=== PATIENT | male | born 1945 | race Caucasian/White ===

== ENCOUNTER → 2017-04-06 | Outpatient (CLI) | payer MEDICARE ==
--- NOTE | 2017-04-06 08:47 | CT ---
EXAMINATION TYPE: CT lumbar spine wo con DATE OF EXAM: 04/06/2017 COMPARISON: NONE HISTORY: Low back pain, Radiculopathy CT DLP: 1615.[address] of the lumbar spine was performed. Bone and soft tissue window settings are submitted as well as coronal and sagittal reconstructions. L1-L2: Vacuum disc changes. Mild circumferential disc bulge. No disc herniation protrusion or central stenosis. Mild facet joint arthropathy without foraminal encroachment. L2-L3: Vacuum disc changes. Mild circumferential disc bulge. No disc herniation protrusion or central stenosis. Mild facet joint arthropathy without foraminal encroachment. L3-L4: Vacuum disc changes. Moderate circumferential disc bulge. Effacement of the ventral thecal sac . Hypertrophy of the ligamentum flavum and facet joint arthropathy contribute to rsom-[id number]-[id number] jose cruz tral stenosis. Grade 1 retrolisthesis L3 on L4 of 3 mm. L4-L5: Vacuum disc changes. 9 mm anterolisthesis of L4 and L5. Severe facet joint arthropathy. Modera te circumferential disc bulge greatest posteriorly. Severe central stenosis identified. Bilateral for aminal encroachment seen. L5-S1: Vacuum disc changes. Broad-based right paracentral disc herniation effaces the ventral thecal sac. Right lateral recess stenosis. No evidence for central stenosis. Bilateral foraminal encroachmen t. No paraspinal masses are identified. No compression fractures identified. IMPRESSION: 1. Multilevel degenerative disc disease. 2. Multilevel central stenosis as discussed above.
== END | disposition home or self-care (01) ==
LOC: RADCTMAIN 07:11
PROVIDERS: ATTEND Orthopaedic Surgery Orthopaedic Surgery of the Spine
DX: M48.061 Spinal stenosis, lumbar region without neurogenic claudication (principal); M51.36 Other intervertebral disc degeneration, lumbar region
CPT/HCPCS: 72131

== ENCOUNTER 2017-06-15 22:18 | Emergency (ER) | payer MEDICARE ==
[2017-06-15 22:24] VITALS: TEMP 98.7
--- NOTE | 2017-06-15 22:28 | ED ---
Chest Pain HPI - General Chief Complaint: Chest Pain Stated Complaint: Chest Pain Time Seen by Provider: 06/15/17 22:27 Source: patient Mode of arrival: wheelchair Limitations: no limitations - Related Data Home Medications Medication Instructions Recorded Confirmed Aspirin 81 mg PO DAILY 07/05/14 10/23/14 Atorvastatin [Lipitor] 80 mg PO HS 07/05/14 10/23/14 Doxazosin [Cardura] 2 mg PO HS 07/05/14 10/23/14 Furosemide [Lasix] 40 mg PO DAILY 07/05/14 10/23/14 Isosorbide Mononitrate ER [Imdur] 60 mg PO DAILY 07/05/14 10/23/14 Levothyroxine Sodium [Synthroid] 175 mcg PO DAILY 07/05/14 10/23/14 Metoprolol Tartrate [Lopressor] 50 mg PO HS 07/05/14 10/23/14 Metoprolol Tartrate [Lopressor] 100 mg PO QAM 07/05/14 10/23/14 Niacin [Niacin ER] 2,000 mg PO HS 07/05/14 10/23/14 buPROPion SR [Wellbutrin SR] 150 mg PO BID 07/05/14 10/23/14 Cholecalciferol [Vitamin D3] 2,000 unit PO DAILY@1200 10/23/14 10/23/14 Hydrocodone/Acetaminophen [[place] 1 tab PO Q6HR PRN 10/23/14 10/23/14 5-325] Lecathin 1,200 mg PO DAILY 10/23/14 10/23/14 Multivitamin [Men's Multi-Vitamin] 1 tab PO DAILY 10/23/14 10/23/14 Phenylephrine 0.5% Nasal Gary 1 ml NASAL Q4H PRN 10/23/14 10/23/14 [Sahil-Synephrine 0.5% Gary] Vitamin B Complex 1 tab PO DAILY 10/23/14 10/23/14 Allergies Allergy/AdvReac Type Severity Reaction Status Date / Time cromolyn sodium AdvReac fungal Verified 10/23/14 14:58 [From Nasalcrom] infection on tongue Review of Systems ROS Statement: Those systems with pertinent positive or pertinent negative responses have been documented in the HPI. ROS Other: All systems not noted in ROS Statement are negative. Past Medical History Past Medical History: Eye Disorder, Hyperlipidemia, Hypertension, Myocardial Infarction (non Q-wave), Prostate Disorder, Thyroid Disorder Additional Past Medical History / Comment(s): Beginnings of cataracts bilat eyes Last Myocardial Infarction Date:: 05/01/2000 History of Any Multi-Drug Resistant Organisms: None Reported Past Surgical History: Cardiac Valve Replacement, Coronary Bypass/CABG, Heart Catheterization With Stent, Orthopedic Surgery Additional Past Surgical History / Comment(s): CABG-1999. LT EAR AVULSION REPAIR. FATTY TUMOR REMOVED FROM JAW. GANGLION CYSTECTOMY RT RING FINGER. RT FEMORAL ARTERY REPAIR 01/27/13. BILAT ROTATOR CUFF REPAIR. COLONOSCOPY Past Anesthesia/Blood Transfusion Reactions: No Reported Reaction Date of Last Stent Placement:: 1996 AND 01/14/13 Past Psychological History: Depression Smoking Status: Never smoker Past Alcohol Use History: None Reported Past Drug Use History: None Reported - Past Family History Father Family Medical History: Cancer General Exam Limitations: no limitations Course Vital Signs 06/15/17 22:21 Temperature 98.7 F Pulse Rate 61 Respiratory 18 Rate Blood Pressure 170/79 O2 Sat by Pulse 98 Oximetry Chest Pain MDM - MDM I did review the imaging and reports no acute findings. I did discuss case with Dr. Graf, patient will be admitted and evaluated for angina. Critical Care Time Critical Care Time: Yes Critical Care Time: 31 minutes of critical care time which includes initial presentation with history physical labs x-rays reevaluation patient responsive therapy discuss with the patient regarding findings discussed with the admitting physician admission orders and documentation of the above Disposition Clinical Impression: Unstable angina pectoris Disposition: ADMITTED IP TO THIS HOSP Condition: Stable Referrals: Jacob Savage DO [Primary Care Provider] - 1-2 days
--- NOTE | 2017-06-15 22:46 | ED ---
Chest Pain HPI - General Chief Complaint: Chest Pain Stated Complaint: Chest Pain Time Seen by Provider: 06/15/17 22:27 Source: patient, RN notes reviewed Mode of arrival: wheelchair Limitations: no limitations - History of Present Illness Initial Comments: This is a 71-year-old male with a history of heart disease with artificial valve who currently is in physical therapy who states he was in therapy this morning after he came out he felt chest tightness and some shortness of breath. This resolved after a short period of time. About an hour prior to arrival here this afternoon patient complained of midsternal chest pain it radiates to his jaw 6/10 severity. It lasted for a period time he did take a nitroglycerin at home he then came to the hospital he did take another nitro prior to arrival here he states the pain is now 0 he has any fevers chills nausea vomiting sweats or other symptoms with it. MD Complaint: chest pain - Related Data Home Medications Medication Instructions Recorded Confirmed Aspirin 81 mg PO DAILY 07/05/14 06/15/17 Atorvastatin [Lipitor] 80 mg PO HS 07/05/14 06/15/17 Doxazosin [Cardura] 2 mg PO HS 07/05/14 06/15/17 Furosemide [Lasix] 40 mg PO DAILY 07/05/14 06/15/17 Isosorbide Mononitrate ER [Imdur] 60 mg PO DAILY 07/05/14 06/15/17 Levothyroxine Sodium [Synthroid] 175 mcg PO DAILY 07/05/14 06/15/17 Metoprolol Tartrate [Lopressor] 50 mg PO HS 07/05/14 06/15/17 Metoprolol Tartrate [Lopressor] 100 mg PO QAM 07/05/14 06/15/17 buPROPion SR [Wellbutrin SR] 150 mg PO BID 07/05/14 06/15/17 Cholecalciferol [Vitamin D3] 2,000 unit PO DAILY 10/23/14 06/15/17 Multivitamin [Men's Multi-Vitamin] 1 tab PO DAILY 10/23/14 06/15/17 Escitalopram [Lexapro] 5 mg PO DAILY 06/15/17 06/15/17 Gabapentin [Neurontin] 300 mg PO TID 06/15/17 06/15/17 Glucosam/Ochoa-Msm1/C/Jona/Bosw 3 tab PO DAILY 06/15/17 06/15/17 [Glucosamine-Chondroitin Tablet] Lecithin, Soy [Lecithin] 1,200 mg PO DAILY 06/15/17 06/15/17 Meloxicam 15 mg PO DAILY 06/15/17 06/15/17 Niacin 2,000 mg PO HS 06/15/17 06/15/17 Preferred Prostate 3 tab PO DAILY 06/15/17 06/15/17 Vits A,C,E/Lutein/Minerals 1 tab PO DAILY 06/15/17 06/15/17 [Ocuvite with Lutein Tablet] Allergies Allergy/AdvReac Type Severity Reaction Status Date / Time black walnut Allergy Unknown Verified 06/15/17 23:09 cromolyn sodium AdvReac fungal Verified 06/15/17 23:09 [From Nasalcrom] infection on tongue Review of Systems ROS Statement: Those systems with pertinent positive or pertinent negative responses have been documented in the HPI. ROS Other: All systems not noted in ROS Statement are negative. EKG Findings - EKG Results: EKG: interpreted by MALDONADO, sinus rhythm (Sinus rhythm rate is 60 SD interval 218 QRS duration 112 QT since QTC of 452/452 incomplete left bundle-branch block no acute ST-T wave changes seen at this time.) Past Medical History Past Medical History: Eye Disorder, Hyperlipidemia, Hypertension, Myocardial Infarction (non Q-wave), Prostate Disorder, Thyroid Disorder Additional Past Medical History / Comment(s): Beginnings of cataracts bilat eyes Last Myocardial Infarction Date:: 05/01/2000 History of Any Multi-Drug Resistant Organisms: None Reported Past Surgical History: Cardiac Valve Replacement, Coronary Bypass/CABG, Heart Catheterization With Stent, Orthopedic Surgery Additional Past Surgical History / Comment(s): CABG-1999. LT EAR AVULSION REPAIR. FATTY TUMOR REMOVED FROM JAW. GANGLION CYSTECTOMY RT RING FINGER. RT FEMORAL ARTERY REPAIR 01/27/13. BILAT ROTATOR CUFF REPAIR. COLONOSCOPY Past Anesthesia/Blood Transfusion Reactions: No Reported Reaction Date of Last Stent Placement:: 1996 AND 01/14/13 Past Psychological History: Depression Smoking Status: Never smoker Past Alcohol Use History: None Reported Past Drug Use History: None Reported - Past Family History Father Family Medical History: Cancer General Exam - General Exam Comments Initial Comments: This is a well-developed well-nourished awake alert oriented 3 male Limitations: no limitations General appearance: alert, in no apparent distress Head exam: Present: atraumatic, normocephalic, normal inspection Eye exam: Present: normal appearance, PERRL, EOMI. Absent: scleral icterus, conjunctival injection, periorbital swelling ENT exam: Present: normal exam, mucous membranes moist, other (Patient does have hearing aids in place) Neck exam: Present: normal inspection. Absent: tenderness, meningismus, lymphadenopathy Respiratory exam: Present: normal lung sounds bilaterally. Absent: respiratory distress, wheezes, rales, rhonchi, stridor Cardiovascular Exam: Present: regular rate, normal rhythm, normal heart sounds. Absent: systolic murmur, diastolic murmur, rubs, gallop, clicks GI/Abdominal exam: Present: soft, normal bowel sounds. Absent: distended, tenderness, guarding, rebound, rigid Extremities exam: Present: normal inspection, full ROM, normal capillary refill. Absent: tenderness, pedal edema, joint swelling, calf tenderness Back exam: Present: normal inspection Neurological exam: Present: alert, oriented X3, CN II-XII intact Psychiatric exam: Present: normal affect, normal mood Skin exam: Present: warm, dry, intact, normal color. Absent: rash Course Vital Signs 06/15/17 22:21 Temperature 98.7 F Pulse Rate 61 Respiratory 18 Rate Blood Pressure 170/79 O2 Sat by Pulse 98 Oximetry Chest Pain MDM - MDM I did discuss the findings with patient family the initial workup was negative CAT scan is negative for acute findings. After long discussions the patient said he would like to go home he is invited back at any time. Disposition Clinical Impression: Unstable angina pectoris, Chest pain, Stable angina, Dehydration, Elevated d- dimer Disposition: HOME SELF-CARE Condition: Good Instructions: Chest Pain (ED), Dehydration (ED) Additional Instructions: Increase oral fluids Referrals: Jacob Savage DO [Primary Care Provider] - 1-2 days
[2017-06-15 22:58] LABS: Basophils % (A) 1 %; CH 34.6; CHCM 34.1; Eosinophils # (A) 0.5 k/uL (0-0.7); Eosinophils % (A) 8 %; HCT 41.2 % (39.0-53.0); Luc # (Auto) 0.16; Luc % (Auto) 3; Lymphocytes % (A) 16 %; MCH 34.7 pg (25.0-35.0); MCV 101.9 fL (80.0-100.0); Macrocytosis Slight; Mean Platelet Volume 7.4; Monocytes # (A) 0.6 k/uL (0-1.0); Monocytes % (A) 10 %; Neutrophils % (A) 63 %; RBC 4.04 m/uL (4.30-5.90); RDW 13.5 % (11.5-15.5); WBC 6.4 k/uL (3.8-10.6); WBC (Perox) 6.82
[2017-06-15 23:09] LABS: ALT 45 U/L (21-72); AST 32 U/L (17-59); Alkaline Phosphatase 150 U/L (38-126); Amylase 31 U/L (30-110); Anion Gap 6 mmol/L; Blood Urea Nitrogen 23 mg/dL (9-20); Carbon Dioxide 33 mmol/L (22-30); Chloride 102 mmol/L (98-107); Glucose 135 mg/dL (74-99); Magnesium 1.8 mg/dL (1.6-2.3); Non-African American GFR(MDRD) >60 (>60 ml/min/1.73 sqM); Sodium 141 mmol/L (137-145); Total Bilirubin 0.2 mg/dL (0.2-1.3); Total Protein 6.2 g/dL (6.3-8.2)
[2017-06-15 23:35] LABS: Partial Thromboplastin Time 22.3 sec (22.0-30.0); Prothrombin Time 9.8 sec (9.0-12.0)
[2017-06-15 23:36] LABS: Creatine Kinase MB 1.1 ng/mL (0.0-2.4); Troponin I 0.013 ng/mL (0.000-0.034)
--- NOTE | 2017-06-15 23:40 | XR ---
EXAM: XR Chest, 2 Views CLINICAL HISTORY: Reason: Chest Pain TECHNIQUE: Frontal and lateral views of the chest. COMPARISON: No relevant prior studies available. FINDINGS: Lungs: Unremarkable. No consolidation. Pleural space: Unremarkable. No pneumothorax. Heart: Cardiac size upper limits normal. Rounded retrocardiac opacity, nonspecific. Mediastinum: Unremarkable. Bones/joints: Sternotomy wires. The uppermost wire is discontinuous though not significantly, likely chronic. Vasculature: Uncoiled configuration of the aorta. Other findings: Blunting of the left cost phrenic sulcus. IMPRESSION: 1. Rounded retrocardiac opacity, nonspecific. Hiatal hernia may be present though this is difficult to confirm radiographically. CT scan of the chest is recommended for better characterization to exclude mass. 2. Small left pleural effusion.
[2017-06-16] MEDS ORDERED: RX INFO: IV CONTRAST WAS GIVEN 1 EACH MISC MISCELLANE PRN (00:12)
--- NOTE | 2017-06-16 01:23 | CT ---
EXAM: CT Angiography Chest With Intravenous Contrast CLINICAL HISTORY: Reason: Pain TECHNIQUE: Axial computed tomographic angiography images of the chest with intravenous contrast using pulmonary embolism protocol. CTDI is 252.6 mGy and DLP is 1152.5 mGy-cm. This CT exam was performed using one or more of the following dose reduction techniques: automated exposure control, adjustment of the mA and/or kV according to patient size, and/or use of iterative reconstruction technique. MIP reconstructed images were created and reviewed. Coronal and sagittal reformatted images were created and reviewed. COMPARISON: No relevant prior studies available. FINDINGS: Pulmonary arteries: Multiple foci of slight hypoattenuation in the mid to distal pulmonary arterial branches, likely related to mixing artifact and mild motion. No definitive pulmonary emboli identified on this examination. Aorta: There is a very tortuous course of the aorta. No evidence for aneurysm. Lungs: Bilateral mild atelectasis and scarring regarding the lung parenchyma. No mass. Pleural space: Unremarkable. No significant effusion. No pneumothorax. Heart: Atherosclerosis and multivessel coronary artery calcifications. Post-CABG changes. No significant pericardial effusion. No evidence of RV dysfunction. Bones/joints: Multilevel disc space height loss and osteophytosis. Degenerative changes to the glenohumeral joints. Questionable glenohumeral joint effusions bilaterally, larger on the left. No acute fracture. No dislocation. Soft tissues: Unremarkable. Lymph nodes: Unremarkable. No enlarged lymph nodes. Gallbladder and bile ducts: Cholelithiasis. Gallbladder is partially contracted. Kidneys and ureters: Small left renal cyst with simple density. IMPRESSION: 1. No definitive pulmonary emboli identified. Slight mixing artifact in the mid to distal pulmonary arterial branches. 2. No acute aortic findings. There is a prominent tortuous curve of the lower thoracic aorta, which causes for the rounded configuration structure seen overlying the left lower lung on recent radiograph. 3. Nonacute findings as above.
[2017-06-16 02:15] VITALS: BP 123/74; PULSE 51; RESP 16
--- NOTE | 2017-06-17 01:40 | CDI ---
Documentation Clarification OP Dear James BUENO MD Please do addendum to ED report for HPI , Physical exam and MDM. Thank you, Carla Soliz Patent Legal Assistant If you have any question, Please contact certified coding specialist at [phone] [id number]
== END 2017-06-16 02:05 | disposition home or self-care (01) ==
LOC: EC 22:18
DX: I20.0 Unstable angina (principal); E86.0 Dehydration; R79.1 Abnormal coagulation profile; R79.89 Other specified abnormal findings of blood chemistry; E78.5 Hyperlipidemia, unspecified; I10 Essential (primary) hypertension; I25.2 Old myocardial infarction; E07.9 Disorder of thyroid, unspecified; N42.9 Disorder of prostate, unspecified; F32.9 Major depressive disorder, single episode, unspecified; Z79.82 Long term (current) use of aspirin; Z79.1 Long term (current) use of non-steroidal anti-inflammatories (NSAID); Z79.899 Other long term (current) drug therapy; Z91.018 Allergy to other foods; Z88.8 Allergy status to other drugs, medicaments and biological substances
CPT/HCPCS: 36415; 93005; 85379; 83880; 80053; 82150; 82550; 82553; 83690; 83735; 84484; 85025; 85610; 85730; 71020; 71275; 99285; Q9967

== ENCOUNTER → 2017-08-27 | Outpatient (CLI) | payer MEDICARE ==
[2017-08-27 17:04] LABS: Blood Urea Nitrogen 24 mg/dL (9-20)
--- NOTE | 2017-08-28 08:10 | CT ---
EXAMINATION TYPE: CT lumbar spine wo con DATE OF EXAM: 08/27/2017 COMPARISON: Prior CT lumbar spine 04/06/2017 HISTORY: Low back pain. CT DLP: 1661.7 mGycm Automated exposure control for dose reduction was used. An unenhanced CT of the lumbar spine was performed. Bone and soft tissue window settings are submitt ed as well as coronal and sagittal reconstructions. FINDINGS: There is a spinal curvature as on prior exam, multilevel spondylosis is present, alignment is stable, anterolisthesis grade 1 L4-5, retrolisthesis grade 1 L3-4, L2-3, L1-2. Vacuum phenomenon present at multiple intervertebral disc levels with associated loss of disc height. Low dense focus within the l eft kidney may represent a cortical cyst. L1-L2: Posterior broad-based disc bulge causes anterior mass effect on the thecal sac, only mild cent ral stenosis. No significant foraminal encroachment. L2-L3: Posterior broad-based disc bulge causes anterior mass effect on the thecal sac. There is facet arthropathy change present. Lateral extension of endplate disc complex encroaches on the foramina le ft greater than right which may be contributed by the scoliosis. No significant central stenosis. L3-L4: Moderate central canal stenosis present due to listhesis as well as broad-based posterior disc bulge, lateral extension of endplate disc complex encroaches on the lateral recesses. L4-L5: There is severe spinal stenosis contributed by the listhesis as well as facet arthropathy with hypertrophy of ligamentum flavum, circumferential extension of endplate disc complex with associated listhesis contributes to cause bilateral foraminal encroachment. L5-S1: Broad-based posterior disc bulge contacts the anterior thecal sac and possibly the proximal S1 nerve roots. Circumferential extension of endplate disc complex encroaches on the foramina right gre ater than left. Gas density present at the neuroforamen on the right compatible with lateral extensio n of disc herniation. No significant central stenosis. IMPRESSION: There is no significant interval change. Scoliosis, degenerative disc disease, spinal kymberly nosis, multilevel foraminal encroachment. No paraspinal masses are identified. Lumbar segments are intact.
--- NOTE | 2017-08-28 08:14 | CT ---
CT angiogram of the head HISTORY: R 26.9, M 54.5 Helical acquisition through the brain following dynamic administration of 100 cc Omni 350. 3-dimensio nal reconstructions performed on an alternate workstation. Internal carotid arteries, vertebral arteries are patent, right vertebral artery dominant. There is n o evident aneurysm or vascular malformation. No filling defect to suggest dissection or embolism. Cor tical atrophy incidentally noted within the brain. There are some atherosclerotic vascular calcificat ions within the internal carotid arteries, within the siphon are some stenotic portions of the partner marketing intern al carotid arteries due to atherosclerotic change. IMPRESSION: [employer] [place]. No evident aneurysm. Cerebral vascular disease is noted.
== END | disposition home or self-care (01) ==
LOC: RADCTMAIN 16:22
PROVIDERS: ATTEND Psychiatry & Neurology Neurology
DX: M48.061 Spinal stenosis, lumbar region without neurogenic claudication (principal); M51.36 Other intervertebral disc degeneration, lumbar region; M41.86 Other forms of scoliosis, lumbar region; I67.9 Cerebrovascular disease, unspecified; R26.9 Unspecified abnormalities of gait and mobility
CPT/HCPCS: 82565; 84520; 72131; 70496; 36415; Q9967

== ENCOUNTER → 2018-01-23 | Outpatient (CLI) | payer MEDICARE | END | disposition home or self-care (01) | LOC: LABPAT 10:11 | PROVIDERS: ATTEND Orthopaedic Surgery | DX: Z01.812 Encounter for preprocedural laboratory examination (principal) | CPT/HCPCS: 87070 ==

== ENCOUNTER 2018-03-07 19:02 | Emergency (ER) | payer MEDICARE ==
[2018-03-07 19:14] VITALS: BP 116/71; PULSE 60; RESP 16; TEMP 98.4
--- NOTE | 2018-03-07 19:37 | ED ---
General Adult HPI - General Chief complaint: ENT Stated complaint: Post eye surgery pain Time Seen by Provider: 03/07/18 19:14 Source: patient, RN notes reviewed Mode of arrival: ambulatory Limitations: no limitations - History of Present Illness Initial comments: 72-year-old male presents emergency Department chief complaint of right eye irritation. Patient states that he had cataract surgery 3-[address] Grimes and then he followed up with Dr. Rodriguez rn immunology in which she had a retinal membranes surgery on March 04't . He did have a follow-up appointment with Dr. Baez on Thursday the following day. He is on multiple eyedrops, eye ointment. He states that he feels that there is something in his eye states it moves around. Patient states she's had no other changes. Patient states that he did use ointment and alleviated symptoms. Patient denies any ocular pain with movement. - Related Data Home Medications Medication Instructions Recorded Confirmed Aspirin 81 mg PO DAILY 07/05/14 12/18/17 Atorvastatin [Lipitor] 80 mg PO HS 07/05/14 12/18/17 Doxazosin [Cardura] 2 mg PO HS 07/05/14 12/18/17 Furosemide [Lasix] 40 mg PO DAILY 07/05/14 12/18/17 Isosorbide Mononitrate ER [Imdur] 60 mg PO DAILY 07/05/14 12/18/17 Levothyroxine Sodium [Synthroid] 175 mcg PO DAILY 07/05/14 12/18/17 Metoprolol Tartrate [Lopressor] 50 mg PO HS 07/05/14 12/18/17 Metoprolol Tartrate [Lopressor] 100 mg PO QAM 07/05/14 12/18/17 buPROPion SR [Wellbutrin SR] 150 mg PO BID 07/05/14 12/18/17 Cholecalciferol [Vitamin D3] 2,000 unit PO DAILY 10/23/14 12/18/17 Multivitamin [Men's Multi-Vitamin] 1 tab PO DAILY 10/23/14 12/18/17 Escitalopram [Lexapro] 5 mg PO DAILY 06/15/17 12/18/17 Gabapentin [Neurontin] 300 mg PO DAILY 06/15/17 12/18/17 Niacin 2,000 mg PO HS 06/15/17 12/18/17 Preferred Prostate 3 tab PO DAILY 06/15/17 12/18/17 Vits A,C,E/Lutein/Minerals 1 tab PO DAILY 06/15/17 12/18/17 [Ocuvite with Lutein Tablet] Hydroxychloroquine Sulfate 200 mg PO BID 12/18/17 [Plaquenil] Allergies Allergy/AdvReac Type Severity Reaction Status Date / Time black walnut Allergy Unknown Verified 03/07/18 19:13 cromolyn sodium AdvReac fungal Verified 03/07/18 19:13 [From Nasalcrom] infection on tongue Review of Systems ROS Statement: Those systems with pertinent positive or pertinent negative responses have been documented in the HPI. ROS Other: All systems not noted in ROS Statement are negative. Past Medical History Past Medical History: Eye Disorder, Hyperlipidemia, Hypertension, Myocardial Infarction (non Q-wave), Osteoarthritis (OA), Prostate Disorder, Thyroid Disorder Additional Past Medical History / Comment(s): hx migrianes, hx hiatal hernia, constipation, Last Myocardial Infarction Date:: 05/01/2000 History of Any Multi-Drug Resistant Organisms: None Reported Past Surgical History: Cardiac Valve Replacement, Coronary Bypass/CABG, Heart Catheterization With Stent, Orthopedic Surgery Additional Past Surgical History / Comment(s): CABG-1999-"has chest wire and 5 loose dedra" :double bypass, aortic valve reolacement and aneurysm repair , FATTY TUMOR REMOVED FROM JAW, GANGLION CYST RT RING FINGER, BILAT ROTATOR CUFF REPAIR (rt x3, lt x 1) titanium anchor, rt cataract, rt foot hammertoe Past Anesthesia/Blood Transfusion Reactions: No Reported Reaction Date of Last Stent Placement:: 1996 AND 01/14/13 Past Psychological History: Depression Smoking Status: Never smoker Past Alcohol Use History: None Reported Past Drug Use History: None Reported - Past Family History Father Family Medical History: Cancer General Exam Limitations: no limitations General appearance: alert, in no apparent distress Head exam: Present: atraumatic, normocephalic, normal inspection Eye exam: Present: PERRL, EOMI, other (No foreign body noted). Absent: normal appearance (Subconjunctival hemorrhage, defect noted, cataract noted.), scleral icterus, conjunctival injection, periorbital swelling ENT exam: Present: normal exam, mucous membranes moist Neck exam: Present: normal inspection, full ROM. Absent: tenderness, meningismus, lymphadenopathy Respiratory exam: Present: normal lung sounds bilaterally. Absent: respiratory distress, wheezes, rales, rhonchi, stridor Cardiovascular Exam: Present: regular rate, normal rhythm, normal heart sounds. Absent: systolic murmur, diastolic murmur, rubs, gallop, clicks Course Vital Signs 03/07/18 19:10 Temperature 98.4 F Pulse Rate 60 Respiratory 16 Rate Blood Pressure 116/71 O2 Sat by Pulse 94 L Oximetry Medical Decision Making - Medical Decision Making 72-year-old male presented for right eye irritation. Patient is status post retinal surgery. I did have a discussion with Dr. Grimes ophthalmologists he states that foreign-body sensation is, and after this type of surgery that they' re corneal defects that he can increase eye ointment to 3 times a day and that he can follow-up with [facility] tomorrow morning between 8 and 9 AM. We discussed return parameters Disposition Clinical Impression: Eye irritation, Status post eye surgery Disposition: HOME SELF-CARE Condition: Stable Instructions: Eye Pain (ED) Additional Instructions: Continue all eyedrops as directed, you may increase the use of eye ointment as discussed.Please return to the Emergency Department if symptoms worsen or any other concerns. Is patient prescribed a controlled substance at d/c from ED?: No Referrals: Jacob Savage DO [Primary Care Provider] - 1-2 days Time of Disposition: 19:36
== END 2018-03-07 19:46 | disposition home or self-care (01) ==
LOC: EC 19:02
DX: H11.31 Conjunctival hemorrhage, right eye (principal); H26.9 Unspecified cataract; E78.5 Hyperlipidemia, unspecified; I10 Essential (primary) hypertension; E07.9 Disorder of thyroid, unspecified; M19.90 Unspecified osteoarthritis, unspecified site; N42.9 Disorder of prostate, unspecified; F32.9 Major depressive disorder, single episode, unspecified; I25.2 Old myocardial infarction; Z88.8 Allergy status to other drugs, medicaments and biological substances; Z91.018 Allergy to other foods; Z79.82 Long term (current) use of aspirin; Z79.899 Other long term (current) drug therapy; Z98.890 Other specified postprocedural states
CPT/HCPCS: 99283

== ENCOUNTER 2019-05-16 00:29 | Inpatient (IN) | payer MEDICARE ==
--- NOTE | 2019-05-16 00:56 | ED ---
Chest Pain HPI - General Chief Complaint: Chest Pain Stated Complaint: Rt shoulder pain Time Seen by Provider: 05/16/19 00:42 Source: patient, EMS Mode of arrival: EMS Limitations: no limitations - History of Present Illness Initial Comments: Patient is 73-year-old male with history of an MN is presenting to emergency Department with chief complaint of chest pain. Patient reports the pain initially started around the right scapula and radiating along the right shoulder and distally to the elbow. He states he had upper, right-sided chest pressure. Patient reports he took 4 nitro tablets and states the pressure since resolved. Although, he was not aware whether the medication was . Patient denies shortness of breath, nausea, vomiting or episodes of diaphoresis. Patient denies any lightheadedness, dizziness, blurry vision or headache at this time. Patient is a history of hypertension, hypercholesterolemia and family history of cardiac disease. Patient has rotator cuff multiple surgeries in the right shoulder with limited range of motion. - Related Data Home Medications Medication Instructions Recorded Confirmed Aspirin 81 mg PO DAILY 07/05/14 05/16/19 Atorvastatin [Lipitor] 80 mg PO HS 07/05/14 05/16/19 Doxazosin [Cardura] 2 mg PO HS 07/05/14 05/16/19 Furosemide [Lasix] 40 mg PO DAILY 07/05/14 05/16/19 Isosorbide Mononitrate ER [Imdur] 60 mg PO DAILY 07/05/14 05/16/19 Levothyroxine Sodium [Synthroid] 200 mcg PO DAILY 07/05/14 05/16/19 Metoprolol Tartrate [Lopressor] 100 mg PO QAM 07/05/14 05/16/19 buPROPion SR [Wellbutrin SR] 150 mg PO BID 07/05/14 05/16/19 Cholecalciferol [Vitamin D3 (25 2,000 unit PO DAILY 10/23/14 05/16/19 Mcg = 1000 Iu)] Multivitamin [Men's Multi-Vitamin] 1 tab PO DAILY 10/23/14 05/16/19 Escitalopram [Lexapro] 5 mg PO DAILY 06/15/17 05/16/19 Gabapentin [Neurontin] 300 mg PO DAILY 06/15/17 05/16/19 Niacin 2,000 mg PO HS 12/11/17 11/11/19 Preferred Prostate 3 tab PO DAILY 06/15/17 05/16/19 Allergies Allergy/AdvReac Type Severity Reaction Status Date / Time black walnut Allergy Unknown Verified 05/16/19 00:43 cromolyn sodium AdvReac fungal Verified 05/16/19 00:43 [From Nasalcrom] infection on tongue Review of Systems ROS Statement: Those systems with pertinent positive or pertinent negative responses have been documented in the HPI. ROS Other: All systems not noted in ROS Statement are negative. EKG Findings - EKG Comments: EKG Findings:: First-degree AV block. Ventricular rate 52, NH interval 238, QRS duration 180, QT/QTc 456/424 Past Medical History Past Medical History: Eye Disorder, Hyperlipidemia, Hypertension, Myocardial Infarction (non Q-wave), Osteoarthritis (OA), Prostate Disorder, Thyroid Disorder Additional Past Medical History / Comment(s): hx migrianes, hx hiatal hernia, constipation, Last Myocardial Infarction Date:: 05/01/2000 History of Any Multi-Drug Resistant Organisms: None Reported Past Surgical History: Cardiac Valve Replacement, Coronary Bypass/CABG, Heart C atheterization With Stent, Orthopedic Surgery Additional Past Surgical History / Comment(s): CABG-1999-"has chest wire and 5 loose dedra" :double bypass, aortic valve reolacement and aneurysm repair , FATTY TUMOR REMOVED FROM JAW, GANGLION CYST RT RING FINGER, BILAT ROTATOR CUFF REPAIR (rt x3, lt x 1) titanium anchor, rt cataract, rt foot hammertoe Past Anesthesia/Blood Transfusion Reactions: No Reported Reaction Date of Last Stent Placement:: 1996 AND 01/14/13 Past Psychological History: Depression Smoking Status: Never smoker Past Alcohol Use History: None Reported Past Drug Use History: None Reported - Past Family History Father Family Medical History: Cancer General Exam Limitations: no limitations General appearance: alert, in no apparent distress, obese Head exam: Present: atraumatic (Healing contusion on the right supraorbital region.), normocephalic, normal inspection Eye exam: Present: normal appearance, PERRL, EOMI Pupils: Present: normal accommodation ENT exam: Present: normal exam Neck exam: Present: normal inspection, full ROM Respiratory exam: Present: normal lung sounds bilaterally Cardiovascular Exam: Present: regular rate, normal rhythm, normal heart sounds Extremities exam: Present: normal inspection, full ROM Back exam: Present: normal inspection, full ROM Neurological exam: Present: alert, oriented X3 Psychiatric exam: Present: normal affect, normal mood Skin exam: Present: warm, intact, normal color Course Vital Signs 05/16/19 05/16/19 05/16/19 00:34 01:40 03:00 Temperature 97.4 F L Pulse Rate 51 L 65 48 L Respiratory 18 19 18 Rate Blood Pressure 99/63 94/61 101/58 O2 Sat by Pulse 96 95 98 Oximetry Chest Pain MDM - Differential Diagnosis ACS, Pleurisy-Other - MDM Patient is 73-year-old male presenting to emergency Department with a chief complaint of chest pain. Patient was brought to the ED via EMS. Physical examination is remarkable for tenderness with palpation in the right scapular region along the posterior deltoid. No reproducible chest pain with palpation. Rest physical examination is remarkable. EKG shows first-degree AV block and remains unchanged from his most recent EKG from 2 years ago. Labs are unremarkable. Initial troponins are negative. Chest x-ray is negative. Cheyanne ent had a heart score of 5. Patient is ready seeing Dr. Babin. Patient will be admitted for observation. Admitting physician is Dr. Hussein. Cardiology consulted. Case discussed with physician. Disposition Clinical Impression: Chest pain Disposition: ADMITTED IP TO THIS [facility] Condition: Stable Is patient prescribed a controlled substance at d/c from ED?: No Time of Disposition: 03:33
[2019-05-16 01:17] LABS: Basophils % (A) 0 %; Eosinophils # (A) 0.1 k/uL (0-0.7); Eosinophils % (A) 2 %; HCT 40.1 % (39.0-53.0); Lymphocytes # (A) 1.2 k/uL (1.0-4.8); Lymphocytes % (A) 24 %; MCH 35.9 pg (25.0-35.0); MCHC 34.8 g/dL (31.0-37.0); MCV 103.3 fL (80.0-100.0); Macrocytosis Slight; Mean Platelet Volume 6.3; Monocytes # (A) 0.3 k/uL (0-1.0); Monocytes % (A) 6 %; Neutrophils # (A) 3.2 k/uL (1.3-7.7); Neutrophils % (A) 63 %; Platelet Count 112 k/uL (150-450); RBC 3.88 m/uL (4.30-5.90); RDW 12.4 % (11.5-15.5)
--- NOTE | 2019-05-16 01:20 | XR ---
EXAMINATION TYPE: XR chest 2V DATE OF EXAM: 05/16/2019 COMPARISON: 06/15/2017 HISTORY: Chest pain TECHNIQUE: Frontal and lateral views of the chest are obtained. FINDINGS: There is no heart failure nor confluent pneumonic infiltrate. There are chest leads. Costo phrenic angles are clear. There is some spurring in the lower thoracic spine. There is mild anterior wedging of lower thoracic vertebra. There is some linear density in the left lower lobe in the superi or segment. IMPRESSION: No active cardiopulmonary disease. No significant change. Minimal scarring in the left l ower lobe. Unchanged.
[2019-05-16 01:27] LABS: Albumin 3.8 g/dL (3.5-5.0); Total Bilirubin 0.4 mg/dL (0.2-1.3); Total Protein 6.6 g/dL (6.3-8.2)
[2019-05-16 01:37] LABS: Partial Thromboplastin Time 24.8 sec (22.0-30.0); Prothrombin Time 10.9 sec (9.0-12.0)
[2019-05-16] MEDS ORDERED: SODIUM CHLORIDE 0.9% 1,000 ML IV STA (01:55)
--- NOTE | 2019-05-16 02:22 | XR ---
EXAMINATION TYPE: XR shoulder complete RT DATE OF EXAM: 05/16/2019 COMPARISON: NONE HISTORY: Shoulder pain TECHNIQUE: 3 views FINDINGS: There are pins in the humeral head. There is subacromial joint space narrowing and impingem ent. I see no fracture nor dislocation. IMPRESSION: No fracture seen. Severe subacromial joint space narrowing.
[2019-05-16] MEDS ORDERED: SODIUM CHLORIDE 0.9% 1,000 ML IV ONE ×2 (03:12→12:31)
[2019-05-16] MEDS: NITROGLYCERIN SL TABS 0.4 MG TAB SUBLINGUAL PRN ×2 (03:54→04:17)
[2019-05-16] MEDS ORDERED: NITROGLYCERIN OINT 1 INCH/GM PACKET TOPICAL STA (05:01)
[2019-05-16] MEDS ORDERED: HEPARIN SODIUM,PORCINE 5,000 UNIT/ML 1 ML VIAL IV ONE (05:04)
[2019-05-16] MEDS ORDERED: HEPARIN SODIUM,PORCINE 5,000 UNIT/ML 1 ML VIAL IV PRN ×2 (05:04→14:29)
[2019-05-16] MEDS ORDERED: HEPARIN SOD,PORK IN 0.45% NACL 25,000 UNIT in 0.45% NACL 1 250ML.BAG IV SCH ×2 (05:15→17:00)
[2019-05-16] MEDS ORDERED: MORPHINE SULFATE 2 MG/ML SYRINGE IVP STA (07:09)
[2019-05-16 07:23] LABS: Basophils % (A) 0 %; Eosinophils # (A) 0.1 k/uL (0-0.7); Eosinophils % (A) 2 %; HGB 13.9 gm/dL (13.0-17.5); Lymphocytes # (A) 0.9 k/uL (1.0-4.8); Lymphocytes % (A) 16 %; MCH 35.9 pg (25.0-35.0); MCHC 34.8 g/dL (31.0-37.0); MCV 103.2 fL (80.0-100.0); Macrocytosis Slight; Mean Platelet Volume 6.1; Monocytes # (A) 0.2 k/uL (0-1.0); Monocytes % (A) 4 %; Neutrophils # (A) 4.3 k/uL (1.3-7.7); Neutrophils % (A) 76 %; Platelet Count 107 k/uL (150-450); RBC 3.87 m/uL (4.30-5.90); RDW 12.3 % (11.5-15.5); WBC 5.6 k/uL (3.8-10.6)
[2019-05-16 07:37] LABS: INR 1.1 (<1.2); Partial Thromboplastin Time 73.7 sec (22.0-30.0); Prothrombin Time 11.3 sec (9.0-12.0)
[2019-05-16] MEDS: METOPROLOL TARTRATE 50 MG TAB PO SCH (08:46)
[2019-05-16] MEDS ORDERED: FUROSEMIDE 40 MG TAB PO SCH (09:00)
[2019-05-16] MEDS ORDERED: SODIUM CHLORIDE 0.9% 1,000 ML in EMPTY BAG 1 BAG IV ONE (09:27)
[2019-05-16] MEDS ORDERED: ALPRAZolam 0.25 MG TAB PO PRN ×2 (09:27→14:30)
[2019-05-16] MEDS ORDERED: ALPRAZolam 0.5 MG TAB PO PRN ×2 (09:27→14:30)
[2019-05-16] MEDS: ISOSORBIDE MONONITRATE ER 60 MG TAB.ER.24H PO SCH (10:22)
--- NOTE | 2019-05-16 10:50 | P.CRDCN ---
History of Present Illness History of present illness: HISTORY OF PRESENTING ILLNESS This is a pleasant 73-year-old male past medical history significant for coronary artery disease status post bypass grafting with PCI to the mid-RCA in 1996, 2V bypass 1999 with SVG-D1 and LIZ-LAD, aortic valve replacement 2009, PCI SVG-D1 2012. He also has hypertension and dyslipidemia. He presented with right shoulder and right anterior chest wall pain. He follows in the office with Dr. Babin. We have been asked to see him in consultation for chest pain. He states for the previous 3 days he has been experiencing intermittent pain in the right shoulder. At times there is radiation down the right arm and into the right anterior chest. The discomfort is at rest and not exacerbated by activity. There is no associated shortness of breath, dizziness, nausea, vomiting or palpitations. The first 2 times it happened it was quite brief and subsided on its own. Yesterday it happened and it persisted for most of the day. He took 3 SL nitro and after the third one it did improve. However after about an hour or so the pain came back again prompting him to come in for evaluation. He had another episode last evening around 0300. Currently he is chest pain free. No active pain in the right shoulder or chest. DIAGNOSTICS EKG reveals on admission reveals incomplete left bundle with sinus bradycardia heart rate 52 with flattened T-waves inferiorly. Repeat EKG at the time of chest pain shows ongoing incomplete left bundle with inferior T-wave changes. Chest xray negative for an acute cardiopulmonary process . Laboratory reviewed, WBC 5.6, hemoglobin 13.9, platelets 107, sodium 140, potassium 4.0, creatinine 1.06, magnesium 2.0 initial troponin less than 0.012 second troponin 0.115,. Current cardiac medications include aspirin 81 mg daily, Lasix 40 mg daily, Imdur 60 mg daily, Toprol 100 mg daily in the morning and 50 at bedtime and atorvastatin 80 mg at bedtime. Most recent echocardiogram obtained in the office November 2018 revealed preserved LV systolic function with normal ejection fraction, normal functioning prosthetic aortic valve with a mean gradient of 11 mmHg, mild TR and mild MR. Most recent stress test performed in the office was February 2017 with a Lexiscan stress test revealed preserved LV systolic function with ejection fraction 50% with a fixed inferior apical defect REVIEW OF SYSTEMS At the time of my exam: CONSTITUTIONAL: Denies fever or chills. CARDIOVASCULAR: Denies chest pain, shortness of breath, orthopnea, PND or palpitations. RESPIRATORY: Denies cough. GASTROINTESTINAL: Denies abdominal pain, diarrhea, constipation, nausea or vomiting. MUSCULOSKELETAL: Denies myalgias. NEUROLOGIC: Denies numbness, tingling or weakness. ENDOCRINE: Denies fatigue, weight change, polydipsia or polyurina. GENITOURINARY: Denies burning, hematuria or urgency with micturation. HEMATOLOGIC: Denies history of anemia or bleeding. PHYSICAL EXAMINATION Blood pressure 126/77 heart rate 64 afebrile and maintaining oxygen saturaiton on nasal cannula. CONSTITUTIONAL: No apparent distress. HEENT: Head is normocephalic. Pupils are equal, round. Sclerae anicteric. Mucous membranes of the mouth are moist. No JVD. No carotid bruit. CHEST EXAMINATION: Lungs are clear to auscultation. No chest wall tenderness is noted on palpation or with deep breathing. HEART EXAMINATION: Regular rate and rhythm. S1, S2 heard. Systolic ejection murmur at the base, no gallops or rub. ABDOMEN: Soft, nontender. Positive bowel sounds. EXTREMITIES: 2+ peripheral pulses, no lower extremity edema and no calf tenderness. NEUROLOGIC EXAMINATION: Patient is awake, alert and oriented x3. ASSESSMENT [id number] myocardial infarction Thrombocytopenia Hypertension Dyslipidemia Coronary artery disease s/p bypass grafting with subsequent PCI to SVG-D1 Aortic stenosis s/p tissue aortic valve replacement Obesity, BMI 31 PLAN Obtain 2-D echocardiogram and Doppler study to assess cardiac structure and function. Recommend proceeding with cardiac catheterization to assess for progression of underlying CAD. I have discussed the risks, benefits and alternative therapies for the above-mentioned procedure and for both sedation/analgesia as well as necessary blood product administration, if indicated, as they pertain to this patient. The patient has indicated understanding and acceptance of the risks and procedures discussed. Questions have been answered appropriately and he is agreeable to move forward with above stated procedure. Further recommendations to follow based on clinical course. Thank you kindly for this consultation. Nurse Practitioner note has been reviewed, I agree with a documented findings and plan of care. Patient was seen and examined. Past Medical History Past Medical History: Eye Disorder, Hyperlipidemia, Hypertension, Myocardial Infarction (non Q-wave), Osteoarthritis (OA), Prostate Disorder, Thyroid Disorde r Additional Past Medical History / Comment(s): hx migrianes, hx hiatal hernia, constipation, Last Myocardial Infarction Date:: 05/01/2000 History of Any Multi-Drug Resistant Organisms: None Reported Past Surgical History: Cardiac Valve Replacement, Coronary Bypass/CABG, Heart Catheterization With Stent, Orthopedic Surgery Additional Past Surgical History / Comment(s): CABG-1999-"has chest wire and 5 loose dedra" :double bypass, aortic valve reolacement and aneurysm repair , FATTY TUMOR REMOVED FROM JAW, GANGLION CYST RT RING FINGER, BILAT ROTATOR CUFF REPAIR (rt x3, lt x 1) titanium anchor, rt cataract, rt foot hammertoe Past Anesthesia/Blood Transfusion Reactions: No Reported Reaction Date of Last Stent Placement:: 1996 AND 01/14/13 Past Psychological History: Depression Smoking Status: Never smoker Past Alcohol Use History: None Reported Past Drug Use History: None Reported - Past Family History Father Family Medical History: Cancer Medications and Allergies Home Medications Medication Instructions Recorded Confirmed Type Aspirin 81 mg PO DAILY 07/05/14 05/16/19 History Atorvastatin [Lipitor] 80 mg PO HS 07/05/14 05/16/19 History Doxazosin [Cardura] 2 mg PO HS 07/05/14 05/16/19 History Furosemide [Lasix] 40 mg PO DAILY 07/05/14 05/16/19 History Isosorbide Mononitrate ER [Imdur] 60 mg PO DAILY 07/05/14 05/16/19 History Levothyroxine Sodium [Synthroid] 200 mcg PO MOTU 07/05/14 05/16/19 History buPROPion SR [Wellbutrin SR] 150 mg PO BID 07/05/14 05/16/19 History Cholecalciferol [Vitamin D3 (25 2,000 unit PO DAILY 10/23/14 05/16/19 History Mcg = 1000 Iu)] Gabapentin [Neurontin] 300 mg PO DAILY 06/15/17 05/16/19 History Niacin 2,000 mg PO HS 06/15/17 05/16/19 History Preferred Prostate 2 tab PO DAILY 06/15/17 05/16/19 History C,E,Zinc,Copper 11/Mbwfe4x/Lut 1 cap PO DAILY 05/16/19 05/16/19 History [Ocuvite Adult 50 Plus Softgel] Cyanocobalamin (Vitamin B-12) 1,000 mcg PO DAILY 05/16/19 05/16/19 History [Vitamin B-12] Escitalopram Oxalate [Lexapro] 10 mg PO DAILY 05/16/19 05/16/19 History Hydroxychloroquine Sulfate 200 mg PO BID 05/16/19 05/16/19 History [Plaquenil] Levothyroxine Sodium [Synthroid] 175 mcg PO SUWETHFRSA 05/16/19 05/16/19 History Metoprolol Succinate (ER) [Toprol 100 mg PO DAILY 05/16/19 05/16/19 History Xl] Metoprolol Succinate [Toprol XL] 50 mg PO HS 05/16/19 05/16/19 History Allergies Allergy/AdvReac Type Severity Reaction Status Date / Time black walnut Allergy Unknown Verified 05/16/19 00:43 cromolyn sodium AdvReac fungal Verified 05/16/19 00:43 [From Nasalcrom] infection on tongue Physical Exam Vitals: Vital Signs Temp Pulse Pulse Resp BP BP Pulse Ox 05/16/19 08:00 98.1 F 64 18 126/77 98 05/16/19 06:01 18 96 05/16/19 04:27 58 L 17 118/71 98 05/16/19 04:15 60 16 148/85 99 05/16/19 03:30 97.5 F L 58 L 17 158/96 100 05/16/19 03:00 48 L 18 101/58 98 05/16/19 01:40 65 19 94/61 95 05/16/19 00:34 97.4 F L 51 L 18 99/63 96 Intake and Output 05/15/19 05/16/19 05/16/19 22:59 06:59 14:59 Other: # Voids 2 Weight 92.079 kg Results 05/16/19 07:05 05/16/19 00:55 Cardiac Enzymes 05/16/19 05/16/19 05/16/19 Range/Units 00:55 00:55 07:09 AST 37 (17-59) U/L Troponin I <0.012 0.115 H* (0.000-0.034) ng/mL Coagulation 05/16/19 05/16/19 Range/Units 00:55 07:09 PT 10.9 11.3 (9.0-12.0) sec APTT 24.8 73.7 H (22.0-30.0) sec CBC 05/16/19 05/16/19 Range/Units 00:55 07:05 WBC 5.0 5.6 (3.8-10.6) k/uL RBC 3.88 L 3.87 L (4.30-5.90) m/uL Hgb 14.0 13.9 (13.0-17.5) gm/dL Hct 40.1 40.0 (39.0-53.0) % Plt Count 112 L 107 L (150-450) k/uL Comprehensive Metabolic Panel 05/16/19 Range/Units 00:55 Sodium 140 (137-145) mmol/L Potassium 4.0 (3.5-5.1) mmol/L Chloride 103 (98-107) mmol/L Carbon Dioxide 32 H (22-30) mmol/L BUN 24 H (9-20) mg/dL Creatinine 1.06 (0.66-1.25) mg/dL Glucose 95 (74-99) mg/dL Calcium 9.0 (8.4-10.2) mg/dL AST 37 (17-59) U/L ALT 21 (21-72) U/L Alkaline Phosphatase 135 H (38-126) U/L Total Protein 6.6 (6.3-8.2) g/dL Albumin 3.8 (3.5-5.0) g/dL Current Medications Generic Name Dose Route Start Last Admin Trade Name Freq PRN Reason Stop Dose Admin Alprazolam 0.25 mg 05/16/19 09:27 Xanax PO Q6HR PRN Mild Anxiety Alprazolam 0.5 mg 05/16/19 09:27 Xanax PO Q6HR PRN Moderate Anxiety Aspirin 325 mg 05/17/19 09:00 Aspirin PO DAILY [facility] Atorvastatin Calcium 80 mg 05/16/19 21:00 Lipitor PO HS TRACY Furosemide 40 mg 05/16/19 09:00 05/16/19 08:46 Lasix PO 40 mg DAILY [facility] Administration Heparin Sodium (Porcine) 0 unit 05/16/19 05:04 Heparin IV PER PROTOCOL PRN Low PTT Protocol Heparin Sodium/Sodium Chloride 250 mls @ 9.208 mls/hr 05/16/19 05:15 05/16/19 05:23 25,000 unit/ Sodium Chloride IV 10 units/kg/hr .Q24H TRACY 9.208 mls/hr Administration Protocol 10 UNITS/KG/HR Sodium Chloride 1,000 ml/ IV 1,000 mls @ 92.079 mls/hr 05/16/19 09:27 Solution IV 05/16/19 20:18 .[id number] ONE 1 ML/KG/HR Isosorbide Mononitrate 60 mg 05/16/19 09:00 Imdur PO DAILY TRACY Metoprolol Tartrate 100 mg 05/16/19 09:00 05/16/19 08:46 Lopressor PO 100 mg QAM TRACY Administration Nitroglycerin 0.4 mg 05/16/19 02:52 05/16/19 04:17 Nitrostat SUBLINGUAL 0.4 mg Q5M PRN Administration Chest Pain Intake and Output 05/15/19 05/16/19 05/16/19 22:59 06:59 14:59 Other: # Voids 2 Weight 92.079 kg 05/16/19 07:05 05/16/19 00:55
--- NOTE | 2019-05-16 12:01 | ECHOF ---
Referral Reason:cp, nstemi MEASUREMENTS -------- HEIGHT: 170.2 cm WEIGHT: 92.1 kg BP: 116/77 IVSd: 1.7 cm (0.6 - 1.1) LVIDd: 4.2 cm (3.9 - 5.3) LVPWd: 1.5 cm (0.6 - 1.1) IVSs: 1.9 cm LVIDs: 2.7 cm LVPWs: 1.8 cm RVIDd: 4.4 cm (< 3.3) LAESV Index (A-L): 43.38 ml/m Ao Diam: 3.3 cm (2.0 - 3.7) LA Diam: 5.7 cm (2.7 - 3.8) AV Cusp: 1.7 cm (1.5 - 2.6) EPSS: 1.1 cm MV E Tyrell: 0.57 m/s MV DecT: 264 ms MV A Tyrell: 0.86 m/s MV E/A Ratio: 0.65 AV maxP.14 mmHg AV meanP.81 mmHg RAP: 5.00 mmHg RVSP: 41.20 mmHg MV EF SLOPE: 46.13 mm/s (70 - 150) MV EXCURSION: 13.69 mm (> 18.000) FINDINGS -------- Resting bradycardia (HR<60bpm). This was a technically difficult study with suboptimal apical views. The left ventricular size is normal. There is moderate concentric left ventricular hypertrophy. O verall left ventricular systolic function is low-normal with, an EF between 50 - 55 %. Increased La p Grade II Diastolic Dysfunction. DISTAL SEPTAL AND APICAL AKINESIS The right ventricle is moderate to severely enlarged. LA is severely dilated >40 ml/m2 The right atrium was not well visualized. Interatrial and interventricular septum intact. Peak/mean gradient across the Aortic Valve is 23.14mmHg / 13.81mmHg. Normally functioning bioprosth etic valve. Mild mitral annular calcification present. Ygae-jf-jauwbnpq mitral regurgitation is present. Ctoz-ks-nxogfvnk tricuspid regurgitation present. There is mild to moderate pulmonary hypertension. The right ventricular systolic pressure, as measured by Doppler, is 41.20mmHg. There is no pulmonic regurgitation present. The aortic root size is normal. IVC Not well visulized. There is no pericardial effusion. 5.0mg of Lumason was utilized for enhancement of images CONCLUSIONS -------- 1. Resting bradycardia (HR<60bpm). 2. This was a technically difficult study with suboptimal apical views. 3. The left ventricular size is normal. 4. There is moderate concentric left ventricular hypertrophy. 5. Overall left ventricular systolic function is low-normal with, an EF between 50 - 55 %. 6. Increased Lap Grade II Diastolic Dysfunction. 7. The right ventricle is moderate to severely enlarged. 8. LA is severely dilated >40 ml/m2 9. The right atrium was not well visualized. 10. Normally functioning bioprosthetic valve. 11. 5.0mg of Lumason was utilized for enhancement of images 12. Interatrial and interventricular septum intact. 13. Peak/mean gradient across the Aortic Valve is 23.14mmHg / 13.81mmHg. 14. Mild mitral annular calcification present. 15. Vash-og-fyjzkibv mitral regurgitation is present. 16. Zrel-na-gdterfww tricuspid regurgitation present. 17. There is mild to moderate pulmonary hypertension. 18. The right ventricular systolic pressure, as measured by Doppler, is 41.20mmHg. 19. There is no pulmonic regurgitation present. 20. The aortic root size is normal. 21. IVC Not well visulized. 22. There is no pericardial effusion. PUBLIC EMPLOYMENT MEDIATOR: Oralia Mosley RDCS
[2019-05-16] MEDS: LEVOTHYROXINE 100 MCG TAB PO SCH (12:14)
[2019-05-16] MEDS ORDERED: SODIUM CHLORIDE 0.9% 500 ML 500 ML IV ONE (12:31)
[2019-05-16] MEDS ORDERED: fentaNYL (PF) 50 MCG/ML 2 ML AMP IV ONE (12:48)
[2019-05-16] MEDS ORDERED: LIDOCAINE 1% INJ 10MG/ML (20 ML MDV) SQ ONE ×2 (12:50→12:51)
--- NOTE | 2019-05-16 12:54 | P.HPIM ---
History of Present Illness Patient is a pleasant 73-year-old gentleman with known history of coronary artery disease with stents in the past and CABG in the past along with rotator cuff surgery in the past came in with complaint of pain in the right arm sharp in nature lasted few a few hours no associated shortness of breath no nausea nonpruritic pain nonexertional mild to moderate pain. Patient the pain radiates to the right side of the chest. Patient denied any palpitations patient any cough chest x-ray did not show any pneumonic process. Patient's second set of troponin is minimally elevated, first set of of troponin is negative, sublingual nitroglycerin didn't help his pain. Patient's pain started last evening around 3 PM. Patient EKG is significant for the incomplete left bundle branch block along with sinus bradycardia and some ST-T wave changes in the inferior leads that is V2 and lead 3 Review of Systems REVIEW OF SYSTEMS: CONSTITUTIONAL: No fever, no malaise, no fatigue. HEENT: No recent visual problems or hearing problems. Denied any sore throat. CARDIOVASCULAR: No orthopnea, PND, no palpitations, no syncope. PULMONARY: No shortness of breath, no cough, no hemoptysis. GASTROINTESTINAL: No diarrhea, no nausea, no vomiting, no abdominal pain. NEUROLOGICAL: No headaches, no weakness, no numbness. HEMATOLOGICAL: Denies any bleeding or petechiae. GENITOURINARY: Denies any burning micturition, frequency, or urgency. MUSCULOSKELETAL/RHEUMATOLOGICAL: Denies any joint pain, swelling, or any muscle pain. ENDOCRINE: Denies any polyuria or polydipsia. The rest of the 14-point review of systems is negative. Past Medical History Past Medical History: Eye Disorder, Hyperlipidemia, Hypertension, Myocardial Infarction (non Q-wave), Osteoarthritis (OA), Prostate Disorder, Thyroid Disorder Additional Past Medical History / Comment(s): hx migrianes, hx hiatal hernia, constipation, Last Myocardial Infarction Date:: 05/01/2000 History of Any Multi-Drug Resistant Organisms: None Reported Past Surgical History: Cardiac Valve Replacement, Coronary Bypass/CABG, Heart Catheterization With Stent, Orthopedic Surgery Additional Past Surgical History / Comment(s): CABG-1999-"has chest wire and 5 loose dedra" :double bypass, aortic valve reolacement and aneurysm repair , FATTY TUMOR REMOVED FROM JAW, GANGLION CYST RT RING FINGER, BILAT ROTATOR CUFF REPAIR (rt x3, lt x 1) titanium anchor, rt cataract, rt foot hammertoe Past Anesthesia/Blood Transfusion Reactions: No Reported Reaction Date of Last Stent Placement:: 1996 AND 01/14/13 Past Psychological History: Depression Smoking Status: Never smoker Past Alcohol Use History: None Reported Past Drug Use History: None Reported - Past Family History Father Family Medical History: Cancer Medications and Allergies Home Medications Medication Instructions Recorded Confirmed Type Aspirin 81 mg PO DAILY 07/05/14 05/16/19 History Atorvastatin [Lipitor] 80 mg PO HS 07/05/14 05/16/19 History Doxazosin [Cardura] 2 mg PO HS 07/05/14 05/16/19 History Furosemide [Lasix] 40 mg PO DAILY 07/05/14 05/16/19 History Isosorbide Mononitrate ER [Imdur] 60 mg PO DAILY 07/05/14 05/16/19 History Levothyroxine Sodium [Synthroid] 200 mcg PO MOTU 07/05/14 05/16/19 History buPROPion SR [Wellbutrin SR] 150 mg PO BID 07/05/14 05/16/19 History Cholecalciferol [Vitamin D3 (25 2,000 unit PO DAILY 10/23/14 05/16/19 History Mcg = 1000 Iu)] Gabapentin [Neurontin] 300 mg PO DAILY 06/15/17 05/16/19 History Niacin 2,000 mg PO HS 06/15/17 05/16/19 History Preferred Prostate 2 tab PO DAILY 06/15/17 05/16/19 History C,E,Zinc,Copper 11/Cmops8s/Lut 1 cap PO DAILY 05/16/19 05/16/19 History [Ocuvite Adult 50 Plus Softgel] Cyanocobalamin (Vitamin B-12) 1,000 mcg PO DAILY 05/16/19 05/16/19 History [Vitamin B-12] Escitalopram Oxalate [Lexapro] 10 mg PO DAILY 05/16/19 05/16/19 History Hydroxychloroquine Sulfate 200 mg PO BID 05/16/19 05/16/19 History [Plaquenil] Levothyroxine Sodium [Synthroid] 175 mcg PO SUWETHFRSA 05/16/19 05/16/19 History Metoprolol Succinate (ER) [Toprol 100 mg PO DAILY 05/16/19 05/16/19 History Xl] Metoprolol Succinate [Toprol XL] 50 mg PO HS 05/16/19 05/16/19 History Allergies Allergy/AdvReac Type Severity Reaction Status Date / Time black walnut Allergy Unknown Verified 05/16/19 00:43 cromolyn sodium AdvReac fungal Verified 05/16/19 00:43 [From Nasalcrom] infection on tongue Physical Exam Vitals: Vital Signs Temp Pulse Pulse Resp BP BP Pulse Ox 05/16/19 11:36 97.6 F 51 L 18 107/65 97 05/16/19 08:00 98.1 F 64 18 126/77 98 05/16/19 06:01 18 96 05/16/19 04:27 58 L 17 118/71 98 05/16/19 04:15 60 16 148/85 99 05/16/19 03:30 97.5 F L 58 L 17 158/96 100 05/16/19 03:00 48 L 18 101/58 98 05/16/19 01:40 65 19 94/61 95 05/16/19 00:34 97.4 F L 51 L 18 99/63 96 Intake and Output 05/15/19 05/16/19 05/16/19 22:59 06:59 14:59 Other: # Voids 2 Weight 92.079 kg PHYSICAL EXAMINATION: GENERAL: The patient is alert and oriented x3, not in any acute distress. Well developed, well nourished. HEENT: Pupils are round and equally reacting to light. EOMI. No scleral icterus. No conjunctival pallor. Normocephalic, atraumatic. No pharyngeal erythema. No thyromegaly. CARDIOVASCULAR: S1 and S2 present. No murmurs, rubs, or gallops. PULMONARY: Chest is clear to auscultation, no wheezing or crackles. ABDOMEN: Soft, nontender, nondistended, normoactive bowel sounds. No palpable organomegaly. MUSCULOSKELETAL: No joint swelling or deformity. EXTREMITIES: No cyanosis, clubbing, or pedal edema. NEUROLOGICAL: Gross neurological examination did not reveal any focal deficits. SKIN: No rashes. Results CBC & Chem 7: 05/16/19 07:05 05/16/19 00:55 Labs: Abnormal Lab Results - Last 24 Hours (Table) 05/16/19 05/16/19 05/16/19 Range/Units 00:55 00:55 07:05 RBC 3.88 L 3.87 L (4.30-5.90) m/uL MCV 103.3 H 103.2 H (80.0-100.0) fL MCH 35.9 H 35.9 H (25.0-35.0) pg Plt Count 112 L 107 L (150-450) k/uL Lymphocytes # 0.9 L (1.0-4.8) k/uL APTT (22.0-30.0) sec Carbon Dioxide 32 H (22-30) mmol/L BUN 24 H (9-20) mg/dL Alkaline Phosphatase 135 H (38-126) U/L Troponin I (0.000-0.034) ng/mL 05/16/19 05/16/19 Range/Units 07:09 07:09 RBC (4.30-5.90) m/uL MCV (80.0-100.0) fL MCH (25.0-35.0) pg Plt Count (150-450) k/uL Lymphocytes # (1.0-4.8) k/uL APTT 73.7 H (22.0-30.0) sec Carbon Dioxide (22-30) mmol/L BUN (9-20) mg/dL Alkaline Phosphatase (38-126) U/L Troponin I 0.115 H* (0.000-0.034) ng/mL Thrombosis Risk Factor Assmnt - Choose All That Apply Any of the Below Risk Factors Present?: Yes Each Factor Represents 1 point: Obesity (BMI >25), Varicose veins Other Risk Factors: Yes Each Risk Factor Represents 2 Points: Age 61-74 years Thrombosis Risk Factor Assessment Total Risk Factor Score: 4 Thrombosis Risk Factor Assessment Level: Moderate Risk Assessment and Plan Plan: -Possible non-ST elevation myocardial patient was continued on antiplatelet therapy, IV heparin patient will go for cardiac catheterization will continue with statin. -Right arm pain can be musculoskeletal patient's active motion of the right arm is restricted from his previous surgery. No pain with passive or active movement of the right arm. -Hyperlipidemia -Hypertension next and have an coronary artery disease Hypothyroidism benign prostatic hypertrophy For above-mentioned chronic medical problems patient will be resumed on appropriate home medications.
[2019-05-16] MEDS ORDERED: IOPAMIDOL-370 125ML BTL INJ ONE (13:23)
[2019-05-16] MEDS ORDERED: IOPAMIDOL-370 50ML BTL INJ ONE (13:37)
[2019-05-16] MEDS ORDERED: CLOPIDOGREL 75 MG TAB PO ONE (13:52)
[2019-05-16] MEDS ORDERED: BIVALIRUDIN BOLUS 250 MG/50 ML IV ONE (13:52)
[2019-05-16] MEDS ORDERED: BIVALIRUDIN 250 MG in SODIUM CHLORIDE 0.9% 50 ML IV ONE (13:54)
[2019-05-16] MEDS ORDERED: IOPAMIDOL-370 100ML BTL INJ ONE (13:55)
[2019-05-16] MEDS ORDERED: RX INFO: IV CONTRAST WAS GIVEN 1 EACH MISC MISCELLANE PRN (14:27)
[2019-05-16] MEDS ORDERED: SODIUM CHLORIDE 0.9% 1,000 ML IV SCH (14:30)
[2019-05-16] MEDS ORDERED: NITROGLYCERIN SL TABS 0.4 MG TAB SUBLINGUAL PRN (14:30)
--- NOTE | 2019-05-16 16:11 | CC ---
CARDIAC CATHETERIZATION REPORT Mr. Lee is a 73-year-old male with a known history of coronary artery disease, status post coronary artery bypass grafting, percutaneous revascularization, history of aortic valve replacement, who presented with symptoms of chest discomfort and evidence of minimal troponin elevation. In view of that, recommendation was made regarding cardiac catheterization. The procedure, its risks and complications were discussed with the patient, who was in full understanding and agreement. PROCEDURE: Patient was brought to the manager cath lab in a fasting, semi-sedated state after receiving fentanyl and Benadryl. Using Xylocaine anesthesia and Seldinger technique, a 6- Jamaican sheath was introduced in the right femoral artery. The patient had a severely tortuous aorta. In view of that, the sheath was exchanged for a 70 cm sheath. Subsequently a 6- Jamaican FL4.5 Meri catheter was used to cannulate the left main. The right coronary artery was cannulated using 6-Jamaican 4 bend right Meri catheter. Multiple attempts to cannulate the saphenous vein graft were unsuccessful. Subsequently a 6- Jamaican tight pigtail catheter was used in the ascending aorta and aortogram was performed in the MACANESE view. Subsequently, attempts to cannulate the saphenous vein graft using a 6- Jamaican FR4 guiding catheter, a 6-Jamaican FR5 guiding catheter, a 6-Jamaican LCB guiding catheter as well as a hockey-stick 6-Jamaican were unsuccessful. At that time, because of the amount of dye he received, the decision was made to stop the procedure at that time. The catheters were removed. The sheath was removed. Hemostasis was obtained with deployment of an Angio-Seal. There was no immediate complication. Patient was returned to his room in stable condition. Of note, the patient received Angiomax as well as oral loading dose of clopidogrel for preparation for angioplasty. His Angiomax was stopped. FINDINGS: FLUOROSCOPY: There was severe calcification involving the right coronary artery. LEFT MAIN: This is a short-sized vessel bifurcating into left circumflex and left anterior descending artery. Left main coronary artery has a 10% plaque without any evidence of high-grade stenosis. LEFT ANTERIOR DESCENDING ARTERY: This vessel is totally occluded proximally with no significant antegrade flow. LEFT CIRCUMFLEX: This is a large nondominant vessel giving rise to a large obtuse marginal branch. The left circumflex has a 20% plaque proximally. The rest of the vessel has no high-grade stenosis. RIGHT CORONARY ARTERY: This vessel is totally occluded proximally with no significant antegrade flow. There are ipsilateral as well as contralateral collaterals. The vessel is heavily calcified. SAPHENOUS VEIN GRAFT TO THE LAD: The graft has a stented segment in the proximal segment of the body of the graft. At the distal area of the stent there is a 95% stenosis. The rest of the vessel does not appear to have high-grade stenosis. LEFT VENTRICULOGRAM: Left ventriculogram was not performed. AORTOGRAM: Aortogram was performed in the MACANESE view and revealed one graft visualized. There was a bioprosthetic aortic valve apparatus with no significant aortic regurgitation. CONCLUSION: 1. Calcified coronary arteries. 2. Chronically occluded left anterior descending coronary artery and right coronary artery. 3. Patent saphenous vein graft to the diagonal artery with significant obstructive disease in the distal segment of the graft. 4. Extremely tortuous aorta. RECOMMENDATIONS: In view of the findings and the anatomy, the patient will be brought back to undergo elective angioplasty and stenting of the saphenous vein graft to the LAD, probably attempting radial approach. Those findings and recommendations were discussed with the patient and his family, who are in full understanding and agreement. Duration of procedure was 85 minutes. MMODL / IJN: [id number] / [place]
[2019-05-16] MEDS: DOXAZOSIN 2 MG TAB PO SCH (20:14)
[2019-05-16] MEDS: ATORVASTATIN 80 MG TAB PO SCH (20:14)
[2019-05-16] MEDS: NIACIN TR 500 MG CAPLET PO SCH (20:14)
[2019-05-16] MEDS: buPROPion SR 150 MG TABLET.ER PO SCH (20:14)
[2019-05-16] MEDS: HYDROXYCHLOROQUINE SULFATE 200 MG TAB PO SCH (20:14)
[2019-05-17] MEDS ORDERED: SODIUM CHLORIDE 0.9% 1,000 ML in EMPTY BAG 1 BAG IV ONE (06:00)
[2019-05-17] MEDS ORDERED: ASPIRIN 325 MG TAB PO ONE (06:00)
[2019-05-17] MEDS ORDERED: ATORVASTATIN 80 MG TAB PO ONE (06:00)
[2019-05-17 06:18] LABS: Basophils % (A) 0 %; Eosinophils # (A) 0.1 k/uL (0-0.7); Eosinophils % (A) 1 %; HCT 42.9 % (39.0-53.0); HGB 14.6 gm/dL (13.0-17.5); Lymphocytes # (A) 1.2 k/uL (1.0-4.8); Lymphocytes % (A) 13 %; MCH 35.3 pg (25.0-35.0); MCV 103.8 fL (80.0-100.0); Macrocytosis Slight; Mean Platelet Volume 6.2; Monocytes # (A) 0.5 k/uL (0-1.0); Monocytes % (A) 6 %; Neutrophils # (A) 6.9 k/uL (1.3-7.7); Neutrophils % (A) 78 %; Platelet Count 105 k/uL (150-450); RBC 4.13 m/uL (4.30-5.90); RDW 12.5 % (11.5-15.5); WBC 8.9 k/uL (3.8-10.6)
[2019-05-17] MEDS: HYDROXYCHLOROQUINE SULFATE 200 MG TAB PO SCH (06:18)
[2019-05-17] MEDS: buPROPion SR 150 MG TABLET.ER PO SCH ×2 (06:18→20:50)
[2019-05-17] MEDS: GABAPENTIN 300 MG CAP PO SCH (06:18)
[2019-05-17] MEDS: METOPROLOL TARTRATE 50 MG TAB PO SCH (06:18)
[2019-05-17] MEDS: ISOSORBIDE MONONITRATE ER 60 MG TAB.ER.24H PO SCH (06:18)
[2019-05-17] MEDS: LEVOTHYROXINE 100 MCG TAB PO SCH ×2 (06:19→06:20)
[2019-05-17] MEDS: ESCITALOPRAM 10 MG TAB PO SCH (06:20)
[2019-05-17 07:49] LABS: Calcium 8.9 mg/dL (8.4-10.2); Potassium 3.5 mmol/L (3.5-5.1)
--- NOTE | 2019-05-17 08:41 | P.PN ---
Subjective Progress Note Date: 05/17/19 Principal diagnosis: Acute non-ST deviation myocardial infarction This is a pleasant 73-year-old gentleman with a past medical history significant for coronary artery disease as well as aortic valve replacement who presented to the hospital with chest discomfort and ruled in for acute non-ST patient myocardial infarction. He underwent a heart catheterization by Dr. Babin and that revealed occluded left and right coronary system with severe disease involving the graft to the diagonal/LAD. The patient does have tortuous aorta and there was some difficulties engaging the graft to the diagonal/LAD from right groin approach. Because of that he schedule today to undergo an angioplasty of that graft from right radial approach. He is asymptomatic from a cardiovascular standpoint of view and denies any chest pain or chest discomfort, shortness of breath, dizziness. He is on antiplatelet medication with aspirin as well as he is on high-dose metoprolol as well as high dose oral nitrates. Objective - Vital Signs Vital signs: Vital Signs Temp 98.6 F 05/17/19 04:00 Pulse 64 05/17/19 04:00 Resp 17 05/17/19 04:00 BP 104/65 05/17/19 04:00 Pulse Ox 92 L 05/17/19 04:00 Intake & Output 05/16/19 05/17/19 05/17/19 18:59 06:59 18:59 Intake Total 456 105.317 77.711 Output Total 400 Balance 56 105.317 77.711 Weight 92.6 kg Intake: IV 220 Intake, IV Titration 75.317 77.711 Amount Heparin Sod,Pork in 0.45% 75.317 77.711 NaCl 25,000 unit In 0.45 % NaCl 1 250ml.bag @ 12 UNITS/KG/HR 11.049 mls/hr IV .[id number] [facility] Rx#: [id number] Oral 236 30 Output: Urine 400 Other: Voiding Method Toilet # Voids 1 - Constitutional General appearance: Present: no acute distress - Respiratory Respiratory: bilateral: CTA - Cardiovascular Rhythm: regular Heart sounds: normal: S1, S2 - Labs CBC & Chem 7: 05/17/19 05:40 05/17/19 05:40 Labs: Abnormal Lab Results - Last 24 Hours (Table) 05/16/19 05/17/19 05/17/19 Range/Units 23:15 05:40 05:40 RBC 4.13 L (4.30-5.90) m/uL MCV 103.8 H (80.0-100.0) fL MCH 35.3 H (25.0-35.0) pg Plt Count 105 L (150-450) k/uL APTT 61.5 H (22.0-30.0) sec Glucose 107 H (74-99) mg/dL 05/17/19 Range/Units 05:40 RBC (4.30-5.90) m/uL MCV (80.0-100.0) fL MCH (25.0-35.0) pg Plt Count (150-450) k/uL APTT 70.7 H (22.0-30.0) sec Glucose (74-99) mg/dL Assessment and Plan Assessment: Assessment #1 acute non-ST elevation myocardial infarction #2 coronary artery disease as described above #3 status post aortic valve replacement Plan #1 the patient is going to undergo a PCI of the graft to the diagonal from right radial approach #2 continue the current medical regimen #3 follow-up with the patient
[2019-05-17] MEDS ORDERED: ASPIRIN 325 MG TAB PO SCH (09:00)
[2019-05-17] MEDS ORDERED: CLOPIDOGREL 75 MG TAB PO SCH (09:00)
[2019-05-17] MEDS ORDERED: LIDOCAINE 1% INJ 10MG/ML (20 ML MDV) ONE (13:26)
[2019-05-17] MEDS ORDERED: VERAPAMIL 2.5 MG/ML 2 ML AMP ONE (13:26)
[2019-05-17] MEDS ORDERED: IV FLUID CONTINUATION 1,000 ML IV ONE (13:30)
[2019-05-17] MEDS ORDERED: fentaNYL (PF) 50 MCG/ML 2 ML AMP ONE (13:34)
[2019-05-17] MEDS ORDERED: fentaNYL (PF) 50 MCG/ML 2 ML AMP IV ONE (13:36)
[2019-05-17] MEDS ORDERED: LIDOCAINE 1%-EPI 1:100,000 20 ML VIAL SQ ONE (13:37)
[2019-05-17] MEDS ORDERED: VERAPAMIL SYRINGE (5 MG/10 ML) INTRAARTER ONE (13:39)
[2019-05-17] MEDS ORDERED: BIVALIRUDIN BOLUS 250 MG/50 ML IV ONE (13:46)
[2019-05-17] MEDS ORDERED: BIVALIRUDIN 250 MG in SODIUM CHLORIDE 0.9% 50 ML IV ONE ×2 (13:48→14:46)
[2019-05-17] MEDS ORDERED: IOPAMIDOL-370 125ML BTL INJ ONE (14:02)
[2019-05-17] MEDS ORDERED: IOPAMIDOL-370 100ML BTL INJ ONE ×3 (14:38→15:25)
[2019-05-17] MEDS ORDERED: CLOPIDOGREL 75 MG TAB ONE (15:23)
[2019-05-17] MEDS ORDERED: CLOPIDOGREL 75 MG TAB PO ONE (15:25)
[2019-05-17] MEDS ORDERED: ATROPINE SULFATE 0.1 MG/ML 10ML SYRINGE IV PRN (15:29)
[2019-05-17] MEDS ORDERED: NITROGLYCERIN SL TABS 0.4 MG TAB SUBLINGUAL PRN (15:29)
[2019-05-17] MEDS ORDERED: ZOLPIDEM 5 MG TAB PO PRN (15:29)
[2019-05-17] MEDS ORDERED: MAG HYDROX/AL HYDROX/SIMETH 30 ML CUP PO PRN (15:29)
[2019-05-17] MEDS ORDERED: RX INFO: IV CONTRAST WAS GIVEN 1 EACH MISC MISCELLANE PRN (15:29)
[2019-05-17] MEDS ORDERED: SODIUM CHLORIDE 0.9% 1,000 ML IV SCH (15:30)
--- NOTE | 2019-05-17 15:51 | P.PN ---
Subjective Progress Note Date: 05/17/19 Principal diagnosis: Patient is a pleasant 73-year-old gentleman with known history of coronary artery disease with stents in the past and CABG in the past along with rotator cuff surgery in the past came in with complaint of pain in the right arm sharp in nature lasted few a few hours no associated shortness of breath no nausea nonpruritic pain nonexertional mild to moderate pain. Patient the pain radiates to the right side of the chest. Patient denied any palpitations patient any cough chest x-ray did not show any pneumonic process. Patient's second set of troponin is minimally elevated, first set of of troponin is negative, sublingual nitroglycerin didn't help his pain. Patient's pain started last evening around 3 PM. Patient EKG is significant for the incomplete left bundle branch block along with sinus bradycardia and some ST-T wave changes in the inferior leads that is V2 and lead 3. 05/17/2019 Patient is sitting up in bed in no acute distress and underwent cardiac catheterization yesterday which was unsuccessful and due to the amount of dye that was received during the procedure patient will repeat a cardiac catheterization today with cardiology. During the first cardiac catheterization patient was found to have calcified coronary arteries, chronically occluded left anterior descending coronary artery and right coronary artery, patent saphenous vein graft to the diagonal artery with significant obstructive disease in the distal segment of the graft, and an extremely tortuous aorta. Currently patient denies any chest pain, shortness of breath, or palpitations. Patient has been afebrile. Patient denies any nausea or vomiting and has been nothing by mouth for the procedure this morning. No acute overnight issues. Will continue to monitor closely. Will await report from cardiac catheterization. Objective - Vital Signs Vital signs: Vital Signs Temp 97.1 F L 05/17/19 11:51 Pulse 63 05/17/19 11:51 Resp 16 05/17/19 11:51 BP 89/55 05/17/19 11:51 Pulse Ox 95 05/17/19 11:51 Intake & Output 05/16/19 05/17/19 05/17/19 18:59 06:59 18:59 Intake Total 456 105.317 982.261 Output Total 400 Balance 56 105.317 982.261 Weight 92.6 kg Intake: IV 220 168.55 Intake, IV Titration 75.317 813.711 Amount Heparin Sod,Pork in 0.45% 75.317 77.711 NaCl 25,000 unit In 0.45 % NaCl 1 250ml.bag @ 12 UNITS/KG/HR 11.049 mls/hr IV .[id number] [facility] Rx#: [id number] Sodium Chloride 0.9% 1, 736 000 ml In Empty Bag 1 bag @ 1 ML/KG/HR 92.079 mls/ hr IV .[id number] [facility] Rx#: [id number] Oral 236 30 Output: Urine 400 Other: Voiding Method Toilet # Voids 1 - Exam GENERAL: The patient is alert and oriented x3, not in any acute distress. Well developed, well nourished. HEENT: Pupils are round and equally reacting to light. EOMI. No scleral icterus. No conjunctival pallor. Normocephalic, atraumatic. No pharyngeal erythema. No thyromegaly. CARDIOVASCULAR: S1 and S2 present. No murmurs, rubs, or gallops. PULMONARY: Chest is clear to auscultation, no wheezing or crackles. ABDOMEN: Soft, nontender, nondistended, normoactive bowel sounds. No palpable organomegaly. MUSCULOSKELETAL: No joint swelling or deformity. EXTREMITIES: No cyanosis, clubbing, or pedal edema. NEUROLOGICAL: Gross neurological examination did not reveal any focal deficits. SKIN: No rashes. - Labs CBC & Chem 7: 05/17/19 05:40 05/17/19 05:40 Labs: Abnormal Lab Results - Last 24 Hours (Table) 05/16/19 05/17/19 05/17/19 Range/Units 23:15 05:40 05:40 RBC 4.13 L (4.30-5.90) m/uL MCV 103.8 H (80.0-100.0) fL MCH 35.3 H (25.0-35.0) pg Plt Count 105 L (150-450) k/uL APTT 61.5 H (22.0-30.0) sec Glucose 107 H (74-99) mg/dL 05/17/19 Range/Units 05:40 RBC (4.30-5.90) m/uL MCV (80.0-100.0) fL MCH (25.0-35.0) pg Plt Count (150-450) k/uL APTT 70.7 H (22.0-30.0) sec Glucose (74-99) mg/dL Assessment and Plan Assessment: -Possible non-ST elevation myocardial patient was continued on antiplatelet therapy, IV heparin patient will go for cardiac catheterization will continue with statin. -Right arm pain can be musculoskeletal patient's active motion of the right arm is restricted from his previous surgery. No pain with passive or active movement of the right arm. -Hyperlipidemia -Hypertension -coronary artery disease -Hypothyroidism -benign prostatic hypertrophy For above-mentioned chronic medical problems patient will be resumed on appropriate home medications.
[2019-05-17 17:36] VITALS: RESP 16
--- NOTE | 2019-05-17 18:29 | PTCA ---
PERCUTANEOUSTRANS CORORONARY ANGIOGRAPHY Mr. Lee is a 73-year-old male with a known history of coronary artery disease who presented with symptoms of chest discomfort and nrh-QS-bbdmqvl-elevation myocardial infarction. He underwent cardiac catheterization on May 16 and was found to have significant obstructive disease involving the saphenous vein graft to the LAD. Because of the severe tortuosity in the aorta, and he was brought in to undergo the procedure from the radial approach. The procedure, its risks and complications were discussed with the patient, who was in full understanding and agreement. PROCEDURE: Patient was brought to the seed analysis laboratory assistant in a fasting, semi-sedated state after receiving fentanyl and Benadryl and achieving a moderate conscious sedated state. Using Xylocaine anesthesia and Seldinger technique, a 6-Stateless sheath was introduced in the right radial artery. Multiple attempts to cannulate the ostium of the saphenous vein graft were unsuccessful. Subsequently an Ultima 6-Stateless 1 was used to cannulate the ostium, and attempts to advance a 0.014 balanced medium-weight J-wire were unsuccessful. That wire was removed and a Whisper 0.014 J-wire was advanced and positioned distally. Then a 2.5 x 12 mm Trek balloon was advanced and 2 inflations at 8 atmospheres were done. Following that, the balloon was removed and a 3.25 x 15 mm Xience Tara stent was advanced, deployed and post dilated at 16 atmospheres. After the last inflation, after appropriate wait, the balloon and the guidewire were withdrawn back into the guiding catheter. Images were obtained and repeated. Those images revealed stable successful stenting. At that point, the guiding catheter, the balloon and the guidewire were removed. The sheath was removed. Hemostasis was obtained with deployment of a TR band. There was no immediate complication. The patient was returned to his room in stable condition. Of note, the patient had no chest discomfort or EKG changes with the inflation. He received Angiomax per protocol and was continued on clopidogrel. RESULT: Successful stenting of the body of the saphenous vein graft to the LAD with reduction of stenosis from 95% to 0%. RECOMMENDATIONS: Patient will be continued on aspirin, Plavix and statin. The importance of dual antiplatelet treatment was discussed with the patient, who is in full understanding and agreement. Duration of procedure was 106 minutes. MMODL / IJN: [id number] /
[2019-05-17] MEDS: ATORVASTATIN 80 MG TAB PO SCH (20:49)
[2019-05-17] MEDS: NIACIN TR 500 MG CAPLET PO SCH (20:49)
[2019-05-17] MEDS: DOXAZOSIN 2 MG TAB PO SCH (20:50)
[2019-05-18] MEDS: LEVOTHYROXINE 100 MCG TAB PO SCH (05:07)
[2019-05-18 06:23] LABS: Basophils % (A) 0 %; Eosinophils # (A) 0.1 k/uL (0-0.7); Eosinophils % (A) 1 %; HGB 12.1 gm/dL (13.0-17.5); Lymphocytes # (A) 0.8 k/uL (1.0-4.8); Lymphocytes % (A) 14 %; MCH 34.5 pg (25.0-35.0); MCHC 33.5 g/dL (31.0-37.0); Macrocytosis Slight; Mean Platelet Volume 7.1; Monocytes # (A) 0.4 k/uL (0-1.0); Monocytes % (A) 7 %; Neutrophils # (A) 4.2 k/uL (1.3-7.7); Neutrophils % (A) 75 %; RDW 12.3 % (11.5-15.5); WBC 5.6 k/uL (3.8-10.6)
[2019-05-18] MEDS ORDERED: LEVOTHYROXINE 75 MCG TAB PO SCH (06:30)
[2019-05-18 06:34] LABS: African American GFR (CKD) >90 (>60 ml/min/1.73 sqM); Anion Gap 5 mmol/L; Blood Urea Nitrogen 15 mg/dL (9-20); Calcium 8.6 mg/dL (8.4-10.2); Carbon Dioxide 27 mmol/L (22-30); Chloride 107 mmol/L (98-107); Glucose 103 mg/dL (74-99); Potassium 4.3 mmol/L (3.5-5.1); Sodium 139 mmol/L (137-145)
[2019-05-18 07:00] LABS: Platelet Count 94 k/uL (150-450)
[2019-05-18] MEDS: GABAPENTIN 300 MG CAP PO SCH ×2 (08:51→08:55)
[2019-05-18] MEDS: ESCITALOPRAM 10 MG TAB PO SCH (08:52)
[2019-05-18] MEDS: ISOSORBIDE MONONITRATE ER 60 MG TAB.ER.24H PO SCH (08:52)
[2019-05-18] MEDS: HYDROXYCHLOROQUINE SULFATE 200 MG TAB PO SCH (08:52)
[2019-05-18] MEDS: METOPROLOL TARTRATE 50 MG TAB PO SCH (08:52)
[2019-05-18] MEDS: buPROPion SR 150 MG TABLET.ER PO SCH (08:52)
[2019-05-18] MEDS ORDERED: ASPIRIN 81 MG PO SCH (09:00)
--- NOTE | 2019-05-18 09:17 | P.PN ---
Subjective Progress Note Date: 05/18/19 Principal diagnosis: Acute non-ST deviation myocardial infarction This is a pleasant 73-year-old gentleman with a past medical history significant for coronary artery disease as well as aortic valve replacement who presented to the hospital with chest discomfort and ruled in for acute non-ST patient myocardial infarction. Yesterday he underwent successful stenting of the SVG to diagonal. On follow-up with him today, 05/18/2019, he is asymptomatic from the cardiac standpoint. The procedure was performed from the right radial approach. He does have good right radial pulse. No hematoma seen. He is hemodynamically stable disease on dual antiplatelet therapy along with a statin. Objective - Vital Signs Vital signs: Vital Signs Temp 97.1 F L 05/18/19 07:59 Pulse 78 05/18/19 08:00 Resp 16 05/18/19 08:00 BP 111/66 05/18/19 07:59 Pulse Ox 97 05/18/19 07:59 Intake & Output 05/17/19 05/18/19 05/18/19 18:59 06:59 18:59 Intake Total 1204.261 Balance 1204.261 Weight 93.9 kg Intake: IV 168.55 Intake, IV Titration 813.711 Amount Heparin Sod,Pork in 0.45% 77.711 NaCl 25,000 unit In 0.45 % NaCl 1 250ml.bag @ 12 UNITS/KG/HR 11.049 mls/hr IV .[id number] [facility] Rx#: [id number] Sodium Chloride 0.9% 1, 736 000 ml In Empty Bag 1 bag @ 1 ML/KG/HR 92.079 mls/ hr IV .[id number] [facility] Rx#: [id number] Oral 222 Other: Voiding Method Toilet # Voids 1 - Constitutional General appearance: Present: no acute distress - Respiratory Respiratory: bilateral: CTA - Cardiovascular Rhythm: regular Heart sounds: normal: S1, S2 - Labs CBC & Chem 7: 05/18/19 05:20 05/18/19 05:20 Labs: Abnormal Lab Results - Last 24 Hours (Table) 05/18/19 05/18/19 Range/Units 05:20 05:20 RBC 3.50 L (4.30-5.90) m/uL Hgb 12.1 L (13.0-17.5) gm/dL Hct 36.0 L (39.0-53.0) % MCV 103.0 H (80.0-100.0) fL Plt Count 94 L (150-450) k/uL Lymphocytes # 0.8 L (1.0-4.8) k/uL Glucose 103 H (74-99) mg/dL Assessment and Plan Assessment: Assessment #1 acute non-ST elevation myocardial infarction. Status post PCI of the SVG to diagonal #2 coronary artery disease as described above #3 status post aortic valve replacement Plan #1 continue the current medical regimen including dual antiplatelet therapy #2 follow-up with the patient
[2019-05-18 10:11] VITALS: BMI 32.4
[2019-05-18 13:00] VITALS: BP 108/71; PULSE 64; TEMP 98.1
[2019-05-18] MEDS ORDERED: CLOPIDOGREL 75 MG TAB PO SCH (15:30)
--- NOTE | 2019-05-19 07:11 | DS ---
DISCHARGE SUMMARY DATE OF ADMISSION: 05/16/2019 DATE OF DISCHARGE: 05/18/2019 FINAL DIAGNOSES: 1. Acute non-ST elevation myocardial infarction. 2. Obesity; body mass index 32.4. 3. Hyperlipidemia. 4. Essential hypertension. 5. Primary osteoarthritis. 6. Coronary artery disease with prior stents. 7. Hypothyroid. 8. Benign prostatic hypertrophy. 9. Depression, not otherwise specified. 10.Hypertensive heart disease. HOSPITAL COURSE: This patient with known coronary artery disease presented with chest pain, ruled in for acute non-Q-wave myocardial infarction. Patient underwent cardiac catheterization and intervention by Dr. Babin and a stent was placed to the saphenous vein graft to the LAD with reduction of stenosis from 95% to 0%. Today, patient is up and about; no further chest pain. PHYSICAL EXAMINATION: On examination, temperature 98.1, pulse 64, respirations 16, blood pressure 108/71, pulse ox 98% on room air. LUNGS: Fair entry. CARDIOVASCULAR: First and second sounds normal. INVESTIGATIONS: White count 5.6, hemoglobin 12.1, platelets 94. Potassium 4.3. Creatinine 0.89. LDL 58. CONSULTATION: Dr. Desai/Dr. Babin from Cardiology. ADDITIONAL TESTING: Two-D echocardiogram shows EF of 50% to 55% with moderate concentric left ventricular hypertrophy. DISCHARGE MEDICATIONS: 1. Aspirin 81 mg a day. 2. Lipitor 80 mg at bedtime. 3. Cardura 2 mg at bedtime. 4. Imdur ER 60 mg a day. 5. Synthroid 200 mcg on Thursday and Thursday. 6. Wellbutrin SR 150 mg b.i.d. 7. Vitamin D3, 2000 units p.o. daily. 8. Neurontin 300 mg p.o. daily. 9. Niacin 2000 mg p.o. at bedtime. 10.Preferred Prostate 2 tablets p.o. daily. 11.Vitamin B12, 1000 mcg p.o. daily. 12.Lexapro 10 mg p.o. daily. 13.Plaquenil 200 mg b.i.d. 14.Synthroid 175 mcg Thursday, Thursday, , Thursday, Thursday. 15.Toprol XL 100 mg p.o. daily. 16.Plavix 75 mg p.o. daily. 17.Nitrostat 0.4 sublingual q.5 p.r.n. Follow up with Dr. Babin on 05/24/2019. Follow up with Dr. Savage on 05/27/19. Discussion and discharge planning more than 35 minutes. MMODL / IJN: [id number] /
== END 2019-05-18 16:00 | disposition home or self-care (01) | DRG 247 ==
LOC: EC 00:29 → 1SOBS 02:52 → OBSVTOIN 08:40 → 3SCARD 14:44
PROVIDERS: ADMIT Hospitalist; ATTEND Hospitalist
PROC: 4A023N7 Measurement of Cardiac Sampling and Pressure, Left Heart, Percutaneous Approach (ICD-10-PCS; 2019-05-16)
PROC: B2121ZZ Fluoroscopy of Single Coronary Artery Bypass Graft using Low Osmolar Contrast (ICD-10-PCS; 2019-05-16)
PROC: B2111ZZ Fluoroscopy of Multiple Coronary Arteries using Low Osmolar Contrast (ICD-10-PCS; 2019-05-16)
PROC: 027034Z Dilation of Coronary Artery, One Artery with Drug-eluting Intraluminal Device, Percutaneous Approach (ICD-10-PCS; principal; 2019-05-17 07:30)
DX: I21.4 Non-ST elevation (NSTEMI) myocardial infarction (principal); I25.810 Atherosclerosis of coronary artery bypass graft(s) without angina pectoris; D69.6 Thrombocytopenia, unspecified; E03.9 Hypothyroidism, unspecified; E66.9 Obesity, unspecified; E78.00 Pure hypercholesterolemia, unspecified; E78.5 Hyperlipidemia, unspecified; F32.9 Major depressive disorder, single episode, unspecified; I11.9 Hypertensive heart disease without heart failure; I25.10 Atherosclerotic heart disease of native coronary artery without angina pectoris; I25.2 Old myocardial infarction; I44.7 Left bundle-branch block, unspecified; M19.91 Primary osteoarthritis, unspecified site; N40.0 Benign prostatic hyperplasia without lower urinary tract symptoms; I25.84 Coronary atherosclerosis due to calcified coronary lesion; Z68.32 Body mass index [BMI] 32.0-32.9, adult; Z79.02 Long term (current) use of antithrombotics/antiplatelets; Z79.82 Long term (current) use of aspirin; Z79.890 Hormone replacement therapy; Z79.899 Other long term (current) drug therapy; Z82.49 Family history of ischemic heart disease and other diseases of the circulatory system; Z95.1 Presence of aortocoronary bypass graft; Z95.2 Presence of prosthetic heart valve; Z95.5 Presence of coronary angioplasty implant and graft; Z98.41 Cataract extraction status, right eye; Z88.8 Allergy status to other drugs, medicaments and biological substances; Z91.018 Allergy to other foods
CPT/HCPCS: 36415; 71046; 80048; 80053; 80061; 83735; 84484; 85025; 85347; 85610; 85730; 93005; 93306; 93455; 96360; 99285; C1874

== ENCOUNTER 2019-08-16 10:59 | Emergency (ER) | payer MEDICARE ==
--- NOTE | 2019-08-16 11:43 | ED ---
General Adult HPI - General Chief complaint: Fall Stated complaint: Fell Time Seen by Provider: 08/16/19 11:17 Source: patient Mode of arrival: ambulatory Limitations: no limitations - History of Present Illness Initial comments: Dictation was produced using [employer] dictation software. please excuse any grammatical, word or spelling errors. Chief Complaint: 73-year-old male with past medical history of dyslipidemia hypertension and thyroid disease, status post aortic valve replacement and aortic stenting presents after fall. History of Present Illness: Reports that yesterday he was in his house when he tripped over the Mat near his fireplace. Patient states he fell obliquely. He states he struck his head and chest. Patient states he decided come today because of the chest pain. Patient reports he is on Plavix. He has extensive medical history. Patient doesn't complain of any extremity pain. States that his pain on his chest as sharp located to the right lateral chest. States it is worse with deep inspiration and palpation to the area. His compliant of some mild head pain however denies any headache. Patient course that is extensive history of right shoulder surgery and at baseline has diminished abduction to the right upper extremity at the shoulder. The ROS documented in this emergency department record has been reviewed and confirmed by me. Those systems with pertinent positive or negative responses have been documented in the HPI. All other systems are other negative and/or noncontributory. PHYSICAL EXAM: General Impression: Alert and oriented x3, not in acute distress HEENT: Mild erythema to the right temporal head, extra-ocular movements intact, pupils equal and reactive to light bilaterally, mucous membranes moist. Cardiovascular: Heart regular rate and rhythm, S1&S2 audible, no murmurs, rubs or gallops Chest: Lungs clear to auscultation bilaterally, no rhonchi, no wheeze, no rales Abdomen: Bowel sounds present, abdomen soft, non-tender, non-distended, no organomegaly Musculoskeletal: Pulses present and equal in all extremities, no peripheral edema, limited abduction to the right upper extremity, no pain elicited with movement of extremities Motor: no focal deficits noted Neurological: CN II-XII grossly intact, no focal motor or sensory deficits noted Skin: Intact with no visualized rashes, mostly is over the right lateral shoulder and right forearm Psych: Normal affect and mood ED course: 73-year-old male presents after fall. Patient complains of right- sided chest pain and head pain. Upon arrival are within acceptable limits. Patient's well-appearing at bedside. Return evaluation obtained. CBC, coag panel, metabolic panel is unremarkable. Her dictation is reviewed. Patient is not on any anticoagulation medications. He is however on Plavix. Chest CT and head and C-spine CT shows no acute processes. There was however mention by radiology of a small aortic aneurysm measuring 3.6 cm in the thoracic aorta. Patient was notified of these results. He is told to follow-up with his primary care physician for outpatient monitoring of this. She reevaluated at bedside he is watching TV comfortably smiling and does not appear to be in any significant distress. She given Lidoderm patch. Patient symptoms likely secondary to chest contusion.X-ray of the humerus and forearm are unremarkable. Patient be discharged. Return parameters discussed. Patient told to follow-up with primary care physician upon discharge. EKG interpretation: Ventricular rate 61, normal sinus rhythm, VT interval 206, QS 112, QTc 467. No VT prolongation, no QTC prolongation, no ST or T-wave changes noted. Overall, this EKG is unremarkable - Related Data Home Medications Medication Instructions Recorded Confirmed Aspirin 81 mg PO DAILY 07/05/14 08/16/19 Atorvastatin [Lipitor] 80 mg PO HS 07/05/14 08/16/19 Doxazosin [Cardura] 2 mg PO HS 07/05/14 08/16/19 Isosorbide Mononitrate ER [Imdur] 60 mg PO DAILY 07/05/14 08/16/19 Levothyroxine Sodium [Synthroid] 200 mcg PO MOTU 07/05/14 08/16/19 buPROPion SR [Wellbutrin SR] 150 mg PO BID 07/05/14 08/16/19 C,E,Zinc,Copper 11/Weidh4g/Lut 1 cap PO DAILY 05/16/19 08/16/19 [Ocuvite Adult 50 Plus Softgel] Cyanocobalamin (Vitamin B-12) 1,000 mcg PO DAILY 05/16/19 08/16/19 [Vitamin B-12] Escitalopram Oxalate [Lexapro] 10 mg PO DAILY 05/16/19 08/16/19 Hydroxychloroquine Sulfate 200 mg PO BID 05/16/19 08/16/19 [Plaquenil] Levothyroxine Sodium [Synthroid] 175 mcg PO SUTHFRSA 05/16/19 08/16/19 Metoprolol Succinate (ER) [Toprol 100 mg PO QAM 05/16/19 08/16/19 XL] Furosemide [Lasix] 40 mg PO DAILY 08/16/19 08/16/19 Metoprolol Succinate (ER) [Toprol 50 mg PO HS 08/16/19 08/16/19 Xl] Previous Rx's Medication Instructions Recorded Clopidogrel [Plavix] 75 mg PO DAILY #30 tab 05/18/19 Nitroglycerin Sl Tabs [Nitrostat] 0.4 mg SUBLINGUAL Q5M PRN #25 tab 05/18/19 Allergies Allergy/AdvReac Type Severity Reaction Status Date / Time black walnut Allergy Unknown Verified 08/16/19 11:52 cromolyn sodium AdvReac fungal Verified 08/16/19 11:52 [From Nasalcrom] infection on tongue Review of Systems ROS Statement: Those systems with pertinent positive or pertinent negative responses have been documented in the HPI. ROS Other: All systems not noted in ROS Statement are negative. Past Medical History Past Medical History: Eye Disorder, Hyperlipidemia, Hypertension, Myocardial Infarction (non Q-wave), Osteoarthritis (OA), Prostate Disorder, Thyroid Disorder Additional Past Medical History / Comment(s): hx migrianes, hx hiatal hernia, constipation, Last Myocardial Infarction Date:: 05/01/2000 History of Any Multi-Drug Resistant Organisms: None Reported Past Surgical History: Cardiac Valve Replacement, Coronary Bypass/CABG, Heart Catheterization With Stent, Orthopedic Surgery Additional Past Surgical History / Comment(s): CABG-1999-"has chest wire and 5 loose dedra" :double bypass, aortic valve reolacement and aneurysm repair , FATTY TUMOR REMOVED FROM JAW, GANGLION CYST RT RING FINGER, BILAT ROTATOR CUFF REPAIR (rt x3, lt x 1) titanium anchor, rt cataract, rt foot hammertoe Past Anesthesia/Blood Transfusion Reactions: No Reported Reaction Date of Last Stent Placement:: 1996 AND 01/14/13 Past Psychological History: Depression Smoking Status: Never smoker Past Alcohol Use History: None Reported Past Drug Use History: None Reported - Past Family History Father Family Medical History: Cancer General Exam Limitations: no limitations Course Vital Signs 08/16/19 08/16/19 11:12 12:48 Temperature 97.8 F Pulse Rate 85 61 Respiratory 17 20 Rate Blood Pressure 100/62 121/67 O2 Sat by Pulse 98 94 L Oximetry Medical Decision Making - Lab Data Result diagrams: 08/16/19 12:46 08/16/19 12:46 Lab Results 08/16/19 08/16/19 08/16/19 Range/Units 12:46 12:46 12:46 WBC 3.9 (3.8-10.6) k/uL RBC 3.93 L (4.30-5.90) m/uL Hgb 13.9 (13.0-17.5) gm/dL Hct 40.9 (39.0-53.0) % MCV 104.2 H (80.0-100.0) fL MCH 35.3 H (25.0-35.0) pg MCHC 33.9 (31.0-37.0) g/dL RDW 13.1 (11.5-15.5) % Plt Count 102 L (150-450) k/uL Neutrophils % 68 % Lymphocytes % 20 % Monocytes % 8 % Eosinophils % 2 % Basophils % 0 % Neutrophils # 2.6 (1.3-7.7) k/uL Lymphocytes # 0.8 L (1.0-4.8) k/uL Monocytes # 0.3 (0-1.0) k/uL Eosinophils # 0.1 (0-0.7) k/uL Basophils # 0.0 (0-0.2) k/uL Macrocytosis Slight PT 10.8 (9.0-12.0) sec INR 1.0 (<1.2) APTT 24.6 (22.0-30.0) sec Sodium 136 L (137-145) mmol/L Potassium 3.8 (3.5-5.1) mmol/L Chloride 104 (98-107) mmol/L Carbon Dioxide 29 (22-30) mmol/L Anion Gap 3 mmol/L BUN 16 (9-20) mg/dL Creatinine 0.69 (0.66-1.25) mg/dL Est GFR (CKD-EPI)AfAm >90 (>60 ml/min/1.73 sqM) Est GFR (CKD-EPI)NonAf >90 (>60 ml/min/1.73 sqM) Glucose 98 (74-99) mg/dL Calcium 8.4 (8.4-10.2) mg/dL Disposition Clinical Impression: Fall, Head contusion Disposition: HOME SELF-CARE Condition: Good Instructions (If sedation given, give patient instructions): Fall Prevention for Older Adults (ED) Is patient prescribed a controlled substance at d/c from ED?: No Referrals: Jacob Savage DO [Primary Care Provider] - 1-2 days Time of Disposition: 14:56
--- NOTE | 2019-08-16 12:26 | CT ---
EXAMINATION TYPE: CT chest wo con DATE OF EXAM: 08/16/2019 COMPARISON: NONE HISTORY: fall, right shoulder, chest contusions CT DLP: 696 mGycm. Automated Exposure Control for Dose Reduction was Utilized. TECHNIQUE: CT scan of the thorax is performed without IV contrast. FINDINGS: LUNGS: Multifocal linear pleural parenchymal scarring and few areas of subsegmental atelectasis are s een. The lungs are grossly clear, there is no concerning parenchymal mass or nodule identified. Ther e is no pleural effusion or pneumothorax seen. The tracheobronchial tree is patent. MEDIASTINUM: Lack of IV contrast is noted to limit evaluation for mediastinal and especially hilar ad enopathy. There are no definitive greater than 1 cm hilar or mediastinal lymph nodes. No cardiomegal y or pericardial effusion is seen. Descending thoracic aorta is aneurysmal measuring 3.6 cm proximall y. There is severe tortuosity of the descending thoracic aorta. OTHER: Old healed right lateral rib fracture deformities are seen however no acute displaced right ri b fracture is identified. Median sternotomy wires are seen. Moderate degenerative change of the thora cic spine. Cholelithiasis is evident. Left upper pole 1.8 cm renal cyst. IMPRESSION: 1. Multiple old healed right lateral rib fracture deformities. No acute displaced right rib fracture is seen. No right-sided pneumothorax in this patient with posttraumatic right chest pain. 2. Aneurysmal dilatation of the descending thoracic aorta. 3. Cholelithiasis.
--- NOTE | 2019-08-16 12:43 | CT ---
EXAMINATION TYPE: CT brain cspine wo con DATE OF EXAM: 08/16/2019 COMPARISON: CTA head dated 08/27/2017 HISTORY: Fall with subsequent head and neck pain CT DLP: 1397.8 mGycm. Automated Exposure Control for Dose Reduction was Utilized. TECHNIQUE: CT scan of the head and cervical spine are performed without contrast. FINDINGS: There is no acute intracranial hemorrhage or midline shift identified. There is diffuse v entricular and sulcal prominence consistent with diffuse age-related cerebral atrophy. There is low- attenuation in the periventricular white matter consistent with chronic small vessel ischemic change. The globes are intact and the visualized sinuses are clear. Cervical spine is visualized in its entirety from C1 through upper thoracic levels and demonstrates s atisfactory vertebral body heights. Moderate degenerative disc disease of the cervical spine is seen with posterior disc osteophyte complex at C3-C4. Minimal grade 1 anterolisthesis of C4 on C5. Straigh tening of usual cervical lordosis. Multilevel uncovertebral hypertrophy and facet arthropathy creatin g variable degrees of neural foraminal narrowing. Prevertebral soft tissue appears within normal marcus its. The C1-C2 articulation is unremarkable. IMPRESSION: 1. There is no acute fracture evident in the cervical spine. Moderate degenerative disc disease of th e cervical spine with minimal grade 1 anterolisthesis of C4 and C5, likely on a degenerative basis. 2. No acute intracranial hemorrhage, mass effect, or midline shift is seen.
[2019-08-16 13:04] LABS: Basophils % (A) 0 %; Eosinophils # (A) 0.1 k/uL (0-0.7); Eosinophils % (A) 2 %; HCT 40.9 % (39.0-53.0); HGB 13.9 gm/dL (13.0-17.5); Lymphocytes # (A) 0.8 k/uL (1.0-4.8); Lymphocytes % (A) 20 %; MCH 35.3 pg (25.0-35.0); MCHC 33.9 g/dL (31.0-37.0); MCV 104.2 fL (80.0-100.0); Macrocytosis Slight; Mean Platelet Volume 7.4; Monocytes # (A) 0.3 k/uL (0-1.0); Monocytes % (A) 8 %; Neutrophils # (A) 2.6 k/uL (1.3-7.7); Neutrophils % (A) 68 %; Platelet Count 102 k/uL (150-450); RBC 3.93 m/uL (4.30-5.90); RDW 13.1 % (11.5-15.5); WBC 3.9 k/uL (3.8-10.6)
[2019-08-16] MEDS ORDERED: LIDOCAINE 5% PATCH TOPICAL STA (13:13)
[2019-08-16 13:15] LABS: Partial Thromboplastin Time 24.6 sec (22.0-30.0); Prothrombin Time 10.8 sec (9.0-12.0)
[2019-08-16 13:30] LABS: African American GFR (CKD) >90 (>60 ml/min/1.73 sqM); Anion Gap 3 mmol/L; Blood Urea Nitrogen 16 mg/dL (9-20); Calcium 8.4 mg/dL (8.4-10.2); Carbon Dioxide 29 mmol/L (22-30); Chloride 104 mmol/L (98-107); Glucose 98 mg/dL (74-99); Non-African American GFR(CKD) >90 (>60 ml/min/1.73 sqM); Potassium 3.8 mmol/L (3.5-5.1); Sodium 136 mmol/L (137-145)
--- NOTE | 2019-08-16 14:53 | XR ---
EXAMINATION TYPE: XR humerus RT DATE OF EXAM: 08/16/2019 CLINICAL HISTORY: pain COMPARISON: NONE TECHNIQUE: Frontal and lateral images of the right humerus are obtained. FINDINGS: There is no acute fracture/dislocation evident. The joint spaces appear within normal limi ts. The overlying soft tissue appears unremarkable. Postoperative changes of rotator cuff repair. IMPRESSION: There is no acute fracture or dislocation.ICD 10 NO FRACTURE, INITIAL EVALUATION
--- NOTE | 2019-08-16 14:53 | XR ---
EXAMINATION TYPE: XR forearm RT DATE OF EXAM: 08/16/2019 CLINICAL HISTORY: pain TECHNIQUE: Frontal and lateral images of the right forearm are obtained. COMPARISON: None. FINDINGS: There is no acute fracture/dislocation evident. Degenerative narrowing radiocarpal joint s pace. The overlying soft tissue appears unremarkable. IMPRESSION: There is no acute fracture or dislocation. ICD 10 NO FRACTURE, INITIAL EVALUATION
[2019-08-16 15:21] VITALS: BP 119/82; PULSE 75; RESP 17; TEMP 97.9
== END 2019-08-16 15:10 | disposition home or self-care (01) ==
LOC: EC 10:59
DX: S00.83XA Contusion of other part of head, initial encounter (principal); R07.1 Chest pain on breathing; E78.5 Hyperlipidemia, unspecified; I10 Essential (primary) hypertension; I25.2 Old myocardial infarction; N42.9 Disorder of prostate, unspecified; E07.9 Disorder of thyroid, unspecified; F32.9 Major depressive disorder, single episode, unspecified; Z95.2 Presence of prosthetic heart valve; Z95.1 Presence of aortocoronary bypass graft; Z95.5 Presence of coronary angioplasty implant and graft; Z79.82 Long term (current) use of aspirin; Z79.890 Hormone replacement therapy; Z79.899 Other long term (current) drug therapy; Z91.018 Allergy to other foods; Z88.8 Allergy status to other drugs, medicaments and biological substances; W18.09XA Striking against other object with subsequent fall, initial encounter; Y92.009 Unspecified place in unspecified non-institutional (private) residence as the place of occurrence of the external cause
CPT/HCPCS: 36415; 70450; 71250; 72125; 80048; 85025; 85610; 85730; 93005; 99284

== ENCOUNTER → 2020-05-15 | Outpatient (CLI) | payer MEDICARE ==
--- NOTE | 2020-05-16 08:07 | CT ---
EXAMINATION TYPE: CT cervical spine wo con DATE OF EXAM: 05/15/2020 COMPARISON: 08/16/2019 HISTORY: Neck and lumbar pain CT DLP: 559.[address] of the cervical spine was performed with bone and soft tissue window settings submitted . Coronal and sagittal reconstruction is obtained. There is normal alignment and prevertebral soft tissues. I do not see evidence for fracture or subluxation. C2-3: Within normal limits C3-4: Moderate degenerative disc space narrowing. Posterior disc bulge with encapsulating spur result ing in disc endplate complex. Mild effacement ventral thecal sac. Degenerative change of the cervical apophyseal joints resulting in mild bilateral foraminal encroachment. C4-5:: Moderate degenerative disc space narrowing. Posterior disc bulge with encapsulating spur resul ting in disc endplate complex. Mild effacement ventral thecal sac. Degenerative change of the cervica l apophyseal joints resulting in mild bilateral foraminal encroachment. C5-6: Mild degenerative disc space narrowing. Mild posterior disc bulge. No herniation or central kymberly nosis. No foraminal encroachment. C6-7:Mild degenerative disc space narrowing. Mild posterior disc bulge. No herniation or central sten osis. No foraminal encroachment. C7-T1: Within normal limits IMPRESSION: Multilevel degenerative disc disease.
--- NOTE | 2020-05-16 09:14 | CT ---
EXAMINATION TYPE: CT lumbar spine wo con DATE OF EXAM: 05/15/2020 7:04 PM COMPARISON: 08/27/2017 HISTORY: Neck and lumbar pain Automated exposure control for dose reduction was used. Unenhanced CT of the lumbar spine was performed. Bone and soft tissue window settings are submitted as well as coronal and sagittal reconstructions. L1-L2: Vacuum disc. Posterior disc bulge. Effacement ventral thecal sac. No evidence for central sten osis. Bilateral foraminal encroachment. L2-L3: Vacuum disc changes. Retrolisthesis of L2 on L3 4 mm. Effacement ventral thecal sac and mild c entral stenosis. L3-L4: Severe degenerative disc disease with vacuum disc. Posterior disc bulge. Hypertrophy ligamentu m flavum and facet joint arthropathy resulting in nominal mild to moderate central stenosis. L4-L5: Grade 1 anterolisthesis L4 and L5 measuring 6.6 mm. Vacuum disc changes. Posterior disc bulge. Effacement ventral thecal sac with moderate central stenosis. L5-S1: Severe degenerative disc disease with vacuum disc. Disc endplate complex effaces the ventral t hecal sac and results in bilateral lateral recess stenosis and bilateral foraminal encroachment. Curvature noted convex to the right.No paraspinal masses are identified. Lumbar segments are intact. IMPRESSION: Multilevel degenerative disc disease with multilevel central stenosis.
== END | disposition home or self-care (01) ==
LOC: RADCTMAIN 18:00
PROVIDERS: ATTEND Physical Medicine & Rehabilitation
DX: M50.30 Other cervical disc degeneration, unspecified cervical region (principal); M51.16 Intervertebral disc disorders with radiculopathy, lumbar region; M48.061 Spinal stenosis, lumbar region without neurogenic claudication
CPT/HCPCS: 72125; 72131

== ENCOUNTER 2020-06-04 10:56 | Observation (INO) | payer MEDICARE ==
--- NOTE | 2020-06-04 11:45 | ED ---
General Adult HPI - General Chief complaint: Recheck/Abnormal Lab/Rx Stated complaint: edema Time Seen by Provider: 06/04/20 11:14 Source: patient, EMS, RN notes reviewed Mode of arrival: wheelchair Limitations: no limitations - History of Present Illness Initial comments: Patient is a pleasant 74-year-old male presenting to the emergency Department with complaints of generalized pain and edema. Onset of symptoms was over 2 weeks ago. Patient states he was having problems with discomfort in his arms and was told is secondary to his neck. Patient did have appointment with Dr. love and is planning on having injections in his neck. Patient states now he is certain to have some neck discomfort. Patient is also started to notice some edema of his hands and legs. No abdominal edema or pain or swelling. No dyspnea. He should states he is active. - Related Data Home Medications Medication Instructions Recorded Confirmed Atorvastatin [Lipitor] 80 mg PO HS 07/05/14 06/04/20 Doxazosin [Cardura] 2 mg PO HS 07/05/14 06/04/20 buPROPion SR [Wellbutrin SR] 150 mg PO BID 07/05/14 06/04/20 Escitalopram Oxalate [Lexapro] 10 mg PO DAILY 05/16/19 06/04/20 Levothyroxine Sodium [Synthroid] 175 mcg PO SUTHFRSA 05/16/19 06/04/20 Aspirin EC [Ecotrin Low Dose] 81 mg PO DAILY 06/04/20 06/04/20 Chelation + Resveratrol 3 cap PO DAILY 06/04/20 06/04/20 Cholecalciferol [Vitamin D3 (25 2,000 unit PO DAILY 06/04/20 06/04/20 Mcg = 1000 Iu)] Cleansing Colon Formula 1 cap PO BID 06/04/20 06/04/20 Glucosamine/Chondr Jacobs A Sod [Osteo 2 tab PO DAILY 06/04/20 06/04/20 Bi-Flex Caplet] Levothyroxine Sodium [Synthroid] 200 mcg PO MOTU 06/04/20 06/04/20 Niacin 500 mg PO DAILY 06/04/20 06/04/20 Peak Maximum Endurance 2 cap PO DAILY 06/04/20 06/04/20 The Prostate Formula W/Saw [place] 3 tab PO DAILY 06/04/20 06/04/20 traMADol HCL 50 mg PO BID 06/04/20 06/04/20 Previous Rx's Medication Instructions Recorded Clopidogrel [Plavix] 75 mg PO DAILY #30 tab 05/18/19 Nitroglycerin Sl Tabs [Nitrostat] 0.4 mg SUBLINGUAL Q5M PRN #25 tab 05/18/19 Allergies Allergy/AdvReac Type Severity Reaction Status Date / Time black walnut Allergy Unknown Verified 06/04/20 12:36 cromolyn sodium AdvReac fungal Verified 06/04/20 12:36 [From Nasalcrom] infection on tongue Review of Systems ROS Statement: Those systems with pertinent positive or pertinent negative responses have been documented in the HPI. ROS Other: All systems not noted in ROS Statement are negative. Constitutional: Denies: fever Eyes: Denies: eye pain ENT: Denies: ear pain Respiratory: Denies: cough, dyspnea Cardiovascular: Denies: chest pain Endocrine: Reports: fatigue Gastrointestinal: Denies: abdominal pain Genitourinary: Denies: dysuria Musculoskeletal: Denies: back pain Skin: Denies: rash Neurological: Denies: weakness Past Medical History Past Medical History: Eye Disorder, Hyperlipidemia, Hypertension, Myocardial Infarction (non Q-wave), Osteoarthritis (OA), Prostate Disorder, Thyroid Disorder Additional Past Medical History / Comment(s): hx migrianes, hx hiatal hernia, constipation, Last Myocardial Infarction Date:: 05/01/2000 History of Any Multi-Drug Resistant Organisms: None Reported Past Surgical History: Cardiac Valve Replacement, Coronary Bypass/CABG, Heart Catheterization With Stent, Orthopedic Surgery Additional Past Surgical History / Comment(s): CABG-1999-"has chest wire and 5 loose dedra" :double bypass, aortic valve reolacement and aneurysm repair , FATTY TUMOR REMOVED FROM JAW, GANGLION CYST RT RING FINGER, BILAT ROTATOR CUFF REPAIR (rt x3, lt x 1) titanium anchor, rt cataract, rt foot hammertoe Past Anesthesia/Blood Transfusion Reactions: No Reported Reaction Date of Last Stent Placement:: 1996 AND 01/14/13 Past Psychological History: Depression Smoking Status: Never smoker Past Alcohol Use History: None Reported Past Drug Use History: None Reported - Past Family History Father Family Medical History: Cancer General Exam Limitations: no limitations General appearance: alert, in no apparent distress Head exam: Present: normocephalic Eye exam: Present: normal appearance, PERRL Neck exam: Present: normal inspection. Absent: tenderness, meningismus Respiratory exam: Present: normal lung sounds bilaterally Cardiovascular Exam: Present: regular rate, normal rhythm Expanded Peripheral pulses: 2+: Radial (R), Radial (L), Posterior Tibialis (R), Posterior Tibialis (L), Dorsalis Pedis (R), Dorsalis Pedis (L) GI/Abdominal exam: Present: soft. Absent: distended, tenderness, organomegaly Extremities exam: Present: pedal edema, other (Bilateral hands and ankles and lower legs with +1/+2 edema). Absent: calf tenderness Neurological exam: Present: alert, other (Patient has difficulty lifting right arm secondary to chronic shoulder problems. 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 For screening AV block with a LA of 212. QRS 108. QT 408. QTC 455. Normal axis. Normal QRS. No acute ST change. Medical Decision Making - Medical Decision Making Patient reevaluated and resting comfortably in bed. Patient clinically presents with right-sided heart failure. There is also concern regarding chronic neck problems and questionable upper extremity weakness. Patient felt to benefit with admission with cardiology and orthopedic evaluation. Case discussed with Dr. Hagan, who will admit for Dr. Savage. - Lab Data Result diagrams: 06/04/20 11:56 06/04/20 11:56 Lab Results 06/04/20 06/04/20 06/04/20 Range/Units 11:56 11:56 11:56 WBC 6.4 (3.8-10.6) k/uL RBC 3.49 L (4.30-5.90) m/uL Hgb 11.8 L (13.0-17.5) gm/dL Hct 34.7 L (39.0-53.0) % MCV 99.6 (80.0-100.0) fL MCH 33.9 (25.0-35.0) pg MCHC 34.1 (31.0-37.0) g/dL RDW 12.2 (11.5-15.5) % Plt Count 224 (150-450) k/uL MPV 6.9 Neutrophils % 79 % Lymphocytes % 11 % Monocytes % 7 % Eosinophils % 1 % Basophils % 0 % Neutrophils # 5.1 (1.3-7.7) k/uL Lymphocytes # 0.7 L (1.0-4.8) k/uL Monocytes # 0.5 (0-1.0) k/uL Eosinophils # 0.1 (0-0.7) k/uL Basophils # 0.0 (0-0.2) k/uL PT 10.3 (9.0-12.0) sec INR 1.0 (<1.2) APTT 26.7 (22.0-30.0) sec Sodium 135 L (137-145) mmol/L Potassium 4.0 (3.5-5.1) mmol/L Chloride 105 (98-107) mmol/L Carbon Dioxide 26 (22-30) mmol/L Anion Gap 4 mmol/L BUN 20 (9-20) mg/dL Creatinine 0.60 L (0.66-1.25) mg/dL Est GFR (CKD-EPI)AfAm >90 (>60 ml/min/1.73 sqM) Est GFR (CKD-EPI)NonAf >90 (>60 ml/min/1.73 sqM) Glucose 99 (74-99) mg/dL Calcium 8.5 (8.4-10.2) mg/dL Magnesium 1.7 (1.6-2.3) mg/dL Total Bilirubin 0.6 (0.2-1.3) mg/dL AST 30 (17-59) U/L ALT 19 (4-49) U/L Alkaline Phosphatase 125 (38-126) U/L Creatine Kinase 244 H (55-170) U/L Troponin I (0.000-0.034) ng/mL NT-Pro-B Natriuret Pep pg/mL Total Protein 5.9 L (6.3-8.2) g/dL Albumin 3.0 L (3.5-5.0) g/dL TSH 10.300 H (0.465-4.680) mIU/L Free T4 1.25 (0.78-2.19) ng/dL 06/04/20 06/04/20 Range/Units 11:56 11:56 WBC (3.8-10.6) k/uL RBC (4.30-5.90) m/uL Hgb (13.0-17.5) gm/dL Hct (39.0-53.0) % MCV (80.0-100.0) fL MCH (25.0-35.0) pg MCHC (31.0-37.0) g/dL RDW (11.5-15.5) % Plt Count (150-450) k/uL MPV Neutrophils % % Lymphocytes % % Monocytes % % Eosinophils % % Basophils % % Neutrophils # (1.3-7.7) k/uL Lymphocytes # (1.0-4.8) k/uL Monocytes # (0-1.0) k/uL Eosinophils # (0-0.7) k/uL Basophils # (0-0.2) k/uL PT (9.0-12.0) sec INR (<1.2) APTT (22.0-30.0) sec Sodium (137-145) mmol/L Potassium (3.5-5.1) mmol/L Chloride (98-107) mmol/L Carbon Dioxide (22-30) mmol/L Anion Gap mmol/L BUN (9-20) mg/dL Creatinine (0.66-1.25) mg/dL Est GFR (CKD-EPI)AfAm (>60 ml/min/1.73 sqM) Est GFR (CKD-EPI)NonAf (>60 ml/min/1.73 sqM) Glucose (74-99) mg/dL Calcium (8.4-10.2) mg/dL Magnesium (1.6-2.3) mg/dL Total Bilirubin (0.2-1.3) mg/dL AST (17-59) U/L ALT (4-49) U/L Alkaline Phosphatase (38-126) U/L Creatine Kinase (55-170) U/L Troponin I <0.012 (0.000-0.034) ng/mL NT-Pro-B Natriuret Pep 85 pg/mL Total Protein (6.3-8.2) g/dL Albumin (3.5-5.0) g/dL TSH (0.465-4.680) mIU/L Free T4 (0.78-2.19) ng/dL - Radiology Data Radiology results: image reviewed Disposition Clinical Impression: Peripheral edema, Cervical radiculopathy Disposition: ADMITTED IP TO THIS HOSP Is patient prescribed a controlled substance at d/c from ED?: No Referrals: Jacob Savage DO [Primary Care Provider] - 1-2 days Decision Time: 13:18
[2020-06-04 12:17] LABS: Basophils % (A) 0 %; Eosinophils # (A) 0.1 k/uL (0-0.7); Eosinophils % (A) 1 %; HCT 34.7 % (39.0-53.0); HGB 11.8 gm/dL (13.0-17.5); Lymphocytes # (A) 0.7 k/uL (1.0-4.8); Lymphocytes % (A) 11 %; MCH 33.9 pg (25.0-35.0); MCHC 34.1 g/dL (31.0-37.0); MCV 99.6 fL (80.0-100.0); Mean Platelet Volume 6.9; Monocytes # (A) 0.5 k/uL (0-1.0); Monocytes % (A) 7 %; Neutrophils # (A) 5.1 k/uL (1.3-7.7); Neutrophils % (A) 79 %; Platelet Count 224 k/uL (150-450); RBC 3.49 m/uL (4.30-5.90); RDW 12.2 % (11.5-15.5); WBC 6.4 k/uL (3.8-10.6)
[2020-06-04 12:26] LABS: ALT 19 U/L (4-49); AST 30 U/L (17-59); African American GFR (CKD) >90 (>60 ml/min/1.73 sqM); Alkaline Phosphatase 125 U/L (38-126); Anion Gap 4 mmol/L; Blood Urea Nitrogen 20 mg/dL (9-20); Calcium 8.5 mg/dL (8.4-10.2); Carbon Dioxide 26 mmol/L (22-30); Chloride 105 mmol/L (98-107); Creatine Kinase 244 U/L (55-170); Glucose 99 mg/dL (74-99); Magnesium 1.7 mg/dL (1.6-2.3); Non-African American GFR(CKD) >90 (>60 ml/min/1.73 sqM); Partial Thromboplastin Time 26.7 sec (22.0-30.0); Prothrombin Time 10.3 sec (9.0-12.0); Sodium 135 mmol/L (137-145); Total Bilirubin 0.6 mg/dL (0.2-1.3); Total Protein 5.9 g/dL (6.3-8.2)
[2020-06-04 12:42] LABS: T4, Free (Free Thyroxine) 1.25 ng/dL (0.78-2.19)
[2020-06-04] MEDS ORDERED: ASPIRIN 325 MG TAB PO STA (13:19)
--- NOTE | 2020-06-04 13:31 | XR ---
EXAMINATION TYPE: XR cervical spine limited DATE OF EXAM: 06/04/2020 Comparison: CT cervical spine 05/15/2020 Clinical History: 74-year-old male with pain Findings: No predental space widening or prevertebral soft tissue swelling. Mild multilevel degenerative disc d isease. Multilevel facet and uncovertebral joint arthropathy especially upper and mid cervical spine. Trace grade 1 anterolisthesis C4-C5 is unchanged. The cervicothoracic junction is obscured by the pa tient's shoulders and not assessed. Impression: Mild to moderate multilevel spondylotic change. Degenerative grade 1 anterolisthesis at C4-C5, unchan ged from prior CT.
--- NOTE | 2020-06-04 13:33 | XR ---
EXAMINATION TYPE: XR chest 2V DATE OF EXAM: 06/04/2020 COMPARISON: 05/16/2019 HISTORY: 74-year-old male weakness TECHNIQUE: PA and lateral views FINDINGS: Heart normal size. The aorta and pulmonary vasculature within normal limits. Median sternotomy wires. Focal tortuosity of the lower descending aorta. Some streaky retrocardiac atelectasis/scarring. No c onsolidation or pleural effusion. Loss of the subacromial space in both sides suggests chronic full-t hickness rotator cuff tears bilaterally. IMPRESSION: Tortuous distal descending thoracic aorta unchanged. Retrocardiac atelectasis or scarring. Otherwise, no acute process seen.
[2020-06-04 14:20] LABS: Appearance,Urine Clear (Clear); Bilirubin,Urine Negative (Negative); Blood,Urine Negative (Negative); Color,Urine Yellow; Glucose,Urine (UA) Negative (Negative); Ketones,Urine 2+ (Negative); Leukocyte Esterase,Urine Negative (Negative); Nitrite,Urine Negative (Negative); Protein,Urine Negative (Negative); Specific Gravity,Urine 1.026 (1.001-1.035); Urobilinogen,Urine <2.0 mg/dL (<2.0)
--- NOTE | 2020-06-04 14:49 | P.CRDCN ---
History of Present Illness Consult date: 06/04/20 History of present illness: CHIEF COMPLAINT: Peripheral edema HISTORY OF PRESENT ILLNESS: This is a 74 -year old male with a past medical history significant for hypertension, hyperlipidemia, coronary artery disease with previous stent placement and CABG, and aortic valve replacement. Patient follows in the office with Dr. Babin. We have been asked to see the patient in consultation for peripheral edema. Patient evaluated at the bedside in the emergency room. Patient initially presented to the hospital secondary to neck pain. He states he saw a provider at [facility] about two weeks ago who completed x-rays and put the patient and a neck brace. Patient states he has not had a follow up appointment since then. He reports numbness and tingling down both of his arms. He reports swelling to his hands and bilateral legs and ankles. He states this started about 3 days ago. He denies any shortness of galen ath. He denies chest pain or pressure. According to a cardiology consult in 2019, the patient was taking Lasix at that time. Patient is unsure why this was discontinued. He states he is not taking any diuretics at this time. Echo cardiac completed in 2019 revealed ejection fraction 50-55%, [id number] mitral regurgitation and tricuspid regurgitation and moderate pulmonary hypertension. DIAGNOSTICS: EKG reveals sinus rhythm without signs of acute ischemia Chest xray tortuous distal descending thoracic aorta unchanged. Retrocardiac atelectasis or scarring. Otherwise no acute process seen. Laboratory data: WBC 6.4. Hemoglobin 11.8. Platelet count 224. Sodium 135. Potassium 4.0. BUN 20. Creatinine 0.60. Magnesium 1.7. Troponin negative 1. BNP 85. Current home cardiac medications include Plavix 75 mg daily, aspirin 81 mg daily, and Lipitor 80 mg daily. REVIEW OF SYSTEMS: At the time of my exam: CONSTITUTIONAL: Denies fever or chills. HEENT: Denies blurred vision, vision changes, or eye pain. Denies hemoptysis. Reports neck pain with numbness and tingling down bilateral arms. CARDIOVASCULAR: Denies chest pain, orthopnea, PND or palpitations RESPIRATORY: No shortness of breath. GASTROINTESTINAL: Denies abdominal pain. Denies nausea or vomiting. HEMATOLOGIC: Denies bleeding disorders. GENITOURINARY: Denies any blood in urine. SKIN: Denies pruitis. Denies rash. PHYSICAL EXAM: VITAL SIGNS: Reviewed. GENERAL: Well-developed in no acute distress. HEENT: Head is normocephalic. Pupils are equal, round. Sclerae anicteric. Mucous membranes of the mouth are moist. Neck supple. No JVD or thyromegaly LUNGS: Respirations even and unlabored. Lungs essentially clear to auscultation bilaterally. HEART: Regular rate and rhythm. S1 and S2 heard. Systolic murmur noted. ABDOMEN: Soft. Nondistended. Nontender. EXTREMITIES: Normal range of motion. No clubbing or cyanosis. Peripheral pulses intact. 2+ bilateral lower extremity edema. 1-2+ edema bilateral hands. NEUROLOGIC: Awake and alert. Oriented x 3. ASSESSMENT: Neck pain with radiculopathy Acute diastolic heart failure, EF 50-55% Coronary artery diease with previous PCI to RCA 1996, CABG x 2 in 1999, PCI to SVG-D1 2012, and PCI of SVG to LAD 2019 History of aortic valve replacement, 2009 Valvular heart disease: Most recent echocardiogram reveals [id number] mitral regurgitation and tricuspid regurgitation Moderate pulmonary hypertension Hypertension Hyperlipidemia PLAN: Resume aspirin. May DC Plavix as it is has been 1 year since patients last stent placement Resume Lipitor Continue IV lasix Monitor kidney function Accurate I&Os Daily weights Obtain 2D echo to assess cardiac structure and function Further recommendations pending patient's course Nurse practitioner note has been reviewed by physician. Signing provider agrees with the documented findings, assessment, and plan of care. Past Medical History Past Medical History: Eye Disorder, Hyperlipidemia, Hypertension, Myocardial Infarction (non Q-wave), Osteoarthritis (OA), Prostate Disorder, Thyroid Disorder Additional Past Medical History / Comment(s): hx migrianes, hx hiatal hernia, constipation, Last Myocardial Infarction Date:: 05/01/2000 History of Any Multi-Drug Resistant Organisms: None Reported Past Surgical History: Cardiac Valve Replacement, Coronary Bypass/CABG, Heart Catheterization With Stent, Orthopedic Surgery Additional Past Surgical History / Comment(s): CABG-1999-"has chest wire and 5 loose dedra" :double bypass, aortic valve reolacement and aneurysm repair , FATTY TUMOR REMOVED FROM JAW, GANGLION CYST RT RING FINGER, BILAT ROTATOR CUFF REPAIR (rt x3, lt x 1) titanium anchor, rt cataract, rt foot hammertoe Past Anesthesia/Blood Transfusion Reactions: No Reported Reaction Date of Last Stent Placement:: 1996 AND 01/14/13 Past Psychological History: Depression Smoking Status: Never smoker Past Alcohol Use History: None Reported Past Drug Use History: None Reported - Past Family History Father Family Medical History: Cancer Medications and Allergies Home Medications Medication Instructions Recorded Confirmed Type Atorvastatin [Lipitor] 80 mg PO HS 07/05/14 06/04/20 History Doxazosin [Cardura] 2 mg PO HS 07/05/14 06/04/20 History buPROPion SR [Wellbutrin SR] 150 mg PO BID 07/05/14 06/04/20 History Escitalopram Oxalate [Lexapro] 10 mg PO DAILY 05/16/19 06/04/20 History Levothyroxine Sodium [Synthroid] 175 mcg PO SUTHFRSA 05/16/19 06/04/20 History Clopidogrel [Plavix] 75 mg PO DAILY #30 tab 05/18/19 06/04/20 Rx Nitroglycerin Sl Tabs [Nitrostat] 0.4 mg SUBLINGUAL Q5M PRN #25 tab 05/18/19 06/04/20 Rx Aspirin EC [Ecotrin Low Dose] 81 mg PO DAILY 06/04/20 06/04/20 History Chelation + Resveratrol 3 cap PO DAILY 06/04/20 06/04/20 History Cholecalciferol [Vitamin D3 (25 2,000 unit PO DAILY 06/04/20 06/04/20 History Mcg = 1000 Iu)] Cleansing Colon Formula 1 cap PO BID 06/04/20 06/04/20 History Glucosamine/Chondr Jacobs A Sod [Osteo 2 tab PO DAILY 06/04/20 06/04/20 History Bi-Flex Caplet] Levothyroxine Sodium [Synthroid] 200 mcg PO MOTU 06/04/20 06/04/20 History Niacin 500 mg PO DAILY 06/04/20 06/04/20 History Peak Maximum Endurance 2 cap PO DAILY 06/04/20 06/04/20 History The Prostate Formula W/Saw [place] 3 tab PO DAILY 06/04/20 06/04/20 History traMADol HCL 50 mg PO BID 06/04/20 06/04/20 History Allergies Allergy/AdvReac Type Severity Reaction Status Date / Time black walnut Allergy Unknown Verified 06/04/20 12:36 cromolyn sodium AdvReac fungal Verified 06/04/20 12:36 [From Nasalcrom] infection on tongue Physical Exam Vitals: Vital Signs Temp Pulse Resp BP Pulse Ox 06/04/20 12:20 18 06/04/20 11:14 98.1 F 84 20 157/82 99 Intake and Output 06/03/20 06/04/20 06/04/20 22:59 06:59 14:59 Other: Weight 77.111 kg Results 06/04/20 11:56 06/04/20 11:56 Cardiac Enzymes 06/04/20 06/04/20 Range/Units 11:56 11:56 AST 30 (17-59) U/L Troponin I <0.012 (0.000-0.034) ng/mL Coagulation 06/04/20 Range/Units 11:56 PT 10.3 (9.0-12.0) sec APTT 26.7 (22.0-30.0) sec CBC 06/04/20 Range/Units 11:56 WBC 6.4 (3.8-10.6) k/uL RBC 3.49 L (4.30-5.90) m/uL Hgb 11.8 L (13.0-17.5) gm/dL Hct 34.7 L (39.0-53.0) % Plt Count 224 (150-450) k/uL Comprehensive Metabolic Panel 06/04/20 Range/Units 11:56 Sodium 135 L (137-145) mmol/L Potassium 4.0 (3.5-5.1) mmol/L Chloride 105 (98-107) mmol/L Carbon Dioxide 26 (22-30) mmol/L BUN 20 (9-20) mg/dL Creatinine 0.60 L (0.66-1.25) mg/dL Glucose 99 (74-99) mg/dL Calcium 8.5 (8.4-10.2) mg/dL AST 30 (17-59) U/L ALT 19 (4-49) U/L Alkaline Phosphatase 125 (38-126) U/L Total Protein 5.9 L (6.3-8.2) g/dL Albumin 3.0 L (3.5-5.0) g/dL Current Medications Generic Name Dose Route Start Last Admin Trade Name Freq PRN Reason Stop Dose Admin Aspirin 325 mg 06/05/20 13:20 Aspirin 325 Mg Tab PO DAILY TRACY Furosemide 40 mg 06/04/20 13:30 Furosemide 10 Mg/Ml 4 Ml Vial IV Q12HR TRACY Intake and Output 06/03/20 06/04/20 06/04/20 22:59 06:59 14:59 Other: Weight 77.111 kg Patient Weight 06/05/20 06:59 Weight 77.111 kg 06/04/20 11:56 06/04/20 11:56
[2020-06-04] MEDS: FUROSEMIDE 10 MG/ML 4 ML VIAL IV SCH (15:05)
[2020-06-04] MEDS ORDERED: NITROGLYCERIN SL TABS 0.4 MG TAB SUBLINGUAL PRN (19:56)
[2020-06-04] MEDS ORDERED: NALOXONE 0.4 MG/ML 1 ML VIAL IV PRN (19:57)
[2020-06-04] MEDS ORDERED: CALCIUM CARBONATE 500 MG CHEWABLE PO PRN (19:57)
[2020-06-04] MEDS ORDERED: ALPRAZolam 0.25 MG TAB PO PRN (19:57)
[2020-06-04] MEDS ORDERED: ONDANSETRON 4 MG/2 ML VIAL IVP PRN (19:57)
[2020-06-04] MEDS ORDERED: MAG HYDROX/AL HYDROX/SIMETH 30 ML CUP PO PRN (19:57)
[2020-06-04] MEDS ORDERED: LACTULOSE 20 GM/30 ML CUP PO PRN (19:57)
[2020-06-04] MEDS ORDERED: MELATONIN 3 MG TABLET PO PRN (19:57)
[2020-06-05] MEDS: buPROPion SR 150 MG TABLET.ER PO SCH ×3 (00:50→20:43)
[2020-06-05] MEDS: LEVOTHYROXINE 100 MCG TAB PO SCH (00:50)
[2020-06-05] MEDS: DOXAZOSIN 2 MG TAB PO SCH ×2 (00:50→20:43)
[2020-06-05] MEDS: traMADol 50 MG TAB PO SCH ×3 (00:50→20:41)
[2020-06-05] MEDS: ACETAMINOPHEN TAB 325 MG TAB PO PRN ×2 (00:50→09:05)
[2020-06-05] MEDS: FUROSEMIDE 10 MG/ML 4 ML VIAL IV SCH (00:50)
[2020-06-05] MEDS: ATORVASTATIN 80 MG TAB PO SCH ×2 (00:50→20:42)
[2020-06-05] MEDS: ASPIRIN 81 MG PO SCH (08:59)
[2020-06-05] MEDS: FUROSEMIDE 20 MG TAB PO SCH (09:00)
[2020-06-05] MEDS: ESCITALOPRAM 10 MG TAB PO SCH (09:00)
[2020-06-05] MEDS ORDERED: CLOPIDOGREL 75 MG TAB PO SCH (09:00)
[2020-06-05] MEDS: NIACIN TR 500 MG CAPLET PO SCH (09:00)
--- NOTE | 2020-06-05 09:18 | PN ---
PROGRESS NOTE Mr. Lee is a 74-year-old male who presented with symptoms of neck and shoulder discomfort as well as some peripheral edema. He had no associated dyspnea. He had no dizziness or palpitation. He had a prior history of percutaneous revascularization, aortic valve replacement. He has continued to complain of the discomfort in the shoulders and his neck. His BNP was normal and his chest x-ray revealed no evidence of congestive heart failure. He continues to be at this time on aspirin 81 mg daily, Lipitor 80 mg daily, Plavix 75 mg daily, Doxazosin, Lasix 40 mg IV q.12 hours, levothyroxine. PHYSICAL EXAMINATION: Blood pressure 106/60 with a heart rate in the 70s. LUNGS: Clear. HEART: Regular rate and rhythm, S1, S2. No S3 with systolic murmur heard at the base, ejection type. No diastolic murmur, no rub. ABDOMEN: Soft, nontender. EXTREMITIES: Trace edema. LAB DATA: Revealed an NT proBNP of 85. His TSH is 10.3, hemoglobin of 11.8, BUN and creatinine of 20 and 0.6. His EKG yesterday shows no acute changes. IMPRESSION: 1. Peripheral edema with no evidence to suggest congestive heart failure. 2. History of coronary artery disease, status post percutaneous revascularization performed in May of last year. 3. Status post aortic valve replacement. 4. Osteoarthritic pain. RECOMMENDATION: I will stop the Plavix since he has been a year since his intervention. I will switch him to oral diuretics. His peripheral edema is not cardiac in etiology. From the cardiac standpoint, he should be able to be discharged home today and follow up as an outpatient. MMODL / IJN: [id number] /
[2020-06-05 10:04] VITALS: BMI 25.5
[2020-06-05 10:17] LABS: African American GFR (CKD) >90 (>60 ml/min/1.73 sqM); Anion Gap 4 mmol/L; Blood Urea Nitrogen 17 mg/dL (9-20); Calcium 8.9 mg/dL (8.4-10.2); Carbon Dioxide 32 mmol/L (22-30); Chloride 99 mmol/L (98-107); Glucose 138 mg/dL (74-99); Non-African American GFR(CKD) 89 (>60 ml/min/1.73 sqM); Potassium 3.7 mmol/L (3.5-5.1); Sodium 135 mmol/L (137-145)
[2020-06-05] MEDS: RESVERATROL PO SCH (10:50)
[2020-06-05] MEDS: CHELATION PO SCH (10:50)
--- NOTE | 2020-06-05 11:05 | ECHOF ---
Referral Reason:CHF MEASUREMENTS -------- HEIGHT: 170.2 cm WEIGHT: 77.1 kg BP: 132/72 RVIDd: 3.4 cm (< 3.3) IVSd: 1.7 cm (0.6 - 1.1) LVIDd: 4.0 cm (3.9 - 5.3) LVPWd: 1.5 cm (0.6 - 1.1) IVSs: 2.5 cm LVIDs: 2.4 cm LVPWs: 2.0 cm LAESV Index (A-L): 26.70 ml/m Ao Diam: 2.5 cm (2.0 - 3.7) AV Cusp: 1.5 cm (1.5 - 2.6) LA Diam: 2.7 cm (2.7 - 3.8) MV EXCURSION: 9.024 mm (> 18.000) MV EF SLOPE: 36 mm/s (70 - 150) EPSS: 1.4 cm MV E Tyrell: 0.49 m/s MV DecT: 100 ms MV A Tyrell: 0.88 m/s MV E/A Ratio: 0.56 AV maxP.01 mmHg AV meanP.84 mmHg AR PHT: 941 ms RAP: 5.00 mmHg RVSP: 10.74 mmHg FINDINGS -------- This was a technically difficult study with suboptimal views. The left ventricular size is normal. There is moderate concentric left ventricular hypertrophy. O verall left ventricular systolic function is mildly impaired with, an EF between 45 - 50 %. Basal i nferior LV wall motion is hypokinetic. Basal inferoseptal LV wall motion is hypokinetic. The right ventricle is mildly enlarged. Normal LA size by volume 22+/-6 ml/m2. The right atrial size is normal. Lumason used Trace amount of aortic regurgitation. Peak/mean gradient across the Aortic Valve is 16.01mmHg / 9. 84mmHg. Normally functioning bioprosthetic valve. Mild mitral annular calcification present. Mild mitral regurgitation is present. The tricuspid valve appears structurally normal. Mild tricuspid regurgitation present. Right vent ricular systolic pressure is normal at < 35 mmHg. The pulmonic valve was not well visualized. There is no pulmonic regurgitation present. The aortic root size is normal. IVC Not well visulized. There is no pericardial effusion. CONCLUSIONS -------- 1. This was a technically difficult study with suboptimal views. 2. There is moderate concentric left ventricular hypertrophy. 3. Overall left ventricular systolic function is mildly impaired with, an EF between 45 - 50 %. 4. Basal inferior LV wall motion is hypokinetic. 5. Basal inferoseptal LV wall motion is hypokinetic. 6. The right ventricle is mildly enlarged. 7. Normal LA size by volume 22+/-6 ml/m2. 8. Trace amount of aortic regurgitation. 9. Peak/mean gradient across the Aortic Valve is 16.01mmHg / 9.84mmHg. 10. Normally functioning bioprosthetic valve. 11. Mild mitral regurgitation is present. 12. Mild tricuspid regurgitation present. 13. There is no pericardial effusion. SEAT COVERER: Laura Cade RDCS
[2020-06-05] MEDS: CHOLECALCIFEROL 1,000 UNIT TAB PO SCH (11:18)
--- NOTE | 2020-06-05 11:55 | P.CNOR ---
History of Present Illness - [facility] Consult date: 06/05/20 History of present illness: The patient is a 74 y/o male who presented to the emergency department yesterday for increased swelling in his hands and feet over the past couple of days. He was also complaining of severe neck pain. He has been seen by Dr. Emanuel recently and was scheduled to see him for a follow up yesterday. He was scheduled for a lumbar epidural injection on 05/24/2020 but the patient states it was canceled because he took his Plavix an extra day. The patient underwent a CT scan of the cervical spine on 05/15/2020 that revealed multilevel degenerative disc disease. He is currently wearing a soft collar. The patient states he is very weak and unable to ambulate with assistance since being in the hospital. He does use a cane or walker at home. His initial complaints when he saw Dr. Emanuel included bilateral shoulder pain and numbness and tingling in both hands. Today, he denies numbness and tingling in the hands but states his arms are very weak. He takes Ultram for pain. Review of Systems Constitutional: Denies chills, Denies fatigue, Denies fever Cardiovascular: Denies chest pain, Denies shortness of breath Respiratory: Denies cough Gastrointestinal: Denies diarrhea, Denies nausea, Denies vomiting Musculoskeletal: Reports arm numbness/tingling, Reports neck pain, Reports neck stiffness Past Medical History Past Medical History: Eye Disorder, Hyperlipidemia, Hypertension, Myocardial Infarction (non Q-wave), Osteoarthritis (OA), Prostate Disorder, Thyroid Disorder Additional Past Medical History / Comment(s): hx migrianes, hx hiatal hernia, constipation, Last Myocardial Infarction Date:: 05/01/2000 History of Any Multi-Drug Resistant Organisms: None Reported Past Surgical History: Cardiac Valve Replacement, Coronary Bypass/CABG, Heart Catheterization With Stent, Orthopedic Surgery Additional Past Surgical History / Comment(s): CABG-1999-"has chest wire and 5 loose dedra" :double bypass, aortic valve reolacement and aneurysm repair , FATTY TUMOR REMOVED FROM JAW, GANGLION CYST RT RING FINGER, BILAT ROTATOR CUFF REPAIR (rt x3, lt x 1) titanium anchor, rt cataract, rt foot hammertoe Past Anesthesia/Blood Transfusion Reactions: No Reported Reaction Date of Last Stent Placement:: 1996 AND 7/12/13 Past Psychological History: Depression Smoking Status: Never smoker Past Alcohol Use History: None Reported Additional Past Alcohol Use History / Comment(s): 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 Past Drug Use History: None Reported - Past Family History Father Family Medical History: Cancer Medications and Allergies Home Medications Medication Instructions Recorded Confirmed Type Atorvastatin [Lipitor] 80 mg PO HS 07/05/14 06/04/20 History Doxazosin [Cardura] 2 mg PO HS 07/05/14 06/04/20 History buPROPion SR [Wellbutrin SR] 150 mg PO BID 07/05/14 06/04/20 History Escitalopram Oxalate [Lexapro] 10 mg PO DAILY 05/16/19 06/04/20 History Levothyroxine Sodium [Synthroid] 175 mcg PO SUTHFRSA 05/16/19 06/04/20 History Clopidogrel [Plavix] 75 mg PO DAILY #30 tab 05/18/19 06/04/20 Rx Nitroglycerin Sl Tabs [Nitrostat] 0.4 mg SUBLINGUAL Q5M PRN #25 tab 05/18/19 06/04/20 Rx Aspirin EC [Ecotrin Low Dose] 81 mg PO DAILY 06/04/20 06/04/20 History Chelation + Resveratrol 3 cap PO DAILY 06/04/20 06/04/20 History Cholecalciferol [Vitamin D3 (25 2,000 unit PO DAILY 06/04/20 06/04/20 History Mcg = 1000 Iu)] Cleansing Colon Formula 1 cap PO BID 06/04/20 06/04/20 History Glucosamine/Chondr Jacobs A Sod [Osteo 2 tab PO DAILY 06/04/20 06/04/20 History Bi-Flex Caplet] Levothyroxine Sodium [Synthroid] 200 mcg PO MOTU 06/04/20 06/04/20 History Niacin 500 mg PO DAILY 06/04/20 06/04/20 History Peak Maximum Endurance 2 cap PO DAILY 06/04/20 06/04/20 History The Prostate Formula W/Saw [place] 3 tab PO DAILY 06/04/20 06/04/20 History traMADol HCL 50 mg PO BID 06/04/20 06/04/20 History Allergies Allergy/AdvReac Type Severity Reaction Status Date / Time black walnut Allergy Unknown Verified 06/04/20 12:36 cromolyn sodium AdvReac fungal Verified 06/04/20 12:36 [From Nasalcrom] infection on tongue Physical Examination The patient is a 74 y/o male in no acute distress. He is alert and oriented x3. On exam of the cervical spine, moderate tenderness and irritability of the trapezius and periscapular muscles. Also some irritability of the cervical paraspinal muscles. 1+ brachioradialis, 2+ biceps, and 2+ triceps reflexes. No evidence of hyperreflexia. Some decreased sensation noted along the C5 distribution. Cervical range of motion is diminished as follows: Cervical flexion 25 degrees, extension 20 degrees with pain, side bending 25 degrees with increased pain away from affected side. Cervical rotation somewhat irritable at extremes, but motion is diminished. Positive Spurlings with extension and rotation. Biceps, triceps, wrist flexors, and finger abductors show normal strength. Some diminished strength is noted with thumb extension and wrist and finger extension Results - Labs Labs: Abnormal Lab Results - Last 24 Hours (Table) 06/04/20 06/04/20 06/04/20 Range/Units 11:56 11:56 13:24 RBC 3.49 L (4.30-5.90) m/uL Hgb 11.8 L (13.0-17.5) gm/dL Hct 34.7 L (39.0-53.0) % Lymphocytes # 0.7 L (1.0-4.8) k/uL Sodium 135 L (137-145) mmol/L Carbon Dioxide (22-30) mmol/L Creatinine 0.60 L (0.66-1.25) mg/dL Glucose (74-99) mg/dL Creatine Kinase 244 H (55-170) U/L Total Protein 5.9 L (6.3-8.2) g/dL Albumin 3.0 L (3.5-5.0) g/dL TSH 10.300 H (0.465-4.680) mIU/L Free T3 pg/mL 2.6 L (2.8-5.3) pg/ml Urine Ketones 2+ H (Negative) 06/05/20 Range/Units 09:46 RBC (4.30-5.90) m/uL Hgb (13.0-17.5) gm/dL Hct (39.0-53.0) % Lymphocytes # (1.0-4.8) k/uL Sodium 135 L (137-145) mmol/L Carbon Dioxide 32 H (22-30) mmol/L Creatinine (0.66-1.25) mg/dL Glucose 138 H (74-99) mg/dL Creatine Kinase (55-170) U/L Total Protein (6.3-8.2) g/dL Albumin (3.5-5.0) g/dL TSH (0.465-4.680) mIU/L Free T3 pg/mL (2.8-5.3) pg/ml Urine Ketones (Negative) H & H 06/04/20 Range/Units 11:56 Hgb 11.8 L (13.0-17.5) gm/dL Hct 34.7 L (39.0-53.0) % Coagulation 06/04/20 Range/Units 11:56 INR 1.0 (<1.2) Result Diagrams: 06/04/20 11:56 06/05/20 09:46 - Diagnostic results CT scan - cervical: image reviewed (Cervical CT from 05/15/[address] Joshi) Assessment and Plan (1) Cervical radiculopathy due to degenerative joint disease of spine Current Visit: Yes Status: Acute Code(s): M47.22 - OTHER SPONDYLOSIS WITH RADICULOPATHY, CERVICAL REGION SNOMED Code(s): 794399902 (2) Disc disease, degenerative, cervical Current Visit: Yes Status: Acute Code(s): M50.30 - OTHER CERVICAL DISC DEGENERATION, UNSP CERVICAL REGION SNOMED Code(s): 68687666 (3) Peripheral edema Current Visit: Yes Status: Acute Code(s): R60.9 - EDEMA, UNSPECIFIED SNOMED Code(s): 813112219 Plan: The clinical findings were discussed with the patient. The case was discussed at length with Dr. Joshi. Continue pain management with Ultram. May be up with assistance as tolerated. We will order an MRI of the cervical spine. We will await MRI results for further recommendations regarding his cervical spine.
[2020-06-05] MEDS ORDERED: ASPIRIN 325 MG TAB PO SCH (13:20)
--- NOTE | 2020-06-05 23:50 | P.HPIM ---
History of Present Illness H&P Date: 06/05/20 Chief Complaint: Pain and weakness History of presenting complaint: This is a pleasant 74-year-old patient of Dr. Savage. Chronic stable medical conditions include hyperlipidemia, hypertension, osteoarthritis, coronary artery disease with stent and bypass, hypothyroid. Patient's had rotator cuff surgery on both the sides 3. Also got a chronic neck pain. He has followed with from [facility]. But has noticed increasing pain in the neck weakness in the arms. Because of the rotator cuff and cervical spine problems seem been having trouble with his arm. He is able to walk. Because of these worsening symptoms see presented to the hospital. Does question of some edema in the lower extremity and the hands. No shortness of breath. No ortho pnea. No fever no chills. Review of systems: GEN.: None EYES: None HEENT: None NECK: None RESPIRATORY: None CARDIOVASCULAR: None GASTROINTESTINAL: None GENITOURINARY: None MUSCULOSKELETAL: As above LYMPHATICS: None HEMATOLOGICAL: None PSYCHIATRY: None NEUROLOGICAL: As above Past medical history to include: Hyperlipidemia, hypertension, osteoarthritis, prostate disorder, hypothyroid, coronary artery disease with stent and bypass, cervical spine severe arthritis with radiculopathy, bilateral rotator cuff repair and dysfunction. Depression. Social history: . . is dementia. IN the [employer]. No smoking. No alcohol. Physical examination: VITAL SIGNS: 98.1, 84, 20, 1 43 x 80, 99% room air GENERAL: BMI 25.6, laying in bed, awake. EYES: Pupils equal. Conjunctiva normal. HEENT: External appearance of nose and ears normal, oral cavity grossly normal. NECK: JVD not raised; masses not palpable. HEART: First and second heart sounds are normal; no edema. LUNGS: Respiratory rate normal; clear to auscultation. ABDOMEN: Soft, nontender, liver spleen not palpable, no masses palpable. PSYCH: Alert and oriented x3; mood and affect normal. NEUROLOGICAL: [Cranial nerves grossly intact; no facial asymmetry, EXTREMITIES: Positive decreased in both the arms. 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 Limited range of motion on the shoulders. LYMPHATICS: No lymph nodes palpable in the axilla and neck INVESTIGATIONS, reviewed in the clinical context: White count 6.4 hemoglobin 11.8 platelets 6.9 potassium 4 creatinine 0.60 TSH 10.3 free T4 1 0.25 free T3 2 0.6 Cervical spine [id number] spondylitic changes. Chest x-ray film personally reviewed by me-no obvious infiltrate EKG tracing personally reviewed by me-normal sinus rhythm 2-D echocardiogram-EF 45-50%. Moderate concentric LVH, wall motion abnormality. Assessment: -This is a patient with known cervical spine. Neuropathy). Patient also got bilateral rotator cuff surgeries on each side. As a result of his arm is covered weakness and retinopathy from the cervical spine. Patient also got distal muscle weakness from the same. He has been following up with [facility]. -No clinical evidence of any acute cardiac issue. Not in CHF. -Hyperlipidemia -Essential hypertension -Primary osteoarthritis -BPH -Hypothyroid -Coronary artery disease with history of stent and coronary bypass -Depression otherwise specified Plan: Orthopedics was consulted. They wanted to MRI of the spine. Other medications reviewed. A cardiology opinion was also ordered. Care was discussed with the patient question also. Past Medical History Past Medical History: Eye Disorder, Hyperlipidemia, Hypertension, Myocardial Infarction (non Q-wave), Osteoarthritis (OA), Prostate Disorder, Thyroid Disorder Additional Past Medical History / Comment(s): hx migrianes, hx hiatal hernia, constipation, Last Myocardial Infarction Date:: 05/01/2000 History of Any Multi-Drug Resistant Organisms: None Reported Past Surgical History: Cardiac Valve Replacement, Coronary Bypass/CABG, Heart Catheterization With Stent, Orthopedic Surgery Additional Past Surgical History / Comment(s): CABG-1999-"has chest wire and 5 loose dedra" :double bypass, aortic valve reolacement and aneurysm repair , FATTY TUMOR REMOVED FROM JAW, GANGLION CYST RT RING FINGER, BILAT ROTATOR CUFF REPAIR (rt x3, lt x 1) titanium anchor, rt cataract, rt foot hammertoe Past Anesthesia/Blood Transfusion Reactions: No Reported Reaction Date of Last Stent Placement:: 1996 AND 01/14/13 Past Psychological History: Depression Smoking Status: Never smoker Past Alcohol Use History: None Reported Additional Past Alcohol Use History / Comment(s): 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 Past Drug Use History: None Reported - Past Family History Father Family Medical History: Cancer Medications and Allergies Home Medications Medication Instructions Recorded Confirmed Type Atorvastatin [Lipitor] 80 mg PO HS 07/05/14 06/04/20 History Doxazosin [Cardura] 2 mg PO HS 07/05/14 06/04/20 History buPROPion SR [Wellbutrin SR] 150 mg PO BID 07/05/14 06/04/20 History Escitalopram Oxalate [Lexapro] 10 mg PO DAILY 05/16/19 06/04/20 History Levothyroxine Sodium [Synthroid] 175 mcg PO SUTHFRSA 05/16/19 06/04/20 History Clopidogrel [Plavix] 75 mg PO DAILY #30 tab 05/18/19 06/04/20 Rx Nitroglycerin Sl Tabs [Nitrostat] 0.4 mg SUBLINGUAL Q5M PRN #25 tab 05/18/19 06/04/20 Rx Aspirin EC [Ecotrin Low Dose] 81 mg PO DAILY 06/04/20 06/04/20 History Chelation + Resveratrol 3 cap PO DAILY 06/04/20 06/04/20 History Cholecalciferol [Vitamin D3 (25 2,000 unit PO DAILY 06/04/20 06/04/20 History Mcg = 1000 Iu)] Cleansing Colon Formula 1 cap PO BID 06/04/20 06/04/20 History Glucosamine/Chondr Jacobs A Sod [Osteo 2 tab PO DAILY 06/04/20 06/04/20 History Bi-Flex Caplet] Levothyroxine Sodium [Synthroid] 200 mcg PO MOTU 06/04/20 06/04/20 History Niacin 500 mg PO DAILY 06/04/20 06/04/20 History Peak Maximum Endurance 2 cap PO DAILY 06/04/20 06/04/20 History The Prostate Formula W/Saw [place] 3 tab PO DAILY 06/04/20 06/04/20 History traMADol HCL 50 mg PO BID 06/04/20 06/04/20 History Allergies Allergy/AdvReac Type Severity Reaction Status Date / Time black walnut Allergy Unknown Verified 06/04/20 12:36 cromolyn sodium AdvReac fungal Verified 06/04/20 12:36 [From Nasalcrom] infection on tongue Physical Exam Vitals: Vital Signs Temp Pulse Pulse Resp BP BP Pulse Ox 06/05/20 08:32 98.2 F 76 16 133/84 97 06/05/20 03:00 97.6 F 77 16 106/64 97 06/04/20 21:00 98.4 F 62 18 132/72 99 06/04/20 19:57 99 06/04/20 15:28 83 18 113/74 98 06/04/20 15:06 98.2 F 84 16 143/80 99 06/04/20 12:20 18 06/04/20 11:14 98.1 F 84 20 157/82 99 Intake and Output 06/04/20 06/05/20 06/05/20 22:59 06:59 14:59 Other: # Voids 0 Weight 77.111 kg 74 kg 74 kg Results CBC & Chem 7: 06/04/20 11:56 06/05/20 09:46 Labs: Abnormal Lab Results - Last 24 Hours (Table) 06/04/20 06/04/20 06/04/20 Range/Units 11:56 11:56 13:24 RBC 3.49 L (4.30-5.90) m/uL Hgb 11.8 L (13.0-17.5) gm/dL Hct 34.7 L (39.0-53.0) % Lymphocytes # 0.7 L (1.0-4.8) k/uL Sodium 135 L (137-145) mmol/L Carbon Dioxide (22-30) mmol/L Creatinine 0.60 L (0.66-1.25) mg/dL Glucose (74-99) mg/dL Creatine Kinase 244 H (55-170) U/L Total Protein 5.9 L (6.3-8.2) g/dL Albumin 3.0 L (3.5-5.0) g/dL TSH 10.300 H (0.465-4.680) mIU/L Free T3 pg/mL 2.6 L (2.8-5.3) pg/ml Urine Ketones 2+ H (Negative) 06/05/20 Range/Units 09:46 RBC (4.30-5.90) m/uL Hgb (13.0-17.5) gm/dL Hct (39.0-53.0) % Lymphocytes # (1.0-4.8) k/uL Sodium 135 L (137-145) mmol/L Carbon Dioxide 32 H (22-30) mmol/L Creatinine (0.66-1.25) mg/dL Glucose 138 H (74-99) mg/dL Creatine Kinase (55-170) U/L Total Protein (6.3-8.2) g/dL Albumin (3.5-5.0) g/dL TSH (0.465-4.680) mIU/L Free T3 pg/mL (2.8-5.3) pg/ml Urine Ketones (Negative) Thrombosis Risk Factor Assmnt - Choose All That Apply Any of the Below Risk Factors Present?: No Other Risk Factors: Yes Each Risk Factor Represents 3 Points: Age 75 years or older Thrombosis Risk Factor Assessment Total Risk Factor Score: 3 Thrombosis Risk Factor Assessment Level: Moderate Risk
[2020-06-06] MEDS: LEVOTHYROXINE 100 MCG TAB PO SCH (00:23)
[2020-06-06 08:33] VITALS: BP 123/71; PULSE 77; RESP 20; TEMP 98.7
[2020-06-06] MEDS: ASPIRIN 81 MG PO SCH (09:09)
[2020-06-06] MEDS: FUROSEMIDE 20 MG TAB PO SCH (09:09)
[2020-06-06] MEDS: traMADol 50 MG TAB PO SCH (09:10)
[2020-06-06] MEDS: CHELATION PO SCH (09:12)
[2020-06-06] MEDS: RESVERATROL PO SCH (09:12)
[2020-06-06] MEDS: buPROPion SR 150 MG TABLET.ER PO SCH (09:12)
[2020-06-06] MEDS: ESCITALOPRAM 10 MG TAB PO SCH (09:12)
[2020-06-06] MEDS: NIACIN TR 500 MG CAPLET PO SCH (09:12)
[2020-06-06] MEDS: CHOLECALCIFEROL 1,000 UNIT TAB PO SCH (09:12)
--- NOTE | 2020-06-06 09:46 | P.PN ---
Subjective Progress Note Date: 06/06/20 CHIEF COMPLAINT: Peripheral edema HISTORY OF PRESENT ILLNESS: Patient examined this morning at the bedside. Denies chest pain or pressure. Denies shortness of breath. His upper and lower extremity edema has resolved. Blood pressure this morning 123/71. Heart rate in the 70s. Echocardiogram reveals ejection fraction 45-50%, mild mitral regurgitation, mild tricuspid regurgitation and trace aortic regurgitation, with normally functioning bioprosthetic valve PHYSICAL EXAM: VITAL SIGNS: Reviewed. GENERAL: Well-developed in no acute distress. HEENT: Cervical collar noted. Head is normocephalic. Pupils are equal, round. Sclerae anicteric. Mucous membranes of the mouth are moist. Neck supple. No JVD or thyromegaly LUNGS: Respirations even and unlabored. Lungs essentially clear to auscultation bilaterally. HEART: Regular rate and rhythm. S1 and S2 heard. Systolic murmur noted. ABDOMEN: Soft. Nondistended. Nontender. EXTREMITIES: Normal range of motion. No clubbing or cyanosis. Peripheral pulses intact. No lower extremity edema noted. NEUROLOGIC: Awake and alert. Oriented x 3. ASSESSMENT: Neck pain with radiculopathy Peripheral edema, not cardiac in etiology, resolved Coronary artery diease with previous PCI to RCA 1996, CABG x 2 in 1999, PCI to SVG-D1 2012, and PCI of SVG to LAD 2019 History of aortic valve replacement, 2009 Moderate pulmonary hypertension Hypertension Hyperlipidemia PLAN: Continue Lasix 20 mg daily Patient is stable for discharge home today from a cardiac perspective Patient to follow up on an outpatient basis with Dr. Babin Nurse practitioner note has been reviewed by physician. Signing provider agrees with the documented findings, assessment, and plan of care. Objective - Vital Signs Vital signs: Vital Signs Temp 98.7 F 06/06/20 08:32 Pulse 77 06/06/20 08:32 Resp 20 06/06/20 08:32 BP 123/71 06/06/20 08:32 Pulse Ox 96 06/06/20 08:32 Intake & Output 06/05/20 06/06/20 06/06/20 18:59 06:59 18:59 Intake Total 350 Balance 350 Weight 74 kg 75 kg Intake: Oral 350 Other: Voiding Method Toilet # Voids 2 2 - Labs CBC & Chem 7: 06/04/20 11:56 12/01/20 09:46 Labs: Abnormal Lab Results - Last 24 Hours (Table) 06/05/20 Range/Units 09:46 Sodium 135 L (137-145) mmol/L Carbon Dioxide 32 H (22-30) mmol/L Glucose 138 H (74-99) mg/dL
--- NOTE | 2020-06-06 11:27 | P.PAINCN ---
History of Present Illness - Reason for Consult Consult date: 06/06/20 - History of Present Illness 74-year-old male the past medical history of coronary artery bypass surgery and aortic valve replacement on Plavix, retention and hyperlipidemia presented to the hospital on 06/04/2020 for increased swelling in his hands and neck area over the past couple days. He is also been complaining of severe neck pain over the past few days. [facility] and Dr Esteves who ordered x-rays 2 weeks ago and placed in a soft collar. He has not seen them since. Of note he was scheduled for a lumbar epidural steroid injection this May, however it was canceled because he took his Plavix for an extra day. He notes that he has pain in his neck radiating down the posterior aspect of bilateral upper extremities described as numb and tingling. In general he has chronic shoulder issues but was told on imaging in the past that his shoulders have no radiologic evidence of damage. Pain is described as numb and tingling and associated with swelling in his hands. He also does [employer] with swelling in his feet, however he does have a history of coronary artery disease and is on Lasix. He does note significant weakness in the arms especially with manager utilization management strength and that he can barely raise his right shoulder up. In terms of pain management he does see Dr. Emanuel who has performed some type of back injections for him in the past. . Patient also denies new-onset weakness, bowel/bladder incontinence, or any other signs or symptoms of cauda equina syndrome. There are no signs of acute intoxication, and no indications of medication diversion or overuse. In addition to above, 13-point review of systems is also negative for chest pain, shortness of breath, changes in vision, changes in hearing, new onset weakness, abdominal pain, diarrhea, extreme fatigue, malaise, fever, skin changes, homicidal or suicidal ideation, or bowel or bladder incontinence. Physical exam: Vital Signs: Reviewed in EMR GENERAL: Well appearing, in no acute distress PSYCH: Mood and affect is appropriate. Awake, alert, and oriented SKIN: Skin color, texture, turgor normal, no rashes or lesions HEENT: Normocephalic, atraumatic. EOM intact CV: No pedal edema RESP: Respirations are unlabored, no audible wheezing GI: Abdomen non-distended MUSCULOSKELETAL: Neck: pain to palpation over the cervical paraspinous muscles. Spurling positive bilaterally, Axial Loading Test negative, Ochoa's sign negative. No pain with neck flexion, extension, or lateral flexion. No obvious deformity or signs of trauma. Normal cervical lordotic curve and normal cervical spine range of motion Decreased cervical flexion, extension, and lateral bending due to pain. Significantly decreased ROM on right UE, unable to extend or abduct past 70 degrees. 4/5 manager utilization management strength bilaterally. Gait: Gait is normal NEUR: Bilateral upper and lower extremity coordination and muscle stretch reflexes are physiologic and symmetric. Negative clonus. No loss of sensation i s noted. Cranial nerves are grossly intact. Imagin05/16/[address] C2- C3: Within normal limits C3-C4: Moderate degenerative disc space narrowing. Posterior disc bulges and spurring resulting in disc endplate complex. Mild effacement of ventral thecal sac. Degenerative changes of cervical apophyseal joints resulting in mild bilateral foraminal encroachment. C4-C5: Moderate degenerative disc space narrowing. Posterior disc bulges encapsulating spur resulting in disc and play complex. Mild effacement of ventral thecal sac. Degenerative changes of cervical apophyseal joints resulting in mild bilateral foraminal encroachment. C5-C6: Mild degenerative disc space narrowing. Mild posterior disc bulge. No herniation or central stenosis. No foraminal encroachment. C6-C7: Mild degenerative disc space narrowing. Mild posterior disc bulge. No herniation or central stenosis. No foraminal encroachment. C7-T1 within normal limits Assessment: 1. Cervical radiculopathy 2. Shoulder pain - Patient might benefit from a cervical epidural steroid injection. However he is on Plavix and note that he did take it prior to coming in to the ER. Plavix needs to be held for 7 days prior to any injection in the spine - We'll put information for our pain clinic in his discharge paperwork. However since he does follow up with Dr. Emanuel, I mentioned he should follow up with keri hathaway first. Patient agrees - In Terms of medication I agree with the current regimen of Tylenol and t ramadol. I would recommend not giving him any benzodiazepine such as Xanax when he is taking opioids - Follow up: as needed Past Medical History Past Medical History: Eye Disorder, Hyperlipidemia, Hypertension, Myocardial Infarction (non Q-wave), Osteoarthritis (OA), Prostate Disorder, Thyroid Disorder Additional Past Medical History / Comment(s): hx migrianes, hx hiatal hernia, constipation, Last Myocardial Infarction Date:: 05/01/2000 History of Any Multi-Drug Resistant Organisms: None Reported Past Surgical History: Cardiac Valve Replacement, Coronary Bypass/CABG, Heart Catheterization With Stent, Orthopedic Surgery Additional Past Surgical History / Comment(s): CABG-1999-"has chest wire and 5 loose dedra" :double bypass, aortic valve reolacement and aneurysm repair , FATTY TUMOR REMOVED FROM JAW, GANGLION CYST RT RING FINGER, BILAT ROTATOR CUFF REPAIR (rt x3, lt x 1) titanium anchor, rt cataract, rt foot hammertoe Past Anesthesia/Blood Transfusion Reactions: No Reported Reaction Date of Last Stent Placement:: 1996 AND 01/14/13 Past Psychological History: Depression Smoking Status: Never smoker Past Alcohol Use History: None Reported Additional Past Alcohol Use History / Comment(s): 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 Past Drug Use History: None Reported - Past Family History Father Family Medical History: Cancer Medications and Allergies Home Medications Medication Instructions Recorded Confirmed Type Atorvastatin [Lipitor] 80 mg PO HS 07/05/14 06/04/20 History Doxazosin [Cardura] 2 mg PO HS 07/05/14 06/04/20 History buPROPion SR [Wellbutrin SR] 150 mg PO BID 07/05/14 06/04/20 History Escitalopram Oxalate [Lexapro] 10 mg PO DAILY 05/16/19 06/04/20 History Levothyroxine Sodium [Synthroid] 175 mcg PO SUTHFRSA 05/16/19 06/04/20 History Nitroglycerin Sl Tabs [Nitrostat] 0.4 mg SUBLINGUAL Q5M PRN #25 tab 05/18/19 06/04/20 Rx Aspirin EC [Ecotrin Low Dose] 81 mg PO DAILY 06/04/20 06/04/20 History Chelation + Resveratrol 3 cap PO DAILY 06/04/20 06/04/20 History Cholecalciferol [Vitamin D3 (25 2,000 unit PO DAILY 06/04/20 06/04/20 History Mcg = 1000 Iu)] Cleansing Colon Formula 1 cap PO BID 06/04/20 06/04/20 History Glucosamine/Chondr Jacobs A Sod [Osteo 2 tab PO DAILY 06/04/20 06/04/20 History Bi-Flex Caplet] Levothyroxine Sodium [Synthroid] 200 mcg PO MOTU 06/04/20 06/04/20 History Niacin 500 mg PO DAILY 06/04/20 06/04/20 History Peak Maximum Endurance 2 cap PO DAILY 06/04/20 06/04/20 History The Prostate Formula W/Saw [place] 3 tab PO DAILY 06/04/20 06/04/20 History traMADol HCL 50 mg PO BID 06/04/20 06/04/20 History Furosemide [Lasix] 20 mg PO DAILY #90 tab 06/06/20 Rx Allergies Allergy/AdvReac Type Severity Reaction Status Date / Time black walnut Allergy Unknown Verified 06/04/20 12:36 cromolyn sodium AdvReac fungal Verified 06/04/20 12:36 [From Nasalcrom] infection on tongue Physical Exam Vitals: Vital Signs Temp Pulse Pulse Resp BP Pulse Ox 06/06/20 07:43 96 06/06/20 03:00 97.6 F 75 18 111/67 96 06/05/20 20:49 83 18 06/05/20 20:44 98.2 F 83 18 119/72 98 06/05/20 19:57 98 06/05/20 15:00 98.1 F 90 18 92/54 98 06/05/20 08:32 98.2 F 76 16 133/84 97 Intake and Output 06/05/20 06/06/20 06/06/20 22:59 06:59 14:59 Intake Total 350 Balance 350 Intake: Oral 350 Other: Voiding Method Toilet Toilet # Voids 1 2 Weight 75 kg Results CBC & Chem 7: 06/04/20 11:56 06/05/20 09:46 Labs: Abnormal Lab Results - Last 24 Hours (Table) 06/05/20 Range/Units 09:46 Sodium 135 L (137-145) mmol/L Carbon Dioxide 32 H (22-30) mmol/L Glucose 138 H (74-99) mg/dL PQRS Measure Charge Sheet PQRS Narrative: Smoking Status Never smoker Do You Want the Pneumonia Vaccine Up to Date Vaccine AT THIS TIME? Blood Pressure [Left Arm] 111/67 Blood Pressure 113/74 Pain Intensity [Generalized] 0 Pain Intensity 5 Pain Scale Used Numeric (1 - 10) Scale Used Numeric (1 - 10) Home Medications: Ambulatory Orders Atorvastatin [Lipitor] 80 mg PO HS 07/05/14 Doxazosin [Cardura] 2 mg PO HS 07/05/14 buPROPion SR [Wellbutrin SR] 150 mg PO BID 07/05/14 Escitalopram Oxalate [Lexapro] 10 mg PO DAILY 05/16/19 Levothyroxine Sodium [Synthroid] 175 mcg PO SUTHFRSA 05/16/19 Nitroglycerin Sl Tabs [Nitrostat] 0.4 mg SUBLINGUAL Q5M PRN #25 tab 05/18/19 Aspirin EC [Ecotrin Low Dose] 81 mg PO DAILY 06/04/20 Chelation + Resveratrol 3 cap PO DAILY 06/04/20 Cholecalciferol [Vitamin D3 (25 Mcg = 1000 Iu)] 2,000 unit PO DAILY 06/04/20 Cleansing Colon Formula 1 cap PO BID 06/04/20 Glucosamine/Chondr Jacobs A Sod [Osteo Bi-Flex Caplet] 2 tab PO DAILY 06/04/20 Levothyroxine Sodium [Synthroid] 200 mcg PO MOTU 06/04/20 Niacin 500 mg PO DAILY 06/04/20 Peak Maximum Endurance 2 cap PO DAILY 06/04/20 The Prostate Formula W/Saw [place] 3 tab PO DAILY 06/04/20 traMADol HCL 50 mg PO BID 06/04/20 Furosemide [Lasix] 20 mg PO DAILY #90 tab 06/06/20
--- NOTE | 2020-06-06 19:38 | P.DS ---
Providers Date of admission: 06/04/20 13:19 Expected date of discharge: 06/06/20 Attending physician: Kamaljit Hagan Consults: 06/04/20 13:19 Consult Physician Routine Consulting Provider: Aiden Mejia Consult Reason/Comments: Peripheral edema, evaluate for right-sided heart failure Do you want consulting provider notified?: Yes Consult Physician Routine Consulting Provider: Mary Ann Joshi Consult Reason/Comments: Cervical radiculopathy Do you want consulting provider notified?: Yes 06/05/20 22:00 Consult Physician Routine Consulting Provider: Eva Lyman Consult Reason/Comments: possible cervical epidural injections Do you want consulting provider notified?: Yes, Notify in am Primary care physician: [facility] Course: Chief Complaint: Pain and weakness History of presenting complaint: This is a pleasant 74-year-old patient of Dr. Savage. Chronic stable medical conditions include hyperlipidemia, hypertension, osteoarthritis, coronary artery disease with stent and bypass, hypothyroid. Patient's had rotator cuff surgery on both the sides 3. Also got a chronic neck pain. He has [facility]. But has noticed increasing pain in the neck weakness in the arms. Because of the rotator cuff and cervical spine problems seem been having trouble with his arm. He is able to walk. Because of these worsening symptoms see presented to the hospital. Does question of some edema in the lower extremity and the hands. No shortness of breath. No orthopnea. No fever no chills. Patient does not have any active cardiac issues. No CHF. Patient was seen by Dr. Thakkar from orthopedic spine. MRI of the spine cannot be done. Today-patient cleared by Dr. Thakkar and okayed to be discharged. We'll follow-up in his office. Consultation: Dr. Babin from cardiology Dr. Joshi from orthopedic spine Dr. Richard from pain management Physical examination: VITAL SIGNS: 98.7, 77, 20, 123 with 71, 96% room air GENERAL: Sitting up, awake EYES: Pupils equal. Conjunctiva normal. NECK: JVD not raised; masses not palpable. HEART: First and second heart sounds are normal; no edema. LUNGS: Respiratory rate normal; clear to auscultation. ABDOMEN: Soft, nontender, liver spleen not palpable, no masses palpable. PSYCH: Alert and oriented x3; mood and affect normal. NEUROLOGICAL: [Cranial nerves grossly intact; no facial asymmetry, EXTREMITIES: Positive decreased in both the arms. 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 Limited range of motion on the shoulders. INVESTIGATIONS, reviewed in the clinical context: White count 6.4 hemoglobin 11.8 platelets 6.9 potassium 4 creatinine 0.60 TSH 10.3 free T4 1 0.25 free T3 2 0.6 Cervical spine a-[id number] spondylitic changes. Chest x-ray film personally reviewed by me-no obvious infiltrate EKG tracing personally reviewed by me-normal sinus rhythm 2-D echocardiogram-EF 45-50%. Moderate concentric LVH, wall motion abnormality. Assessment: -Cervical spine DJD with bilateral radiculopathy and paresis of the upper extremity. -No clinical evidence of any acute cardiac issue. Not in CHF. -Hyperlipidemia -Essential hypertension -Primary osteoarthritis -BPH -Hypothyroid -Coronary artery disease with history of stent and coronary bypass -Depression otherwise specified Disposition: Home Patient Condition at Discharge: Stable Plan - Discharge Summary Discharge Rx Participant: No New Discharge Prescriptions: New Furosemide [Lasix] 20 mg PO DAILY #90 tab Acetaminophen Tab [Tylenol] 650 mg PO Q6HR PRN tab PRN Reason: Mild Pain Or Fever > 100.5 Continue Atorvastatin [Lipitor] 80 mg PO HS buPROPion SR [Wellbutrin SR] 150 mg PO BID Doxazosin [Cardura] 2 mg PO HS Escitalopram Oxalate [Lexapro] 10 mg PO DAILY Levothyroxine Sodium [Synthroid] 175 mcg PO SUTHFRSA Nitroglycerin Sl Tabs [Nitrostat] 0.4 mg SUBLINGUAL Q5M PRN #25 tab PRN Reason: Chest Pain Cleansing Colon Formula 1 cap PO BID Cholecalciferol [Vitamin D3 (25 Mcg = 1000 Iu)] 2,000 unit PO DAILY Niacin 500 mg PO DAILY traMADol HCL 50 mg PO BID Levothyroxine Sodium [Synthroid] 200 mcg PO MOTU Peak Maximum Endurance 2 cap PO DAILY Chelation + Resveratrol 3 cap PO DAILY Aspirin EC [Ecotrin Low Dose] 81 mg PO DAILY Glucosamine/Chondr Jacobs A Sod [Osteo Bi-Flex Caplet] 2 tab PO DAILY Discontinued Clopidogrel [Plavix] 75 mg PO DAILY #30 tab No Action The Prostate Formula W/Saw [place] 3 tab PO DAILY Discharge Medication List Atorvastatin [Lipitor] 80 mg PO HS 07/05/14 [History] Doxazosin [Cardura] 2 mg PO HS 07/05/14 [History] buPROPion SR [Wellbutrin SR] 150 mg PO BID 07/05/14 [History] Escitalopram Oxalate [Lexapro] 10 mg PO DAILY 05/16/19 [History] Levothyroxine Sodium [Synthroid] 175 mcg PO SUTHFRSA 05/16/19 [History] Nitroglycerin Sl Tabs [Nitrostat] 0.4 mg SUBLINGUAL Q5M PRN #25 tab 05/18/19 [Rx] Aspirin EC [Ecotrin Low Dose] 81 mg PO DAILY 06/04/20 [History] Chelation + Resveratrol 3 cap PO DAILY 06/04/20 [History] Cholecalciferol [Vitamin D3 (25 Mcg = 1000 Iu)] 2,000 unit PO DAILY 06/04/20 [History] Cleansing Colon Formula 1 cap PO BID 06/04/20 [History] Glucosamine/Chondr Jacobs A Sod [Osteo Bi-Flex Caplet] 2 tab PO DAILY 06/04/20 [History] Levothyroxine Sodium [Synthroid] 200 mcg PO MOTU 06/04/20 [History] Niacin 500 mg PO DAILY 06/04/20 [History] Peak Maximum Endurance 2 cap PO DAILY 06/04/20 [History] The Prostate Formula W/Saw [place] 3 tab PO DAILY 06/04/20 [History] traMADol HCL 50 mg PO BID 06/04/20 [History] Acetaminophen Tab [Tylenol] 650 mg PO Q6HR PRN tab 06/06/20 [Rx] Furosemide [Lasix] 20 mg PO DAILY #90 tab 06/06/20 [Rx] Follow up Appointment(s)/Referral(s): Luis Babin MD [STAFF PHYSICIAN] - 06/25/20 10:15 am Jacob Savage DO [Primary Care Provider] - 06/22/20 11:40 am Basilio Emanuel MD [STAFF PHYSICIAN] - 06/12/20 3:45 pm Patient Instructions/Handouts: Heart Failure (DC), Cervical Radiculopathy (GEN) Discharge Disposition: HOME SELF-CARE
[2020-06-07] MEDS ORDERED: LEVOTHYROXINE 88 MCG TAB PO SCH (09:00)
== END 2020-06-06 16:00 | disposition home or self-care (01) ==
LOC: EC 10:56 → 1SOBS 13:19
PROVIDERS: ADMIT Hospitalist; ATTEND Hospitalist
DX: M47.22 Other spondylosis with radiculopathy, cervical region (principal); R60.9 Edema, unspecified; E03.9 Hypothyroidism, unspecified; E78.5 Hyperlipidemia, unspecified; F32.9 Major depressive disorder, single episode, unspecified; G62.9 Polyneuropathy, unspecified; G83.20 Monoplegia of upper limb affecting unspecified side; M48.02 Spinal stenosis, cervical region; G89.29 Other chronic pain; H35.00 Unspecified background retinopathy; I08.1 Rheumatic disorders of both mitral and tricuspid valves; I25.10 Atherosclerotic heart disease of native coronary artery without angina pectoris; I25.2 Old myocardial infarction; M19.91 Primary osteoarthritis, unspecified site; M47.899 Other spondylosis, site unspecified; I50.32 Chronic diastolic (congestive) heart failure; N40.0 Benign prostatic hyperplasia without lower urinary tract symptoms; Z77.22 Contact with and (suspected) exposure to environmental tobacco smoke (acute) (chronic); Z79.02 Long term (current) use of antithrombotics/antiplatelets; Z79.82 Long term (current) use of aspirin; Z79.890 Hormone replacement therapy; Z79.899 Other long term (current) drug therapy; Z95.1 Presence of aortocoronary bypass graft; Z95.2 Presence of prosthetic heart valve; Z95.5 Presence of coronary angioplasty implant and graft
CPT/HCPCS: 96376; 96374; 99285; 36415; 94760; 93005; 84439; 84481; 83880; 80053; 80048; 82550; 83735; 84443; 84484; 85025; 85610; 85730; 81003; 72040; 71046; G0378 ×3; C8929; J1940 ×2; S0106 ×2; Q9950; 93306

== ENCOUNTER 2020-07-29 14:15 | Observation (INO) | payer MEDICARE ==
--- NOTE | 2020-07-29 14:34 | ED ---
Fall HPI - General Chief Complaint: Fall Stated Complaint: Fall, L Leg Pain Time Seen by Provider: 07/29/20 14:29 Source: patient Mode of arrival: wheelchair - History of Present Illness Initial Comments: 74-year-old male presents emergency Department with a chief complaint of a fall. Patient states he lives in a house alone. Daughter is also present and routine sliding additional questions. Daughter states the patient has had history of recent falls. Patient states he fell on the cement in the garage yesterday and went back into the house. Patient denies any head injury but does report pain in the left leg. Patient states today he rolled out of his bed but denies h itting his head. Daughter states the found him on the ground when they went to check on him. Patient denies any loss of consciousness. He believes that he is on blood thinners but doesn't know exactly which one. He reports most of the pain is located on the proximal left thigh. Patient also has chronic back pain and is seen by . Patient arrived with a soft c-collar which is prescribed by the orthopedic surgeon. He denies saddle anesthesia, urinary retention with overflow incontinence or bowel incontinence. Patient does report history of bilateral shoulder surgery so he has limited range of motion in his upper extremities especially with abduction above 90. - Related Data Home Medications Medication Instructions Recorded Confirmed Atorvastatin [Lipitor] 80 mg PO HS 07/05/14 07/29/20 Doxazosin [Cardura] 2 mg PO HS 07/05/14 07/29/20 buPROPion SR [Wellbutrin SR] 150 mg PO BID 07/05/14 07/29/20 Escitalopram Oxalate [Lexapro] 10 mg PO DAILY 05/16/19 07/29/20 Levothyroxine Sodium [Synthroid] 175 mcg PO SUTHFRSA 05/16/19 07/29/20 Aspirin EC [Ecotrin Low Dose] 81 mg PO DAILY 06/04/20 07/29/20 Chelation + Resveratrol 3 cap PO DAILY 06/04/20 07/29/20 Cholecalciferol [Vitamin D3 (25 2,000 unit PO DAILY 06/04/20 07/29/20 Mcg = 1000 Iu)] Cleansing Colon Formula 1 cap PO BID 06/04/20 07/29/20 Glucosamine/Chondr Jacobs A Sod [Osteo 2 tab PO DAILY 06/04/20 07/29/20 Bi-Flex Caplet] Levothyroxine Sodium [Synthroid] 200 mcg PO MOTU 06/04/20 07/29/20 Niacin 2,000 mg PO HS 06/04/20 07/29/20 traMADol HCL 50 mg PO BID PRN 06/04/20 07/29/20 Clopidogrel [Plavix] 75 mg PO DAILY 07/29/20 07/29/20 Hydroxychloroquine Sulfate 200 mg PO BID 07/29/20 07/29/20 [Plaquenil] Super Beta Prostate 1 tab PO BID 07/29/20 07/29/20 Previous Rx's Medication Instructions Recorded Nitroglycerin Sl Tabs [Nitrostat] 0.4 mg SUBLINGUAL Q5M PRN #25 tab 05/18/19 Furosemide [Lasix] 20 mg PO DAILY #90 tab 06/06/20 Allergies Allergy/AdvReac Type Severity Reaction Status Date / Time black walnut Allergy Unknown Verified 07/29/20 15:43 cromolyn sodium AdvReac fungal Verified 07/29/20 15:43 [From Nasalcrom] infection on tongue Review of Systems ROS Statement: Those systems with pertinent positive or pertinent negative responses have been documented in the HPI. ROS Other: All systems not noted in ROS Statement are negative. Past Medical History Past Medical History: Eye Disorder, Hyperlipidemia, Hypertension, Myocardial Infarction (non Q-wave), Osteoarthritis (OA), Prostate Disorder, Thyroid Disorder Additional Past Medical History / Comment(s): hx migrianes, hx hiatal hernia, constipation, Last Myocardial Infarction Date:: 05/01/2000 History of Any Multi-Drug Resistant Organisms: None Reported Past Surgical History: Cardiac Valve Replacement, Coronary Bypass/CABG, Heart Catheterization With Stent, Orthopedic Surgery Additional Past Surgical History / Comment(s): CABG-1999-"has chest wire and 5 loose dedra" :double bypass, aortic valve reolacement and aneurysm repair , FATTY TUMOR REMOVED FROM JAW, GANGLION CYST RT RING FINGER, BILAT ROTATOR CUFF REPAIR (rt x3, lt x 1) titanium anchor, rt cataract, rt foot hammertoe, cortinsone injections in back for pain Past Anesthesia/Blood Transfusion Reactions: No Reported Reaction Date of Last Stent Placement:: 1996 AND 01/14/13 Past Psychological History: Depression Smoking Status: Never smoker Past Alcohol Use History: None Reported Past Drug Use History: None Reported - Past Family History Father Family Medical History: Cancer General Exam Limitations: no limitations General appearance: alert, in no apparent distress Head exam: Present: atraumatic, normocephalic, normal inspection. Absent: other (Negative Sommer sign, raccoon eyes, hemotympanum.) Eye exam: Present: normal appearance, PERRL, EOMI Pupils: Present: normal accommodation ENT exam: Present: normal exam, normal oropharynx, mucous membranes moist, TM's normal bilaterally, normal external ear exam Neck exam: Present: normal inspection, full ROM. Absent: tenderness Respiratory exam: Present: normal lung sounds bilaterally. Absent: respiratory distress, wheezes, rales, rhonchi, stridor, chest wall tenderness (Scarring noted in the midsternal region from a CABG) Cardiovascular Exam: Present: regular rate, normal rhythm, normal heart sounds GI/Abdominal exam: Present: soft. Absent: distended, tenderness, guarding, rebound Extremities exam: Present: normal inspection, full ROM, tenderness (Tenderness in the left proximal thigh. No overlying ecchymosis or erythema or swelling noted.), normal capillary refill, other (Palpable DP and PT bilaterally). Absent: joint swelling, calf tenderness Back exam: Present: normal inspection, full ROM, tenderness (Cervical tenderness) Neurological exam: Present: alert, oriented X3 Psychiatric exam: Present: normal affect, normal mood Skin exam: Present: warm, dry, intact, normal color Course Vital Signs 07/29/20 07/29/20 14:17 17:25 Temperature 98.8 F Pulse Rate 60 75 Respiratory 18 18 Rate Blood Pressure 134/74 114/74 O2 Sat by Pulse 97 98 Oximetry Medical Decision Making - Medical Decision Making 74-year-old male presenting to the emergency department with a chief complaint of a fall. On physical examination, patient has localized tenderness to the proximal left thigh. There was some overlying ecchymosis. Limited range of motion of the shoulder secondary to surgeries. Patient had Ender soft c-collar in place and he does wear that for his chronic neck pain. Chest x-ray is unremarkable. Pelvis and left femur x-rays are also for any acute fractures dislocations. CBC reveals mild anemia. Coags unremarkable. CMP has no significant findings. CK elevated at 367 likely secondary to muscle injury sustained from the fall yesterday located on the left thigh. Brain and C-spine CT shows no acute findings. Patient does have chronic cervical spine changes. Patient was given Tylenol 3 for pain. On reevaluation, patient reports improvement his symptoms. However, the localized tenderness continues to be persistent to the touch. Patient not able to ambulate. Typically uses a walker at home. Patient will be admitted for further medical management. I spoke to who will admit. He requested orthopedic consult. workers compensation consultant will also be consulted. Case discussed with - Lab Data Result diagrams: 07/29/20 14:53 07/29/20 14:53 Lab Results 07/29/20 07/29/20 07/29/20 Range/Units 14:53 14:53 14:53 WBC 12.7 H (3.8-10.6) k/uL RBC 3.85 L (4.30-5.90) m/uL Hgb 12.9 L (13.0-17.5) gm/dL Hct 37.8 L (39.0-53.0) % MCV 98.1 (80.0-100.0) fL MCH 33.4 (25.0-35.0) pg MCHC 34.1 (31.0-37.0) g/dL RDW 13.6 (11.5-15.5) % Plt Count 137 L (150-450) k/uL MPV 6.8 Neutrophils % 92 % Lymphocytes % 3 % Monocytes % 5 % Eosinophils % 0 % Basophils % 0 % Neutrophils # 11.7 H (1.3-7.7) k/uL Lymphocytes # 0.3 L (1.0-4.8) k/uL Monocytes # 0.6 (0-1.0) k/uL Eosinophils # 0.0 (0-0.7) k/uL Basophils # 0.0 (0-0.2) k/uL PT 10.2 (9.0-12.0) sec INR 0.9 (<1.2) APTT 24.4 (22.0-30.0) sec Sodium 135 L (137-145) mmol/L Potassium 4.0 (3.5-5.1) mmol/L Chloride 104 (98-107) mmol/L Carbon Dioxide 26 (22-30) mmol/L Anion Gap 5 mmol/L BUN 16 (9-20) mg/dL Creatinine 0.62 L (0.66-1.25) mg/dL Est GFR (CKD-EPI)AfAm >90 (>60 ml/min/1.73 sqM) Est GFR (CKD-EPI)NonAf >90 (>60 ml/min/1.73 sqM) Glucose 117 H (74-99) mg/dL Calcium 8.8 (8.4-10.2) mg/dL Total Bilirubin 1.1 (0.2-1.3) mg/dL AST 41 (17-59) U/L ALT 27 (4-49) U/L Alkaline Phosphatase 105 (38-126) U/L Creatine Kinase (55-170) U/L Troponin I (0.000-0.034) ng/mL Total Protein 6.2 L (6.3-8.2) g/dL Albumin 3.2 L (3.5-5.0) g/dL Urine Color Urine Appearance (Clear) Urine pH (5.0-8.0) Ur Specific Simms (1.001-1.035) Urine Protein (Negative) Urine Glucose (UA) (Negative) Urine Ketones (Negative) Urine Blood (Negative) Urine Nitrite (Negative) Urine Bilirubin (Negative) Urine Urobilinogen (<2.0) mg/dL Ur Leukocyte Esterase (Negative) 07/29/20 07/29/20 07/29/20 Range/Units 14:53 14:53 16:18 WBC (3.8-10.6) k/uL RBC (4.30-5.90) m/uL Hgb (13.0-17.5) gm/dL Hct (39.0-53.0) % MCV (80.0-100.0) fL MCH (25.0-35.0) pg MCHC (31.0-37.0) g/dL RDW (11.5-15.5) % Plt Count (150-450) k/uL MPV Neutrophils % % Lymphocytes % % Monocytes % % Eosinophils % % Basophils % % Neutrophils # (1.3-7.7) k/uL Lymphocytes # (1.0-4.8) k/uL Monocytes # (0-1.0) k/uL Eosinophils # (0-0.7) k/uL Basophils # (0-0.2) k/uL PT (9.0-12.0) sec INR (<1.2) APTT (22.0-30.0) sec Sodium (137-145) mmol/L Potassium (3.5-5.1) mmol/L Chloride (98-107) mmol/L Carbon Dioxide (22-30) mmol/L Anion Gap mmol/L BUN (9-20) mg/dL Creatinine (0.66-1.25) mg/dL Est GFR (CKD-EPI)AfAm (>60 ml/min/1.73 sqM) Est GFR (CKD-EPI)NonAf (>60 ml/min/1.73 sqM) Glucose (74-99) mg/dL Calcium (8.4-10.2) mg/dL Total Bilirubin (0.2-1.3) mg/dL AST (17-59) U/L ALT (4-49) U/L Alkaline Phosphatase (38-126) U/L Creatine Kinase 368 H (55-170) U/L Troponin I <0.012 (0.000-0.034) ng/mL Total Protein (6.3-8.2) g/dL Albumin (3.5-5.0) g/dL Urine Color Yellow Urine Appearance Clear (Clear) Urine pH 7.5 (5.0-8.0) Ur Specific Simms 1.020 (1.001-1.035) Urine Protein Trace H (Negative) Urine Glucose (UA) Negative (Negative) Urine Ketones 1+ H (Negative) Urine Blood Negative (Negative) Urine Nitrite Negative (Negative) Urine Bilirubin Negative (Negative) Urine Urobilinogen <2.0 (<2.0) mg/dL Ur Leukocyte Esterase Negative (Negative) - EKG Data EKG Comments: EKG showing sinus rhythm, Q waves in lead 3 Ventricular rate 87, MS 194, QRS 110, QTc 423. Disposition Clinical Impression: Fall, Left leg injury Disposition: ADMITTED IP TO THIS HOSP Condition: Good Is patient prescribed a controlled substance at d/c from ED?: No Time of Disposition: 17:37
[2020-07-29] MEDS ORDERED: SODIUM CHLORIDE 0.9% 1,000 ML IV STA (14:51)
[2020-07-29] MEDS ORDERED: Acetaminophen-Codeine 300-30mg TAB PO STA (14:51)
[2020-07-29 15:01] LABS: Basophils % (A) 0 %; Eosinophils % (A) 0 %; HCT 37.8 % (39.0-53.0); HGB 12.9 gm/dL (13.0-17.5); Lymphocytes # (A) 0.3 k/uL (1.0-4.8); Lymphocytes % (A) 3 %; MCH 33.4 pg (25.0-35.0); MCHC 34.1 g/dL (31.0-37.0); MCV 98.1 fL (80.0-100.0); Mean Platelet Volume 6.8; Monocytes # (A) 0.6 k/uL (0-1.0); Monocytes % (A) 5 %; Neutrophils # (A) 11.7 k/uL (1.3-7.7); Neutrophils % (A) 92 %; Platelet Count 137 k/uL (150-450); RBC 3.85 m/uL (4.30-5.90); RDW 13.6 % (11.5-15.5); WBC 12.7 k/uL (3.8-10.6)
[2020-07-29 15:10] LABS: African American GFR (CKD) >90 (>60 ml/min/1.73 sqM); Albumin 3.2 g/dL (3.5-5.0); Anion Gap 5 mmol/L; Blood Urea Nitrogen 16 mg/dL (9-20); Calcium 8.8 mg/dL (8.4-10.2); Carbon Dioxide 26 mmol/L (22-30); Chloride 104 mmol/L (98-107); Glucose 117 mg/dL (74-99); INR 0.9 (<1.2); Non-African American GFR(CKD) >90 (>60 ml/min/1.73 sqM); Partial Thromboplastin Time 24.4 sec (22.0-30.0); Prothrombin Time 10.2 sec (9.0-12.0); Sodium 135 mmol/L (137-145); Total Bilirubin 1.1 mg/dL (0.2-1.3); Total Protein 6.2 g/dL (6.3-8.2)
[2020-07-29 15:11] LABS: ALT 27 U/L (4-49); AST 41 U/L (17-59); Alkaline Phosphatase 105 U/L (38-126)
--- NOTE | 2020-07-29 15:41 | CT ---
EXAMINATION TYPE: CT brain cspine wo con DATE OF EXAM: 07/29/2020 COMPARISON: 08/16/2019 HISTORY: Fall last night. CT DLP: 1696.1 mGycm Automated exposure control for dose reduction was used. There is cerebral cortical atrophy. There is no mass effect nor midline shift. There is no sign of in tracranial hemorrhage. Calvarium is intact. Skull base is intact. There is normal aeration of the mas toid sinuses. The cervical vertebra have fairly normal alignment. Elements are intact joints show some hypertrophic changes at C4-5. There is a minimal degenerative subluxation at C4-5. There is narrowing of the L4 disc space with spur formation. IMPRESSION: Cerebral atrophy. No acute intracranial abnormality. No change. Spondylotic changes in the cervical spine with a mild degenerative subluxation at C4-5. No change com pared to old exam. No fracture.
--- NOTE | 2020-07-29 15:43 | XR ---
EXAMINATION TYPE: XR pelvis AP view DATE OF EXAM: 07/29/2020 COMPARISON: NONE HISTORY: Fall. Pain. TECHNIQUE: Single view FINDINGS: Pelvic ring is intact. There is some acetabular spur formation. There is femoral head spur formation. There are multiple surgical clips over the left and right groin. Iliac joints are intact. IMPRESSION: Mild degenerative hypertrophic changes in the hip joints. No fracture seen.
--- NOTE | 2020-07-29 15:46 | XR ---
EXAMINATION TYPE: XR chest 2V DATE OF EXAM: 07/29/2020 COMPARISON: 06/04/2020 HISTORY: Fall. Pain. TECHNIQUE: FINDINGS: There is no heart failure nor confluent pneumonic infiltrate. Costophrenic angles are clear . Thoracic aorta is atheromatous. There are sternal wires. There is no evidence of pneumothorax. Ther e is some degenerative spurring in the lower thoracic spine. There is some minimal scarring in the le ft lower lobe behind the heart. IMPRESSION: No active cardiopulmonary disease. Atheromatous aorta. No change.
--- NOTE | 2020-07-29 15:47 | XR ---
EXAMINATION TYPE: XR femur LT DATE OF EXAM: 07/29/2020 COMPARISON: NONE HISTORY: Fall. Pain. TECHNIQUE: 4 views FINDINGS: There is extensive vascular calcification. There is mild degenerative spurring in the hip j oint. There is calcification of the menisci at the knee. I see no fracture nor dislocation. IMPRESSION: No acute abnormality of the left femur. No fracture.
[2020-07-29 16:23] LABS: Appearance,Urine Clear (Clear); Bilirubin,Urine Negative (Negative); Blood,Urine Negative (Negative); Color,Urine Yellow; Glucose,Urine (UA) Negative (Negative); Ketones,Urine 1+ (Negative); Leukocyte Esterase,Urine Negative (Negative); Nitrite,Urine Negative (Negative); PH, Urine 7.5 (5.0-8.0); Protein,Urine Trace (Negative); Urobilinogen,Urine <2.0 mg/dL (<2.0)
[2020-07-29] MEDS ORDERED: MORPHINE SULFATE 4 MG/ML SYRINGE IV PRN (17:33)
[2020-07-29] MEDS ORDERED: HYDROcodone/APAP 5-325MG 1 EACH TAB PO PRN (17:33)
[2020-07-29] MEDS ORDERED: HYDROmorphone 0.5 MG/0.5 ML SYRINGE IVP PRN (17:33)
[2020-07-29] MEDS ORDERED: NALOXONE 0.4 MG/ML 1 ML VIAL IV PRN (17:33)
[2020-07-29] MEDS ORDERED: ACETAMINOPHEN TAB 325 MG TAB PO PRN (17:33)
[2020-07-29] MEDS ORDERED: LORazepam 2 MG/ML INJ IV PRN (17:33)
[2020-07-29] MEDS ORDERED: IBUPROFEN 400 MG TAB PO PRN (17:33)
[2020-07-29] MEDS ORDERED: ONDANSETRON 4 MG/2 ML VIAL IVP PRN (17:33)
[2020-07-29] MEDS ORDERED: traMADol 50 MG TAB PO PRN (17:33)
--- NOTE | 2020-07-29 17:40 | CT ---
EXAMINATION TYPE: CT femur LT wo con DATE OF EXAM: 07/29/2020 COMPARISON: None HISTORY: Left mid femur pain. CT DLP: 709.1 mGycm Automated exposure control for dose reduction was used. Images were obtained from the acetabulum to the proximal tibia without contrast. Femoral shaft is intact. I see no bony destructive process. The acetabulum is intact. There is mild a cetabular spurring. There is mild spurring on the femoral head. There is calcification of the medial and lateral menisci of the knee. There is mild narrowing of the knee joint spaces. There is spurring on the patella. There is no sign of joint effusion. There is vascular calcification. IMPRESSION: No fracture. No focal bone destruction. No evidence of a soft tissue mass. Atherosclerotic vascular disease. Mild osteoarthritis. 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
[2020-07-29] MEDS: SODIUM CHLORIDE 0.9% 1,000 ML IV SCH (20:54)
[2020-07-30] MEDS: Acetaminophen-Codeine 300-30mg TAB PO PRN (02:38)
[2020-07-30] MEDS: SODIUM CHLORIDE 0.9% 1,000 ML IV SCH ×2 (07:53→19:57)
[2020-07-30] MEDS: ESCITALOPRAM 10 MG TAB PO SCH (07:54)
[2020-07-30] MEDS: FUROSEMIDE 20 MG TAB PO SCH (07:54)
[2020-07-30] MEDS: ASPIRIN 81 MG PO SCH (07:54)
[2020-07-30] MEDS: buPROPion SR 150 MG TABLET.ER PO SCH ×2 (07:54→19:57)
[2020-07-30] MEDS: CLOPIDOGREL 75 MG TAB PO SCH (07:54)
[2020-07-30] MEDS: HYDROXYCHLOROQUINE SULFATE 200 MG TAB PO SCH ×2 (07:55→19:57)
[2020-07-30] MEDS: LEVOTHYROXINE 100 MCG TAB PO SCH (07:56)
[2020-07-30] MEDS: PANTOPRAZOLE 40 MG/10 ML VIAL IV SCH (07:56)
--- NOTE | 2020-07-30 11:32 | P.PN ---
Subjective Progress Note Date: 07/30/20 Principal diagnosis: Left thigh pain Corrine is a 74-year-old male seen at bedside this am in consultation for left hip and leg pain. He presented to the Emergency Department with a chief complaint of a fall yesterday 07/29/20. Patient states he lives in a house alone. He states that he has had history of recent falls. Patient states he fell on the cement in the garage yesterday and went back into the house. Patient denies any head injury but does report pain in the left leg. He reports most of the pain is located on the proximal left thigh. He has ambulated some today with walker. He denies numbness tingling or calf pain. He has no fever, chills chest pain, or SOB. Patient also has chronic back pain and is seen by . Patient arrived with a soft c-collar which is prescribed by the orthopedic surgeon. He denies saddle anesthesia, urinary retention with overflow incontinence or bowel incontinence. Objective - Vital Signs Vital signs: Vital Signs Temp 98.4 F 07/30/20 08:00 Pulse 72 07/30/20 08:00 Resp 14 07/30/20 08:00 BP 123/69 07/30/20 08:00 Pulse Ox 94 L 07/30/20 08:00 Intake & Output 07/29/20 07/30/20 07/30/20 18:59 06:59 18:59 Output Total 500 Balance -500 Weight 74.843 kg 74.843 kg Output: Urine 500 Other: Voiding Method Urinal Urinal - Exam Distinct tenderness over the posterior trochanteric region as well as anterolateral thigh. No deformity. It is not hot or erythematous. There is some swelling in the anterior lateral thigh. It is soft. . No open wound. Symptoms increased with adduction of the thigh and internal and external rotation of the hip. No groin pain with ROM testing. Intact sensation over anterior posterior medial and lateral thigh. EHL, EDH, anterior tib, peroneal, FDL, FHL, peroneal tib, and Achilles are intact, with 5/5 strength. Sensation intact to light touch over anterior, posterior, medial, and lateral thigh, also intact over anterior, posterior, medial and lateral leg. Dorsalis pedis and posterior tibial pulses are 2+. Capillary refill is less than 2 seconds. Calf is SNT - Constitutional General appearance: Present: no acute distress - Labs CBC & Chem 7: 07/29/20 14:53 07/29/20 14:53 Labs: Abnormal Lab Results - Last 24 Hours (Table) 07/29/20 07/29/20 07/29/20 Range/Units 14:53 14:53 14:53 WBC 12.7 H (3.8-10.6) k/uL RBC 3.85 L (4.30-5.90) m/uL Hgb 12.9 L (13.0-17.5) gm/dL Hct 37.8 L (39.0-53.0) % Plt Count 137 L (150-450) k/uL Neutrophils # 11.7 H (1.3-7.7) k/uL Lymphocytes # 0.3 L (1.0-4.8) k/uL Sodium 135 L (137-145) mmol/L Creatinine 0.62 L (0.66-1.25) mg/dL Glucose 117 H (74-99) mg/dL Creatine Kinase 368 H (55-170) U/L Total Protein 6.2 L (6.3-8.2) g/dL Albumin 3.2 L (3.5-5.0) g/dL Urine Protein (Negative) Urine Ketones (Negative) 07/29/20 Range/Units 16:18 WBC (3.8-10.6) k/uL RBC (4.30-5.90) m/uL Hgb (13.0-17.5) gm/dL Hct (39.0-53.0) % Plt Count (150-450) k/uL Neutrophils # (1.3-7.7) k/uL Lymphocytes # (1.0-4.8) k/uL Sodium (137-145) mmol/L Creatinine (0.66-1.25) mg/dL Glucose (74-99) mg/dL Creatine Kinase (55-170) U/L Total Protein (6.3-8.2) g/dL Albumin (3.5-5.0) g/dL Urine Protein Trace H (Negative) Urine Ketones 1+ H (Negative) - Imaging and Cardiology CT scan - pelvis: report reviewed, image reviewed Assessment and Plan (1) Left leg injury Narrative/Plan: Radiologic studies show no fractures of the left hip and femur. He likely has contusion and hematoma of the left trochanter, femur and thigh. Recommend continue conservative measures including thigh high MAGDALENE, elevation, pain management, protected weightbearing with walker and PT, and continued to monitoring. He may D/C from orthopedic standpoint. Thank you Current Visit: Yes Status: Acute Priority: Medium Code(s): S89.92XA - UNSPECIFIED INJURY OF LEFT LOWER LEG, INITIAL ENCOUNTER SNOMED Code(s): 36497321248554306 Time with Patient: Less than 30
[2020-07-30] MEDS ORDERED: ATORVASTATIN 80 MG TAB PO SCH (21:00)
[2020-07-30] MEDS ORDERED: DOXAZOSIN 2 MG TAB PO SCH (21:00)
--- NOTE | 2020-07-31 00:04 | P.HPIM ---
History of Present Illness H&P Date: 07/30/20 Chief Complaint: Fall History of presenting complaint: This is a pleasant 74-year-old patient of Dr. Savage. Chronic stable medical conditions include hyperlipidemia, hypertension, osteoarthritis, coronary artery disease with stent and bypass, hypothyroid. Patient's had rotator cuff surgery on both the sides 3. Also got a chronic neck pain. Patient was in the garage and he heard something crack she turned around and he took a fall injuring his left hip. Subsequently he went down to the mailbox and about 10 feet before his neck feels weak and he fell down again. He rolled over to the mailbox she had to hold onto it to get up and stand. At her baseline is normally able to walk he started feeling significant pain in the left hip. Fracture was ruled out by us x-ray and a computed tomography scan of the ER. Some swelling of the left hip. Prior to the episodes no chest pain and palpitation dizziness or lightheadedness. Review of systems: GEN.: Tired EYES: None HEENT: None NECK: None RESPIRATORY: None CARDIOVASCULAR: None GASTROINTESTINAL: None GENITOURINARY: None MUSCULOSKELETAL: As above LYMPHATICS: None HEMATOLOGICAL: None PSYCHIATRY: None NEUROLOGICAL: As above Past medical history to include: Hyperlipidemia, hypertension, osteoarthritis, prostate disorder, hypothyroid, coronary artery disease with stent and bypass, cervical spine severe arthritis with radiculopathy, bilateral rotator cuff repair and dysfunction. Depression. 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 No smoking. No alcohol. Physical examination: VITAL SIGNS: 98.8, 60, 16, 1:30/74, 97% room air GENERAL: BMI 25.8, reclining in a chair awake. EYES: Pupils equal. Conjunctiva normal. HEENT: External appearance of nose and ears normal, oral cavity grossly normal. NECK: JVD not raised; masses not palpable. HEART: First and second heart sounds are normal; no edema. LUNGS: Respiratory rate normal; clear to auscultation. ABDOMEN: Soft, nontender, liver spleen not palpable, no masses palpable. PSYCH: Alert and oriented x3; mood and affect normal. NEUROLOGICAL: [Cranial nerves grossly intact; no facial asymmetry, EXTREMITIES: Swelling of the left thigh. Decreased range of motion.. LYMPHATICS: No lymph nodes palpable in the axilla and neck INVESTIGATIONS, reviewed in the clinical context: White count 12.7 hemoglobin 12.9 platelets 137 potassium 4 creatinine 0.62 EKG tracing personally reviewed by me-normal sinus rhythm, poor LV progression, nonspecific ST segment changes. Femur CT, femur x-ray, pelvic x-ray, had cervical spine CT--negative for fracture Chest x-ray film personally reviewed by me-possible chronic changes Assessment: -This is a patient who had 2 falls when they get larger one in the driveway. Appears to both mechanical. Subsequently developed significant pain in the left thigh Area. Swelling on clinical exam. No evidence of fracture. Likely soft tissue swelling and bruising and secondary edema. 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 -Hyperlipidemia -Essential hypertension -Primary osteoarthritis -BPH -Hypothyroid -Coronary artery disease with history of stent and coronary bypass -Depression otherwise specified Plan: Home medications resumed. Orthopedic consulted. PTOT. Had Lovenox for DVT prophylaxis. Use ice packs. Care was discussed with the patient. Questions answered. Past Medical History Past Medical History: Eye Disorder, Hyperlipidemia, Hypertension, Myocardial Infarction (non Q-wave), Osteoarthritis (OA), Prostate Disorder, Thyroid Disorder Additional Past Medical History / Comment(s): hx migrianes, hx hiatal hernia, constipation, Last Myocardial Infarction Date:: 05/01/2000 History of Any Multi-Drug Resistant Organisms: None Reported Past Surgical History: Cardiac Valve Replacement, Coronary Bypass/CABG, Heart Catheterization With Stent, Orthopedic Surgery Additional Past Surgical History / Comment(s): CABG-1999-"has chest wire and 5 loose dedra" :double bypass, aortic valve reolacement and aneurysm repair , FATTY TUMOR REMOVED FROM JAW, GANGLION CYST RT RING FINGER, BILAT ROTATOR CUFF REPAIR (rt x3, lt x 1) titanium anchor, rt cataract, rt foot hammertoe, cortinsone injections in back for pain Past Anesthesia/Blood Transfusion Reactions: No Reported Reaction Date of Last Stent Placement:: 1996 AND 01/14/13 Past Psychological History: Depression Smoking Status: Never smoker Past Alcohol Use History: None Reported Additional Past Alcohol Use History / Comment(s): 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 Past Drug Use History: None Reported - Past Family History Father Family Medical History: Cancer Medications and Allergies Home Medications Medication Instructions Recorded Confirmed Type Atorvastatin [Lipitor] 80 mg PO HS 07/05/14 07/29/20 History Doxazosin [Cardura] 2 mg PO HS 07/05/14 07/29/20 History buPROPion SR [Wellbutrin SR] 150 mg PO BID 07/05/14 07/29/20 History Escitalopram Oxalate [Lexapro] 10 mg PO DAILY 05/16/19 07/29/20 History Levothyroxine Sodium [Synthroid] 175 mcg PO SUTHFRSA 05/16/19 07/29/20 History Nitroglycerin Sl Tabs [Nitrostat] 0.4 mg SUBLINGUAL Q5M PRN #25 tab 05/18/19 07/29/20 Rx Aspirin EC [Ecotrin Low Dose] 81 mg PO DAILY 06/04/20 07/29/20 History Chelation + Resveratrol 3 cap PO DAILY 06/04/20 07/29/20 History Cholecalciferol [Vitamin D3 (25 2,000 unit PO DAILY 06/04/20 07/29/20 History Mcg = 1000 Iu)] Cleansing Colon Formula 1 cap PO BID 06/04/20 07/29/20 History Glucosamine/Chondr Jacobs A Sod [Osteo 2 tab PO DAILY 06/04/20 07/29/20 History Bi-Flex Caplet] Levothyroxine Sodium [Synthroid] 200 mcg PO MOTU 06/04/20 07/29/20 History Niacin 2,000 mg PO HS 06/04/20 07/29/20 History traMADol HCL 50 mg PO BID PRN 06/04/20 07/29/20 History Furosemide [Lasix] 20 mg PO DAILY #90 tab 06/06/20 07/29/20 Rx Clopidogrel [Plavix] 75 mg PO DAILY 07/29/20 07/29/20 History Hydroxychloroquine Sulfate 200 mg PO BID 07/29/20 07/29/20 History [Plaquenil] Super Beta Prostate 1 tab PO BID 07/29/20 07/29/20 History Allergies Allergy/AdvReac Type Severity Reaction Status Date / Time black walnut Allergy Unknown Verified 07/29/20 15:43 cromolyn sodium AdvReac fungal Verified 07/29/20 15:43 [From Nasalcrom] infection on tongue Physical Exam Vitals: Vital Signs Temp Pulse Pulse Resp BP BP Pulse Ox 07/30/20 08:00 98.4 F 72 14 123/69 94 L 07/30/20 02:41 98.1 F 83 18 124/74 95 07/29/20 19:47 98.3 F 78 18 123/78 96 07/29/20 17:25 75 18 114/74 98 07/29/20 14:17 98.8 F 60 18 134/74 97 Intake and Output 07/29/20 07/30/20 07/30/20 22:59 06:59 14:59 Output Total 300 200 Balance -300 -200 Output: Urine 300 200 Other: Voiding Method Urinal Urinal Weight 74.843 kg Results CBC & Chem 7: 07/29/20 14:53 07/29/20 14:53 Labs: Abnormal Lab Results - Last 24 Hours (Table) 07/29/20 07/29/20 07/29/20 Range/Units 14:53 14:53 14:53 WBC 12.7 H (3.8-10.6) k/uL RBC 3.85 L (4.30-5.90) m/uL Hgb 12.9 L (13.0-17.5) gm/dL Hct 37.8 L (39.0-53.0) % Plt Count 137 L (150-450) k/uL Neutrophils # 11.7 H (1.3-7.7) k/uL Lymphocytes # 0.3 L (1.0-4.8) k/uL Sodium 135 L (137-145) mmol/L Creatinine 0.62 L (0.66-1.25) mg/dL Glucose 117 H (74-99) mg/dL Creatine Kinase 368 H (55-170) U/L Total Protein 6.2 L (6.3-8.2) g/dL Albumin 3.2 L (3.5-5.0) g/dL Urine Protein (Negative) Urine Ketones (Negative) 07/29/20 Range/Units 16:18 WBC (3.8-10.6) k/uL RBC (4.30-5.90) m/uL Hgb (13.0-17.5) gm/dL Hct (39.0-53.0) % Plt Count (150-450) k/uL Neutrophils # (1.3-7.7) k/uL Lymphocytes # (1.0-4.8) k/uL Sodium (137-145) mmol/L Creatinine (0.66-1.25) mg/dL Glucose (74-99) mg/dL Creatine Kinase (55-170) U/L Total Protein (6.3-8.2) g/dL Albumin (3.5-5.0) g/dL Urine Protein Trace H (Negative) Urine Ketones 1+ H (Negative) Thrombosis Risk Factor Assmnt - Choose All That Apply Any of the Below Risk Factors Present?: No Other Risk Factors: Yes Each Risk Factor Represents 3 Points: Age 75 years or older Other congenital or acquired thrombophilia - If yes, enter type in comment: No Thrombosis Risk Factor Assessment Total Risk Factor Score: 3 Thrombosis Risk Factor Assessment Level: Moderate Risk
[2020-07-31 03:02] VITALS: PULSE 77
[2020-07-31] MEDS: Acetaminophen-Codeine 300-30mg TAB PO PRN (05:03)
[2020-07-31] MEDS: LEVOTHYROXINE 100 MCG TAB PO SCH (05:09)
[2020-07-31 08:00] VITALS: BP 114/75; RESP 18; TEMP 97.9
[2020-07-31] MEDS: PANTOPRAZOLE 40 MG/10 ML VIAL IV SCH (08:48)
[2020-07-31] MEDS: FUROSEMIDE 20 MG TAB PO SCH (08:48)
[2020-07-31] MEDS: HYDROXYCHLOROQUINE SULFATE 200 MG TAB PO SCH (08:48)
[2020-07-31] MEDS: buPROPion SR 150 MG TABLET.ER PO SCH (08:48)
[2020-07-31] MEDS: ASPIRIN 81 MG PO SCH (08:48)
[2020-07-31] MEDS: SODIUM CHLORIDE 0.9% 1,000 ML IV SCH (08:48)
[2020-07-31] MEDS: ESCITALOPRAM 10 MG TAB PO SCH (08:48)
[2020-07-31] MEDS: CLOPIDOGREL 75 MG TAB PO SCH (08:48)
--- NOTE | 2020-07-31 15:48 | P.DS ---
Providers Date of admission: 07/29/20 17:38 Expected date of discharge: 07/31/20 Attending physician: Kamaljit Hagan Consults: 07/29/20 17:33 Consult Physician Stat Consulting Provider: Agustín Falk Reason/Comments: Left leg injury Do you want consulting provider notified?: Yes Primary care physician: [facility] Course: Chief Complaint: Fall History of presenting complaint: This is a pleasant 74-year-old patient of Dr. Savage. Chronic stable medical conditions include hyperlipidemia, hypertension, osteoarthritis, coronary artery disease with stent and bypass, hypothyroid. Patient's had rotator cuff surgery on both the sides 3. Also got a chronic neck pain. Patient was in the garage and he heard something crack she turned around and he took a fall injuring his left hip. Subsequently he went down to the mailbox and about 10 feet before his neck feels weak and he fell down again. He rolled over to the mailbox she had to hold onto it to get up and stand. At her baseline is normally able to walk he started feeling significant pain in the left hip. Fracture was ruled out by us x-ray and a computed tomography scan of the ER. Some swelling of the left hip. Prior to the episodes no chest pain and palpitation dizziness or lightheadedness. Patient was felt to have a blunt injury of the left hip. Secondary edema. An soft tissue swelling. Today-patient is somewhat better control. going to rehab. Cleared by orthopedics. Discussed with the patient. Consultation: Dr. Falk-orthopedics Past medical history to include: Hyperlipidemia, hypertension, osteoarthritis, prostate disorder, hypothyroid, coronary artery disease with stent and bypass, cervical spine severe arthritis with radiculopathy, bilateral rotator cuff repair and dysfunction. Depression. 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 No smoking. No alcohol. Physical examination: VITAL SIGNS: 97.9, 71, 18, 114/75, 96% room air GENERAL: BMI 25.8, sitting up in a chair, comfortable. EYES: Pupils equal. Conjunctiva normal. HEENT: External appearance of nose and ears normal, oral cavity grossly normal. NECK: JVD not raised; masses not palpable. HEART: First and second heart sounds are normal; no edema. LUNGS: Respiratory rate normal; clear to auscultation. ABDOMEN: Soft, nontender, liver spleen not palpable, no masses palpable. PSYCH: Alert and oriented x3; mood and affect normal. NEUROLOGICAL: [Cranial nerves grossly intact; no facial asymmetry, EXTREMITIES: Swelling of the left thigh. Decreased range of motion.. INVESTIGATIONS, reviewed in the clinical context: White count 12.7 hemoglobin 12.9 platelets 137 potassium 4 creatinine 0.62 EKG tracing personally reviewed by me-normal sinus rhythm, poor LV progression, nonspecific ST segment changes. Femur CT, femur x-ray, pelvic x-ray, had cervical spine CT--negative for fracture Chest x-ray film personally reviewed by me-possible chronic changes Assessment: -This is a patient who had 2 falls Appears to both mechanical. Subsequently developed significant pain in the left thigh Area. Swelling on clinical exam. No evidence of fracture. Likely soft tissue swelling and bruising and secondary edema. 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 -Hyperlipidemia -Essential hypertension -Primary osteoarthritis -BPH -Hypothyroid -Coronary artery disease with history of stent and coronary bypass -Depression otherwise specified [facility] Patient Condition at Discharge: Stable Plan - Discharge Summary New Discharge Prescriptions: New Acetaminophen Tab [Tylenol] 650 mg PO Q6HR PRN tab PRN Reason: Mild Pain Or Fever > 100.5 Continue Atorvastatin [Lipitor] 80 mg PO HS buPROPion SR [Wellbutrin SR] 150 mg PO BID Doxazosin [Cardura] 2 mg PO HS Escitalopram Oxalate [Lexapro] 10 mg PO DAILY Levothyroxine Sodium [Synthroid] 175 mcg PO SUTHFRSA Nitroglycerin Sl Tabs [Nitrostat] 0.4 mg SUBLINGUAL Q5M PRN #25 tab PRN Reason: Chest Pain Cholecalciferol [Vitamin D3 (25 Mcg = 1000 Iu)] 2,000 unit PO DAILY Niacin 2,000 mg PO HS Levothyroxine Sodium [Synthroid] 200 mcg PO MOTU Aspirin EC [Ecotrin Low Dose] 81 mg PO DAILY Furosemide [Lasix] 20 mg PO DAILY #90 tab Clopidogrel [Plavix] 75 mg PO DAILY Hydroxychloroquine Sulfate [Plaquenil] 200 mg PO BID Changed traMADol HCL 50 mg PO TID #9 tab No Action Cleansing Colon Formula 1 cap PO BID Chelation + Resveratrol 3 cap PO DAILY Glucosamine/Chondr Jacobs A Sod [Osteo Bi-Flex Caplet] 2 tab PO DAILY Super Beta Prostate 1 tab PO BID Discharge Medication List Atorvastatin [Lipitor] 80 mg PO HS 07/05/14 [History] Doxazosin [Cardura] 2 mg PO HS 07/05/14 [History] buPROPion SR [Wellbutrin SR] 150 mg PO BID 07/05/14 [History] Escitalopram Oxalate [Lexapro] 10 mg PO DAILY 05/16/19 [History] Levothyroxine Sodium [Synthroid] 175 mcg PO SUTHFRSA 05/16/19 [History] Nitroglycerin Sl Tabs [Nitrostat] 0.4 mg SUBLINGUAL Q5M PRN #25 tab 05/18/19 [Rx] Aspirin EC [Ecotrin Low Dose] 81 mg PO DAILY 06/04/20 [History] Chelation + Resveratrol 3 cap PO DAILY 06/04/20 [History] Cholecalciferol [Vitamin D3 (25 Mcg = 1000 Iu)] 2,000 unit PO DAILY 06/04/20 [History] Cleansing Colon Formula 1 cap PO BID 06/04/20 [History] Glucosamine/Chondr Jacobs A Sod [Osteo Bi-Flex Caplet] 2 tab PO DAILY 06/04/20 [History] Levothyroxine Sodium [Synthroid] 200 mcg PO MOTU 06/04/20 [History] Niacin 2,000 mg PO HS 06/04/20 [History] Furosemide [Lasix] 20 mg PO DAILY #90 tab 06/06/20 [Rx] Clopidogrel [Plavix] 75 mg PO DAILY 07/29/20 [History] Hydroxychloroquine Sulfate [Plaquenil] 200 mg PO BID 07/29/20 [History] Super Beta Prostate 1 tab PO BID 07/29/20 [History] Acetaminophen Tab [Tylenol] 650 mg PO Q6HR PRN tab 07/31/20 [Rx] traMADol HCL 50 mg PO TID #9 tab 07/31/20 [Rx] Follow up Appointment(s)/Referral(s): Jacob Savage DO [Primary Care Provider] - 1-2 days Agustín Falk MD [STAFF PHYSICIAN] - 1 Week
[2020-08-02] MEDS ORDERED: LEVOTHYROXINE 88 MCG TAB PO SCH (06:30)
== END 2020-07-31 17:15 ==
LOC: EC 14:15 → 6NMEDSUR 17:38
PROVIDERS: ADMIT Hospitalist; ATTEND Hospitalist
DX: M79.652 Pain in left thigh (principal); M25.552 Pain in left hip; R60.9 Edema, unspecified; R29.6 Repeated falls; M47.812 Spondylosis without myelopathy or radiculopathy, cervical region; G83.20 Monoplegia of upper limb affecting unspecified side; G89.29 Other chronic pain; M54.9 Dorsalgia, unspecified; E78.5 Hyperlipidemia, unspecified; I10 Essential (primary) hypertension; I25.2 Old myocardial infarction; M19.90 Unspecified osteoarthritis, unspecified site; K59.00 Constipation, unspecified; F32.9 Major depressive disorder, single episode, unspecified; D64.9 Anemia, unspecified; R74.8 Abnormal levels of other serum enzymes; I25.10 Atherosclerotic heart disease of native coronary artery without angina pectoris; E03.9 Hypothyroidism, unspecified; R53.1 Weakness; M47.22 Other spondylosis with radiculopathy, cervical region; N40.0 Benign prostatic hyperplasia without lower urinary tract symptoms; M19.91 Primary osteoarthritis, unspecified site; W19.XXXA Unspecified fall, initial encounter; Y92.008 Other place in unspecified non-institutional (private) residence as the place of occurrence of the external cause; W06.XXXA Fall from bed, initial encounter; Y92.003 Bedroom of unspecified non-institutional (private) residence as the place of occurrence of the external cause; Z79.899 Other long term (current) drug therapy; Z79.890 Hormone replacement therapy; Z95.2 Presence of prosthetic heart valve; Z79.82 Long term (current) use of aspirin; Z79.02 Long term (current) use of antithrombotics/antiplatelets; Z79.891 Long term (current) use of opiate analgesic; Z88.8 Allergy status to other drugs, medicaments and biological substances; Z91.018 Allergy to other foods; Z95.1 Presence of aortocoronary bypass graft; Z95.5 Presence of coronary angioplasty implant and graft; Z77.22 Contact with and (suspected) exposure to environmental tobacco smoke (acute) (chronic); Z80.9 Family history of malignant neoplasm, unspecified
CPT/HCPCS: 96376; 96361 ×3; 96374; 99285; 36415; 93005; 97530; 97162; 97535; 97166; 80053; 82550; 84484; 85025; 85610; 85730; 81003; 72170; 73552; 71046; 72125; 70450; 73700; G0378 ×3; S0106 ×2; C9113 ×2

== ENCOUNTER 2021-05-08 06:17 | Day surgery (SDC) | payer MEDICARE ==
[2021-05-06 10:35] VITALS: BMI 25.9
--- NOTE | 2021-05-06 12:43 | P.HPOR ---
History of Present Illness H&P Date: 05/06/21 Chief Complaint: Right thumb CMC arthritis Subjective: This is a 75 year old male that presents today for initial evaluation regarding a 2 year history of right base of the thumb pain and left wrist pain. Patient denies any injury or inciting event to either hand. He has tried splinting for both the thumb and wrist but states they haven't provided much help or symptom relief. He denies any paresthesias. With the right hand he states he has difficult grasping and pinching due to pain at the base of the thumb. With the left hand and wrist he describes a sharp pain the central and volar aspect of the wrist, specifically with flexion/extension type of movements. Physical Examination: RUE: AIN/PIN/Radial/Ulnar/Median motor intact. Radial/Ulnar/Median SILT. 2+/4 Radial/Ulnar pulses palpated. Positive thumb CMC grind, negative finkelsteins. NTTP over thumb A1 Shane. Wrist flexion/extension 75/75. LUE: AIN/PIN/Radial/Ulnar/Median motor intact. Radial/Ulnar/Median SILT. 2+/4 Radial/Ulnar pulses palpated. Wrist flexion/extension 70/35. Negative CMC grind, negative finkelsteins. Positive scaphoid shift. Positive finger extension test. Imaging: X-Rays of the right thumb demonstrate severe thumb CMC arthritis. X-rays left wrist demonstrate SLAC wrist deformity with widened scapholunate interval with ulnar translation of the lunate leaving ulnar 90% of lunate unc overed which is now resting on the distal ulna. No evidence of volar lunate dislocation on lateral. Overall sclerotic appearance of the lunate. Early arthritis changes at the radial styloid. Impression: 1.) Right thumb basilar joint arthritis, severe 2.) SLAC wrist arthritis/deformity Plan: Diagnosis and treatment options were discussed with the patient. We discussed he has severe right thumb basilar joint arthritis that has failed conservative treatment. He states he wishes to pursue further intervention to address his ongoing base of the thumb discomfort. We discussed typical post op protocol including 3 weeks of immobilization followed by initiation of active and passive ROM at the 3 week post op herbert, then a focus on strengthening at the 6 week herbert. 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 Due to the nature of his deformity and advanced drift of his lunate he would best benefit ultimately from a PRC vs Total wrist fusion. He was understanding of his treatment options and wishes to go forward with the right thumb procedure and will continue to watch his left wr ist symptoms. The patient was agreeable with this plan of action and will obtain pre-op medical clearance and surgery will be planned for left thumb CMC tendon transfer arthroplasty in the near future. All questions answered. -Morris Harman DO Orthopedic Hand/Upper Extremity Surgeon Past Medical History Past Medical History: Eye Disorder, Hyperlipidemia, Myocardial Infarction (non Q-wave), Osteoarthritis (OA), Prostate Disorder, Thyroid Disorder Additional Past Medical History / Comment(s): hx migrianes, hx hiatal hernia Last Myocardial Infarction Date:: 05/01/2000 History of Any Multi-Drug Resistant Organisms: None Reported Past Surgical History: Cardiac Valve Replacement, Coronary Bypass/CABG, Heart Catheterization With Stent, Orthopedic Surgery Additional Past Surgical History / Comment(s): CABG-1999-"has chest wire and 5 loose dedra", double bypass, aortic valve replacement and aortic aneurysm repair , FATTY TUMOR REMOVED FROM JAW, GANGLION CYST RT RING FINGER, BILAT ROTATOR CUFF REPAIR (rt x3, lt x 1) titanium anchor, LUNA cataract removal, rt foot hammertoe, steroid injections in back for pain Past Anesthesia/Blood Transfusion Reactions: No Reported Reaction Date of Last Stent Placement:: 01/14/13 Past Psychological History: Depression Smoking Status: Never smoker Past Alcohol Use History: None Reported Additional Past Alcohol Use History / Comment(s): 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 Past Drug Use History: None Reported - Past Family History Father Family Medical History: Cancer Mother Family Medical History: Congestive Heart Failure (CHF) Brother(s) Family Medical History: Myocardial Infarction ([place]) Medications and Allergies Home Medications Medication Instructions Recorded Confirmed Type Atorvastatin [Lipitor] 80 mg PO HS 07/05/14 05/06/21 History Doxazosin [Cardura] 2 mg PO HS 07/05/14 05/06/21 History buPROPion SR [Wellbutrin SR] 150 mg PO BID 07/05/14 05/06/21 History Escitalopram Oxalate [Lexapro] 10 mg PO HS 05/16/19 05/06/21 History Levothyroxine Sodium [Synthroid] 175 mcg PO DIRECTED 05/16/19 05/06/21 History Nitroglycerin Sl Tabs [Nitrostat] 0.4 mg SUBLINGUAL Q5M PRN #25 tab 05/18/19 05/06/21 Rx Aspirin EC [Ecotrin Low Dose] 81 mg PO DAILY 06/04/20 05/06/21 History Cholecalciferol [Vitamin D3 (25 2,000 unit PO DAILY 06/04/20 05/06/21 History Mcg = 1000 Iu)] Glucosamine/Chondr Jacobs A Sod [Osteo 2 tab PO DAILY 06/04/20 05/06/21 History Bi-Flex Caplet] Levothyroxine Sodium [Synthroid] 200 mcg PO DIRECTED 06/04/20 05/06/21 History Niacin 2,000 mg PO HS 06/04/20 05/06/21 History Furosemide [Lasix] 20 mg PO DAILY #90 tab 06/06/20 05/06/21 Rx Ipratropium [place] 0.06%Nasal 2 spray EA NOSTRIL TID 05/06/21 05/06/21 History [Atrovent Nasal 0.06%] Meloxicam [Mobic] 7.5 mg PO DAILY PRN 05/06/21 05/06/21 History Allergies Allergy/AdvReac Type Severity Reaction Status Date / Time black walnut Allergy Unknown Verified 05/06/21 10:21 cromolyn sodium AdvReac fungal Verified 05/06/21 10:21 [From Nasalcrom] infection on tongue Physical Examination Osteopathic Statement: *. No significant issues noted on an osteopathic structural exam other than those noted in the History and Physical/Consult.
[~2021-05-08 06:17] MED LIST: LACTATED RINGERS 1,000 ML IV SCH; LIDOCAINE 1% (10MG/ML) FOR IV START INTRADERMA PRN
[2021-05-08] MEDS ORDERED: HYDROmorphone 0.5 MG/0.5 ML SYRINGE IVP PRN (07:00)
[2021-05-08] MEDS ORDERED: ONDANSETRON 4 MG/2 ML VIAL ONE (07:09)
[2021-05-08] MEDS ORDERED: DEXAMETHASONE SOD PHOSPHATE 4 MG/ML 1 ML VIAL IVP ONE (07:23)
[2021-05-08] MEDS ORDERED: ONDANSETRON 4 MG/2 ML VIAL IVP ONE (07:23)
[2021-05-08] MEDS ORDERED: MIDAZOLAM 2 MG/2 ML VIAL IVP ONE (07:31)
[2021-05-08 07:48] VITALS: RESP 16
[2021-05-08] MEDS ORDERED: ROPIVACAINE 5 MG/ML 30 ML VIAL ONE (07:48)
[2021-05-08] MEDS ORDERED: ePHEDrine 50 MG/ML 1 ML AMP ONE (07:48)
[2021-05-08] MEDS ORDERED: fentaNYL (PF) 50 MCG/ML 2 ML AMP ONE (07:48)
[2021-05-08] MEDS ORDERED: DEXAMETHASONE SOD PHOSPHATE 4 MG/ML 1 ML VIAL ONE (07:48)
[2021-05-08] MEDS ORDERED: PHENYLEPHRINE-0.9% NACL SYG 1,000 MCG/10 ML SYRINGE ONE (07:48)
[2021-05-08] MEDS ORDERED: LIDOCAINE 1% INJ 10MG/ML (20 ML MDV) ONE (07:48)
[2021-05-08] MEDS ORDERED: PROPOFOL 10 MG/ML 20 ML VIAL IV ONE (07:48)
[2021-05-08 08:06] LABS: African American GFR (CKD) >90 (>60 ml/min/1.73 sqM); Anion Gap 4 mmol/L; Blood Urea Nitrogen 22 mg/dL (9-20); Carbon Dioxide 24 mmol/L (22-30); Chloride 109 mmol/L (98-107); Glucose 97 mg/dL (74-99); Non-African American GFR(CKD) >90 (>60 ml/min/1.73 sqM); Potassium 4.1 mmol/L (3.5-5.1); Sodium 137 mmol/L (137-145)
--- NOTE | 2021-05-08 08:18 | P.ANPRN ---
Procedure Note - Anesthesia - Nerve Block Performed Right Supraclavicular Single Time Out Performed: Yes Date of Procedure: 05/08/21 Procedure Start Time: : Procedure Stop Time: :40 Location of Patient: PreOp Indication: Requested by Surgeon Specifically requested for management of pain by DrMacrina: Morris Harman Sedation Type: Sedate with meaningful contact maintained Preparation: Sterile Prep Position: Supine Needle Types: Pajunk Needle Gauge: 21 Ultrasound used to visualize needle placement: Yes Ultrasound used to observe medication spread: Yes Injectate: 0.5% Ropivacaine (see comment for volume) (20 ml + 4mg Dexamethasone) Blood Aspirated: No Pain Paresthesia on Injection Noted: No Resistance on Injection: Normal Image Stored and Saved: Yes Events: Uneventful and Well Tolerated
[2021-05-08 09:48] VITALS: TEMP 97.3
[2021-05-08] MEDS ORDERED: KETOROLAC 15 MG/ML 1 ML VIAL ONE (10:01)
[2021-05-08] MEDS ORDERED: KETOROLAC 15 MG/ML 1 ML VIAL IVP ONE (10:10)
[2021-05-08 10:45] VITALS: BP 121/64; PULSE 65
--- NOTE | 2021-05-08 12:02 | P.OP ---
Date of Procedure: 05/08/21 Preoperative Diagnosis: Right thumb CMC arthritis, severe. Postoperative Diagnosis: Right thumb CMC arthritis, severe. Procedure(s) Performed: Right thumb CMC tendon transfer arthroplasty Anesthesia: regional Surgeon: Morris Harman Injection Molding Machine Tender #1: Blas Webster Pathology: none sent Condition: stable Disposition: PACU Description of Procedure: This is a 75 year old male with a history of advance right thumb CMC arthritis that has failed conservative treatment. He presents today for right thumb CMC tendon transfer arthroplasty. Risks and benefits of surgery were discussed with the patient including bleeding, damage to surrounding tissue, infection, need for further surgery as well as risks of anesthesia including pulmonary embolism and even and the patient wished to proceed with surgical intervention. The patients was seen in the pre-operative area by myself. Consent and H&P were completed and updated. The correct extremity was marked in the pre-operative area by myself and all other questions were answered. Patient received an upper extremity nerve block by the department of anesthesia. He then was brought to the operating room by the department of anesthesia. They remained on the portable stretcher and a rolling hand table was brought to the side of the operative extremity. The patient was then drifted off to sleep by the department of anesthesia. A nonsterile tourniquet was then applied to the operative extremity and the left upper extremity was then prepped and draped in normal sterile fashion. Pre-operative time out was performed indicating the correct patient, procedure and laterality. All in the room agreed. Pre-operative antibiotics were given prior to skin incision. The operative extremity was the exsanguinated with an esmarch bandage and the tourniquet was inflated to 250mmHg. Longitudinal incision was made over the left thumb CMC joint with a 15 blade scalpel. Blunt dissection was taken down to subcutaneous tissues with littler scissors taking care to preserve the branches of the superficial radial nerve. Dorsal radial artery was identified proximally in the incision and protected throughout the procedure. Scalpel was then made to incise the thumb CMC joint creating full thickness flaps off of the proximal metacarpal base and trapezium, this plane was further developed with a periosteal elevator. Elevator was then utilized to identify the thumb CMC joint and scaphotrapezial joint. Rongeur was then used to excise the trapezium in a piecemeal fashion. After trapeziectomy was performed FCR tendon was identified at the floor of the bed where the trapezium previously was located and the dorsal base of the thumb metacarpal was drilled with a 2.0 drill bit followed by a 3.5 drill bit. Rongeur was used to make a small groove at the dorsal base of metacarpal. Attention was then drawn to the volar wrist. Incision was made over FCR tendon distally and proximally at the level of the musculotendinous junction. FCR sheath was then opened and widened with a small hemostat. 2-0 Ethibond was then used to damon the FCR tendon in half and the ulnar half of FCR tendon was harvested and sharply dissected by passing the 2-0 ethibond through the proximal incision and then sharply cutting the proximal portion of the tendon. The ulnar half of the FCR tendon was then passed through the FCR sheath and separation from the radial half of the tendon was carried all the way down it's insertion at the index metacarpal base. Loop was made with #2 suture through previously made drill holes and the FCR tendon was passed through the drill hole at the base of the first metacarpal and tensioned appropriately. 4-0 Ethibond was then used to suture the FCR tendon to itself in a figure of 8 fashion, this was repeated twice. 90 degree curved hemostat was then used to wrap the FCR tendon around itself and secured with multiple 4-0 ethibond figure of 8 stitches. The wound was then irrigated. Capsular closure was performed with 4-0 Monocryl. Skin was closed with several interrupted 4-0 nylon sutures. Sterile dressing consisting of adaptic, 4x4s cast padding, and a thumb spica plaster splint was applied. Tourniquet was let down and the hand had brisk cap refill and normal perfusion immediately. The patient was then woken by the department of anesthesia and transferred to PACU in stable condition. Morris Harman D.O. Orthopedic Hand/Upper Extremity Surgeon
== END 2021-05-08 11:50 | disposition home or self-care (01) ==
LOC: OR 06:17
PROVIDERS: ATTEND Orthopaedic Surgery Hand Surgery
DX: M19.041 Primary osteoarthritis, right hand (principal); E78.5 Hyperlipidemia, unspecified; I25.10 Atherosclerotic heart disease of native coronary artery without angina pectoris; E07.9 Disorder of thyroid, unspecified; N42.9 Disorder of prostate, unspecified; H57.9 Unspecified disorder of eye and adnexa; G43.909 Migraine, unspecified, not intractable, without status migrainosus; I25.2 Old myocardial infarction; Z95.2 Presence of prosthetic heart valve; Z95.1 Presence of aortocoronary bypass graft; Z95.5 Presence of coronary angioplasty implant and graft; Z98.42 Cataract extraction status, left eye; Z98.41 Cataract extraction status, right eye; Z98.890 Other specified postprocedural states; Z77.22 Contact with and (suspected) exposure to environmental tobacco smoke (acute) (chronic); Z80.9 Family history of malignant neoplasm, unspecified; Z82.49 Family history of ischemic heart disease and other diseases of the circulatory system; Z79.82 Long term (current) use of aspirin; Z79.890 Hormone replacement therapy; Z79.899 Other long term (current) drug therapy; Z88.8 Allergy status to other drugs, medicaments and biological substances; Z91.018 Allergy to other foods
CPT/HCPCS: 64415; 76942; 80048; 25447; 25310; J2250; J1100; J2405; J0690; J2001; J3010; J2795; J1885; J2370; J2704; J1170

== ENCOUNTER 2023-02-04 10:33 | Inpatient (IN) | payer MEDICARE ==
[2023-02-04] MEDS ORDERED: ASPIRIN 81 MG PO STA (10:43)
[2023-02-04] MEDS ORDERED: NITROGLYCERIN OINT 1 INCH/GM PACKET TOPICAL STA (10:43)
--- NOTE | 2023-02-04 10:45 | ED ---
General Adult HPI - General Stated complaint: Chest Pain Time Seen by Provider: 02/04/23 10:38 Source: patient, RN notes reviewed Limitations: no limitations - History of Present Illness Initial comments: Patient is a pleasant 77-year-old male presenting to the emergency department with concerns with chest discomfort. Onset of symptoms was yesterday while cutting the grass. Discomfort was worse this morning rated 5 or 6/10. Discomfort is currently 3/10. There is some radiation towards the arms. Discomfort feels like pressure. Patient has had associated diaphoresis. No nausea. No dyspnea. Patient does have history of previous stents and previously has seen Dr. bullard for cardiac problems. - Related Data Home Medications Medication Instructions Recorded Confirmed Atorvastatin [Lipitor] 80 mg PO HS 07/05/14 05/08/21 Doxazosin [Cardura] 2 mg PO HS 07/05/14 05/08/21 buPROPion SR [Wellbutrin SR] 150 mg PO BID 07/05/14 05/08/21 Escitalopram Oxalate [Lexapro] 10 mg PO HS 05/16/19 05/08/21 Levothyroxine Sodium [Synthroid] 175 mcg PO DIRECTED 05/16/19 05/08/21 Aspirin EC [Ecotrin Low Dose] 81 mg PO DAILY 06/04/20 05/08/21 Cholecalciferol [Vitamin D3 (25 2,000 unit PO DAILY 06/04/20 05/08/21 Mcg = 1000 Iu)] Glucosamine/Chondr Jacobs A Sod [Osteo 2 tab PO DAILY 06/04/20 05/08/21 Bi-Flex Caplet] Levothyroxine Sodium [Synthroid] 200 mcg PO DIRECTED 06/04/20 05/08/21 Niacin 2,000 mg PO HS 06/04/20 05/08/21 Ipratropium [place] 0.06%Nasal 2 spray EA NOSTRIL TID 05/06/21 05/08/21 [Atrovent Nasal 0.06%] Meloxicam [Mobic] 7.5 mg PO DAILY PRN 05/06/21 05/08/21 Previous Rx's Medication Instructions Recorded Nitroglycerin Sl Tabs [Nitrostat] 0.4 mg SUBLINGUAL Q5M PRN #25 tab 05/18/19 Furosemide [Lasix] 20 mg PO DAILY #90 tab 12/02/20 HYDROcodone/APAP 5-325MG [Mondovi 1 tab PO Q4HR PRN 3 Days #18 tab 05/08/21 5-325] Allergies Allergy/AdvReac Type Severity Reaction Status Date / Time black walnut Allergy Unknown Verified 05/08/21 06:43 cromolyn sodium AdvReac fungal Verified 05/08/21 06:43 [From Nasalcrom] infection on tongue Review of Systems ROS Statement: Those systems with pertinent positive or pertinent negative responses have been documented in the HPI. ROS Other: All systems not noted in ROS Statement are negative. Constitutional: Denies: fever Eyes: Denies: eye pain ENT: Denies: ear pain Respiratory: Denies: dyspnea Cardiovascular: Reports: chest pain Endocrine: Denies: fatigue Gastrointestinal: Denies: abdominal pain Genitourinary: Denies: dysuria Musculoskeletal: Denies: back pain Skin: Denies: rash Neurological: Denies: weakness Past Medical History Past Medical History: Eye Disorder, Hyperlipidemia, Myocardial Infarction (non Q-wave), Osteoarthritis (OA), Prostate Disorder, Thyroid Disorder Additional Past Medical History / Comment(s): hx migrianes, hx hiatal hernia Last Myocardial Infarction Date:: 05/01/2000 History of Any Multi-Drug Resistant Organisms: None Reported Past Surgical History: Cardiac Valve Replacement, Coronary Bypass/CABG, Heart Catheterization With Stent, Orthopedic Surgery Additional Past Surgical History / Comment(s): CABG-1999-"has chest wire and 5 loose dedra", double bypass, aortic valve replacement and aortic aneurysm repair , FATTY TUMOR REMOVED FROM JAW, GANGLION CYST RT RING FINGER, BILAT ROTATOR CUFF REPAIR (rt x3, lt x 1) titanium anchor, LUNA cataract removal, rt foot hammertoe, steroid injections in back for pain Past Anesthesia/Blood Transfusion Reactions: No Reported Reaction Date of Last Stent Placement:: 01/14/13 Past Psychological History: Depression Smoking Status: Never smoker Past Alcohol Use History: None Reported Additional Past Alcohol Use History / Comment(s): 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 Absent: chest wall tenderness Cardiovascular Exam: Present: regular rate, normal rhythm Expanded Peripheral pulses: 2+: Radial (R), Radial (L), Posterior Tibialis (R), Posterior Tibialis (L) GI/Abdominal exam: Present: soft. Absent: tenderness Extremities exam: Present: normal inspection. Absent: pedal edema, calf tenderness Neurological exam: Present: alert Psychiatric exam: Present: normal affect, normal mood Skin exam: Present: normal color Course Vital Signs 02/04/23 02/04/23 02/04/23 10:43 11:06 11:10 Temperature 97.8 F Pulse Rate 68 Respiratory 18 18 Rate Blood Pressure 97/49 99/47 O2 Sat by Pulse 97 Oximetry - Reevaluation(s) Reevaluation #1: 02/04/23 11:27 Case discussed with cardiology Dr. oRgers who will evaluate EKG Findings - EKG Results: EKG: interpreted by MALDONADO (Septal Q waves. Lateral ST depression. Previous EKGs reviewed dated 07/29/20 and 06/04/20), sinus rhythm, normal axis Medical Decision Making - Medical Decision Making Was pt. sent in by a medical professional or institution (, PA, BRIDGE WORKER APPRENTICE, urgent care, hospital, or halfway...) When possible be specific @ -[No] Did you speak to anyone other than the patient for history (EMS, parent, family, police, friend...)? What history was obtained from this source @ -[No] Did you review nursing and triage notes (agree or disagree)? Why? @ -[I reviewed and agree with nursing and triage notes] Were old charts reviewed (outside hosp., previous admission, EMS record, old EKG, old radiological studies, urgent care reports/EKG's, halfway records)? Report findings @ -80s EKGs reviewed Differential Diagnosis (chest pain, altered mental status, abdominal pain women, abdominal pain men, vaginal bleeding, weakness, fever, dyspnea, syncope, headache, dizziness, GI bleed, back pain, seizure, CVA, palpatations, mental health, musculoskeletal)? @ -Differential Chest Pain: Stable Angina, Unstable Angina, STEMI, NSTEMI Aortic Dissection, Pneumothorax, Musculoskeletal, Esophageal Spasm GERD, Cholecystitis, Pancreatitis, Zoster, this is not meant to be an all-inclusive list. EKG interpreted by me (3pts min.). @ -[As above] X-rays interpreted by me (1pt min.). @ CT interpreted by me (1pt min.). @ -[None done] U/S interpreted by me (1pt. min.). @ -[None done] What testing was considered but not performed or refused? (CT, X-rays, U/S, labs)? Why? @ -[None] What meds were considered but not given or refused? Why? @ -[None] Did you discuss the management of the patient with other professionals (professionals i.e. DrMacrina, PA, BRIDGE WORKER APPRENTICE, lab, RT, psych nurse, manager social services, supervisor whipped topping, teacher, chief credit officer, nurse outreach case manager)? Give summary @ -Case was discussed with cardiac to Dr. Rogers who plans of taking patient to the [facility]. Case also discussed with Dr. Hagan, who will admit cover Dr. Savage Was smoking cessation discussed for >3mins.? @ -[No] Was critical care preformed (if so, how long)? @ -31 minutes critical care time Were there social determinants of health that impacted care today? How? (Homelessness, low income, unemployed, alcoholism, drug addiction, transp ortation, low edu. Level, literacy, decrease access to med. care, correction, rehab)? @ -[No] Was there de-escalation of care discussed even if they declined (Discuss DNR or withdrawal of care, Hospice)? DNR status @ -[No] What co-morbidities impacted this encounter? (DM, HTN, Smoking, COPD, CAD, Cancer, CVA, ARF, Chemo, Hep., AIDS, mental health diagnosis, sleep apnea, morbid obesity)? @ -[None] Was patient admitted / discharged? Hospital course, mention meds given and route, prescriptions, significant lab abnormalities, going to OR and other pertinent info. @ -Patient reevaluated and symptoms are a little bit worse. Patient updated on results including EKG changes. Patient will be admitted and go to [facility]. Undiagnosed new problem with uncertain prognosis? @ -[No] Drug Therapy requiring intensive monitoring for toxicity (Heparin, Nitro, Insulin, Cardizem)? @ -[No] Were any procedures done? @ -[No] Diagnosis/symptom? @ -unstable angina Acute, or Chronic, or Acute on Chronic? @ -Acute Uncomplicated (without systemic symptoms) or Complicated (systemic symptoms)? @ -[default] Side effects of treatment? @ -[No] Exacerbation, Progression, or Severe Exacerbation? @ -[No] Poses a threat to life or bodily function? How? (Chest pain, [place], [place], pneumonia, PE, COPD, DKA, ARF, appy, cholecystitis, CVA, Diverticulitis, Homicidal, Suicid al, threat to staff... and all critical care pts) @ -[No] - Lab Data Result diagrams: 02/04/23 10:52 02/04/23 10:52 Lab Results 02/04/23 02/04/23 02/04/23 Range/Units 10:52 10:52 10:52 WBC 4.3 (3.8-10.6) k/uL RBC 4.21 L (4.30-5.90) m/uL Hgb 14.6 (13.0-17.5) gm/dL Hct 42.1 (39.0-53.0) % MCV 100.0 (80.0-100.0) fL MCH 34.6 (25.0-35.0) pg MCHC 34.6 (31.0-37.0) g/dL RDW 12.1 (11.5-15.5) % Plt Count 102 L (150-450) k/uL MPV 8.3 Neutrophils % 61 % Lymphocytes % 27 % Monocytes % 7 % Eosinophils % 3 % Basophils % 0 % Neutrophils # 2.6 (1.3-7.7) k/uL Lymphocytes # 1.2 (1.0-4.8) k/uL Monocytes # 0.3 (0-1.0) k/uL Eosinophils # 0.1 (0-0.7) k/uL Basophils # 0.0 (0-0.2) k/uL PT 10.8 (9.0-12.0) sec INR 1.0 (<1.2) APTT 23.3 (22.0-30.0) sec D-Dimer 1.24 H (<0.60) mg/L FEU Sodium 137 (137-145) mmol/L Potassium 4.0 (3.5-5.1) mmol/L Chloride 105 (98-107) mmol/L Carbon Dioxide 25 (22-30) mmol/L Anion Gap 7 mmol/L BUN 24 H (9-20) mg/dL Creatinine 0.91 (0.66-1.25) mg/dL Est GFR (CKD-EPI)AfAm >90 (>60 ml/min/1.73 sqM) Est GFR (CKD-EPI)NonAf 81 (>60 ml/min/1.73 sqM) Glucose 117 H (74-99) mg/dL Calcium 8.6 (8.4-10.2) mg/dL Magnesium 1.9 (1.6-2.3) mg/dL Total Bilirubin 1.2 (0.2-1.3) mg/dL AST 57 (17-59) U/L ALT 31 (4-49) U/L Alkaline Phosphatase 139 H (38-126) U/L Troponin I (0.000-0.034) ng/mL Total Protein 6.7 (6.3-8.2) g/dL Albumin 3.9 (3.5-5.0) g/dL 02/04/23 Range/Units 10:52 WBC (3.8-10.6) k/uL RBC (4.30-5.90) m/uL Hgb (13.0-17.5) gm/dL Hct (39.0-53.0) % MCV (80.0-100.0) fL MCH (25.0-35.0) pg MCHC (31.0-37.0) g/dL RDW (11.5-15.5) % Plt Count (150-450) k/uL MPV Neutrophils % % Lymphocytes % % Monocytes % % Eosinophils % % Basophils % % Neutrophils # (1.3-7.7) k/uL Lymphocytes # (1.0-4.8) k/uL Monocytes # (0-1.0) k/uL Eosinophils # (0-0.7) k/uL Basophils # (0-0.2) k/uL PT (9.0-12.0) sec INR (<1.2) APTT (22.0-30.0) sec D-Dimer (<0.60) mg/L FEU Sodium (137-145) mmol/L Potassium (3.5-5.1) mmol/L Chloride (98-107) mmol/L Carbon Dioxide (22-30) mmol/L Anion Gap mmol/L BUN (9-20) mg/dL Creatinine (0.66-1.25) mg/dL Est GFR (CKD-EPI)AfAm (>60 ml/min/1.73 sqM) Est GFR (CKD-EPI)NonAf (>60 ml/min/1.73 sqM) Glucose (74-99) mg/dL Calcium (8.4-10.2) mg/dL Magnesium (1.6-2.3) mg/dL Total Bilirubin (0.2-1.3) mg/dL AST (17-59) U/L ALT (4-49) U/L Alkaline Phosphatase (38-126) U/L Troponin I 0.028 (0.000-0.034) ng/mL Total Protein (6.3-8.2) g/dL Albumin (3.5-5.0) g/dL Critical Care Time Critical Care Time: Yes Total Critical Care Time: 31 Disposition Clinical Impression: Unstable angina Disposition: ADMITTED IP TO THIS [facility] Condition: Serious Is patient prescribed a controlled substance at d/c from ED?: No Referrals: Jacob Savage DO [Primary Care Provider] - 1-2 days Time of Disposition: 12:11
[2023-02-04 11:12] LABS: Basophils % (A) 0 %; Eosinophils # (A) 0.1 k/uL (0-0.7); Eosinophils % (A) 3 %; HCT 42.1 % (39.0-53.0); HGB 14.6 gm/dL (13.0-17.5); Lymphocytes # (A) 1.2 k/uL (1.0-4.8); Lymphocytes % (A) 27 %; MCH 34.6 pg (25.0-35.0); MCHC 34.6 g/dL (31.0-37.0); Mean Platelet Volume 8.3; Monocytes # (A) 0.3 k/uL (0-1.0); Monocytes % (A) 7 %; Neutrophils # (A) 2.6 k/uL (1.3-7.7); Neutrophils % (A) 61 %; Platelet Count 102 k/uL (150-450); RBC 4.21 m/uL (4.30-5.90); RDW 12.1 % (11.5-15.5); WBC 4.3 k/uL (3.8-10.6)
[2023-02-04 11:28] LABS: ALT 31 U/L (4-49); African American GFR (CKD) >90 (>60 ml/min/1.73 sqM); Albumin 3.9 g/dL (3.5-5.0); Anion Gap 7 mmol/L; Blood Urea Nitrogen 24 mg/dL (9-20); Calcium 8.6 mg/dL (8.4-10.2); Carbon Dioxide 25 mmol/L (22-30); Chloride 105 mmol/L (98-107); Glucose 117 mg/dL (74-99); Non-African American GFR(CKD) 81 (>60 ml/min/1.73 sqM); Sodium 137 mmol/L (137-145); Total Bilirubin 1.2 mg/dL (0.2-1.3); Total Protein 6.7 g/dL (6.3-8.2)
[2023-02-04 11:35] LABS: AST 57 U/L (17-59); Alkaline Phosphatase 139 U/L (38-126); Magnesium 1.9 mg/dL (1.6-2.3)
[2023-02-04] MEDS ORDERED: HEPARIN SODIUM 1,000 UN/ML (10ML VL) IV ONE (11:37)
[2023-02-04] MEDS ORDERED: HEPARIN SODIUM 1,000 UN/ML (10ML VL) IV PRN (11:37)
[2023-02-04] MEDS ORDERED: ATORVASTATIN 80 MG TAB PO STA (11:43)
[2023-02-04] MEDS ORDERED: ASPIRIN 325 MG TAB PO STA (11:43)
[2023-02-04] MEDS ORDERED: ALPRAZolam 0.5 MG TAB PO PRN (11:43)
[2023-02-04] MEDS ORDERED: NITROGLYCERIN SL TABS 0.4 MG TAB SUBLINGUAL PRN (11:43)
[2023-02-04] MEDS ORDERED: ALPRAZolam 0.25 MG TAB PO PRN (11:43)
[2023-02-04] MEDS: HEPARIN SOD,PORK IN 0.45% NACL 25,000 UNIT in 0.45% NACL 1 250ML.BAG IV SCH (11:55)
[2023-02-04 12:06] LABS: Partial Thromboplastin Time 23.3 sec (22.0-30.0); Prothrombin Time 10.8 sec (9.0-12.0)
--- NOTE | 2023-02-04 12:09 | XR ---
EXAMINATION TYPE: XR chest 2V DATE OF EXAM: 02/04/2023 11:53 AM COMPARISON: Chest radiographs from 07/29/2020 TECHNIQUE: XR chest 2V Frontal and lateral views of the chest. CLINICAL INDICATION:Male, 77 years old with history of Chest Pain; FINDINGS: Lungs/Pleura: No pleural effusion or pneumothorax. Patchy multifocal airspace opacities throughout th e lungs. Heart/mediastinum: Cardiomediastinal silhouette is enlarged and stable. Musculoskeletal: Multiple level degenerative disc disease changes seen throughout the spine. Midline sternotomy wires are noted and stable. IMPRESSION: Patchy multifocal airspace opacities throughout the lungs for pneumonia versus pulmonary edema.
--- NOTE | 2023-02-04 13:05 | P.CRDCN ---
History of Present Illness Consult date: 02/04/23 Consult reason: chest pain History of present illness: HISTORY OF PRESENT ILLNESS: This is a 77-year old male patient of Dr. Babin with a past medical history significant for hypertension, hyperlipidemia, coronary artery disease with 2 vessel CABG LIZ to LAD, VG to D1, tissue AVR in 2009 and Hem[facility] modified aortic root replacement in [place] in 1999 as well as stenting to the SVG LAD, SVG to diagonal, mid RCA. We have been asked to see the patient in consultation for chest pain. Patient is seen today in the emergency center. Natalie dunlap states that he developed midsternal chest pain and a pain to the right lower rib area yesterday while mowing his neighbors lawn. Pain also went from the arms down to the elbows bilaterally. He also complains of shortness of breath and generalized not feeling well. Echo cardiac completed in 2018 revealed ejection fraction 50-55%, [id number] mitral regurgitation and tricuspid regurgitation and moderate pulmonary hypertension. DIAGNOSTICS: EKG reveals sinus rhythm ST depression Chest xray patchy multifocal airspace opacities both lungs, pneumonia versus pulmonary edema. Laboratory data: WBC 4.3, hemoglobin 14.6, platelet count 102. INR 1. D-dimer 1.24. Electrolytes normal. BUN 24 and creatinine 0.91. Liver function tests are normal except for alkaline phosphatase 139. Troponin negative 1. Magnesium 1.9. Current home cardiac medications include aspirin 81 mg daily, Lipitor 80 mg at bedtime, Plavix 37.5 mg daily, Cardura 2 mg at bedtime, Lasix 20 g daily, Nitrostat as needed. Levothyroxine 200 g Thursday to see once a and 175 on Thursday. Echocardiogram 02/2022 revealed normal EF, prosthetic AV, mild to moderate MR, moderate TR. Tona scan stress test 01/2021 was abnormal with predominantly fixed inferior wall defect with segmental wall motion abnormality, mild walter-infarct ischemia. REVIEW OF SYSTEMS: At the time of my exam: CONSTITUTIONAL: Denies fever or chills. HEENT: Denies blurred vision, vision changes, or eye pain. Denies hemoptysis. Reports neck pain with numbness and tingling down bilateral arms. CARDIOVASCULAR: Reports chest pain, orthopnea, PND or palpitations RESPIRATORY: Reports shortness of breath. GASTROINTESTINAL: Denies abdominal pain. Denies nausea or vomiting. HEMATOLOGIC: Denies bleeding disorders. GENITOURINARY: Denies any blood in urine. SKIN: Denies pruitis. Denies rash. PHYSICAL EXAM: VITAL SIGNS: Reviewed. GENERAL: Well-developed in no acute distress. HEENT: Head is normocephalic. Pupils are equal, round. Sclerae anicteric. Mucous membranes of the mouth are moist. Neck supple. No JVD or thyromegaly LUNGS: Respirations even and unlabored. Lungs essentially clear to auscultation bilaterally. HEART: Regular rate and rhythm. S1 and S2 heard. Systolic murmur noted. Tenderness to the right lower rib area. No tenderness to the midsternal area. ABDOMEN: Soft. Nondistended. Nontender. EXTREMITIES: Normal range of motion. No clubbing or cyanosis. Peripheral pulses intact. No lower extremity edema. NEUROLOGIC: Awake and alert. Oriented x 3. ASSESSMENT: Unstable angina Elevated d-dimer, CTA of the chest ordered Coronary artery diease with previous PCI to RCA 1996, CABG x 2 in 2009, PCI to SVG-D1 2012, and PCI of SVG to LAD 2019 History of aortic valve replacement, 2009 Valvular heart disease: Most recent echocardiogram reveals [id number] mitral regurgitation and tricuspid regurgitation Moderate pulmonary hypertension Hypertension Hyperlipidemia PLAN: Start patient on heparin drip Repeat troponin, lipid panel Continue aspirin 81 mg daily, Lipitor 80 mg daily, Nitropaste Monitor kidney function Obtain 2D echo to assess cardiac structure and function Schedule patient for cardiac catheterization tomorrow Further recommendations pending patient's course Nurse practitioner note has been reviewed by physician. Signing provider agrees with the documented findings, assessment, and plan of care. Past Medical History Past Medical History: Eye Disorder, Hyperlipidemia, Myocardial Infarction (non Q-wave), Osteoarthritis (OA), Prostate Disorder, Thyroid Disorder Additional Past Medical History / Comment(s): hx migrianes, hx hiatal hernia Last Myocardial Infarction Date:: 05/01/2000 History of Any Multi-Drug Resistant Organisms: None Reported Past Surgical History: Cardiac Valve Replacement, Coronary Bypass/CABG, Heart Catheterization With Stent, Orthopedic Surgery Additional Past Surgical History / Comment(s): CABG-1999-"has chest wire and 5 loose dedra", double bypass, aortic valve replacement and aortic aneurysm repair , FATTY TUMOR REMOVED FROM JAW, GANGLION CYST RT RING FINGER, BILAT ROTATOR CUFF REPAIR (rt x3, lt x 1) titanium anchor, LUNA cataract removal, rt foot hammertoe, steroid injections in back for pain Past Anesthesia/Blood Transfusion Reactions: No Reported Reaction Date of Last Stent Placement:: 01/14/13 Past Psychological History: Depression Smoking Status: Never smoker Past Alcohol Use History: None Reported Additional Past Alcohol Use History / Comment(s): 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 Past Drug Use History: None Reported - Past Family History Father Family Medical History: Cancer Mother Family Medical History: Congestive Heart Failure (CHF) Brother(s) Family Medical History: Myocardial Infarction ([place]) Medications and Allergies Home Medications Medication Instructions Recorded Confirmed Type Atorvastatin [Lipitor] 80 mg PO HS 07/05/14 02/04/23 History Doxazosin [Cardura] 2 mg PO HS 07/05/14 02/04/23 History buPROPion SR [Wellbutrin SR] 150 mg PO BID 07/05/14 02/04/23 History Levothyroxine Sodium [Synthroid] 175 mcg PO SUFRSA 05/16/19 02/04/23 History Nitroglycerin Sl Tabs [Nitrostat] 0.4 mg SUBLINGUAL Q5M PRN #25 tab 05/18/19 02/04/23 Rx Aspirin EC [Ecotrin Low Dose] 81 mg PO DAILY 06/04/20 02/04/23 History Glucosamine/Chondr Jacobs A Sod [Osteo 1 tab PO DAILY 06/04/20 02/04/23 History Bi-Flex Caplet] Levothyroxine Sodium [Synthroid] 200 mcg PO MOTUWETH 06/04/20 02/04/23 History Niacin 500 mg PO HS 06/04/20 02/04/23 History Furosemide [Lasix] 20 mg PO DAILY #90 tab 06/06/20 02/04/23 Rx Ipratropium [place] 0.06%Nasal 2 spray EA NOSTRIL TID 05/06/21 02/04/23 History [Atrovent Nasal 0.06%] Cholecalciferol [Vitamin D3 (25 50 mcg PO DAILY 02/04/23 02/04/23 History Mcg = 1000 Iu)] Clopidogrel [Plavix] 37.5 mg PO DIRECTED 02/04/23 02/04/23 History Escitalopram [Lexapro] 10 mg PO HS 02/04/23 02/04/23 History Fexofenadine HCl 180 mg PO DAILY 02/04/23 02/04/23 History Multivitamins, Thera [Multivitamin 1 tab PO DAILY 02/04/23 02/04/23 History (formulary)] Allergies Allergy/AdvReac Type Severity Reaction Status Date / Time black walnut Allergy Unknown Verified 02/04/23 12:15 cromolyn sodium AdvReac fungal Verified 02/04/23 12:15 [From Nasalcrom] infection on tongue Physical Exam Vitals: Vital Signs Temp Pulse Resp BP Pulse Ox 02/04/23 11:10 68 18 97 02/04/23 11:06 99/47 02/04/23 10:43 97.8 F 18 97/49 Intake and Output 02/03/23 02/04/23 02/04/23 22:59 06:59 14:59 Other: Weight 75.296 kg Results 02/04/23 10:52 02/04/23 10:52 CBC 02/04/23 Range/Units 10:52 WBC 4.3 (3.8-10.6) k/uL RBC 4.21 L (4.30-5.90) m/uL Hgb 14.6 (13.0-17.5) gm/dL Hct 42.1 (39.0-53.0) % Plt Count 102 L (150-450) k/uL Intake and Output 02/03/23 02/04/23 02/04/23 22:59 06:59 14:59 Other: Weight 75.296 kg Patient Weight 02/05/23 06:59 Weight 75.296 kg 02/04/23 10:52
--- NOTE | 2023-02-04 13:36 | CT ---
CT CHEST FOR PULMONARY EMBOLISM. EXAMINATION TYPE: CT angio chest DATE OF EXAM: 02/04/2023 INDICATION: SOB, chest pain CT DLP: 490 mGycm, Automated exposure control for dose reduction was used. CONTRAST: Patient injected with 100 mL of Isovue 370. COMPARISON: None TECHNIQUE: CT of the chest is performed on a spiral scan at 2 mm thick sections. Study is performed with intravenous contrast timed for evaluation for pulmonary embolism. This will limit additional po rtions of the evaluation. 3-D MIP images reconstructed by the technologist are reviewed on the compu ter in the coronal and sagittal planes. FINDINGS: No persistent filling defects are evident to suggest an acute pulmonary embolism. There is reflux int o the proximal inferior vena cava. No deviation of the heart septum is noted. No mediastinal or hilar adenopathy enlarged by CT criteria is evident. The ascending aorta diameter at the level of the main pulmonary artery is 3.6 cm. The main pulmonary artery diameter at the bifur cation is 3.5 cm. There are scattered bilateral lung infiltrates. These are nonspecific. Correlate for atypical pulmona ry edema or atypical pneumonia. Limited CT section through the upper abdomen are unremarkable. IMPRESSIONS: 1. No acute pulmonary embolism. 2. Diffuse bilateral lung infiltrates. Correlate for atypical pulmonary edema or atypical pneumonia. Follow-up is recommended.
[2023-02-04] MEDS ORDERED: NITROGLYCERIN OINT 1 INCH/GM PACKET TOPICAL SCH (18:00)
[2023-02-04] MEDS ORDERED: NITROGLYCERIN-D5W PMX 50 MG in DEXTROSE/WATER 1 250ML.BAG IV SCH (18:00)
--- NOTE | 2023-02-04 19:36 | P.HPIM ---
History of Present Illness H&P Date: 02/04/23 Chief Complaint: Chest pain This is a pleasant 77-year-old patient who follows with Dr. Savage. Cartilage is Dr. Babin. Patient had a coronary bypass in 2009.. Aortic valve replacement. 4 aortic aneurysm repair. Patient also had a coronary stent. Yesterday evening patient was mowing his neighbors lawn, which had overgrown. When he finished he was feeling a pressure in his chest and achiness in the arm. He went home and laid down. Was unable to steep and took a sleeping pill to go to sleep around 2 AM. Woke up this morning with pain across the chest and also pain down the arms. Went and sat in the living room for some time. Finally decided to come in. EKG on presentation showed ST depression in inferolateral leads. Initial troponin I was 0.028. Related to his evening patient's chest pain had resurfaced. And repeat troponin came back at 8.1. Cardiology was informed. Patient has been a bit short of breath. Review of systems: GEN.: Tired EYES: None HEENT: None NECK: None RESPIRATORY: [Short of breath CARDIOVASCULAR: As above GASTROINTESTINAL: None GENITOURINARY: None MUSCULOSKELETAL: None LYMPHATICS: None HEMATOLOGICAL: None PSYCHIATRY: None NEUROLOGICAL: None Past medical history to include: Hyperlipidemia, osteoarthritis, hypothyroid, cardiac valve replacement, CAD with stent, coronary bypass in 2010, aortic aneurysm repair, bilateral rotator cuff repair, depression Social history: Lives alone. No smoking or alcohol Physical examination: VITAL SIGNS: Afebrile, 82, 26, 117/59, 98% on 2 L GENERAL: BMI 26, declining but awake slightly anxious. EYES: Pupils equal. Conjunctiva normal. HEENT: External appearance of nose and ears normal, oral cavity grossly normal. NECK: JVD not raised; masses not palpable. HEART: First and second heart sounds are normal; no edema. LUNGS: Respiratory rate increased; decreased breath sounds. ABDOMEN: Soft, nontender, liver spleen not palpable, no masses palpable. PSYCH: Alert and oriented x3; mood and affect that reactionl. MUSCULOSKELETAL:No Clubbing/cyanosis;muscles-grossly intact. OA NEUROLOGICAL: Cranial nerves grossly intact; no facial asymmetry, power and sensation grossly intact. LYMPHATICS: No lymph nodes palpable in the axilla and neck INVESTIGATIONS, reviewed in the clinical context: White count 4.3 hemoglobin 14.6 platelets 102 sodium 137 potassium 4 BUN 24 creatinine 0.91 Troponin I 0.028, 8.1 ProBNP 781 EKG tracing personally reviewed by me-ST segment depression in inferolateral leads. Chest x-ray film personally reviewed by me-possibly chronic infiltrates CT angiogram chest: No PE. Diffuse bilateral lung infiltrates. Assessment and plan: -Acute non-ST elevation myocardial infarction. Troponin up to 8.1. ST segment depression in inferolateral leads. Cardiology consulted. IV heparin. Aspirin. Lipitor. -Bilateral pulmonary infiltrates. Patient has minimal respiratory symptoms. Could be chronic. Will need further workup. The patient is coughing up a bit of sputum today. Consult pulmonary -CAD with a prior history of stent coronary bypass Lipitor. Plavix. -Hyperlipidemia Lipitor -BPH Cardura 2 mg daily at bedtime -Depression Lexapro 10 mg bupropion . Hypothyroid Synthroid Patient is IV heparin. Later IV nitroglycerin drip was added. Other medications as above. Cardiology is following. Will need cardiac catheteriz ation. Discussed with the patient. Past Medical History Past Medical History: Eye Disorder, Hyperlipidemia, Myocardial Infarction (non Q-wave), Osteoarthritis (OA), Prostate Disorder, Thyroid Disorder Additional Past Medical History / Comment(s): hx migrianes, hx hiatal hernia Last Myocardial Infarction Date:: 05/01/2000 History of Any Multi-Drug Resistant Organisms: None Reported Past Surgical History: Cardiac Valve Replacement, Coronary Bypass/CABG, Heart Catheterization With Stent, Orthopedic Surgery Additional Past Surgical History / Comment(s): CABG-1999-"has chest wire and 5 loose dedra", double bypass, aortic valve replacement and aortic aneurysm repair , FATTY TUMOR REMOVED FROM JAW, GANGLION CYST RT RING FINGER, BILAT ROTATOR CUFF REPAIR (rt x3, lt x 1) titanium anchor, LUNA cataract removal, rt foot hammertoe, steroid injections in back for pain Past Anesthesia/Blood Transfusion Reactions: No Reported Reaction Date of Last Stent Placement:: 01/14/13 Past Psychological History: Depression Smoking Status: Never smoker Past Alcohol Use History: None Reported Additional Past Alcohol Use History / Comment(s): 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 Past Drug Use History: None Reported - Past Family History Father Family Medical History: Cancer Mother Family Medical History: Congestive Heart Failure (CHF) Brother(s) Family Medical History: Myocardial Infarction ([place]) Medications and Allergies Home Medications Medication Instructions Recorded Confirmed Type Atorvastatin [Lipitor] 80 mg PO HS 07/05/14 02/04/23 History Doxazosin [Cardura] 2 mg PO HS 07/05/14 02/04/23 History buPROPion SR [Wellbutrin SR] 150 mg PO BID 07/05/14 02/04/23 History Levothyroxine Sodium [Synthroid] 175 mcg PO SUFRSA 05/16/19 02/04/23 History Nitroglycerin Sl Tabs [Nitrostat] 0.4 mg SUBLINGUAL Q5M PRN #25 tab 05/18/19 02/04/23 Rx Aspirin EC [Ecotrin Low Dose] 81 mg PO DAILY 06/04/20 02/04/23 History Glucosamine/Chondr Jacobs A Sod [Osteo 1 tab PO DAILY 06/04/20 02/04/23 History Bi-Flex Caplet] Levothyroxine Sodium [Synthroid] 200 mcg PO MOTUWETH 06/04/20 02/04/23 History Niacin 500 mg PO HS 06/04/20 02/04/23 History Furosemide [Lasix] 20 mg PO DAILY #90 tab 06/06/20 02/04/23 Rx Ipratropium [place] 0.06%Nasal 2 spray EA NOSTRIL TID 05/06/21 02/04/23 History [Atrovent Nasal 0.06%] Cholecalciferol [Vitamin D3 (25 50 mcg PO DAILY 02/04/23 02/04/23 History Mcg = 1000 Iu)] Clopidogrel [Plavix] 37.5 mg PO DAILY 02/04/23 02/04/23 History Escitalopram [Lexapro] 10 mg PO HS 02/04/23 02/04/23 History Fexofenadine HCl 180 mg PO DAILY 02/04/23 02/04/23 History Multivitamins, Thera [Multivitamin 1 tab PO DAILY 02/04/23 02/04/23 History (formulary)] Allergies Allergy/AdvReac Type Severity Reaction Status Date / Time black walnut Allergy Unknown Verified 02/04/23 12:15 cromolyn sodium AdvReac fungal Verified 02/04/23 12:15 [From Nasalcrom] infection on tongue Physical Exam Vitals: Vital Signs Temp Pulse Resp BP Pulse Ox 02/04/23 13:36 79 24 108/46 93 L 02/04/23 12:22 71 18 95/46 90 L 02/04/23 11:10 68 18 97 02/04/23 11:06 99/47 02/04/23 10:43 97.8 F 18 97/49 Intake and Output 02/04/23 02/04/23 02/04/23 06:59 14:59 22:59 Other: Weight 75.296 kg Results CBC & Chem 7: 02/04/23 10:52 02/04/23 10:52 Labs: Abnormal Lab Results - Last 24 Hours (Table) 02/04/23 02/04/23 02/04/23 Range/Units 10:52 10:52 10:52 RBC 4.21 L (4.30-5.90) m/uL Plt Count 102 L (150-450) k/uL D-Dimer 1.24 H (<0.60) mg/L FEU BUN 24 H (9-20) mg/dL Glucose 117 H (74-99) mg/dL Alkaline Phosphatase 139 H (38-126) U/L
[2023-02-04] MEDS ORDERED: FUROSEMIDE 10 MG/ML 4 ML VIAL IV STA (20:18)
[2023-02-04] MEDS: ESCITALOPRAM 10 MG TAB PO SCH (21:01)
[2023-02-04] MEDS: ATORVASTATIN 80 MG TAB PO SCH (21:01)
[2023-02-04] MEDS: buPROPion SR 150 MG TABLET.ER PO SCH (21:01)
[2023-02-04] MEDS: NIACIN TR 500 MG CAPLET PO SCH (21:01)
[2023-02-04] MEDS: DOXAZOSIN 2 MG TAB PO SCH (21:01)
[2023-02-05] MEDS ORDERED: FUROSEMIDE 10 MG/ML 10 ML VIAL IV STA ×2 (00:14→00:18)
[2023-02-05 00:21] LABS: Glucose,Whole Blood 156 mg/dL (70-110)
[2023-02-05] MEDS ORDERED: MORPHINE SULFATE 2 MG/ML SYRINGE IVP STA (00:24)
[2023-02-05 00:44] LABS: Glucose,Whole Blood 152 mg/dL (70-110)
[2023-02-05] MEDS: IPRATROPIUM BROMIDE 0.06% NASAL SPRAY (15 ML) EA NOSTRIL SCH ×5 (00:57→21:43)
--- NOTE | 2023-02-05 01:07 | XR ---
EXAM: XR Chest, 1 View CLINICAL HISTORY: suspect pulmonary edema TECHNIQUE: Frontal view of the chest. COMPARISON: No relevant prior studies available. FINDINGS: Status post tenotomy. Heart is top normal in size. Diffuse bilateral asymmetric interstitial changes, slightly decreased. No pleural effusion or pneumothorax. Bones are unchanged. IMPRESSION: Decreased bilateral asymmetric interstitial densities consistent with decreased pulmonary vascular congestion, possibly with underlying lung disease.
[2023-02-05 01:10] LABS: Basophils % (A) 0 %; Eosinophils % (A) 0 %; HCT 47.9 % (39.0-53.0); HGB 16.2 gm/dL (13.0-17.5); Lymphocytes # (A) 0.6 k/uL (1.0-4.8); Lymphocytes % (A) 6 %; MCH 34.4 pg (25.0-35.0); MCHC 33.7 g/dL (31.0-37.0); MCV 101.9 fL (80.0-100.0); Mean Platelet Volume 8.2; Monocytes # (A) 0.6 k/uL (0-1.0); Monocytes % (A) 6 %; Neutrophils # (A) 8.9 k/uL (1.3-7.7); Neutrophils % (A) 87 %; Platelet Count 108 k/uL (150-450); RDW 12.2 % (11.5-15.5); WBC 10.2 k/uL (3.8-10.6)
--- NOTE | 2023-02-05 02:09 | P.CNPUL ---
History of Present Illness Consult date: 02/05/23 Requesting physician: Kamaljit Hagan Reason for consult: dyspnea Chief complaint: Chest pain History of present illness: I am seeing this patient in consultation today 01/05/2023 for non-STEMI and likely pulmonary edema. Patient is a 77-year-old male with past medical history significant for coronary artery disease status post coronary artery bypass graft and subsequent stenting, aortic valve replacement, and aortic aneurysm repair. Patient came into the emergency room yesterday morning complaining of chest pain. Apparently, he was out mowing his neighbors lawn with a push mower when he developed severe substernal chest pain that radiated down both arms and diaphoresis. The pain did initially did improve, and he went to bed. Yesterday, morning the pain worsened and he came to the emergency room. On arrival, there was no acute ST elevation. Troponins are significantly elevated and are trending up at 0.028, 8.18, and 16.6. Patient was started on a combination of nitroglycerin infusion and heparin. Chest CTA showed no evidence of acute pulmonary emboli. There were diffuse bilateral lung infiltrates worse on the right, correlating for possible atypical pulmonary edema versus atypical pneumonia. On my evaluation, the patient is in some acute distress. He is reporting worsening chest pain, he is diaphoretic, and short of breath. He does have some pink frothy sputum, possibly pulmonary edema. His oxygenation demands have increased, and he was placed on the BiPAP with settings 12/6 and FiO2 100%. I did give the patient a one-time dose of Lasix 80 mg. Patient's nitroglycerin infusion was increased to 10 mcg/m. High intensity heparin is infusing protocol. Repeat EKG was done and results relayed to on-call auto rebuilder. Patient was subsequently transferred to the intensive care unit. CBC and BMP on arrival were unremarkable. Denies any infectious symptoms such as fever, chills, myalgias, cough. He has been afebrile. NT proBNP was 781. Nursing staff repor ts a tentative plan for possible heart catheterization in the morning. Review of Systems REVIEW OF SYSTEMS: CONSTITUTIONAL: Denies any recent significant weight loss or weight gain. EYES: Denies change in vision. EARS, NOSE, MOUTH, THROAT: Denies headaches, denies sore throat. CARDIOVASCULAR: Denies palpitations or syncopal episodes. Admits radiating substernal chest pain down bilateral arms. He is diaphoretic and in some respiratory distress. RESPIRATORY: Denies cough, congestion or hemoptysis. Admits to be short of breath GASTROINTESTINAL: Denies change in appetite, abdominal pain, nausea and vomiting, or diarrhea GENITOURINARY: Denies hematuria, denies infections. MUSKULOSKELETAL: Denies pain, denies swelling. INTEGUMENTARY: Denies rash, denies eczema. NEUROLOGICAL: Denies recent memory loss, no recent seizure activity. PSYCHIATRIC: Denies anxiety, denies depression. HEMATOLOGIC/LYMPHATIC: Denies anemia, denies enlarged lymph node Past Medical History Past Medical History: Eye Disorder, Hyperlipidemia, Myocardial Infarction (non Q-wave), Osteoarthritis (OA), Prostate Disorder, Thyroid Disorder Additional Past Medical History / Comment(s): hx migrianes, hx hiatal hernia Last Myocardial Infarction Date:: 05/01/2000 History of Any Multi-Drug Resistant Organisms: None Reported Past Surgical History: Cardiac Valve Replacement, Coronary Bypass/CABG, Heart Catheterization With Stent, Orthopedic Surgery Additional Past Surgical History / Comment(s): CABG-1999-"has chest wire and 5 loose dedra", double bypass, aortic valve replacement and aortic aneurysm repair , FATTY TUMOR REMOVED FROM JAW, GANGLION CYST RT RING FINGER, BILAT ROTATOR CUFF REPAIR (rt x3, lt x 1) titanium anchor, LUNA cataract removal, rt foot hammertoe, steroid injections in back for pain Past Anesthesia/Blood Transfusion Reactions: No Reported Reaction Date of Last Stent Placement:: 01/14/13 Past Psychological History: Depression Smoking Status: Never smoker Past Alcohol Use History: None Reported Additional Past Alcohol Use History / Comment(s): 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 Past Drug Use History: None Reported - Past Family History Father Family Medical History: Cancer Mother Family Medical History: Congestive Heart Failure (CHF) Brother(s) Family Medical History: Myocardial Infarction (MT) Medications and Allergies Home Medications Medication Instructions Recorded Confirmed Type Atorvastatin [Lipitor] 80 mg PO HS 07/05/14 02/04/23 History Doxazosin [Cardura] 2 mg PO HS 07/05/14 02/04/23 History buPROPion SR [Wellbutrin SR] 150 mg PO BID 07/05/14 02/04/23 History Levothyroxine Sodium [Synthroid] 175 mcg PO SUFRSA 05/16/19 02/04/23 History Nitroglycerin Sl Tabs [Nitrostat] 0.4 mg SUBLINGUAL Q5M PRN #25 tab 05/18/19 02/04/23 Rx Aspirin EC [Ecotrin Low Dose] 81 mg PO DAILY 06/04/20 02/04/23 History Glucosamine/Chondr Jacobs A Sod [Osteo 1 tab PO DAILY 06/04/20 02/04/23 History Bi-Flex Caplet] Levothyroxine Sodium [Synthroid] 200 mcg PO MOTUWETH 06/04/20 02/04/23 History Niacin 500 mg PO HS 06/04/20 02/04/23 History Furosemide [Lasix] 20 mg PO DAILY #90 tab 06/06/20 02/04/23 Rx Ipratropium [place]well 0.06%Nasal 2 spray EA NOSTRIL TID 05/06/21 02/04/23 History [Atrovent Nasal 0.06%] Cholecalciferol [Vitamin D3 (25 50 mcg PO DAILY 02/04/23 02/04/23 History Mcg = 1000 Iu)] Clopidogrel [Plavix] 37.5 mg PO DAILY 02/04/23 02/04/23 History Escitalopram [Lexapro] 10 mg PO HS 02/04/23 02/04/23 History Fexofenadine HCl 180 mg PO DAILY 02/04/23 02/04/23 History Multivitamins, Thera [Multivitamin 1 tab PO DAILY 02/04/23 02/04/23 History (formulary)] Allergies Allergy/AdvReac Type Severity Reaction Status Date / Time black walnut Allergy Unknown Verified 02/04/23 12:15 cromolyn sodium AdvReac fungal Verified 02/04/23 12:15 [From Nasalcrom] infection on tongue Physical Exam Vitals: Vital Signs Temp Pulse Pulse Resp BP BP Pulse Ox 02/05/23 01:04 02/05/23 01:00 93 24 101/52 98 02/05/23 00:51 02/05/23 00:46 92 24 95 02/04/23 23:20 98 F 86 22 103/51 96 02/04/23 20:55 106/51 02/04/23 19:55 97.9 F 96 24 110/54 96 02/04/23 19:24 82 20 106/47 99 02/04/23 18:00 82 26 H 117/59 98 02/04/23 17:00 82 26 H 120/50 93 L 02/04/23 16:11 76 24 106/41 99 02/04/23 16:00 74 26 H 103/37 98 02/04/23 13:36 79 24 108/46 93 L 02/04/23 13:00 102/47 02/04/23 12:22 71 18 95/46 90 L 02/04/23 12:00 73 32 H 99/51 92 L 02/04/23 11:17 67 18 99/47 93 L 02/04/23 11:10 68 18 97 02/04/23 11:06 99/47 02/04/23 10:43 97.8 F 18 97/49 FiO2 02/05/23 01:04 80 02/05/23 01:00 100 02/05/23 00:51 100 02/05/23 00:46 02/04/23 23:20 02/04/23 20:55 02/04/23 19:55 02/04/23 19:24 02/04/23 18:00 02/04/23 17:00 02/04/23 16:11 02/04/23 16:00 02/04/23 13:36 02/04/23 13:00 02/04/23 12:22 02/04/23 12:00 02/04/23 11:17 02/04/23 11:10 02/04/23 11:06 02/04/23 10:43 Intake and Output 02/04/23 02/04/23 02/05/23 14:59 22:59 06:59 Output Total 400 Balance -400 Output: Urine 400 Other: # Voids 1 # Bowel Movements 1 Weight 75.296 kg 75.296 kg GENERAL EXAM: Alert, 69-year-old male appearing stated age , in some respiratory distress on 15 L nonrebreather. HEAD: Normocephalic and atraumatic EYES: Normal reaction of pupils, equal size. NOSE: Clear with pink turbinates. THROAT: No erythema or exudates. NECK: No masses, no JVD. CHEST: No chest wall deformity. LUNGS: Equal air entry with crackles and rhonchi heard throughout. Patient is talking in phrases and has accessory muscle use. There is a sputum bucket with pink frothy sputum. CVS: S1 and S2 normal with no audible murmur, regular rhythm. No extra heart sounds ABDOMEN: No hepatosplenomegaly, active bowel sounds, no guarding or rigidity. SPINE: No scoliosis or deformity SKIN: No rashes. He is diaphoretic. CENTRAL NERVOUS SYSTEM: No focal deficits, tone is normal in all 4 extremities. EXTREMITIES: There is no peripheral edema, clubbing, or cyanosis. Peripheral pulses are intact. Results - Laboratory Findings CBC and BMP: 02/05/23 00:56 02/05/23 00:56 PT/INR, D-dimer PT 10.8 sec (9.0-12.0) 02/04/23 10:52 INR 1.0 (<1.2) 02/04/23 10:52 D-Dimer 1.24 mg/L FEU (<0.60) H 02/04/23 10:52 Abnormal lab findings: Abnormal Labs 02/04/23 02/04/23 02/04/23 10:52 10:52 10:52 RBC 4.21 L MCV Plt Count 102 L Neutrophils # Lymphocytes # APTT D-Dimer 1.24 H BUN 24 H Glucose 117 H POC Glucose (mg/dL) Alkaline Phosphatase 139 H Troponin I 02/04/23 02/04/23 02/04/23 16:43 19:05 19:05 RBC MCV Plt Count Neutrophils # Lymphocytes # APTT 51.9 H D-Dimer BUN Glucose POC Glucose (mg/dL) Alkaline Phosphatase Troponin I 8.180 H* 16.600 H* 02/05/23 02/05/23 02/05/23 00:19 00:42 00:56 RBC MCV 101.9 H Plt Count 108 L Neutrophils # 8.9 H Lymphocytes # 0.6 L APTT D-Dimer BUN Glucose POC Glucose (mg/dL) 156 H 152 H Alkaline Phosphatase Troponin I - Diagnostic Findings Chest x-ray: image reviewed CT scan - chest: image reviewed Assessment and Plan Assessment: Acute non-ST elevation myocardial infarction, currently on heparin and nitroglycerin infusions. Troponins are trending up at 0.028, 8.18, and 16.6 respectively. Patient is having some acute chest pain, nitroglycerin was titrated to 10 mcg/m. Tentative plan for heart catheterization this morning per nursing staff Acute hypoxemic respiratory failure, currently on BiPAP, likely secondary to above and acute pulmonary edema. Chest CTA on arrival she showed no acute pulmonary embolism. It did show diffuse bilateral lung infiltrates correlating for atypical pulmonary edema versus atypical pneumonia. Infiltrates are worse on the right. NT proBNP was 781. Denies any infectious symptoms. Acute pulmonary edema Moderate severe aortic insufficiency, post aortic valve replacement and the patient has a BiPAP or static aortic valve Acute shortness of breath secondary to above Acute kidney injury, likely secondary to cardiorenal factors Coronary artery disease, status post coronary artery bypass graft with subsequent coronary artery stenting. History of of aortic valve replacement Essential hypertension Hyperlipidemia Hypothyroidism Plan: Patient's medications, labs, and imaging were reviewed The patient one-time dose of Lasix 80 mg IV push now Patient was transitioned to BiPAP with settings 12/6 and FiO2 100% We are in the process of transitioning the patient to the intensive care unit Cardiology has been updated on the patient's change in condition Possible tentative heart catheterization this morning Nothing by mouth Continue with nitroglycerin and heparin infusions Echocardiogram is ordered for the morning No need for vasopressor support at this time Prognosis is guarded, will continue to follow and make recommendations while in the intensive care unit I have personally seen and examined the patient, performed the documentation and the assessment and plan as written. Number of minutes spent on the visit:20 This is a joint evaluation that was done along with a nurse practitioner. The patient is known to have coronary artery disease with previous bypass surgery, a ortic valve replacement, aortic aneurysm repair and subsequent cardiac interventions that were done by cardiology back in 2019. The patient comes in with chest pain and shortness of breath and he ruled in for an acute non-ST segment elevation myocardial infarction. The patient was also in acute pu lmonary edema. Currently, the patient is on a BiPAP at a pressures of 12/6 cm of water with FiO2 of 50%. His breathing is labored. His chest x-ray showing diffuse pulmonary edema and overnight, the patient was placed on IV heparin, nitroglycerin drip, and the patient also started on Lasix drip at 5 mg an hour. Urine output is low and order of 5-10 mL an hour and the patient remains oliguric and he also has sustained an acute kidney injury. Creatinine is up to 1.46 with a BUN of 33 and a sodium level is at 136. Troponin peaked at 38 and a proBNP level was 18 500. Pro-calcitonin has been negative. Covid 19 testing is been negative. EKG showing Q waves over the anterior leads. The patient also has ST segment changes in the anterior lateral leads. Obviously, the patient needs a cardiac catheterization. I discussed the case with cardiology. His respiratory status is extremely borderline and he remains in respiratory failure. He is tachypneic with a minute ventilation of 25 L with a respiratory rate of 36. He needs to be intubated and placed on a mechanical ventilator. We'll proceed with subsequent cardiac catheterization following intubation and stabilization of the respiratory status. Case was discussed with the patient did I also contacted the daughter and, Mikayla, and discussed with her the case. She was agreeable. Echocardiogram was noted. The patient has 11th grade ejection fraction of 55-60%. There was also moderate to severe aortic insufficiency with a prosthetic aortic valve.. There is moderate degree of tricuspid regurgitation. The condition is critical and the patient will need intubation mechanical ventilation subsequent cardiac evaluation. This evaluation was done in more than 30 minutes. Time with Patient: Greater than 30
[2023-02-05 02:24] LABS: African American GFR (CKD) 53 (>60 ml/min/1.73 sqM); Anion Gap 14 mmol/L; Blood Urea Nitrogen 33 mg/dL (9-20); Calcium 8.9 mg/dL (8.4-10.2); Carbon Dioxide 18 mmol/L (22-30); Chloride 104 mmol/L (98-107); Glucose 146 mg/dL (74-99); Non-African American GFR(CKD) 45 (>60 ml/min/1.73 sqM); Potassium 4.2 mmol/L (3.5-5.1); Sodium 136 mmol/L (137-145)
[2023-02-05] MEDS: RANOLAZINE 500 MG TAB.ER.12H PO SCH ×3 (03:07→20:49)
[2023-02-05 06:50] LABS: NT-Pro-B-Type Natriuretic Pept 18500 pg/mL
[2023-02-05] MEDS ORDERED: HEPARIN SODIUM,PORCINE (1 ML) 2,500 UNIT in SODIUM CHLORIDE 0.9% 250 ML IRRIGATION PRN (07:00)
[2023-02-05] MEDS ORDERED: FUROSEMIDE 100 MG in SODIUM CHLORIDE 0.9% 90 ML IV SCH (07:00)
[2023-02-05] MEDS ORDERED: HEPARIN SODIUM,PORCINE 10,000 UNIT in SODIUM CHLORIDE 0.9% 1,000 ML IRRIGATION PRN (07:00)
[2023-02-05] MEDS: LEVOTHYROXINE 100 MCG TAB PO SCH (07:07)
--- NOTE | 2023-02-05 07:38 | CA ---
Transthoracic Echo Report Name: Roe Lee Age: 77 Gender: M : 1945 Exam Date: 02/04/2023 14:25 Exam Location: [facility] Ht (in): 67 Wt (lb): 166 Ordering Physician: Sarah Catalan Attending/Referring Phys: [id number], Hossein Turbine Engine Assembler Priyank Moore Procedure CPT: Indications: LVF Cardiac Hx: Technical Quality: Fair Contrast 1: Total Dose (mL): Contrast 2: Total Dose (mL): MEASUREMENTS (Male / Female) Normal Values 2D ECHO LV Diastolic Diameter PLAX 5.6 cm 4.2 - 5.9 / 3.9 - 5.3 cm LV Systolic Diameter PLAX 2.9 cm IVS Diastolic Thickness 1.1 cm 0.6 - 1.0 / 0.6 - 0.9 cm LVPW Diastolic Thickness 1.3 cm 0.6 - 1.0 / 0.6 - 0.9 cm LV Relative Wall Thickness 0.4 RV Internal Dim ED PLAX 3.2 cm LVOT Diameter 2.1 cm Aortic Root Diameter 3.3 cm LA Systolic Diameter LX 4.6 cm 3.0 - 4.0 / 2.7 - 3.8 cm LV Diastolic Volume MOD BP 96.6 cm??? 67 - 155 / 56 - 104 cm??? LV Systolic Volume MOD BP 41.7 cm??? 22 - 58 / 19 - 49 cm??? LV Ejection Fraction MOD BP 56.8 % >= 55 % LV Cardiac Index MOD BP 2081.9 cm???/min???m??? LV Diastolic Volume MOD 4C 106.5 cm??? LV Systolic Volume MOD 4C 44.1 cm??? LV Ejection Fraction MOD 4C 58.6 % LV Cardiac Index MOD 4C 2366.3 cm???/min???m??? LV Diastolic Length 4C 7.5 cm LV Systolic Length 4C 6.3 cm LV Diastolic Volume MOD 2C 85.3 cm??? LV Systolic Volume MOD 2C 38.4 cm??? LV Ejection Fraction MOD 2C 54.9 % LV Cardiac Index MOD 2C 1776.1 cm???/min???m??? LV Diastolic Length 2C 7.3 cm LV Systolic Length 2C 6.1 cm LA Volume 87.7 cm??? 18 - 58 / 22 - 52 cm??? DOPPLER AV Peak Velocity 241.9 cm/s AV Peak Gradient 23.4 mmHg AV Mean Velocity 162.6 cm/s AV Mean Gradient 12.7 mmHg AV Velocity Time Integral 52.9 cm AI Peak Velocity 295.1 cm/s AI Peak Gradient 34.8 mmHg AI Pressure Half Time 190.2 ms LVOT Peak Velocity 93.1 cm/s LVOT Peak Gradient 3.5 mmHg LVOT Velocity Time Integral 23.8 cm LVOT Stroke Volume 86.0 cm??? LVOT Stroke Volume Index 46.0 ml/m??? LVOT Cardiac Index 3257.9 cm???/min???m??? AV Area Cont Eq vti 1.6 cm??? AV Area Cont Eq pk 1.4 cm??? MV Peak Velocity 111.2 cm/s MV Peak Gradient 4.9 mmHg MV Mean Velocity 57.9 cm/s MV Mean Gradient 1.6 mmHg MV Velocity Time Integral 25.0 cm MR Peak Velocity 484.3 cm/s MR Peak Gradient 93.8 mmHg Mitral E Point Velocity 89.3 cm/s Mitral A Point Velocity 31.9 cm/s Mitral E to A Ratio 2.8 MV Deceleration Time 164.7 ms MV E' Velocity 6.0 cm/s Mitral E to MV E' Ratio 14.8 TR Peak Velocity 333.6 cm/s TR Peak Gradient 44.5 mmHg Right Ventricular Systolic Press 49.6 mmHg PV Peak Velocity 72.9 cm/s PV Peak Gradient 2.1 mmHg FINDINGS Left Ventricle LV at upper limits of size. Normal wall thickness. Left ventricular ejection fraction is estimated at 55-60 %.normal left ventricular wall motion. Right Ventricle Normal right ventricular size. RVSP= 53mmhg. Right Atrium Normal right atrial size. Left Atrium LA Volume index= 47ml/m2 Mitral Valve Structurally normal mitral valve. Moderate MR. Aortic Valve AV Prosthesis. Estimated AV Area by VTI= 1.6cm2 Moderate to severe AI. Mean gradient of 13 mmHg Tricuspid Valve Structurally normal tricuspid valve. Moderate TR. Pulmonic Valve Pulmonic valve not well visualized. Moderate pulmonic regurgitation. Pericardium Normal pericardium. Aorta Normal size aortic root . CONCLUSIONS 1. Normal ventricle size and systolic function 2. Bioprosthetic aortic valve with moderate to severe aortic regurgitation and thickening of the leaflets 3. Moderate tricuspid regurgitation with moderate pulmonary hypertension 4. Moderate mitral regurgitation Previewed by: Dr. Luis Babin MD (Electronically Signed) Final Date: 05 February 2023 07:37
[2023-02-05] MEDS ORDERED: CLOPIDOGREL 75 MG TAB PO SCH (09:00)
[2023-02-05] MEDS ORDERED: ASPIRIN 325 MG TAB PO SCH (09:00)
[2023-02-05] MEDS: ASPIRIN 81 MG PO SCH (09:16)
[2023-02-05] MEDS: buPROPion SR 150 MG TABLET.ER PO SCH ×2 (09:16→21:38)
[2023-02-05] MEDS: LORATADINE 10 MG TAB PO SCH (09:16)
[2023-02-05] MEDS: MULTIVITAMINS, THERA 1 EACH TAB PO SCH (09:17)
[2023-02-05] MEDS: CHOLECALCIFEROL 25 MCG (1000 IU) TABLET PO SCH (09:17)
[2023-02-05] MEDS: PANTOPRAZOLE 40 MG/10 ML VIAL IV SCH (09:17)
[2023-02-05] MEDS ORDERED: IPRATROPIUM-ALBUTEROL 3 ML NEB INHALATION PRN (09:55)
[2023-02-05] MEDS ORDERED: CISATRACURIUM 2 MG/ML 5 ML VIAL IV ONE ×2 (10:33→11:10)
--- NOTE | 2023-02-05 10:37 | PN ---
PROGRESS NOTE SUBJECTIVE: This is a 77-year-old gentleman, with history of coronary artery disease, status post prior bypass surgery, status post prior angioplasty of the venous graft to the LAD and diag, history of aortic valve replacement along with root repair, who presented to hospital with chest pain. His EKG revealed ST-T wave changes suggestive of subendocardial ischemia. The first set of troponin was 0.02. Had an elevated D-dimer of 1.2, underwent a CT scan of the chest with contrast that did not reveal any pulmonary embolism. An echocardiogram showed normal LV systolic function with moderate- to-severe regurgitation of the prosthetic valve with moderate tricuspid regurgitation with moderate pulmonary hypertension. The initial plan was that we will do a cardiac catheterization on him today. His second set of troponin came back elevated at 8. On reassessing him in the emergency room around 6 o'clock yesterday, he appeared chest pain free and hemodynamically stable without any evidence of ST-segment elevation. I discussed with Dr. Babin, his primary senior accounting clerk about taking him for a cardiac cath and we decided not to at that time as his previous coronary angiogram was technically very difficult and we decided to do the cardiac cath today. The patient was admitted to the [facility] Unit and last night developed worsening shortness of breath and pulmonary edema. He had been started on Lasix drip, IV heparin was continued, and was transferred to the ICU. This morning, at the time of my evaluation, he is on a BiPAP, saturating at 94% on 50% FiO2. He is maintaining his blood pressure stable cardiac rhythm alvarado, and the EKG that was repeated prior to transfer to ICU did not reveal any new ischemic changes. PHYSICAL EXAMINATION: VITAL SIGNS: Heart rate is 89 beats per minute, blood pressure is 112/58, respiratory rate is . He has an FiO2 of 50 with O2 saturation of 92% on the BiPAP. CHEST: Reveals bilateral rhonchi with diminished air entry. HEART: Reveals first and second heart sounds. Ejection systolic murmur in the aortic area. ABDOMEN: Soft. EXTREMITIES: Did not reveal any edema. Peripheral pulses are palpable. LABORATORY DATA: Labs show that the potassium is 4.2, BUN is 33, creatinine is 1.4. His troponin is elevated up to 38 this morning. ASSESSMENT: Acute eme-IU-ylauvvh elevation myocardial infarction, acute pulmonary edema with respiratory failure. PLAN: I spoke to Dr. Babin this morning, and the plan is at this stage is to take him for cardiac catheterization. We are waiting for the cardiology consultants to evaluate the patient and if necessary intubate him prior to the catheterization. MAGGY / THANH: [id number] /
[2023-02-05] MEDS: NOREPINEPHRINE 4 MG in SODIUM CHLORIDE 0.9% 250 ML IV SCH ×2 (10:51→16:18)
--- NOTE | 2023-02-05 11:19 | P.PCN ---
Date of Procedure: 02/05/23 Procedure(s) Performed: Intubation, central line, arterial line Description of Procedure: Preoperative Diagnosis: Acute hypoxic respiratory failure Postoperative Diagnosis: Acute hypoxic respiratory failure Procedure(s) Performed: Intubation, central line, arterial line Anesthesia: local Surgeon: Keon Perez Estimated Blood Loss (ml): 0 Operative Findings: Indication: Hemodynamic monitoring. A time-out was completed verifying correct patient, procedure, site, positionin g, and implant(s) or special equipment if applicable. Allens test was performed to ensure adequate perfusion. The patients right wrist was prepped and draped in sterile fashion. 1% Lidocaine was used to anesthetize the area. An 18G Arrow arterial line was introduced into the right radial artery. The catheter was threaded over the guide wire and the needle was removed with appropriate pulsatile blood return. Blood loss was minimal. The catheter was then sutured in place to the skin and a sterile dressing applied. Perfusion to the extremity distal to the point of catheter insertion was checked and found to be adequate. The patient tolerated the procedure well and there were no complications. Indication: Respiratory compromise. A time-out was completed verifying correct patient, procedure, site, positioning, and implant(s) or special equipment if applicable. The patient was positioned appropriately and a #8 endotracheal tube was placed under direct laryngoscopy. The tube was anchored at 22 cm at the teeth. Correct placement was confirmed by presence of bilateral breath sounds without air sounds in the abdomen on auscultation. An end-tidal CO2 monitor was also us ed to confirm tracheal placement of the ET tube. A chest x-ray was ordered to assess for pneumothorax and verify endotracheal tube placement. The patient tolerated the procedure well and there were no complications. Indication: Hemodynamic monitoring/Intravenous access. A time-out was completed verifying correct patient, procedure, site, positioning, and implant(s) or special equipment if applicable. The patient was placed in a dependent position appropriate for central line placement based on the vein to be cannulated. The patients [neck was prepped and draped in sterile fashion. 1% Lidocaine was used to anesthetize the surrounding skin area. A triple lumen 9F Cordis catheter was introduced into the left subclavian vein using Seldinger technique. The catheter was threaded smoothly over the guide wire and appropriate blood return was obtained. Each lumen of the catheter was evacuated of air and flushed with sterile saline. The catheter was then sutured in place to the skin and a sterile dressing applied. Perfusion to the extremity distal to the point of catheter insertion was checked and found to be adequate. The patient tolerated the procedure well and there were no complications.
[2023-02-05 11:32] LABS: Glucose,Whole Blood 172 mg/dL (70-110)
[2023-02-05 11:33] LABS: ABG Base Excess -5.9 mmol/L; ABG HCO3 20 mmol/L (21-25); ABG Oxygen Saturation 96.2 % (94-97); ABG PCO2 35 mmHg (35-45); ABG PH 7.36 (7.35-7.45); ABG PO2 90 mmHg (83-108); ABG TCO2 21 mmol/L (19-24); Allen Test Performed? Yes
--- NOTE | 2023-02-05 12:04 | XR ---
EXAMINATION TYPE: XR chest 1V portable DATE OF EXAM: 02/05/2023 Comparison: 02/05/2023 Clinical History: 77-year-old male Tube placement Findings: ET and NG tube are satisfactory. Median sternotomy wires post-CABG clips mediastinum. Left subclavian CVC tip at the cavoatrial junction. Patchy confluent bilateral airspace opacities have slightly wors ened in the interval. Possible trace pleural effusions are similar. Impression: Worsening diffuse bilateral airspace disease. Ongoing trace effusions.
[2023-02-05] MEDS ORDERED: LIDOCAINE 1% INJ 10MG/ML (20 ML MDV) ONE (12:29)
[2023-02-05] MEDS ORDERED: VERAPAMIL 2.5 MG/ML 2 ML AMP ONE ×2 (12:30→12:41)
[2023-02-05] MEDS ORDERED: NOREPINEPHRINE 4 MG in SODIUM CHLORIDE 0.9% 250 ML IV ONE (12:48)
[2023-02-05] MEDS: IPRATROPIUM-ALBUTEROL 3 ML NEB INHALATION SCH ×4 (12:50→23:56)
[2023-02-05] MEDS ORDERED: SODIUM CHLORIDE 0.9% 500 ML 350 ML IV ONE (12:57)
[2023-02-05] MEDS ORDERED: LIDOCAINE 1% INJ 10MG/ML (5 ML VIAL-PF) SQ ONE (12:58)
[2023-02-05] MEDS ORDERED: MIDAZOLAM 2 MG/2 ML VIAL IVP ONE ×2 (13:05→13:17)
[2023-02-05] MEDS ORDERED: HEPARIN SODIUM 1,000 UN/ML (10ML VL) ONE (13:15)
[2023-02-05] MEDS: HEPARIN SODIUM 1,000 UN/ML (10ML VL) IVP ONE ×2 (13:17→14:27)
[2023-02-05] MEDS ORDERED: CLOPIDOGREL 75 MG TAB ONE (13:44)
[2023-02-05] MEDS ORDERED: CLOPIDOGREL 75 MG TAB PO ONE (13:45)
[2023-02-05] MEDS: HEPARIN SOD,PORK IN 0.45% NACL 25,000 UNIT in 0.45% NACL 1 250ML.BAG IV SCH (13:46)
[2023-02-05] MEDS ORDERED: IOPAMIDOL-370 100ML BTL INJ ONE ×2 (14:22→14:23)
[2023-02-05] MEDS ORDERED: MAG HYDROX/AL HYDROX/SIMETH 30 ML CUP PO PRN (14:32)
[2023-02-05] MEDS ORDERED: ATROPINE SULFATE 0.1 MG/ML 10ML SYRINGE IV PRN (14:32)
[2023-02-05] MEDS ORDERED: NITROGLYCERIN SL TABS 0.4 MG TAB SUBLINGUAL PRN (14:32)
[2023-02-05] MEDS ORDERED: RX INFO: IV CONTRAST WAS GIVEN 1 EACH MISC MISCELLANE PRN (14:32)
[2023-02-05] MEDS ORDERED: ZOLPIDEM 5 MG TAB PO PRN (14:32)
--- NOTE | 2023-02-05 14:43 | P.CARDCATH ---
Date of Procedure: 02/05/23 Description of Procedure: Cardiac Catheterization: The patient is a 77-year-old male with a known history of CABG, PCI, aortic valve replacement who presented with non-STEMI, during the night he became more dyspneic and had evidence of congestive heart failure. He was on the BiPAP in the morning and a discussed with him proceeding with cardiac catheterization. He was subsequently intubated. Procedure Description: Patient was brought to laborer high density press in fasting semi-sedated state after receiving Versed and Benadryl , the patient is intubated on propofol. Using Xylocaine Anesthesia and Seldinger technique, a 6-Armenian sheath was introduced in the left radial artery . Subsequently, selective coronary angiography was performed using a 5-Armenian 4 bend Meri catheter. Multiple views of the coronary artery including hemiaxial views were obtained. Attempt to cannulate the SVG to the diagonal is a multiple catheters were unsuccessful subsequently it was cannulated using a 6-Armenian AL 0.75. After cannulating the graft a 0.014 BMW to the wire was advanced and positioned in the diagonal branch, subsequently a 2.5 x 12 mm Treck balloon was advanced and multiple inflations at 8 joe were done, subsequently the balloon was removed and a 3.5 x 15 mm Xience babatunde point stent was deployed at 18 joe, a fter removing the balloon 3.5 x 12 mm NC Treck was advanced and inflation was done at 10 joe. Following that, catheter and sheath were removed. Hemostasis was obtained with deployment of TR band . There was no immediate complication. Patient was returned to room in stable condition. Of note, the patient received a total of additional 4000 units of intravenous heparin as well as intra- arterial verapamil. He received clopidogrel. His ACT was monitored. Findings: Left main: This is a large size vessel, bifurcating into LAD and diagonal branch. The left main has no obstructive disease. LAD: This vessel is totally occluded proximally at the takeoff of the first septal deputy building guard, there is no antegrade flow. Left circumflex: This is a nondominant vessel giving rise to a large obtuse augustine inal branch, the left circumflex has no significant obstructive disease. RCA: This is a dominant vessel, totally occluded in the midsegment with no significant antegrade flow. There is retrograde collaterals from the left coronary system toward the right PDA and PLV. SVG to the diagonal branch: This graft has a 90% stenosis at the proximal anastomotic site. The stented segment in the mid body of the graft are patent. There is retrograde flow into the LAD. Left Ventriculogram: Not performed Conclusion: 1. Chronically occluded LAD and RCA 2. Severe stenosis in the ostium of the SVG to the diagonal branch 3. Right dominance 4. Successful stenting of the ostium of the SVG to the diagonal branch with reduction of stenosis from 90% to less than 5% Recommendations: The patient will continue on aspirin and Plavix without any interruption for one year in addition to aggressive coronary risks modifications. Close follow-up of his renal function will be done. He will need to be evaluated regarding his bioprosthetic aortic valve regurgitation.. The findings and the recommendations were discussed with the family and they were in full understanding and agreement. Duration of sedation is 90 minutes.
[2023-02-05 14:52] LABS: Glucose,Whole Blood 154 mg/dL (70-110)
[2023-02-05] MEDS: SODIUM CHLORIDE 0.9% 1,000 ML in EMPTY BAG 1 BAG IV SCH ×2 (16:21→17:47)
[2023-02-05 16:22] LABS: ABG Base Excess -7.2 mmol/L; ABG HCO3 18 mmol/L (21-25); ABG Oxygen Saturation 99.5 % (94-97); ABG PCO2 32 mmHg (35-45); ABG PH 7.37 (7.35-7.45); ABG PO2 270 mmHg (83-108); ABG TCO2 19 mmol/L (19-24); Allen Test Performed? Yes
[2023-02-05 16:26] LABS: Chol/HDL Ratio 2.56 Ratio; LDL Cholesterol,Calculated 66.8 mg/dL (0.0-131.0); VLDL Calculation 16.14 mg/dL (5.00-40.00)
[2023-02-05] MEDS: fentaNYL (PF). 1,000 MCG in SODIUM CHLORIDE 0.9% 80 ML IV SCH (17:24)
[2023-02-05 17:30] LABS: Partial Thromboplastin Time 55.6 sec (22.0-30.0)
--- NOTE | 2023-02-05 17:50 | P.PN ---
Progress Note - Text Progress Note Date: 02/05/23 Chief Complaint: Chest pain This is a pleasant 77-year-old patient who follows with Dr. Savage. Cartilage is Dr. Babin. Patient had a coronary bypass in 2009.. Aortic valve replacement. 4 aortic aneurysm repair. Patient also had a coronary stent. Yesterday evening patient was mowing his neighbors lawn, which had overgrown. When he finished he was feeling a pressure in his chest and achiness in the arm. He went home and laid down. Was unable to steep and took a sleeping pill to go to sleep around 2 AM. Woke up this morning with pain across the chest and also pain down the arms. Went and sat in the living room for some time. Finally decided to come in. EKG on presentation showed ST depression in inferolateral leads. Initial troponin I was 0.028. Related to his evening patient's chest pain had resurfaced. And repeat troponin came back at 8.1. Cardiology was informed. Patient has been a bit short of breath. 02/05/2023: Overnight patient did become short of breath. More. Placed on BiPAP. 100%. Was given Lasix. Patient was then intubated. Underwent cardiac catheterization. CHRONICALLY occluded LAD and RCA. Severe stenosis in the ostium of the SVG to the diagonal branch. Successful stenting of the ostium of the SVG to the diagonal branch. Currently intubated. FiO2 70 and a PEEP of 10. This included IV propofol, levo fed Lasix. Active Medications Al Hydroxide/Mg Hydroxide (Mag Hydrox/Al Hydrox/Simeth 30 Ml Cup) 30 ml PO Q4HR PRN PRN Reason: Heartburn Albuterol/Ipratropium (Ipratropium-Albuterol 3 Ml Neb) 3 ml INHALATION RT-Q4H TRACY Last Admin: 02/05/23 15:50 Dose: 3 ml Albuterol/Ipratropium (Ipratropium-Albuterol 3 Ml Neb) 3 ml INHALATION RT-Q2H PRN PRN Reason: Shortness Of Breath Or Wheezing Alprazolam (Alprazolam 0.25 Mg Tab) 0.25 mg PO Q6HR PRN PRN Reason: Mild Anxiety Alprazolam (Alprazolam 0.5 Mg Tab) 0.5 mg PO Q6HR PRN PRN Reason: Moderate Anxiety Aspirin (Aspirin 81 Mg) 81 mg PO DAILY [facility] Last Admin: 02/05/23 09:16 Dose: 81 mg Atorvastatin Calcium (Atorvastatin 80 Mg Tab) 80 mg PO HS [facility] Last Admin: 02/04/23 21:01 Dose: 80 mg Atropine Sulfate (Atropine Sulfate 0.1 Mg/Ml 10ml Syringe) 0.5 mg IV ONCE PRN PRN Reason: Symptomatic Bradycardia Bupropion HCl (Bupropion Sr 150 Mg Tablet.Er) 150 mg PO BID [facility] Last Admin: 02/05/23 09:16 Dose: 150 mg Chlorhexidine Gluconate (Chlorhexidine Gluconate 15 Ml Cup) 15 ml MUCOUS MEM BID [facility] Cholecalciferol (Cholecalciferol 25 Mcg (1000 Iu) Tablet) 50 mcg PO DAILY [facility] Last Admin: 02/05/23 09:17 Dose: 50 mcg Clopidogrel Bisulfate (Clopidogrel 75 Mg Tab) 75 mg PO DAILY [facility]; Protocol Doxazosin Mesylate (Doxazosin 2 Mg Tab) 2 mg PO HS [facility] Last Admin: 02/04/23 21:01 Dose: 2 mg Escitalopram Oxalate (Escitalopram 10 Mg Tab) 10 mg PO HS [facility] Last Admin: 02/04/23 21:01 Dose: 10 mg Furosemide (Furosemide 10 Mg/Ml 4 Ml Vial) 40 mg IV Q12HR [facility] Heparin Sodium (Porcine) 10, (000 unit/ Sodium Chloride) 1,001 mls @ 999 mls/hr IRRIGATION ONCE PRN PRN Reason: INTRA-OP Stop: 02/05/23 23:00 Heparin Sodium (Porcine) 2,500 (unit/ Sodium Chloride) 250.5 mls @ 250 mls/hr IRRIGATION ONCE PRN PRN Reason: INTRA-OP Stop: 02/05/23 23:00 Propofol 1,000 mg/ IV Solution 100 mls @ 6.777 mls/hr IV .[id number] [facility]; Protocol Last Titration: 02/05/23 12:15 Dose: 45 mcg/kg/min, 20.33 mls/hr Norepinephrine Bitartrate 4 mg (/ Sodium Chloride) 254 mls @ 8.606 mls/hr IV .Q24H [facility]; Protocol Last Titration: 02/05/23 17:25 Dose: 0.15 mcg/kg/min, 43.032 mls/hr Sodium Chloride 1,000 ml/ IV (Solution) 1,000 mls @ 75.296 mls/hr IV .[id number] [facility] Stop: 02/05/23 18:46 Last Admin: 02/05/23 16:21 Dose: Not Given Fentanyl Citrate 1,000 mcg/ (Sodium Chloride) 100 mls @ 3.765 mls/hr IV .Q24H [facility]; Protocol Last Admin: 02/05/23 17:24 Dose: 0.5 mcg/kg/hr, 3.765 mls/hr Ipratropium [place] (Ipratropium [place] 0.06% Nasal [place] (15 Ml)) 2 spray EA NOSTRIL TID [facility] Last Admin: 02/05/23 16:56 Dose: Not Given Levothyroxine Sodium (Levothyroxine 88 Mcg Tab) 176 mcg PO SUFRSA [facility] Levothyroxine Sodium (Levothyroxine 100 Mcg Tab) 200 mcg PO [id number] [facility] Last Admin: 02/05/23 07:07 Dose: 200 mcg Loratadine (Loratadine 10 Mg Tab) 10 mg PO DAILY [facility] Last Admin: 02/05/23 09:16 Dose: 10 mg Metoprolol Tartrate (Metoprolol Tartrate 25 Mg Tab) 25 mg PO BID [facility] Miscellaneous Information (Rx Info: Iv Contrast Was Given 1 Each Misc) 1 each MISCELLANE DAILY PRN PRN Reason: Per Protocol Stop: 02/07/23 14:32 Multivitamins (Multivitamins, Thera 1 Each Tab) 1 each PO DAILY [facility] Last Admin: 02/05/23 09:17 Dose: 1 each Niacin (Niacin Tr 500 Mg Caplet) 500 mg PO HS [facility] Last Admin: 02/04/23 21:01 Dose: 500 mg Nitroglycerin (Nitroglycerin Sl Tabs 0.4 Mg Tab) 0.4 mg SUBLINGUAL Q5M PRN PRN Reason: Chest Pain Pantoprazole Sodium (Pantoprazole 40 Mg/10 Ml Vial) 40 mg IV DAILY [facility] Last Admin: 02/05/23 09:17 Dose: 40 mg Ranolazine (Ranolazine 500 Mg Tab.Er.12h) 500 mg PO Q12HR [facility] Last Admin: 02/05/23 10:24 Dose: Not Given Zolpidem Tartrate (Zolpidem 5 Mg Tab) 5 mg PO HS PRN PRN Reason: Insomnia Past medical history to include: Hyperlipidemia, osteoarthritis, hypothyroid, cardiac valve replacement, CAD with stent, coronary bypass in 2010, aortic aneurysm repair, bilateral rotator cuff repair, depression Social history: Lives alone. No smoking or alcohol Physical examination: VITAL SIGNS: 89, 39, 122/42, 100% on the ventilator GENERAL: In bed, intubated EYES: Pupils equal. Conjunctiva normal. HEENT: External appearance of nose and ears normal, oral cavity grossly normal. Endotracheal tube. NECK: JVD unable to assess; masses not palpable. HEART: First and second heart sounds are normal; no edema. LUNGS: Respiratory rate increased; decreased breath sounds. ABDOMEN: Soft, nontender, liver spleen not palpable, no masses palpable. PSYCH: Patient sedated MUSCULOSKELETAL:No Clubbing/cyanosis;muscles-grossly intact. OA INVESTIGATIONS, reviewed in the clinical context: February 05: ProBNP 07395. BUN 33 creatinine 1.46 2-D echocardiogram: EF 55-60%. AV prosthesis. Moderate to severe AI. Moderate TR. Moderate pulmonary hypertension. Moderate MR. COVID-19: Not detected White count 4.3 hemoglobin 14.6 platelets 102 sodium 137 potassium 4 BUN 24 creatinine 0.91 Troponin I 0.028, 8.1, 38.4 ProBNP 781 EKG tracing personally reviewed by me-ST segment depression in inferolateral leads. Chest x-ray film personally reviewed by me-possibly chronic infiltrates CT angiogram chest: No PE. Diffuse bilateral lung infiltrates. Assessment and plan: -Acute non-ST elevation myocardial infarction. Cardiac catheterization today by Dr. Babin: 1. Chronically occluded LAD and RCA 2. Severe stenosis in the ostium of the SVG to the diagonal branch 3. Right dominance 4. Successful stenting of the ostium of the SVG to the diagonal branch with reduction of stenosis from 90% to less than 5% -Acute pulmonary edema secondary to acute WA. On Lasix drip. -Cardiogenic shock Currently on levo fed -Acute hypoxic respiratory failure, requiring ventilator assist Intubated today February 05. FiO2 70%. -CAD with a prior history of stent coronary bypass Lipitor. Plavix. -Hyperlipidemia Lipitor -BPH Cardura 2 mg daily at bedtime -Depression Lexapro 10 mg bupropion . Hypothyroid Synthroid -Full code ICU. Follows with cardiology and pulmonary. Prognosis guarded.
[2023-02-05 18:16] LABS: Glucose,Whole Blood 149 mg/dL (70-110)
[2023-02-05] MEDS: DOXAZOSIN 2 MG TAB PO SCH (20:47)
[2023-02-05] MEDS: METOPROLOL TARTRATE 25 MG TAB PO SCH (21:37)
[2023-02-05] MEDS: FUROSEMIDE 10 MG/ML 4 ML VIAL IV SCH (21:37)
[2023-02-05] MEDS: NIACIN TR 500 MG CAPLET PO SCH (21:37)
[2023-02-05] MEDS: ATORVASTATIN 80 MG TAB PO SCH (21:37)
[2023-02-05] MEDS: CHLORHEXIDINE GLUCONATE 15 ML CUP MUCOUS MEM SCH (21:37)
[2023-02-05] MEDS: ESCITALOPRAM 10 MG TAB PO SCH (22:06)
[2023-02-05 23:37] LABS: Glucose,Whole Blood 177 mg/dL (70-110)
[2023-02-06] MEDS: NOREPINEPHRINE 4 MG in SODIUM CHLORIDE 0.9% 250 ML IV SCH ×2 (00:08→01:18)
[2023-02-06] MEDS ORDERED: SODIUM CHLORIDE 0.9% 1,000 ML IV ONE ×2 (00:59→02:01)
[2023-02-06] MEDS: IPRATROPIUM-ALBUTEROL 3 ML NEB INHALATION SCH ×5 (03:52→20:26)
[2023-02-06] MEDS: VASOPRESSIN 60 UNIT in SODIUM CHLORIDE 0.9% 150 ML IV SCH (03:52)
[2023-02-06 04:11] LABS: Basophils % (A) 0 %; Eosinophils % (A) 0 %; HCT 39.5 % (39.0-53.0); HGB 13.9 gm/dL (13.0-17.5); Lymphocytes # (A) 0.9 k/uL (1.0-4.8); Lymphocytes % (A) 6 %; MCH 35.1 pg (25.0-35.0); MCHC 35.2 g/dL (31.0-37.0); MCV 99.7 fL (80.0-100.0); Mean Platelet Volume 9.5; Monocytes # (A) 1.4 k/uL (0-1.0); Monocytes % (A) 9 %; Neutrophils # (A) 12.9 k/uL (1.3-7.7); Neutrophils % (A) 83 %; Platelet Count 105 k/uL (150-450); RBC 3.96 m/uL (4.30-5.90); RDW 12.5 % (11.5-15.5); WBC 15.4 k/uL (3.8-10.6)
[2023-02-06 04:23] LABS: African American GFR (CKD) 36 (>60 ml/min/1.73 sqM); Anion Gap 7 mmol/L; Blood Urea Nitrogen 49 mg/dL (9-20); Calcium 7.2 mg/dL (8.4-10.2); Carbon Dioxide 16 mmol/L (22-30); Chloride 112 mmol/L (98-107); Glucose 154 mg/dL (74-99); Non-African American GFR(CKD) 31 (>60 ml/min/1.73 sqM); Potassium 5.1 mmol/L (3.5-5.1); Sodium 135 mmol/L (137-145)
[2023-02-06 05:20] LABS: ABG Base Excess -10.5 mmol/L; ABG HCO3 16 mmol/L (21-25); ABG Oxygen Saturation 87.1 % (94-97); ABG PCO2 36 mmHg (35-45); ABG PH 7.27 (7.35-7.45); ABG PO2 63 mmHg (83-108); ABG TCO2 18 mmol/L (19-24); Allen Test Performed? Yes
[2023-02-06] MEDS: fentaNYL (PF). 1,000 MCG in SODIUM CHLORIDE 0.9% 80 ML IV SCH (05:22)
[2023-02-06] MEDS ORDERED: SODIUM BICARB 8.4% 50 ML SYR (1 MEQ/ML) IV STA ×2 (05:39→05:46)
[2023-02-06] MEDS ORDERED: DEXTROSE 5% IN WATER 1,000 ML with SODIUM BICARB (1 MEQ/ML) 100 ML IV SCH (06:00)
[2023-02-06] MEDS: DEXTROSE 5% IN WATER 1,000 ML with SODIUM BICARB (1 MEQ/ML) 150 ML IV SCH ×2 (06:43→20:51)
--- NOTE | 2023-02-06 07:18 | XR ---
EXAMINATION TYPE: XR chest 1V portable DATE OF EXAM: 02/06/2023 4:54 AM COMPARISON: Chest radiographs from 02/05/2023 TECHNIQUE: XR chest 1V portable Portable AP radiograph of the chest. CLINICAL INDICATION:Male, 77 years old with history of Tube placement; FINDINGS: Patient is rotated which limits evaluation. Lungs/Pleura: Blunting of both costophrenic angles. Similar patchy confluent bilateral airspace opaci ties from prior examination. No pneumothorax. Pulmonary vascularity: Unremarkable. Heart/mediastinum: Cardiomediastinal silhouette is prominent in size. Post-CABG changes. Musculoskeletal: Multiple level degenerative disc disease changes seen throughout the spine. Midline sternotomy wires are noted and stable. Other findings: None Lines/Tubes: Left IJ central venous catheter, NG tube, and endotracheal tube are in stable positions. IMPRESSION: 1. Overall stable examination with diffuse bilateral airspace disease and small bilateral pleural ef fusions. 2. Stable support lines and tubes.
[2023-02-06] MEDS ORDERED: HEPARIN SODIUM 1,000 UN/ML (10ML VL) IV PRN (07:28)
[2023-02-06] MEDS: NOREPINEPHRINE 32 MG in SODIUM CHLORIDE 0.9% 218 ML IV SCH ×2 (08:24→20:10)
[2023-02-06] MEDS: HEPARIN SOD,PORK IN 0.45% NACL 25,000 UNIT in 0.45% NACL 1 250ML.BAG IV SCH (08:29)
[2023-02-06 08:37] LABS: Basophils % (A) 0 %; Eosinophils % (A) 0 %; HCT 41.1 % (39.0-53.0); HGB 14.2 gm/dL (13.0-17.5); Lymphocytes # (A) 0.9 k/uL (1.0-4.8); Lymphocytes % (A) 6 %; MCH 34.6 pg (25.0-35.0); MCHC 34.6 g/dL (31.0-37.0); MCV 99.9 fL (80.0-100.0); Mean Platelet Volume 9.5; Monocytes # (A) 1.4 k/uL (0-1.0); Monocytes % (A) 9 %; Neutrophils # (A) 12.5 k/uL (1.3-7.7); Neutrophils % (A) 84 %; Platelet Count 107 k/uL (150-450); RBC 4.11 m/uL (4.30-5.90); RDW 12.6 % (11.5-15.5)
[2023-02-06 08:44] LABS: INR 1.1 (<1.2); Partial Thromboplastin Time 23.8 sec (22.0-30.0); Prothrombin Time 11.2 sec (9.0-12.0)
[2023-02-06] MEDS: METOPROLOL TARTRATE 25 MG TAB PO SCH ×2 (08:46→20:11)
[2023-02-06 08:58] LABS: African American GFR (CKD) 31 (>60 ml/min/1.73 sqM); Non-African American GFR(CKD) 27 (>60 ml/min/1.73 sqM)
--- NOTE | 2023-02-06 09:07 | P.PN ---
Subjective Progress Note Date: 02/06/23 I am seeing this patient in consultation today 01/05/2023 for non-STEMI and lik garth pulmonary edema. Patient is a 77-year-old male with past medical history significant for coronary artery disease status post coronary artery bypass graft and subsequent stenting, aortic valve replacement, and aortic aneurysm repair. Patient came into the emergency room yesterday morning complaining of chest pain. Apparently, he was out mowing his neighbors lawn with a push mower when he developed severe substernal chest pain that radiated down both arms and diaphoresis. The pain did initially did improve, and he went to bed. Yesterday, morning the pain worsened and he came to the emergency room. On arrival, there was no acute ST elevation. Troponins are significantly elevated and are trending up at 0.028, 8.18, and 16.6. Patient was started on a combination of nitroglycerin infusion and heparin. Chest CTA showed no evidence of acute pulmonary emboli. There were diffuse bilateral lung infiltrates worse on the right, correlating for possible atypical pulmonary edema versus atypical pneumonia. On my evaluation, the patient is in some acute distress. He is reporting worsening chest pain, he is diaphoretic, and short of breath. He does have some pink frothy sputum, possibly pulmonary edema. His oxygenation demands have increased, and he was placed on the BiPAP with settings 12/6 and FiO2 100%. I did give the patient a one-time dose of Lasix 80 mg. Patient's nitroglycerin infusion was increased to 10 mcg/m. High intensity heparin is infusing protocol. Repeat EKG was done and results relayed to on-call provisioning analyst. Patient was subsequently transferred to the intensive care unit. CBC and BMP on arrival were unremarkable. Denies any infectious symptoms such as fever, chills, myalgias, cough. He has been afebrile. NT proBNP was 781. Nursing staff reports a tentative plan for possible heart catheterization in the morning. On 02/06/2023, the patient is being seen for a follow-up. The patient is critically ill at this point in time. Note that yesterday, I had to intubate the patient placed on a mechanical ventilator. Following that, the patient went to undergo a cardiac catheterization. The patient was found to have a chronically occluded LAD and RCA. The patient was found to have a tight lesion in the ostium of the SVG to the diagonal. The patient underwent a successful stenting of the ostium of SVG to the diagonal with a reduction of the stenosis down to 5%. Following that, he Was kept intubated and he was brought back to the intensive care unit. His condition progressively decompensated overnight. The patient became progressively more hypotensive and oliguric. For now, he remains intubated, sedated and is on a combination of fentanyl which is running at 0.5 microvascular kilogram per hour and the patient is also on propofol running at 40 microvascular kilogram per minutes. The patient is quite symptomatic is a mechanical ventilator assist control mode at a rate of 26, FiO2 is at 40% and earlier this morning I had to bring up is up to 15 with an FiO2 of 100%. Chest x-ray showing cardiomegaly and evidence of pulmonary edema. The patient has a pH of 7.27 with a pCO2 of 36 and pO2 of 63 on 100% FiO2. The patient is also on high-dose pressors. The patient is on norepinephrine running at 0.5 microvascular kilogram per minute and vasopressin physiologic dose. Urine operas in order of 10 mL an hour. Creatinine is on the rise and is currently up to 2.0. Earlier this morning, the patient a potassium level of 5.4 with a serum bicarb of 16. He was given 2 doses of sodium bicarb 100 mEq and currently is on a bicarbonate infusion running at the rate of 75 mL an hour. A stat echocardiogram was done this morning and the patient's LV was still dynamic. He does have moderate to severe aortic regurgitation and severe mitral regurgitation. I discussed the case with cardiology. We discussed the possibility of a aortic balloon pump versus Impala and based on his underlying valvular insufficiency, the patient was felt to be not a good candidate. He was restarted back on IV heparin. Noted that the patient was having some bloody oozing from his puncture sites including the triple-lumen cath site over the le ft subclavian and this has subsided. The hemoglobin currently is at 13.9. The white cell count of 15.4. The pro-calcitonin level was low at 0.09. Based on his underlying shock state, I cover the patient empirically with IV Zosyn. He is receiving Lasix 40 mg IV every 12 hours. He remains on aspirin and diuretics. He remains on high-dose statins. Condition is severely critical at this point in time. Objective - Vital Signs Vital signs: Vital Signs Temp 98.5 F 02/06/23 04:00 Pulse 98 02/06/23 08:43 Resp 26 H 02/06/23 08:43 BP 104/60 02/06/23 07:00 Pulse Ox 98 02/06/23 07:00 FiO2 100 02/06/23 08:34 Intake & Output 02/05/23 02/06/23 02/06/23 18:59 06:59 18:59 Intake Total 171.099 6760.011 100 Output Total 205 350 25 Balance 499.177 3691.011 75 Weight 80.6 kg Intake: IV 60 Intake, IV Titration 035.241 7722.011 100 Amount Norepinephrine 4 mg In 334.565 284.678 Sodium Chloride 0.9% 250 ml @ 0.03 MCG/KG/MIN 8. 606 mls/hr IV .Q24H [facility] Rx#:[id number] Sodium Chloride 0.9% 1, 2000 000 ml @ 999 mls/hr IV . Q1H1M ONE Rx#:[id number] Sodium Chloride 0.9% 1, 150 600 000 ml In Empty Bag 1 bag @ 1 ML/KG/HR 75.296 mls/ hr IV .[id number] [facility] Rx#: [id number] fentaNYL (PF). 1,000 mcg 3.075 64.130 In Sodium Chloride 0.9% 80 ml @ 0.5 MCG/KG/HR 3. 765 mls/hr IV .Q24H [facility] Rx#:[id number] propofoL 1,000 mg In 100.000 172.203 100 Empty Bag 1 bag @ 15 MCG/ KG/MIN 6.777 mls/hr IV . [id number] [facility] Rx#:[id number] Tube Feeding 0 Output: Urine 205 350 25 Other: Voiding Method Indwelling Catheter Indwelling Catheter ABP, PAP, CO, CI - Last Documented Arterial Blood Pressure 87/37 - Exam GENERAL EXAM: Alert, 69-year-old male appearing stated age , sedated, calm and comfortable, patient is currently intubated on mechanical ventilator. Orogastric and oral tracheal tube are both in place and the patient is successfully mechanical ventilator. HEAD: Normocephalic and atraumatic EYES: Normal reaction of pupils, equal size. NOSE: Clear with pink turbinates. THROAT: No erythema or exudates. NECK: No masses, positive JVD CHEST: No chest wall deformity. LUNGS: Diminished breath sounds bilaterally along with some scant respiratory crackles in lung bases CVS: S1 and S2 normal with systolic ejection murmur over the left sternal border and apex around 3/6, regular rhythm. No extra heart sounds ABDOMEN: No hepatosplenomegaly, active bowel sounds, no guarding or rigidity. SPINE: No scoliosis or deformity SKIN: No rashes. He is diaphoretic. CENTRAL NERVOUS SYSTEM: Sedated, calm and comfortable EXTREMITIES: There is no peripheral edema, clubbing, or cyanosis. Peripheral pulses are diminished and extremities are cold. He still has a arterial line in his right upper extremityradial. - Labs CBC & Chem 7: 02/06/23 08:22 02/06/23 08:22 Labs: Abnormal Lab Results - Last 24 Hours (Table) 02/05/23 02/05/23 02/05/23 Range/Units 11:31 11:31 14:50 WBC (3.8-10.6) k/uL RBC (4.30-5.90) m/uL MCH (25.0-35.0) pg Plt Count (150-450) k/uL Neutrophils # (1.3-7.7) k/uL Lymphocytes # (1.0-4.8) k/uL Monocytes # (0-1.0) k/uL APTT (22.0-30.0) sec ABG pH (7.35-7.45) ABG pCO2 (35-45) mmHg ABG pO2 (83-108) mmHg ABG HCO3 20 L (21-25) mmol/L ABG Total CO2 (19-24) mmol/L ABG O2 Saturation (94-97) % Sodium (137-145) mmol/L Chloride (98-107) mmol/L Carbon Dioxide (22-30) mmol/L BUN (9-20) mg/dL Creatinine (0.66-1.25) mg/dL Glucose (74-99) mg/dL POC Glucose (mg/dL) 172 H 154 H (70-110) mg/dL Calcium (8.4-10.2) mg/dL 02/05/23 02/05/23 02/05/23 Range/Units 16:15 17:14 18:15 WBC (3.8-10.6) k/uL RBC (4.30-5.90) m/uL MCH (25.0-35.0) pg Plt Count (150-450) k/uL Neutrophils # (1.3-7.7) k/uL Lymphocytes # (1.0-4.8) k/uL Monocytes # (0-1.0) k/uL APTT 55.6 H (22.0-30.0) sec ABG pH (7.35-7.45) ABG pCO2 32 L (35-45) mmHg ABG pO2 270 H (83-108) mmHg ABG HCO3 18 L (21-25) mmol/L ABG Total CO2 (19-24) mmol/L ABG O2 Saturation 99.5 H (94-97) % Sodium (137-145) mmol/L Chloride (98-107) mmol/L Carbon Dioxide (22-30) mmol/L BUN (9-20) mg/dL Creatinine (0.66-1.25) mg/dL Glucose (74-99) mg/dL POC Glucose (mg/dL) 149 H (70-110) mg/dL Calcium (8.4-10.2) mg/dL 02/05/23 02/06/23 02/06/23 Range/Units 23:36 04:04 04:04 WBC 15.4 H (3.8-10.6) k/uL RBC 3.96 L (4.30-5.90) m/uL MCH 35.1 H (25.0-35.0) pg Plt Count 105 L (150-450) k/uL Neutrophils # 12.9 H (1.3-7.7) k/uL Lymphocytes # 0.9 L (1.0-4.8) k/uL Monocytes # 1.4 H (0-1.0) k/uL APTT (22.0-30.0) sec ABG pH (7.35-7.45) ABG pCO2 (35-45) mmHg ABG pO2 (83-108) mmHg ABG HCO3 (21-25) mmol/L ABG Total CO2 (19-24) mmol/L ABG O2 Saturation (94-97) % Sodium 135 L (137-145) mmol/L Chloride 112 H (98-107) mmol/L Carbon Dioxide 16 L (22-30) mmol/L BUN 49 H (9-20) mg/dL Creatinine 2.02 H (0.66-1.25) mg/dL Glucose 154 H (74-99) mg/dL POC Glucose (mg/dL) 177 H (70-110) mg/dL Calcium 7.2 L (8.4-10.2) mg/dL 02/06/23 02/06/23 Range/Units 05:19 08:22 WBC 15.0 H (3.8-10.6) k/uL RBC 4.11 L (4.30-5.90) m/uL MCH (25.0-35.0) pg Plt Count 107 L (150-450) k/uL Neutrophils # 12.5 H (1.3-7.7) k/uL Lymphocytes # 0.9 L (1.0-4.8) k/uL Monocytes # 1.4 H (0-1.0) k/uL APTT (22.0-30.0) sec ABG pH 7.27 L (7.35-7.45) ABG pCO2 (35-45) mmHg ABG pO2 63 L (83-108) mmHg ABG HCO3 16 L (21-25) mmol/L ABG Total CO2 18 L (19-24) mmol/L ABG O2 Saturation 87.1 L (94-97) % Sodium (137-145) mmol/L Chloride (98-107) mmol/L Carbon Dioxide (22-30) mmol/L BUN (9-20) mg/dL Creatinine (0.66-1.25) mg/dL Glucose (74-99) mg/dL POC Glucose (mg/dL) (70-110) mg/dL Calcium (8.4-10.2) mg/dL Assessment and Plan Assessment: Acute non-ST elevation myocardial infarction, post immediate/emergent cardiac catheterization and patient underwent stenting of a tight ostial lesion SVG to diagonal. The patient also has chronic occluded LAD and RCA. Please refer to the full cardiac catheterization report. Cardiogenic shock, LV is dynamic and the patient is severely valvular insufficiency including aortic insufficiency and mitral regurgitation, not a candidate for a mechanical support and the patient is currently on high dose pressors Acute hypoxemic respiratory failure, currently on intubated on a mechanical ventilator. Remains in pulmonary edema. Continues to have cardiomegaly. Echo cardiac exam shows no evidence of any pericardial effusion. Acute pulmonary edema Moderate severe aortic insufficiency, post aortic valve replacement and the patient is post aortic valve replacement/bioprosthetic aortic valve Acute shortness of breath secondary to above Acute kidney injury, likely secondary to cardiorenal factors, in addition to contrast administration and hypotension. The patient is oliguric at this point in time and the patient remains on Lasix 40 mg IV every 12 hours Coronary artery disease, status post coronary artery bypass graft with subsequent coronary artery stenting. History of of aortic valve replacement, bioprosthetic aortic valve Essential hypertension Hyperlipidemia Hypothyroidism None and get metabolic acidosis and the patient is currently on a bicarb infusion Acute leukocytosis with a low pro-calcitonin level. Patient is currently covered with broad-spectrum antibiotics with IV Zosyn. Plan: Condition is extremely critical. I discussed the case with interventional cardiology. Is on a candidate for mechanical support. The patient will be managed medically at this point in time. Keep the patient sedated and discontinue the fentanyl keep only the propofol Continue ventilator support and the keep the PEEP of 15 Continue the bicarb infusion for now Continue IV Lasix Continue IV heparin Continue aspirin and Plavix Continue pressors and the patient is currently on high-dose norepinephrine 0.5 microvascular kilogram per minute in addition to vasopressin physiologic dose Monitor renal function Repeat another set of electrolytes by 1400 in addition to another blood gas Continue IV Zosyn Initiate low-dose enteral feeding for nutritional support of 10 mL an hour of vital high-protein Repeat echocardiogram from this morning was noted. No evidence of any peric ardial effusion. We'll continue to follow. Condition is critical obviously there is a high-risk that the patient may end up into 6A shock and multisystem organ failure. Family was made aware We'll continue to follow Evaluation was done in more than 30 minutes Case was discussed with cardiology on multiple occasions CVP can measure CVP Time with Patient: Greater than 30
[2023-02-06 09:34] LABS: NT-Pro-B-Type Natriuretic Pept 56500 pg/mL
[2023-02-06] MEDS: FUROSEMIDE 10 MG/ML 4 ML VIAL IV SCH (09:59)
[2023-02-06] MEDS: PANTOPRAZOLE 40 MG/10 ML VIAL IV SCH (10:00)
[2023-02-06] MEDS: ASPIRIN 81 MG PO SCH (10:00)
[2023-02-06] MEDS: CHOLECALCIFEROL 25 MCG (1000 IU) TABLET PO SCH (10:00)
[2023-02-06] MEDS: CLOPIDOGREL 75 MG TAB PO SCH (10:00)
[2023-02-06] MEDS: MULTIVITAMINS, THERA 1 EACH TAB PO SCH (10:01)
[2023-02-06] MEDS: LORATADINE 10 MG TAB PO SCH (10:01)
[2023-02-06] MEDS: PIPERACILLIN-TAZOBACTAM 3.375 GM in SODIUM CHLORIDE 0.9% 100 ML IVPB SCH ×2 (10:02→20:49)
[2023-02-06] MEDS: IPRATROPIUM BROMIDE 0.06% NASAL SPRAY (15 ML) EA NOSTRIL SCH ×2 (10:03→17:15)
[2023-02-06] MEDS: CHLORHEXIDINE GLUCONATE 15 ML CUP MUCOUS MEM SCH ×2 (10:03→20:50)
--- NOTE | 2023-02-06 10:05 | CA ---
Transthoracic Echo Report Name: Roe Lee Age: 77 Gender: M : 1945 Exam Date: 02/06/2023 07:17 Exam Location: [facility] Ht (in): 67 Wt (lb): 177 Ordering Physician: Samuel Desai MD ([id number]) Attending/Referring Phys: Rod Buster Priyank Moore Procedure CPT: Indications: QRS changes Cardiac Hx: Technical Quality: Fair Contrast 1: Total Dose (mL): Contrast 2: Total Dose (mL): MEASUREMENTS (Male / Female) Normal Values 2D ECHO LV Diastolic Diameter PLAX 5.5 cm 4.2 - 5.9 / 3.9 - 5.3 cm LV Systolic Diameter PLAX 3.6 cm IVS Diastolic Thickness 1.3 cm 0.6 - 1.0 / 0.6 - 0.9 cm LVPW Diastolic Thickness 1.2 cm 0.6 - 1.0 / 0.6 - 0.9 cm LV Relative Wall Thickness 0.5 RV Internal Dim ED PLAX 3.3 cm LVOT Diameter 2.1 cm Aortic Root Diameter 3.5 cm LA Systolic Diameter LX 3.3 cm 3.0 - 4.0 / 2.7 - 3.8 cm LV Diastolic Volume MOD BP 81.7 cm??? 67 - 155 / 56 - 104 cm??? LV Systolic Volume MOD BP 36.7 cm??? - 58 / 19 - 49 cm??? LV Ejection Fraction MOD BP 55.1 % >= 55 % LV Cardiac Index MOD BP 2081.7 cm???/min???m??? LV Diastolic Volume MOD 4C 72.0 cm??? LV Systolic Volume MOD 4C 38.0 cm??? LV Ejection Fraction MOD 4C 47.3 % LV Cardiac Index MOD 4C 1576.3 cm???/min???m??? LV Diastolic Length 4C 6.9 cm LV Systolic Length 4C 6.2 cm LV Diastolic Volume MOD 2C 89.4 cm??? LV Systolic Volume MOD 2C 34.7 cm??? LV Ejection Fraction MOD 2C 61.2 % LV Cardiac Index MOD 2C 2532.0 cm???/min???m??? LV Diastolic Length 2C 7.2 cm LV Systolic Length 2C 6.4 cm LA Volume 74.5 cm??? 18 - 58 / 22 - 52 cm??? DOPPLER AV Peak Velocity 261.8 cm/s AV Peak Gradient 27.4 mmHg AV Mean Velocity 184.1 cm/s AV Mean Gradient 15.7 mmHg AV Velocity Time Integral 40.3 cm AI Peak Velocity 300.1 cm/s AI Peak Gradient 36.0 mmHg AI Pressure Half Time 165.7 ms LVOT Peak Velocity 88.8 cm/s LVOT Peak Gradient 3.2 mmHg LVOT Velocity Time Integral 14.3 cm LVOT Stroke Volume 49.8 cm??? LVOT Stroke Volume Index 26.0 ml/m??? LVOT Cardiac Index 2306.7 cm???/min???m??? AV Area Cont Eq vti 1.2 cm??? AV Area Cont Eq pk 1.2 cm??? MV Peak Velocity 112.5 cm/s MV Peak Gradient 5.1 mmHg MV Mean Velocity 62.6 cm/s MV Mean Gradient 1.8 mmHg MV Velocity Time Integral 25.4 cm MR Peak Velocity 429.5 cm/s MR Peak Gradient 73.8 mmHg Mitral E Point Velocity 72.4 cm/s Mitral A Point Velocity 29.7 cm/s Mitral E to A Ratio 2.4 MV Deceleration Time 97.7 ms MV E' Velocity 3.5 cm/s Mitral E to MV E' Ratio 20.7 TR Peak Velocity 153.1 cm/s TR Peak Gradient 9.4 mmHg Right Ventricular Systolic Press 14.5 mmHg PV Peak Velocity 69.2 cm/s PV Peak Gradient 1.9 mmHg FINDINGS Left Ventricle LV size at upper limits of normal.left ventricular ejection fraction is estimated at 40-45 %. Anteroapical hypokinesis Right Ventricle Normal right ventricular size. Right Atrium Normal right atrial size. Left Atrium LA Volume index= 39ml/m2 Mitral Valve Structurally normal mitral valve. Moderate MR. Aortic Valve AV Area by VTI= 1.2cm2. Moderate to severe AI. Bioprosthetic aortic valve Tricuspid Valve Tricuspid valve not well visualized. Mild TR. Pulmonic Valve Pulmonic valve not well visualized. Moderate PI. Pericardium No pericardial effusion Aorta AO root summer = 3.3cm CONCLUSIONS 1. Moderately impaired left ventricle systolic function with segmental wall motion abnormality 2. Bioprosthetic aortic valve with moderate to severe aortic regurgitation 3. Moderate mitral regurgitation Previewed by: Dr. Luis Babin MD (Electronically Signed) Final Date: 06 February 2023 10:04
[2023-02-06] MEDS: buPROPion SR 150 MG TABLET.ER PO SCH ×2 (10:08→20:50)
[2023-02-06] MEDS: LEVOTHYROXINE 88 MCG TAB PO SCH (10:08)
[2023-02-06] MEDS: RANOLAZINE 500 MG TAB.ER.12H PO SCH ×2 (10:09→20:30)
--- NOTE | 2023-02-06 10:29 | PN ---
PROGRESS NOTE SUBJECTIVE: Roe is a 77-year-old gentleman, who presented to hospital with acute cag-KB-pbjcayk elevation ME and developed pulmonary edema and renal insufficiency. Because of worsening respiratory failure, he was initially on BiPAP and subsequently was intubated, so that we can do a cardiac catheterization on him. He underwent a cardiac cath yesterday that revealed a chronically occluded LAD and right coronary artery with severe stenosis involving the ostium of the venous graft to the diagonal branch. He underwent angioplasty with drug-eluting stent placement. The patient became hypotensive and developed increasing O2 requirements through last night and was started back on IV heparin. His troponin was 57 with a BNP of 56,500. His echocardiogram showed normal LV systolic function with [id number] aortic regurgitation. He is not a candidate for circulatory support at this time. He is on pressors for hypotension. Continue the aspirin, Plavix, Lipitor along with Lasix and Lopressor. He is also receiving nebulizers, Levophed, and vasopressin. Lopressor is on hold because of the hypotension. PHYSICAL EXAMINATION: VITAL SIGNS: Heart rate is 98 beats per minute, blood pressure is 104/60, respiratory rate is 26. CHEST: Reveals diminished air entry with occasional rhonchi. HEART: Reveals first and second heart sounds. An ejection systolic murmur in the aortic area. ABDOMEN: Soft. EXTREMITIES: Did not reveal any edema. Peripheral pulses are palpable. LABORATORY DATA: Labs show a hemoglobin of 14.2. Blood gases show a pH of 7.2, pCO2 of 36, PO2 of 63. Troponin is elevated at 57,000. His urine output is low. Creatinine is elevated at 2.26. ASSESSMENT: 1. Cardiogenic shock. 2. Acute goh-AJ-fgqauoo elevation myocardial infarction, status post catheterization and angioplasty of venous graft to the diagonal. 3. History of aortic valve replacement with uukfwykr-on-pjsjte aortic regurgitation. PLAN: We will continue with the pressors, IV heparin. Continue current supportive care. Consult Nephrology for the renal failure. MMODL / IJN: [id number] /
--- NOTE | 2023-02-06 11:42 | P.NPCON ---
History of Present Illness - Reason for Consult acute renal failure - History of Present Illness Patient is a 77-year-old male with history of coronary artery disease status post coronary artery bypass surgery and aortic valve replacement who was admitted to the hospital with chest pain and shortness of breath. Patient ruled in for acute non-ST elevation AR. He was taken to cardiac manager cath lab yesterday a nd is status post cardiac catheterization with stenting of LAD. Patient subsequently became severely hypotensive and has been maintained on levo fed. Vasopressin has also been added and he is currently on max doses of pressors. Patient was intubated this morning due to worsening hypoxic respiratory failure. FiO2 has been increased 200% and PEEP is at 15. Urine output has dropped and is currently at 10-15 mL per hour. Started on bicarb drip. Hemoglobin 14.2. Serum creatinine 0.9 on initial admission and increased to 2.26 today Review of Systems As per HPI other systems negative Past Medical History Past Medical History: Eye Disorder, Hyperlipidemia, Myocardial Infarction (non Q-wave), Osteoarthritis (OA), Prostate Disorder, Thyroid Disorder Additional Past Medical History / Comment(s): hx migrianes, hx hiatal hernia Last Myocardial Infarction Date:: 05/01/2000 History of Any Multi-Drug Resistant Organisms: None Reported Past Surgical History: Cardiac Valve Replacement, Coronary Bypass/CABG, Heart Catheterization With Stent, Orthopedic Surgery Additional Past Surgical History / Comment(s): CABG-1999-"has chest wire and 5 loose dedra", double bypass, aortic valve replacement and aortic aneurysm repair , FATTY TUMOR REMOVED FROM JAW, GANGLION CYST RT RING FINGER, BILAT ROTATOR CUFF REPAIR (rt x3, lt x 1) titanium anchor, LUNA cataract removal, rt foot hammertoe, steroid injections in back for pain Past Anesthesia/Blood Transfusion Reactions: No Reported Reaction Date of Last Stent Placement:: 01/14/13 Past Psychological History: Depression Smoking Status: Never smoker Past Alcohol Use History: None Reported Additional Past Alcohol Use History / Comment(s): 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 Past Drug Use History: None Reported - Past Family History Father Family Medical History: Cancer Mother Family Medical History: Congestive Heart Failure (CHF) Brother(s) Family Medical History: Myocardial Infarction (AR) Medications and Allergies Home Medications Medication Instructions Recorded Confirmed Type Atorvastatin [Lipitor] 80 mg PO HS 07/05/14 02/04/23 History Doxazosin [Cardura] 2 mg PO HS 07/05/14 02/04/23 History buPROPion SR [Wellbutrin SR] 150 mg PO BID 07/05/14 02/04/23 History Levothyroxine Sodium [Synthroid] 175 mcg PO SUFRSA 05/16/19 02/04/23 History Nitroglycerin Sl Tabs [Nitrostat] 0.4 mg SUBLINGUAL Q5M PRN #25 tab 05/18/19 02/04/23 Rx Aspirin EC [Ecotrin Low Dose] 81 mg PO DAILY 06/04/20 02/04/23 History Glucosamine/Chondr Jacobs A Sod [Osteo 1 tab PO DAILY 06/04/20 02/04/23 History Bi-Flex Caplet] Levothyroxine Sodium [Synthroid] 200 mcg PO MOTUWETH 06/04/20 02/04/23 History Niacin 500 mg PO HS 06/04/20 02/04/23 History Furosemide [Lasix] 20 mg PO DAILY #90 tab 06/06/20 02/04/23 Rx Ipratropium Preston 0.06%Nasal 2 spray EA NOSTRIL TID 05/06/21 02/04/23 History [Atrovent Nasal 0.06%] Cholecalciferol [Vitamin D3 (25 50 mcg PO DAILY 02/04/23 02/04/23 History Mcg = 1000 Iu)] Clopidogrel [Plavix] 37.5 mg PO DAILY 02/04/23 02/04/23 History Escitalopram [Lexapro] 10 mg PO HS 02/04/23 02/04/23 History Fexofenadine HCl 180 mg PO DAILY 02/04/23 02/04/23 History Multivitamins, Thera [Multivitamin 1 tab PO DAILY 02/04/23 02/04/23 History (formulary)] Allergies Allergy/AdvReac Type Severity Reaction Status Date / Time black walnut Allergy Unknown Verified 02/04/23 12:15 cromolyn sodium AdvReac fungal Verified 02/04/23 12:15 [From Nasalcrom] infection on tongue Physical Exam Vitals: Vital Signs Temp Pulse Pulse Resp BP BP Pulse Ox 02/06/23 11:20 02/06/23 11:00 101 H 26 H 100 02/06/23 10:45 101 H 26 H 100 02/06/23 10:30 102 H 26 H 100 02/06/23 10:15 101 H 26 H 100 02/06/23 10:00 101 H 26 H 100 02/06/23 09:45 100 26 H 100 02/06/23 09:30 107 H 26 H 99 02/06/23 09:15 98 26 H 100 02/06/23 09:00 98 26 H 100 02/06/23 08:45 96 26 H 100 02/06/23 08:43 98 26 H 02/06/23 08:34 02/06/23 08:30 96 26 H 100 02/06/23 08:15 92 26 H 100 02/06/23 08:00 88 26 H 100 02/06/23 07:45 92 26 H 100 02/06/23 07:30 92 26 H 100 02/06/23 07:15 93 26 H 98 02/06/23 07:00 91 23 104/60 98 02/06/23 06:00 104 H 26 H 98 02/06/23 05:30 02/06/23 05:00 0 L 100/53 91 L 02/06/23 04:27 92 02/06/23 04:23 93 02/06/23 04:15 02/06/23 04:00 98.5 F 96 27 H 87/50 85 L 02/06/23 03:00 98 29 H 100/60 88 L 02/06/23 02:51 02/06/23 02:00 101 H 27 H 99/55 84 L 02/06/23 01:23 02/06/23 01:00 99 28 H 91/49 95 02/06/23 00:03 87 02/06/23 00:00 98.0 F 90 26 H 94/49 100 02/05/23 23:58 02/05/23 23:57 90 02/05/23 23:43 91 26 H 94/49 100 02/05/23 23:00 92 26 H 122/49 100 02/05/23 22:00 96 26 H 130/45 100 02/05/23 21:27 94 02/05/23 21:17 96 02/05/23 21:08 02/05/23 21:00 92 26 H 120/43 100 02/05/23 20:00 98.0 F 92 26 H 105/50 100 08/03/23 19:00 92 25 H 115/46 100 02/05/23 18:00 90 23 107/43 100 02/05/23 17:00 89 39 H 122/42 100 02/05/23 16:30 02/05/23 16:17 88 31 H 123/48 99 02/05/23 16:00 85 88 12 125/50 100 02/05/23 15:56 84 02/05/23 15:50 84 02/05/23 15:45 87 14 101/42 97 02/05/23 15:30 86 11 L 120/46 02/05/23 15:18 97.8 F 84 31 H 120/46 99 02/05/23 15:17 86 101/42 99 02/05/23 15:00 83 29 H 105/46 100 02/05/23 14:52 02/05/23 14:00 115/53 02/05/23 12:00 86 14 118/47 98 FiO2 02/06/23 11:20 100 02/06/23 11:00 02/06/23 10:45 02/06/23 10:30 02/06/23 10:15 02/06/23 10:00 02/06/23 09:45 02/06/23 09:30 02/06/23 09:15 02/06/23 09:00 02/06/23 08:45 02/06/23 08:43 02/06/23 08:34 100 02/06/23 08:30 02/06/23 08:15 02/06/23 08:00 02/06/23 07:45 02/06/23 07:30 02/06/23 07:15 02/06/23 07:00 02/06/23 06:00 02/06/23 05:30 100 02/06/23 05:00 02/06/23 04:27 02/06/23 04:23 02/06/23 04:15 100 02/06/23 04:00 70 02/06/23 03:00 02/06/23 02:51 70 02/06/23 02:00 02/06/23 01:23 60 02/06/23 01:00 02/06/23 00:03 02/06/23 00:00 70 02/05/23 23:58 50 02/05/23 23:57 02/05/23 23:43 02/05/23 23:00 02/05/23 22:00 02/05/23 21:27 02/05/23 21:17 02/05/23 21:08 60 02/05/23 21:00 02/05/23 20:00 70 02/05/23 19:00 02/05/23 18:00 02/05/23 17:00 02/05/23 16:30 70 02/05/23 16:17 02/05/23 16:00 100 02/05/23 15:56 02/05/23 15:50 02/05/23 15:45 02/05/23 15:30 02/05/23 15:18 02/05/23 15:17 02/05/23 15:00 02/05/23 14:52 100 02/05/23 14:00 02/05/23 12:00 100 Intake and Output 02/05/23 02/06/23 02/06/23 22:59 06:59 14:59 Intake Total 6003.229 9516.541 809.862 Output Total 214 275 70 Balance 344.325 2592.541 739.862 Intake: IV 400 Dextrose 5% in Water 1, 300 000 ml @ 75 mls/hr IV . [id number] [facility] with Sodium Bicarb (1 Meq/ml) 150 ml Rx#:[id number] Piperacillin-Tazobactam 3 100 .375 gm In Sodium Chloride 0.9% 100 ml @ 25 mls/hr IVPB Q12HR [facility] Rx #:[id number] Intake, IV Titration 5871.433 9875.541 409.862 Amount Norepinephrine 32 mg In 39.986 Sodium Chloride 0.9% 218 ml @ 0.03 MCG/KG/MIN 1. 133 mls/hr IV .Q24H [facility] Rx#:[id number] Norepinephrine 4 mg In 437.651 117.142 254 Sodium Chloride 0.9% 250 ml @ 0.03 MCG/KG/MIN 8. 606 mls/hr IV .Q24H [facility] Rx#:[id number] Sodium Chloride 0.9% 1, 2000 000 ml @ 999 mls/hr IV . Q1H1M ONE Rx#:[id number] Sodium Chloride 0.9% 1, 375 375 000 ml In Empty Bag 1 bag @ 1 ML/KG/HR 75.296 mls/ hr IV .[id number] [facility] Rx#: [id number] fentaNYL (PF). 1,000 mcg 3.075 64.130 15.876 In Sodium Chloride 0.9% 80 ml @ 0.5 MCG/KG/HR 3. 765 mls/hr IV .Q24H [facility] Rx#:[id number] propofoL 1,000 mg In 186.216 62.269 100 Empty Bag 1 bag @ 15 MCG/ KG/MIN 6.777 mls/hr IV . [id number] [facility] Rx#:[id number] Tube Feeding 0 Output: Urine 214 275 70 Other: Voiding Method Indwelling Catheter Indwelling Catheter Weight 80.6 kg 82.1 kg ABP, PAP, CO, CI - Last 8 Hours Arterial Blood Pressure 123/42 Arterial Blood Pressure 116/41 Arterial Blood Pressure 123/41 Arterial Blood Pressure 119/40 Arterial Blood Pressure 114/41 Arterial Blood Pressure 110/41 Arterial Blood Pressure 142/49 Arterial Blood Pressure 112/41 Arterial Blood Pressure 100/35 Arterial Blood Pressure 105/41 Arterial Blood Pressure 106/43 Arterial Blood Pressure 91/37 Arterial Blood Pressure 76/36 Arterial Blood Pressure 90/38 Arterial Blood Pressure 94/39 Arterial Blood Pressure 101/43 Arterial Blood Pressure 87/37 Arterial Blood Pressure 120/42 Arterial Blood Pressure 113/37 Arterial Blood Pressure 111/39 Patient is sedated and on the vent Examination of the heart S1 and S2 Examination of the lungs bilateral breath sounds are heard Abdomen is soft Examination of lower extremities shows no edema [employer] exam cannot be performed Results - Lab Results Most recent lab results ABG pH 7.27 (7.35-7.45) L 02/06/23 05:19 ABG pCO2 36 mmHg (35-45) 02/06/23 05:19 ABG pO2 63 mmHg (83-108) L 02/06/23 05:19 ABG HCO3 16 mmol/L (21-25) L 02/06/23 05:19 ABG O2 Saturation 87.1 % (94-97) L 02/06/23 05:19 Calcium 7.2 mg/dL (8.4-10.2) L 02/06/23 04:04 Magnesium 2.0 mg/dL (1.6-2.3) 02/05/23 00:56 02/06/23 08:22 02/06/23 08:22 Assessment and Plan Assessment: 1. Acute kidney injury, oliguric ATN secondary to hypotension and cardiogenic shock 2. Acute non-ST elevation AR status post cardiac catheterization and stenting of LAD on 02/05/2023 3. Non-gap metabolic acidosis associated with acute kidney injury 4. Acute hypoxic respiratory failure currently on the vent, FiO2 has been increased to 100% with PEEP of 15. 5. History of coronary artery disease status post CABG Plan: Start Lasix drip. Continue with bicarb drip Patient will likely need renal replacement therapy if oxygenation has not improved. Currently maintained on max dose pressors. Sled procedure will be attempted if patient remains oliguric and hypoxic. Discussed with patient's family present at bedside.
[2023-02-06] MEDS: FUROSEMIDE 100 MG in SODIUM CHLORIDE 0.9% 90 ML IV SCH ×2 (11:44→17:28)
[2023-02-06 13:19] LABS: Glucose,Whole Blood 217 mg/dL (70-110)
[2023-02-06 14:07] LABS: African American GFR (CKD) 31 (>60 ml/min/1.73 sqM); Anion Gap 12 mmol/L; Blood Urea Nitrogen 54 mg/dL (9-20); Calcium 6.9 mg/dL (8.4-10.2); Carbon Dioxide 18 mmol/L (22-30); Chloride 108 mmol/L (98-107); Glucose 202 mg/dL (74-99); Non-African American GFR(CKD) 26 (>60 ml/min/1.73 sqM); Potassium 4.9 mmol/L (3.5-5.1); Sodium 138 mmol/L (137-145)
[2023-02-06 14:20] LABS: ABG Base Excess -4.9 mmol/L; ABG HCO3 21 mmol/L (21-25); ABG Oxygen Saturation 99.5 % (94-97); ABG PCO2 36 mmHg (35-45); ABG PH 7.36 (7.35-7.45); ABG PO2 302 mmHg (83-108); ABG TCO2 22 mmol/L (19-24)
[2023-02-06] MEDS ORDERED: DEXTROSE 50% SYRINGE 50 ML IVP PRN ×2 (14:39)
[2023-02-06 14:43] LABS: Glucose,Whole Blood 191 mg/dL (70-110)
[2023-02-06] MEDS: INSULIN ASPART (NovoLOG) 100 UNIT/ML VIAL SQ SCH ×3 (14:48→23:41)
[2023-02-06] MEDS: HYDROmorphone 1 MG/ML 1 ML SYRINGE IVP PRN (14:50)
[2023-02-06 17:31] LABS: Glucose,Whole Blood 146 mg/dL (70-110)
[2023-02-06] MEDS ORDERED: CALCIUM GLUCONATE IN NACL 2 GM in SALINE 1 100ML.BAG IVPB ONE (17:37)
--- NOTE | 2023-02-06 17:39 | P.PN ---
Progress Note - Text Progress Note Date: 02/06/23 Chief Complaint: Chest pain This is a pleasant 77-year-old patient who follows with Dr. Savage. Cartilage is Dr. Babin. Patient had a coronary bypass in 2009.. Aortic valve replacement. 4 aortic aneurysm repair. Patient also had a coronary stent. Yesterday evening patient was mowing his neighbors lawn, which had overgrown. When he finished he was feeling a pressure in his chest and achiness in the arm. He went home and laid down. Was unable to steep and took a sleeping pill to go to sleep around 2 AM. Woke up this morning with pain across the chest and also pain down the arms. Went and sat in the living room for some time. Finally decided to come in. EKG on presentation showed ST depression in inferolateral leads. Initial troponin I was 0.028. Related to his evening patient's chest pain had resurfaced. And repeat troponin came back at 8.1. Cardiology was informed. Patient has been a bit short of breath. 02/05/2023: Overnight patient did become short of breath. More. Placed on BiPAP. 100%. Was given Lasix. Patient was then intubated. Underwent cardiac catheterization. CHRONICALLY occluded LAD and RCA. Severe stenosis in the ostium of the SVG to the diagonal branch. Successful stenting of the ostium of the SVG to the diagonal branch. Currently intubated. FiO2 70 and a PEEP of 10. This included IV propofol, levo fed Lasix. 02/06/2023: Overnight patient dropped his blood pressure even more. Became more hypoxic. Was taken up to FiO2 100%. PEEP of 15. Sinus rhythm. Patient's current drips include IV heparin, vasopressin, propofol, levo fed, IV Lasix,. IV Zosyn was added for possible pneumonia. Patient's 2 daughters are aware about his condition and did talk to the nurse. Patient not a good candidate for impala/balloon pump because of aortic stenosis. Very poor urine output. Nephrology consulted. Active Medications Al Hydroxide/Mg Hydroxide (Mag Hydrox/Al Hydrox/Simeth 30 Ml Cup) 30 ml PO Q4HR PRN PRN Reason: Heartburn Albuterol/Ipratropium (Ipratropium-Albuterol 3 Ml Neb) 3 ml INHALATION RT-Q4H TRACY Last Admin: 02/06/23 15:02 Dose: 3 ml Albuterol/Ipratropium (Ipratropium-Albuterol 3 Ml Neb) 3 ml INHALATION RT-Q2H PRN PRN Reason: Shortness Of Breath Or Wheezing Last Admin: 02/06/23 04:16 Dose: 3 ml Alprazolam (Alprazolam 0.25 Mg Tab) 0.25 mg PO Q6HR PRN PRN Reason: Mild Anxiety Alprazolam (Alprazolam 0.5 Mg Tab) 0.5 mg PO Q6HR PRN PRN Reason: Moderate Anxiety Aspirin (Aspirin 81 Mg) 81 mg PO DAILY [facility] Last Admin: 02/06/23 10:00 Dose: 81 mg Atorvastatin Calcium (Atorvastatin 80 Mg Tab) 80 mg PO HS [facility] Last Admin: 02/05/23 21:37 Dose: 80 mg Atropine Sulfate (Atropine Sulfate 0.1 Mg/Ml 10ml Syringe) 0.5 mg IV ONCE PRN PRN Reason: Symptomatic Bradycardia Bupropion HCl (Bupropion Sr 150 Mg Tablet.Er) 150 mg PO BID [facility] Last Admin: 02/06/23 10:08 Dose: Not Given Chlorhexidine Gluconate (Chlorhexidine Gluconate 15 Ml Cup) 15 ml MUCOUS MEM BID [facility] Last Admin: 02/06/23 10:03 Dose: 15 ml Cholecalciferol (Cholecalciferol 25 Mcg (1000 Iu) Tablet) 50 mcg PO DAILY [facility] Last Admin: 02/06/23 10:00 Dose: 50 mcg Clopidogrel Bisulfate (Clopidogrel 75 Mg Tab) 75 mg PO DAILY [facility]; Protocol Last Admin: 02/06/23 10:00 Dose: 75 mg Dextrose/Water (Dextrose 50% Syringe 50 Ml) 25 ml IVP PER PROTOCOL PRN; Protocol PRN Reason: Hypoglycemia Dextrose/Water (Dextrose 50% Syringe 50 Ml) 50 ml IVP PER PROTOCOL PRN; Protocol PRN Reason: Hypoglycemia Doxazosin Mesylate (Doxazosin 2 Mg Tab) 2 mg PO HS [facility] Last Admin: 02/05/23 20:47 Dose: Not Given Escitalopram Oxalate (Escitalopram 10 Mg Tab) 10 mg PO HS [facility] Last Admin: 02/05/23 22:06 Dose: 10 mg Heparin Sodium (Porcine) (Heparin Sodium 1,000 Un/Ml (10ml Vl)) 0 unit IV PER PROTOCOL PRN; Protocol PRN Reason: Low PTT Hydromorphone HCl (Hydromorphone 1 Mg/Ml 1 Ml Syringe) 1 mg IVP Q4HR PRN PRN Reason: Pain Last Admin: 02/06/23 14:50 Dose: 1 mg Propofol 1,000 mg/ IV Solution 100 mls @ 6.777 mls/hr IV .[id number] [facility]Y; Protocol Last Admin: 02/06/23 14:34 Dose: 40 mcg/kg/min, 18.071 mls/hr Vasopressin 60 unit/ Sodium (Chloride) 153 mls @ 4.59 mls/hr IV .Q24H [facility]ACY; Protocol Last Admin: 02/06/23 03:52 Dose: 0.03 units/min, 4.59 mls/hr Piperacillin Sod/Tazobactam (Sod 3.375 gm/ Sodium Chloride) 100 mls @ 25 mls/hr IVPB Q12HR [facility]; Protocol Last Admin: 02/06/23 10:02 Dose: 25 mls/hr Norepinephrine Bitartrate 32 (mg/ Sodium Chloride) 250 mls @ 1.133 mls/hr IV .Q24H [facility]Y; Protocol Last Titration: 02/06/23 15:27 Dose: 0.52 mcg/kg/min, 19.646 mls/hr Sodium Bicarbonate 150 ml/ (Dextrose/Water) 1,150 mls @ 75 mls/hr IV .[id number] TRACY Last Admin: 02/06/23 06:43 Dose: 75 mls/hr Heparin Sodium/Sodium Chloride (25,000 unit/ Sodium Chloride) 250 mls @ 9.672 mls/hr IV .Q24H [facility]Y; Protocol Last Admin: 02/06/23 08:29 Dose: 12 units/kg/hr, 9.672 mls/hr Furosemide 100 mg/ Sodium (Chloride) 100 mls @ 10 mls/hr IV .Q10H [facility] Last Admin: 02/06/23 17:28 Dose: 10 mg/hr, 10 mls/hr Insulin Aspart (Insulin Aspart (Novolog) 100 Unit/Ml Vial) 0 unit SQ Q6HR [facility]ACY; Protocol Last Admin: 02/06/23 17:31 Dose: Not Given Levothyroxine Sodium (Levothyroxine 88 Mcg Tab) 176 mcg PO SUFRSA [facility] Last Admin: 02/06/23 10:08 Dose: 176 mcg Levothyroxine Sodium (Levothyroxine 100 Mcg Tab) 200 mcg PO [id number] [facility] Last Admin: 02/05/23 07:07 Dose: 200 mcg Loratadine (Loratadine 10 Mg Tab) 10 mg PO DAILY [facility] Last Admin: 02/06/23 10:01 Dose: 10 mg Metoprolol Tartrate (Metoprolol Tartrate 25 Mg Tab) 25 mg PO BID [facility] Last Admin: 02/06/23 08:46 Dose: Not Given Miscellaneous Information (Rx Info: Iv Contrast Was Given 1 Each Misc) 1 each MISCELLANE DAILY PRN PRN Reason: Per Protocol Stop: 02/07/23 14:32 Multivitamins (Multivitamins, Thera 1 Each Tab) 1 each PO DAILY [facility] Last Admin: 02/06/23 10:01 Dose: 1 each Niacin (Niacin Tr 500 Mg Caplet) 500 mg PO HS [facility] Last Admin: 02/05/23 21:37 Dose: 500 mg Nitroglycerin (Nitroglycerin Sl Tabs 0.4 Mg Tab) 0.4 mg SUBLINGUAL Q5M PRN PRN Reason: Chest Pain Pantoprazole Sodium (Pantoprazole 40 Mg/10 Ml Vial) 40 mg IV DAILY [facility] Last Admin: 02/06/23 10:00 Dose: 40 mg Ranolazine (Ranolazine 500 Mg Tab.Er.12h) 500 mg PO Q12HR [facility] Last Admin: 02/06/23 10:09 Dose: Not Given Zolpidem Tartrate (Zolpidem 5 Mg Tab) 5 mg PO HS PRN PRN Reason: Insomnia Past medical history to include: Hyperlipidemia, osteoarthritis, hypothyroid, cardiac valve replacement, CAD with stent, coronary bypass in 2009, aortic aneurysm repair, bilateral rotator cuff repair, depression Social history: Lives alone. No smoking or alcohol Physical examination: VITAL SIGNS: 97.9, 103, 26, 1 28 x 33, 98% on the ventilator GENERAL: In bed, intubated EYES: Pupils equal. Conjunctiva normal. HEENT: External appearance of nose and ears normal, oral cavity grossly normal. Endotracheal tube. NECK: JVD unable to assess; masses not palpable. HEART: First and second heart sounds are normal; no edema. LUNGS: Respiratory rate increased; decreased breath sounds. ABDOMEN: Soft, nontender, liver spleen not palpable, no masses palpable. Hsu catheter. PSYCH: Patient sedated MUSCULOSKELETAL:No Clubbing/cyanosis;muscles-grossly intact. OA INVESTIGATIONS, reviewed in the clinical context: February 06: White count 15 hemoglobin 14.2 platelets 107 potassium 4.9 BUN 54 creatinine 2.29. Troponin I 57.3. ProBNP 99536. Ionized calcium 4.1. February 05: ProBNP 21319. BUN 33 creatinine 1.46 2-D echocardiogram: EF 55-60%. AV prosthesis. Moderate to severe AI. Moderate TR. Moderate pulmonary hypertension. Moderate MRMacrina COVID-19: Not detected White count 4.3 hemoglobin 14.6 platelets 102 sodium 137 potassium 4 BUN 24 creatinine 0.91 Troponin I 0.028, 8.1, 38.4 ProBNP 781 EKG tracing personally reviewed by me-ST segment depression in inferolateral leads. Chest x-ray film personally reviewed by me-possibly chronic infiltrates CT angiogram chest: No PE. Diffuse bilateral lung infiltrates. Assessment and plan: -Acute non-ST elevation myocardial infarction. Cardiac catheterization today by Dr. Babin: 1. Chronically occluded LAD and RCA 2. Severe stenosis in the ostium of the SVG to the diagonal branch 3. Right dominance 4. Successful stenting of the ostium of the SVG to the diagonal branch with reduction of stenosis from 90% to less than 5% -Acute pulmonary edema secondary to acute IA.: Not improving On Lasix drip. -Probable aspiration pneumonia with new diagnosis IV Zosyn started. -Acute kidney injury, ATN, oliguric: New diagnosis Nephrology consulted -Cardiogenic shock: Worsening Currently on levo fed -Acute hypoxic respiratory failure, requiring ventilator assist: Worsening Intubated February 05. FiO2 100%. PEEP of 15 -CAD with a prior history of stent coronary bypass Lipitor. Plavix. -Hyperlipidemia Lipitor -BPH Cardura 2 mg daily at bedtime -Depression Lexapro 10 mg bupropion . Hypothyroid Synthroid -Full code ICU. Multiple IV fluids. IV Zosyn. On multiple pressors. Poor urine output. Guarded prognosis.
[2023-02-06] MEDS: DOXAZOSIN 2 MG TAB PO SCH (20:29)
[2023-02-06] MEDS: NIACIN TR 500 MG CAPLET PO SCH (20:50)
[2023-02-06] MEDS: ESCITALOPRAM 10 MG TAB PO SCH (20:50)
[2023-02-06] MEDS: ATORVASTATIN 80 MG TAB PO SCH (20:50)
[2023-02-06 23:37] LABS: Glucose,Whole Blood 203 mg/dL (70-110)
[2023-02-07] MEDS: IPRATROPIUM-ALBUTEROL 3 ML NEB INHALATION SCH ×6 (00:21→20:17)
[2023-02-07] MEDS: FUROSEMIDE 100 MG in SODIUM CHLORIDE 0.9% 90 ML IV SCH ×3 (03:05→21:47)
[2023-02-07 04:32] LABS: INR 1.1 (<1.2); Prothrombin Time 11.8 sec (9.0-12.0)
[2023-02-07 04:38] LABS: Basophils % (A) 0 %; Eosinophils % (A) 0 %; HCT 38.4 % (39.0-53.0); HGB 13.3 gm/dL (13.0-17.5); Lymphocytes # (A) 0.9 k/uL (1.0-4.8); Lymphocytes % (A) 9 %; MCH 34.3 pg (25.0-35.0); MCHC 34.6 g/dL (31.0-37.0); Mean Platelet Volume 9.7; Monocytes % (A) 10 %; Neutrophils # (A) 7.8 k/uL (1.3-7.7); Neutrophils % (A) 79 %; RBC 3.88 m/uL (4.30-5.90); RDW 13.1 % (11.5-15.5); WBC 9.9 k/uL (3.8-10.6)
[2023-02-07 04:54] LABS: Platelet Count 95 k/uL (150-450)
[2023-02-07] MEDS: HYDROmorphone 1 MG/ML 1 ML SYRINGE IVP PRN ×2 (05:08→23:57)
[2023-02-07 05:16] LABS: African American GFR (CKD) 32 (>60 ml/min/1.73 sqM); Anion Gap 7 mmol/L; Blood Urea Nitrogen 56 mg/dL (9-20); Calcium 7.4 mg/dL (8.4-10.2); Carbon Dioxide 28 mmol/L (22-30); Chloride 106 mmol/L (98-107); Glucose 198 mg/dL (74-99); Non-African American GFR(CKD) 28 (>60 ml/min/1.73 sqM); Potassium 3.3 mmol/L (3.5-5.1); Sodium 141 mmol/L (137-145)
[2023-02-07 06:03] LABS: ABG Base Excess 2.4 mmol/L; ABG HCO3 27 mmol/L (21-25); ABG Oxygen Saturation 98.3 % (94-97); ABG PCO2 43 mmHg (35-45); ABG PH 7.41 (7.35-7.45); ABG PO2 127 mmHg (83-108); ABG TCO2 28 mmol/L (19-24); Allen Test Performed? Yes
[2023-02-07 06:07] LABS: Glucose,Whole Blood 204 mg/dL (70-110)
[2023-02-07] MEDS: LEVOTHYROXINE 88 MCG TAB PO SCH (06:14)
[2023-02-07] MEDS: VASOPRESSIN 60 UNIT in SODIUM CHLORIDE 0.9% 150 ML IV SCH (06:15)
[2023-02-07] MEDS: INSULIN ASPART (NovoLOG) 100 UNIT/ML VIAL SQ SCH ×4 (06:15→23:56)
[2023-02-07] MEDS ORDERED: Potassium Replacement Protocol 1 EACH MISC MISCELLANE PRN (06:51)
[2023-02-07] MEDS ORDERED: PIPERACILLIN-TAZOBACTAM 3.375 GM in SODIUM CHLORIDE 0.9% 100 ML IVPB SCH (08:00)
--- NOTE | 2023-02-07 09:09 | P.PN ---
Subjective Progress Note Date: 02/07/23 I am seeing this patient in consultation today 01/05/2023 for non-STEMI and lik garth pulmonary edema. Patient is a 77-year-old male with past medical history significant for coronary artery disease status post coronary artery bypass graft and subsequent stenting, aortic valve replacement, and aortic aneurysm repair. Patient came into the emergency room yesterday morning complaining of chest pain. Apparently, he was out mowing his neighbors lawn with a push mower when he developed severe substernal chest pain that radiated down both arms and diaphoresis. The pain did initially did improve, and he went to bed. Yesterday, morning the pain worsened and he came to the emergency room. On arrival, there was no acute ST elevation. Troponins are significantly elevated and are trending up at 0.028, 8.18, and 16.6. Patient was started on a combination of nitroglycerin infusion and heparin. Chest CTA showed no evidence of acute pulmonary emboli. There were diffuse bilateral lung infiltrates worse on the right, correlating for possible atypical pulmonary edema versus atypical pneumonia. On my evaluation, the patient is in some acute distress. He is reporting worsening chest pain, he is diaphoretic, and short of breath. He does have some pink frothy sputum, possibly pulmonary edema. His oxygenation demands have increased, and he was placed on the BiPAP with settings 12/6 and FiO2 100%. I did give the patient a one-time dose of Lasix 80 mg. Patient's nitroglycerin infusion was increased to 10 mcg/m. High intensity heparin is infusing protocol. Repeat EKG was done and results relayed to on-call executive director sheltered workshop. Patient was subsequently transferred to the intensive care unit. CBC and BMP on arrival were unremarkable. Denies any infectious symptoms such as fever, chills, myalgias, cough. He has been afebrile. NT proBNP was 781. Nursing staff reports a tentative plan for possible heart catheterization in the morning. On 02/06/2023, the patient is being seen for a follow-up. The patient is critically ill at this point in time. Note that yesterday, I had to intubate the patient placed on a mechanical ventilator. Following that, the patient went to undergo a cardiac catheterization. The patient was found to have a chronically occluded LAD and RCA. The patient was found to have a tight lesion in the ostium of the SVG to the diagonal. The patient underwent a successful stenting of the ostium of SVG to the diagonal with a reduction of the stenosis down to 5%. Following that, he Was kept intubated and he was brought back to the intensive care unit. His condition progressively decompensated overnight. The patient became progressively more hypotensive and oliguric. For now, he remains intubated, sedated and is on a combination of fentanyl which is running at 0.5 microvascular kilogram per hour and the patient is also on propofol running at 40 microvascular kilogram per minutes. The patient is quite symptomatic is a mechanical ventilator assist control mode at a rate of 26, FiO2 is at 40% and earlier this morning I had to bring up is up to 15 with an FiO2 of 100%. Chest x-ray showing cardiomegaly and evidence of pulmonary edema. The patient has a pH of 7.27 with a pCO2 of 36 and pO2 of 63 on 100% FiO2. The patient is also on high-dose pressors. The patient is on norepinephrine running at 0.5 microvascular kilogram per minute and vasopressin physiologic dose. Urine operas in order of 10 mL an hour. Creatinine is on the rise and is currently up to 2.0. Earlier this morning, the patient a potassium level of 5.4 with a serum bicarb of 16. He was given 2 doses of sodium bicarb 100 mEq and currently is on a bicarbonate infusion running at the rate of 75 mL an hour. A stat echocardiogram was done this morning and the patient's LV was still dynamic. He does have moderate to severe aortic regurgitation and severe mitral regurgitation. I discussed the case with cardiology. We discussed the possibility of a aortic balloon pump versus [place] and based on his underlying valvular insufficiency, the patient was felt to be not a good candidate. He was restarted back on IV heparin. Noted that the patient was having some bloody oozing from his puncture sites including the triple-lumen cath site over the le ft subclavian and this has subsided. The hemoglobin currently is at 13.9. The white cell count of 15.4. The pro-calcitonin level was low at 0.09. Based on his underlying shock state, I cover the patient empirically with IV Zosyn. He is receiving Lasix 40 mg IV every 12 hours. He remains on aspirin and diuretics. He remains on high-dose statins. Condition is severely critical at this point in time. On today's evaluation of 02/07/2023, the patient is being seen for a follow-up. The patient remains intubated on a mechanical ventilator. Is currently on propofol which is running at 40 mcg/kg/m. He is off fentanyl. Is quite successful mechanical ventilator. This is the rate of 26, tidal volume of 400, FiO2 of 50% with a PEEP of 15. The blood gas from today shows a pH of 7.41 with a pCO2 of 43 and pO2 of 127. This was done FiO2 of 50%. The chest x-ray from today is showing improvement in the pulmonary edema although there is increased interstitial markings bilaterally. No other abnormalities or airspace disease of consolidation noted. Meanwhile, the patient remains still in the shock state. The patient is on pressors and his pressor requirements have improved over the past 12 hours and the patient is currently on norepinephrine running at 0.2 mcg/kg/m. The patient is also on physiologic dose of vasopressin. The patient remains on IV heparin. Urine output is in order of 100 mL an hour and the patient remains on Lasix drip at 5 mg an hour. Blood work from today shows a BUN of 56 with a creatinine of 2.2. Sodium level is at 141 with a potassium level of 3.3. His white cell cause of 9 point, with a hemoglobin of 15.3. The fluid balance is +2.6 L over the past 24 hours. His troponin peaked at 57. His proBNP level was 56,000. Repeat echocardiogram from yesterday shows a ejection fraction of 40-45%, there is bioprosthetic aortic valve with ongoing aortic insufficiency and moderate degree of mitral insufficiency without evidence of any pericardial effusion. The patient is afebrile. He does have a wide pulse pressure related to his severe aortic insufficiency. He was started on enteral feeding for nutritional support and currently he is on vital high-protein at the rate of 38 mL an hour which is goal. Objective - Vital Signs Vital signs: Vital Signs Temp 98.0 F 02/07/23 04:00 Pulse 101 H 02/07/23 08:24 Resp 21 02/07/23 07:00 BP 114/53 02/07/23 07:00 Pulse Ox 99 02/07/23 07:00 FiO2 50 02/07/23 07:30 Intake & Output 0802/07/23 02/07/23 18:59 06:59 18:59 Intake Total 2119.383 2072.320 117.37 Output Total 265 1305 110 Balance 1854.383 767.320 7.37 Weight 82.1 kg 87.9 kg Intake: IV 1248 1146 108 0.9 carrier 220 240 20 A-line 33 36 3 Dextrose 5% in Water 1, 825 750 75 000 ml @ 75 mls/hr IV . [id number] [facility] with Sodium Bicarb (1 Meq/ml) 150 ml Rx#:[id number] Furosemide 100 mg In 70 120 10 Sodium Chloride 0.9% 90 ml @ 10 MG/HR 10 mls/hr IV .Q10H [facility] Rx#: [id number] Piperacillin-Tazobactam 3 100 .375 gm In Sodium Chloride 0.9% 100 ml @ 25 mls/hr IVPB Q12HR [facility] Rx #:[id number] Intake, IV Titration 811.383 712.320 9.37 Amount Furosemide 100 mg In 57.333 96.167 Sodium Chloride 0.9% 90 ml @ 10 MG/HR 10 mls/hr IV .Q10H [facility] Rx#: [id number] Heparin Sod,Pork in 0.45% 214.235 0 NaCl 25,000 unit In 0.45 % NaCl 1 250ml.bag @ 12 UNITS/KG/HR 9.672 mls/hr IV .Q24H [facility] Rx#: [id number] Norepinephrine 32 mg In 206.469 180.826 9.37 Sodium Chloride 0.9% 218 ml @ 0.03 MCG/KG/MIN 1. 133 mls/hr IV .Q24H [facility] Rx#:[id number] Norepinephrine 4 mg In 254 Sodium Chloride 0.9% 250 ml @ 0.03 MCG/KG/MIN 8. 606 mls/hr IV .Q24H [facility] Rx#:[id number] Vasopressin 60 unit In 121.099 Sodium Chloride 0.9% 150 ml @ 0.03 UNITS/MIN 4.59 mls/hr IV .Q24H [facility] Rx#: [id number] fentaNYL (PF). 1,000 mcg 15.876 In Sodium Chloride 0.9% 80 ml @ 0.5 MCG/KG/HR 3. 765 mls/hr IV .Q24H [facility] Rx#:[id number] propofoL 1,000 mg In 277.705 99.993 Empty Bag 1 bag @ 15 MCG/ KG/MIN 6.777 mls/hr IV . [id number] [facility] Rx#:[id number] Tube Feeding 30 214 Other 30 Output: Urine 265 1305 110 Other: Voiding Method Indwelling Catheter Indwelling Catheter ABP, PAP, CO, CI - Last Documented Arterial Blood Pressure 153/37 - Exam GENERAL EXAM: Alert, 69-year-old male appearing stated age , sedated, calm and comfortable, patient is currently intubated on mechanical ventilator. Orogastric and oral tracheal tube are both in place and the patient is successfully mechanical ventilator. HEAD: Normocephalic and atraumatic EYES: Normal reaction of pupils, equal size. NOSE: Clear with pink turbinates. THROAT: No erythema or exudates. NECK: No masses, positive JVD CHEST: No chest wall deformity. LUNGS: Diminished breath sounds bilaterally along with some scant respiratory crackles in lung bases CVS: S1 and S2 normal with systolic ejection murmur over the left sternal border and apex around 3/6, regular rhythm. No extra heart sounds ABDOMEN: No hepatosplenomegaly, active bowel sounds, no guarding or rigidity. SPINE: No scoliosis or deformity SKIN: No rashes. He is diaphoretic. CENTRAL NERVOUS SYSTEM: Sedated, calm and comfortable EXTREMITIES: There is no peripheral edema, clubbing, or cyanosis. Peripheral pulses are diminished and extremities are cold. He still has a arterial line in his right upper extremityradial. - Labs CBC & Chem 7: 02/07/23 04:15 02/07/23 04:15 Labs: Abnormal Lab Results - Last 24 Hours (Table) 02/06/23 02/06/23 02/06/23 Range/Units 08:22 13:17 13:19 RBC (4.30-5.90) m/uL Hct (39.0-53.0) % Plt Count (150-450) k/uL Neutrophils # (1.3-7.7) k/uL Lymphocytes # (1.0-4.8) k/uL APTT (22.0-30.0) sec ABG pO2 (83-108) mmHg ABG HCO3 (21-25) mmol/L ABG Total CO2 (19-24) mmol/L ABG O2 Saturation (94-97) % Potassium (3.5-5.1) mmol/L Chloride 108 H (98-107) mmol/L Carbon Dioxide 18 L (22-30) mmol/L BUN 54 H (9-20) mg/dL Creatinine 2.29 H (0.66-1.25) mg/dL Glucose 202 H (74-99) mg/dL POC Glucose (mg/dL) 217 H (70-110) mg/dL Calcium 6.9 L (8.4-10.2) mg/dL Ionized Calcium Don (4.5-5.3) mg/dL Troponin I 57.300 H* (0.000-0.034) ng/mL 02/06/23 02/06/23 02/06/23 Range/Units 13:19 14:18 14:21 RBC (4.30-5.90) m/uL Hct (39.0-53.0) % Plt Count (150-450) k/uL Neutrophils # (1.3-7.7) k/uL Lymphocytes # (1.0-4.8) k/uL APTT 53.1 H (22.0-30.0) sec ABG pO2 302 H (83-108) mmHg ABG HCO3 (21-25) mmol/L ABG Total CO2 (19-24) mmol/L ABG O2 Saturation 99.5 H (94-97) % Potassium (3.5-5.1) mmol/L Chloride (98-107) mmol/L Carbon Dioxide (22-30) mmol/L BUN (9-20) mg/dL Creatinine (0.66-1.25) mg/dL Glucose (74-99) mg/dL POC Glucose (mg/dL) (70-110) mg/dL Calcium (8.4-10.2) mg/dL Ionized Calcium Don 4.1 L (4.5-5.3) mg/dL Troponin I (0.000-0.034) ng/mL 02/06/23 02/06/23 02/06/23 Range/Units 14:42 17:30 23:35 RBC (4.30-5.90) m/uL Hct (39.0-53.0) % Plt Count (150-450) k/uL Neutrophils # (1.3-7.7) k/uL Lymphocytes # (1.0-4.8) k/uL APTT (22.0-30.0) sec ABG pO2 (83-108) mmHg ABG HCO3 (21-25) mmol/L ABG Total CO2 (19-24) mmol/L ABG O2 Saturation (94-97) % Potassium (3.5-5.1) mmol/L Chloride (98-107) mmol/L Carbon Dioxide (22-30) mmol/L BUN (9-20) mg/dL Creatinine (0.66-1.25) mg/dL Glucose (74-99) mg/dL POC Glucose (mg/dL) 191 H 146 H 203 H (70-110) mg/dL Calcium (8.4-10.2) mg/dL Ionized Calcium Don (4.5-5.3) mg/dL Troponin I (0.000-0.034) ng/mL 02/07/23 02/07/23 02/07/23 Range/Units 04:15 04:15 05:36 RBC 3.88 L (4.30-5.90) m/uL Hct 38.4 L (39.0-53.0) % Plt Count 95 L (150-450) k/uL Neutrophils # 7.8 H (1.3-7.7) k/uL Lymphocytes # 0.9 L (1.0-4.8) k/uL APTT 122.3 H* (22.0-30.0) sec ABG pO2 (83-108) mmHg ABG HCO3 (21-25) mmol/L ABG Total CO2 (19-24) mmol/L ABG O2 Saturation (94-97) % Potassium 3.3 L (3.5-5.1) mmol/L Chloride (98-107) mmol/L Carbon Dioxide (22-30) mmol/L BUN 56 H (9-20) mg/dL Creatinine 2.20 H (0.66-1.25) mg/dL Glucose 198 H (74-99) mg/dL POC Glucose (mg/dL) (70-110) mg/dL Calcium 7.4 L (8.4-10.2) mg/dL Ionized Calcium Don (4.5-5.3) mg/dL Troponin I (0.000-0.034) ng/mL 02/07/23 02/07/23 Range/Units 06:01 06:05 RBC (4.30-5.90) m/uL Hct (39.0-53.0) % Plt Count (150-450) k/uL Neutrophils # (1.3-7.7) k/uL Lymphocytes # (1.0-4.8) k/uL APTT (22.0-30.0) sec ABG pO2 127 H (83-108) mmHg ABG HCO3 27 H (21-25) mmol/L ABG Total CO2 28 H (19-24) mmol/L ABG O2 Saturation 98.3 H (94-97) % Potassium (3.5-5.1) mmol/L Chloride (98-107) mmol/L Carbon Dioxide (22-30) mmol/L BUN (9-20) mg/dL Creatinine (0.66-1.25) mg/dL Glucose (74-99) mg/dL POC Glucose (mg/dL) 204 H (70-110) mg/dL Calcium (8.4-10.2) mg/dL Ionized Calcium Don (4.5-5.3) mg/dL Troponin I (0.000-0.034) ng/mL Assessment and Plan Assessment: Acute non-ST elevation myocardial infarction, post immediate/emergent cardiac catheterization and patient underwent stenting of a tight ostial lesion SVG to diagonal. The patient also has chronic occluded LAD and RCA. Please refer to the full cardiac catheterization report. Cardiogenic shock, LV is dynamic and the patient is severely valvular insufficiency including aortic insufficiency and mitral regurgitation, not a candidate for a mechanical support and the patient is currently on high dose pressors, and his pressor requirements have improved over the past 24 hours. The patient is a norepinephrine at 0.2 microvascular kilogram per minute and physiologic dose of vasopressin. Acute hypoxemic respiratory failure, currently on intubated on a mechanical ventilator. Remains in pulmonary edema. Continues to have cardiomegaly. Echo cardiac exam shows no evidence of any pericardial effusion. Chest x-ray find ings are stable, slightly improved compared to yesterday and the patient is on a 15 of PEEP with an FiO2 of 50% and oxygen patient is stable for now Acute pulmonary edema Moderate severe aortic insufficiency, post aortic valve replacement and the patient is post aortic valve replacement/bioprosthetic aortic valve. The patient has a very wide pulse pressure. Severe aortic insufficiency with a wide pulse pressure Acute shortness of breath secondary to above Acute kidney injury, likely secondary to cardiorenal factors, in addition to contrast administration and hypotension. The patient is oliguric at this point in time and the patient remains on Lasix drip at 5 mg an hour and the patient is producing 100 mL of urine output Coronary artery disease, status post coronary artery bypass graft with subsequent coronary artery stenting. History of of aortic valve replacement, bioprosthetic aortic valve Essential hypertension Hyperlipidemia Hypothyroidism None and get metabolic acidosis, recovered and the patient is still on a bicarb infusion Acute leukocytosis with a low pro-calcitonin level. Patient is currently covered with broad-spectrum antibiotics with IV Zosyn. The white cell count is improved Plan: Condition is extremely critical. I discussed the case with interventional cardiology. Is on a candidate for mechanical support. The patient will be managed medically at this point in time. Keep the patient sedated propofol Continue ventilator support and the keep the PEEP and dropped down to 12 Discontinue the bicarb infusion for now Continue IV Lasix 5 mg an hour Continue IV heparin per protocol Continue aspirin and Plavix Continue pressors and the patient is currently on high-dose norepinephrine 0.2 abhi per minute in addition to vasopressin physiologic dose Monitor renal function Stop the IV Zosyn Initiate low-dose enteral feeding for nutritional support of 28 mL an hour of vital high-protein Repeat echocardiogram from this morning was noted. No evidence of any pericardial effusion. We'll continue to follow. Condition is critical obviously there is a high-risk that the patient may end up into 6A shock and multisystem organ failure. Family was made aware We'll continue to follow Evaluation was done in more than 30 minutes Case was discussed with cardiology on multiple occasions Time with Patient: Greater than 30
[2023-02-07] MEDS: buPROPion SR 150 MG TABLET.ER PO SCH ×2 (09:58→19:39)
[2023-02-07] MEDS: PANTOPRAZOLE 40 MG/10 ML VIAL IV SCH (09:58)
[2023-02-07] MEDS: CHLORHEXIDINE GLUCONATE 15 ML CUP MUCOUS MEM SCH ×2 (09:58→20:02)
[2023-02-07] MEDS: CHOLECALCIFEROL 25 MCG (1000 IU) TABLET PO SCH (09:59)
[2023-02-07] MEDS: LORATADINE 10 MG TAB PO SCH (09:59)
[2023-02-07] MEDS: POTASSIUM BICARBONATE/CIT AC 20 MEQ TABLET.EFF NG-TUBE SCH ×2 (09:59→11:12)
[2023-02-07] MEDS: MULTIVITAMINS, THERA 1 EACH TAB PO SCH (09:59)
[2023-02-07] MEDS: CLOPIDOGREL 75 MG TAB PO SCH (09:59)
[2023-02-07] MEDS: ASPIRIN 81 MG PO SCH (09:59)
[2023-02-07] MEDS: HEPARIN SOD,PORK IN 0.45% NACL 25,000 UNIT in 0.45% NACL 1 250ML.BAG IV SCH (10:32)
[2023-02-07] MEDS: RANOLAZINE 500 MG TAB.ER.12H PO SCH ×2 (11:14→19:41)
[2023-02-07 11:19] LABS: Glucose,Whole Blood 153 mg/dL (70-110)
--- NOTE | 2023-02-07 11:47 | P.PN ---
Subjective Patient is seen for follow-up for acute kidney injury severe oliguric ischemic ATN from hypotension and shock. Status post cardiac catheterization for acute non-ST elevation ID. Patient also has acute hypoxic respiratory failure and fluid overload. Currently maintained on Lasix drip. Urine output has improved and FiO2 is decreased to 50%. Patient is also hemodynamically more stable with levo fed and vasopressin being weaned down. Serum creatinine staying at 2.2 mg/dL. Urine output at 130 to 110 ML per hour. Objective - Vital Signs Vital signs: Vital Signs Temp 98.0 F 02/07/23 04:00 Pulse 100 02/07/23 11:07 Resp 21 02/07/23 07:00 BP 114/53 02/07/23 07:00 Pulse Ox 99 02/07/23 07:00 FiO2 50 02/07/23 10:54 Intake & Output 02/06/23 02/07/23 02/07/23 18:59 06:59 18:59 Intake Total 2119.383 2072.320 256.881 Output Total 265 1305 110 Balance 1854.383 767.320 146.881 Weight 82.1 kg 87.9 kg Intake: IV 1248 1146 108 0.9 carrier 220 240 20 A-line 33 36 3 Dextrose 5% in Water 1, 825 750 75 000 ml @ 75 mls/hr IV . [id number] [facility] with Sodium Bicarb (1 Meq/ml) 150 ml Rx#:[id number] Furosemide 100 mg In 70 120 10 Sodium Chloride 0.9% 90 ml @ 10 MG/HR 10 mls/hr IV .Q10H [facility] Rx#: [id number] Piperacillin-Tazobactam 3 100 .375 gm In Sodium Chloride 0.9% 100 ml @ 25 mls/hr IVPB Q12HR [facility] Rx #:[id number] Intake, IV Titration 811.383 712.320 148.881 Amount Furosemide 100 mg In 57.333 96.167 Sodium Chloride 0.9% 90 ml @ 10 MG/HR 10 mls/hr IV .Q10H [facility] Rx#: [id number] Heparin Sod,Pork in 0.45% 214.235 10.76 NaCl 25,000 unit In 0.45 % NaCl 1 250ml.bag @ 12 UNITS/KG/HR 9.672 mls/hr IV .Q24H [facility] Rx#: [id number] Norepinephrine 32 mg In 206.469 180.826 38.121 Sodium Chloride 0.9% 218 ml @ 0.03 MCG/KG/MIN 1. 133 mls/hr IV .Q24H [facility] Rx#:[id number] Norepinephrine 4 mg In 254 Sodium Chloride 0.9% 250 ml @ 0.03 MCG/KG/MIN 8. 606 mls/hr IV .Q24H [facility] Rx#:[id number] Vasopressin 60 unit In 121.099 Sodium Chloride 0.9% 150 ml @ 0.03 UNITS/MIN 4.59 mls/hr IV .Q24H [facility] Rx#: [id number] fentaNYL (PF). 1,000 mcg 15.876 In Sodium Chloride 0.9% 80 ml @ 0.5 MCG/KG/HR 3. 765 mls/hr IV .Q24H [facility] Rx#:[id number] propofoL 1,000 mg In 277.705 99.993 100 Empty Bag 1 bag @ 15 MCG/ KG/MIN 6.777 mls/hr IV . [id number] [facility] Rx#:[id number] Tube Feeding 30 214 Other 30 Output: Urine 265 1305 110 Other: Voiding Method Indwelling Catheter Indwelling Catheter ABP, PAP, CO, CI - Last Documented Arterial Blood Pressure 153/37 - Exam Patient is sedated and on the vent Examination of the heart S1 and S2 Examination of the lungs bilateral breath sounds are heard Abdomen is soft nontender Examination of lower extremity shows no significant edema - Labs CBC & Chem 7: 02/07/23 04:15 02/07/23 04:15 Labs: Abnormal Lab Results - Last 24 Hours (Table) 02/06/23 02/06/23 02/06/23 Range/Units 13:17 13:19 13:19 RBC (4.30-5.90) m/uL Hct (39.0-53.0) % Plt Count (150-450) k/uL Neutrophils # (1.3-7.7) k/uL Lymphocytes # (1.0-4.8) k/uL APTT 53.1 H (22.0-30.0) sec ABG pO2 (83-108) mmHg ABG HCO3 (21-25) mmol/L ABG Total CO2 (19-24) mmol/L ABG O2 Saturation (94-97) % Potassium (3.5-5.1) mmol/L Chloride 108 H (98-107) mmol/L Carbon Dioxide 18 L (22-30) mmol/L BUN 54 H (9-20) mg/dL Creatinine 2.29 H (0.66-1.25) mg/dL Glucose 202 H (74-99) mg/dL POC Glucose (mg/dL) 217 H (70-110) mg/dL Calcium 6.9 L (8.4-10.2) mg/dL Ionized Calcium Don (4.5-5.3) mg/dL 02/06/23 02/06/23 02/06/23 Range/Units 14:18 14:21 14:42 RBC (4.30-5.90) m/uL Hct (39.0-53.0) % Plt Count (150-450) k/uL Neutrophils # (1.3-7.7) k/uL Lymphocytes # (1.0-4.8) k/uL APTT (22.0-30.0) sec ABG pO2 302 H (83-108) mmHg ABG HCO3 (21-25) mmol/L ABG Total CO2 (19-24) mmol/L ABG O2 Saturation 99.5 H (94-97) % Potassium (3.5-5.1) mmol/L Chloride (98-107) mmol/L Carbon Dioxide (22-30) mmol/L BUN (9-20) mg/dL Creatinine (0.66-1.25) mg/dL Glucose (74-99) mg/dL POC Glucose (mg/dL) 191 H (70-110) mg/dL Calcium (8.4-10.2) mg/dL Ionized Calcium Don 4.1 L (4.5-5.3) mg/dL 02/06/23 02/06/23 02/07/23 Range/Units 17:30 23:35 04:15 RBC 3.88 L (4.30-5.90) m/uL Hct 38.4 L (39.0-53.0) % Plt Count 95 L (150-450) k/uL Neutrophils # 7.8 H (1.3-7.7) k/uL Lymphocytes # 0.9 L (1.0-4.8) k/uL APTT (22.0-30.0) sec ABG pO2 (83-108) mmHg ABG HCO3 (21-25) mmol/L ABG Total CO2 (19-24) mmol/L ABG O2 Saturation (94-97) % Potassium (3.5-5.1) mmol/L Chloride (98-107) mmol/L Carbon Dioxide (22-30) mmol/L BUN (9-20) mg/dL Creatinine (0.66-1.25) mg/dL Glucose (74-99) mg/dL POC Glucose (mg/dL) 146 H 203 H (70-110) mg/dL Calcium (8.4-10.2) mg/dL Ionized Calcium Don (4.5-5.3) mg/dL 02/07/23 02/07/23 02/07/23 Range/Units 04:15 05:36 06:01 RBC (4.30-5.90) m/uL Hct (39.0-53.0) % Plt Count (150-450) k/uL Neutrophils # (1.3-7.7) k/uL Lymphocytes # (1.0-4.8) k/uL APTT 122.3 H* (22.0-30.0) sec ABG pO2 127 H (83-108) mmHg ABG HCO3 27 H (21-25) mmol/L ABG Total CO2 28 H (19-24) mmol/L ABG O2 Saturation 98.3 H (94-97) % Potassium 3.3 L (3.5-5.1) mmol/L Chloride (98-107) mmol/L Carbon Dioxide (22-30) mmol/L BUN 56 H (9-20) mg/dL Creatinine 2.20 H (0.66-1.25) mg/dL Glucose 198 H (74-99) mg/dL POC Glucose (mg/dL) (70-110) mg/dL Calcium 7.4 L (8.4-10.2) mg/dL Ionized Calcium Don (4.5-5.3) mg/dL 02/07/23 02/07/23 Range/Units 06:05 11:18 RBC (4.30-5.90) m/uL Hct (39.0-53.0) % Plt Count (150-450) k/uL Neutrophils # (1.3-7.7) k/uL Lymphocytes # (1.0-4.8) k/uL APTT (22.0-30.0) sec ABG pO2 (83-108) mmHg ABG HCO3 (21-25) mmol/L ABG Total CO2 (19-24) mmol/L ABG O2 Saturation (94-97) % Potassium (3.5-5.1) mmol/L Chloride (98-107) mmol/L Carbon Dioxide (22-30) mmol/L BUN (9-20) mg/dL Creatinine (0.66-1.25) mg/dL Glucose (74-99) mg/dL POC Glucose (mg/dL) 204 H 153 H (70-110) mg/dL Calcium (8.4-10.2) mg/dL Ionized Calcium Don (4.5-5.3) mg/dL Assessment and Plan Assessment: 1. Acute kidney injury, oliguric ATN secondary to hypotension and cardiogenic shock. Also received IV contrast for cardiac catheterization on 02/05/2023. Urine output has now improved. Patient is maintained on Lasix drip. 2. Acute non-ST elevation ID status post cardiac catheterization and stenting of LAD on 02/05/2023 3. Non-gap metabolic acidosis associated with acute kidney injury 4. Acute hypoxic respiratory failure currently on the vent, FiO2 has been increased to 100% with PEEP of 15. 5. History of coronary artery disease status post CABG 6. Volume overload with acute CHF exacerbation with preserved ejection fraction Plan: Continue with Lasix drip Agree with discontinuation of bicarb drip No need for renal replacement therapy. Urine output has improved with stabilization of serum creatinine as well. Continue to avoid nephrotoxic agents Repeat labs in a.m.
--- NOTE | 2023-02-07 12:02 | PN ---
PROGRESS NOTE SUBJECTIVE: A 77-year-old gentleman who is admitted to hospital with [id number] elevation [place], subsequently developed vent requiring respiratory failure, underwent cardiac catheterization, angioplasty of the venous graft to the diagonal. His troponin was around 50. He has improved somewhat compared to yesterday. His urine output had improved. His oxygenation has improved. The patient is currently on aspirin, Lipitor 80 mg daily, Plavix, intravenous heparin, Synthroid, Levophed that is currently being tapered and Ranexa and vasopressin. OBJECTIVE: GENERAL: On exam, comfortable at rest. VITAL SIGNS: Heart rate is around 100 beats per minute, blood pressure is 110/70. CHEST: Reveals diminished air entry with occasional rhonchi. HEART: Reveals first and second heart sounds, an ejection systolic murmur in the aortic area. ABDOMEN: Soft. EXTREMITIES: Exam of extremities revealed mild edema. Peripheral pulses are palpable. LABORATORY DATA: Labs show a hemoglobin of 13.3, platelet count is 95, potassium is 3.3, BUN is 56, creatinine is 2.2. ASSESSMENT: 1. Vent requiring respiratory failure. 2. Cardiogenic shock. 3. Vrb-SH-[id number] elevation myocardial infarction, status post catheterization and angioplasty of the venous graft to the diagonal. PLAN: I will stop the IV heparin at this time and put him on subcu heparin. I will obtain another set of troponin on him. The patient had a repeat echocardiogram yesterday following worsening of his respiratory status. His LV function has diminished with an ejection fraction of around 40% to 45% with anteroapical hypokinesis. There is moderate mitral regurgitation with [id number] aortic regurgitation. I will obtain another set of troponin today and consider stopping the IV heparin and start him on subcu heparin. Leave Ranexa on board as it does not cause any hemodynamic effects and continue aspirin, Plavix and Lasix drip as we will add back his beta blockers once we are able to stop the pressors. MMODL / IJN: [id number] /
--- NOTE | 2023-02-07 13:16 | P.PN ---
Subjective Progress Note Date: 02/07/23 77-year-old patient who follows with Dr. Savage. Cartilage is Dr. Babin. Patient had a coronary bypass in 2009.. Aortic valve replacement. 4 aortic aneurysm repair. Patient also had a coronary stent. Yesterday evening patient was mowing his neighbors lawn, which had overgrown. When he finished he was feeling a pressure in his chest and achiness in the arm. He went home and laid down. Was unable to steep and took a sleeping pill to go to sleep around 2 AM. Woke up this morning with pain across the chest and also pain down the arms. Went and sat in the living room for some time. Finally de cided to come in. EKG on presentation showed ST depression in inferolateral leads. Initial troponin I was 0.028. Related to his evening patient's chest pain had resurfaced. And repeat troponin came back at 8.1. Cardiology was informed. Patient has been a bit short of breath. 02/05/2023: Overnight patient did become short of breath. More. Placed on BiPAP. 100%. Was given Lasix. Patient was then intubated. Underwent cardiac catheterization. CHRONICALLY occluded LAD and RCA. Severe stenosis in the ostium of the SVG to the diagonal branch. Successful stenting of the ostium of the SVG to the diagonal branch. Currently intubated. FiO2 70 and a PEEP of 10. This included IV propofol, levo fed Lasix. 02/06/2023: Overnight patient dropped his blood pressure even more. Became more hypoxic. Was taken up to FiO2 100%. PEEP of 15. Sinus rhythm. Patient's current drips include IV heparin, vasopressin, propofol, levo fed, IV Lasix,. IV Zosyn was added for possible pneumonia. Patient's 2 daughters are aware about his condition and did talk to the nurse. Patient not a good candidate for impala/balloon pump because of aortic stenosis. Very poor urine output. Nephrology consulted. 02/07/23 : Patient seen and evaluated bedside, at this time patient is on IV vasopressors, patient on IV Lasix drip as well. On propofol for sedation. Intubated and sedated continues to remain critically ill managed in ICU Objective - Vital Signs Vital signs: Vital Signs Temp 99.4 F 02/07/23 12:00 Pulse 109 H 02/07/23 12:15 Resp 28 H 02/07/23 12:00 BP 118/56 02/07/23 12:15 Pulse Ox 99 02/07/23 12:15 FiO2 50 02/07/23 12:00 Intake & Output 02/06/23 02/07/23 02/07/23 18:59 06:59 18:59 Intake Total 2119.383 2072.320 663.720 Output Total 265 1305 1145 Balance 1854.383 767.320 -481.280 Weight 82.1 kg 87.9 kg Intake: IV 1248 1146 348 0.9 Normal Saline @ KVO 220 240 45 Art. Line Normal Saline 33 36 18 Dextrose 5% in Water 1, 825 750 225 000 ml @ 75 mls/hr IV . [id number] TRACY with Sodium Bicarb (1 Meq/ml) 150 ml Rx#:[id number] Furosemide 100 mg In 70 120 60 Sodium Chloride 0.9% 90 ml @ 10 MG/HR 10 mls/hr IV .Q10H TRACY Rx#: [id number] Piperacillin-Tazobactam 3 100 .375 gm In Sodium Chloride 0.9% 100 ml @ 25 mls/hr IVPB Q12HR TRACY Rx #:[id number] Intake, IV Titration 811.383 712.320 251.720 Amount Furosemide 100 mg In 57.333 96.167 95 Sodium Chloride 0.9% 90 ml @ 10 MG/HR 10 mls/hr IV .Q10H TRACY Rx#: [id number] Heparin Sod,Pork in 0.45% 214.235 10.76 NaCl 25,000 unit In 0.45 % NaCl 1 250ml.bag @ 12 UNITS/KG/HR 9.672 mls/hr IV .Q24H TRACY Rx#: [id number] Norepinephrine 32 mg In 206.469 180.826 45.960 Sodium Chloride 0.9% 218 ml @ 0.03 MCG/KG/MIN 1. 133 mls/hr IV .Q24H TRACY Rx#:[id number] Norepinephrine 4 mg In 254 Sodium Chloride 0.9% 250 ml @ 0.03 MCG/KG/MIN 8. 606 mls/hr IV .Q24H TRACY Rx#:[id number] Vasopressin 60 unit In 121.099 Sodium Chloride 0.9% 150 ml @ 0.03 UNITS/MIN 4.59 mls/hr IV .Q24H TRACY Rx#: [id number] fentaNYL (PF). 1,000 mcg 15.876 In Sodium Chloride 0.9% 80 ml @ 0.5 MCG/KG/HR 3. 765 mls/hr IV .Q24H TRACY Rx#:[id number] propofoL 1,000 mg In 277.705 99.993 100 Empty Bag 1 bag @ 15 MCG/ KG/MIN 6.777 mls/hr IV . [id number] TRACY Rx#:[id number] Tube Feeding 30 214 34 Other 30 30 Output: Gastric Drainage 350 Urine 265 1305 795 Other: Voiding Method Indwelling Catheter Indwelling Catheter ABP, PAP, CO, CI - Last Documented Arterial Blood Pressure 146/38 - Exam PHYSICAL EXAMINATION: GENERAL: The patient is ill appearance, intubated and sedated endotracheal tube in place Hsu catheter in place CARDIOVASCULAR: S1 and S2 present. Bilateral leg edema, tachycardia noted PULMONARY: Intubated and sedated, with sounds equal and symmetrical bilaterally ABDOMEN: Soft, nontender, nondistended, normoactive bowel sounds. No palpable organomegaly. MUSCULOSKELETAL: Lower extremity leg edema noted EXTREMITIES: Edema, P ill appearance NEUROLOGICAL: Intubated and sedated exam limited - Labs CBC & Chem 7: 02/07/23 04:15 02/07/23 04:15 Labs: Abnormal Lab Results - Last 24 Hours (Table) 02/06/23 02/06/23 02/06/23 Range/Units 13:17 13:19 13:19 RBC (4.30-5.90) m/uL Hct (39.0-53.0) % Plt Count (150-450) k/uL Neutrophils # (1.3-7.7) k/uL Lymphocytes # (1.0-4.8) k/uL APTT 53.1 H (22.0-30.0) sec ABG pO2 (83-108) mmHg ABG HCO3 (21-25) mmol/L ABG Total CO2 (19-24) mmol/L ABG O2 Saturation (94-97) % Potassium (3.5-5.1) mmol/L Chloride 108 H (98-107) mmol/L Carbon Dioxide 18 L (22-30) mmol/L BUN 54 H (9-20) mg/dL Creatinine 2.29 H (0.66-1.25) mg/dL Glucose 202 H (74-99) mg/dL POC Glucose (mg/dL) 217 H (70-110) mg/dL Calcium 6.9 L (8.4-10.2) mg/dL Ionized Calcium Don (4.5-5.3) mg/dL Troponin I (0.000-0.034) ng/mL 02/06/23 02/06/23 02/06/23 Range/Units 14:18 14:21 14:42 RBC (4.30-5.90) m/uL Hct (39.0-53.0) % Plt Count (150-450) k/uL Neutrophils # (1.3-7.7) k/uL Lymphocytes # (1.0-4.8) k/uL APTT (22.0-30.0) sec ABG pO2 302 H (83-108) mmHg ABG HCO3 (21-25) mmol/L ABG Total CO2 (19-24) mmol/L ABG O2 Saturation 99.5 H (94-97) % Potassium (3.5-5.1) mmol/L Chloride (98-107) mmol/L Carbon Dioxide (22-30) mmol/L BUN (9-20) mg/dL Creatinine (0.66-1.25) mg/dL Glucose (74-99) mg/dL POC Glucose (mg/dL) 191 H (70-110) mg/dL Calcium (8.4-10.2) mg/dL Ionized Calcium Don 4.1 L (4.5-5.3) mg/dL Troponin I (0.000-0.034) ng/mL 02/06/23 02/06/23 02/07/23 Range/Units 17:30 23:35 04:15 RBC 3.88 L (4.30-5.90) m/uL Hct 38.4 L (39.0-53.0) % Plt Count 95 L (150-450) k/uL Neutrophils # 7.8 H (1.3-7.7) k/uL Lymphocytes # 0.9 L (1.0-4.8) k/uL APTT (22.0-30.0) sec ABG pO2 (83-108) mmHg ABG HCO3 (21-25) mmol/L ABG Total CO2 (19-24) mmol/L ABG O2 Saturation (94-97) % Potassium (3.5-5.1) mmol/L Chloride (98-107) mmol/L Carbon Dioxide (22-30) mmol/L BUN (9-20) mg/dL Creatinine (0.66-1.25) mg/dL Glucose (74-99) mg/dL POC Glucose (mg/dL) 146 H 203 H (70-110) mg/dL Calcium (8.4-10.2) mg/dL Ionized Calcium Don (4.5-5.3) mg/dL Troponin I (0.000-0.034) ng/mL 02/07/23 02/07/23 02/07/23 Range/Units 04:15 05:36 06:01 RBC (4.30-5.90) m/uL Hct (39.0-53.0) % Plt Count (150-450) k/uL Neutrophils # (1.3-7.7) k/uL Lymphocytes # (1.0-4.8) k/uL APTT 122.3 H* (22.0-30.0) sec ABG pO2 127 H (83-108) mmHg ABG HCO3 27 H (21-25) mmol/L ABG Total CO2 28 H (19-24) mmol/L ABG O2 Saturation 98.3 H (94-97) % Potassium 3.3 L (3.5-5.1) mmol/L Chloride (98-107) mmol/L Carbon Dioxide (22-30) mmol/L BUN 56 H (9-20) mg/dL Creatinine 2.20 H (0.66-1.25) mg/dL Glucose 198 H (74-99) mg/dL POC Glucose (mg/dL) (70-110) mg/dL Calcium 7.4 L (8.4-10.2) mg/dL Ionized Calcium Don (4.5-5.3) mg/dL Troponin I (0.000-0.034) ng/mL 02/07/23 02/07/23 02/07/23 Range/Units 06:05 11:06 11:18 RBC (4.30-5.90) m/uL Hct (39.0-53.0) % Plt Count (150-450) k/uL Neutrophils # (1.3-7.7) k/uL Lymphocytes # (1.0-4.8) k/uL APTT (22.0-30.0) sec ABG pO2 (83-108) mmHg ABG HCO3 (21-25) mmol/L ABG Total CO2 (19-24) mmol/L ABG O2 Saturation (94-97) % Potassium (3.5-5.1) mmol/L Chloride (98-107) mmol/L Carbon Dioxide (22-30) mmol/L BUN (9-20) mg/dL Creatinine (0.66-1.25) mg/dL Glucose (74-99) mg/dL POC Glucose (mg/dL) 204 H 153 H (70-110) mg/dL Calcium (8.4-10.2) mg/dL Ionized Calcium Don (4.5-5.3) mg/dL Troponin I 39.200 H* (0.000-0.034) ng/mL Assessment and Plan Assessment: Assessment and plan Acute non-ST elevated NE Cardiogenic shock Acute exacerbation of congestive heart failure with severe aortic insufficiency prosthetic heart valve Moderate pulmonary hypertension Acute pulmonary edema Aspiration pneumonia with acute respiratory failure requiring intubation and mechanical ventilation History of coronary artery disease Hyperlipidemia BPH Depression * In regards to non-ST elevated [place] status post cardiac catheterization which showed Chronically occluded LAD and RCA Severe stenosis in the ostium of the SVG to the diagonal branch Right dominance Successful stenting of the ostium of the SVG to the diagonal branch with reduction of stenosis from 90% to less than 5%>>> continue medical management on aspirin, Plavix, Lipitor. She'll followed up by cardiology and medical ICU team * In regards to cardiogenic shock continue patient on pressor. On IV pressor levophed, continue IV Lasix drip for acute pulmonary edema and pulmonary hypertension * In regards to respiratory failure continue intubation and mechanical ventilation management ICU team. Patient sedated with propofol * In regard to aspiration pneumonia patient was on IV Zosyn which has been discontinued * In regards to renal failure patient seen by nephrology continue to monitor renal profile
[2023-02-07] MEDS: HEPARIN SODIUM,PORCINE 5,000 UNIT/ML 1 ML VIAL SQ SCH ×2 (15:26→23:57)
[2023-02-07] MEDS: POTASSIUM CHLORIDE 10 MEQ in WATER FOR INJECTION 1 100ML.BAG IVPB SCH ×2 (16:38→17:44)
[2023-02-07 18:01] LABS: Glucose,Whole Blood 222 mg/dL (70-110)
[2023-02-07] MEDS: ESCITALOPRAM 10 MG TAB PO SCH (20:02)
[2023-02-07] MEDS: ATORVASTATIN 80 MG TAB PO SCH (20:02)
[2023-02-07] MEDS: NIACIN TR 500 MG CAPLET PO SCH (20:02)
--- NOTE | 2023-02-07 23:01 | XR ---
EXAMINATION TYPE: XR chest 1V portable DATE OF EXAM: 02/07/2023 COMPARISON: 02/07/2023 earlier exam INDICATION: Increased O2 demands TECHNIQUE: Single frontal view of the chest is obtained. FINDINGS: The heart size is normal. The pulmonary vasculature is prominent. Diffuse increased lung markings at through the right upper lung field. Some right perihilar infiltrat e may be present. Report entered on the left with the tip in the superior vena cava region. Endotracheal tube tip with the tip above the dominick. Nasogastric tube transverses the thorax left upper quadrant of the abdomen. IMPRESSION: 1. Prominent pulmonary vascular markings with increasing right perihilar and right upper lobe infiltr ate. Correlate for atypical pulmonary edema. Pneumonia and atelectasis could be considered. Follow-up is recommended
--- NOTE | 2023-02-07 23:46 | XR ---
EXAMINATION TYPE: XR chest 1V portable DATE OF EXAM: 02/07/2023 COMPARISON: 02/06/2023 INDICATION: Tube placement TECHNIQUE: Single frontal view of the chest is obtained. FINDINGS: The heart size is normal. The pulmonary vasculature is now a prominent. There are mildly increased lung markings are present. F indings have improved over the interval.. Endotracheal tube tip is above dominick. Nasogastric tube transverses the thorax. Left central venous c atheter tip is in the superior vena cava region. IMPRESSION: 1. Improving bilateral upper lobe infiltrates. 2. Lines and catheters discussed above
[2023-02-07 23:52] LABS: Glucose,Whole Blood 174 mg/dL (70-110)
[2023-02-08] MEDS: IPRATROPIUM-ALBUTEROL 3 ML NEB INHALATION SCH ×6 (00:04→20:00)
[2023-02-08] MEDS: NOREPINEPHRINE 32 MG in SODIUM CHLORIDE 0.9% 218 ML IV SCH (02:04)
[2023-02-08] MEDS: VASOPRESSIN 60 UNIT in SODIUM CHLORIDE 0.9% 150 ML IV SCH (04:09)
[2023-02-08 04:32] LABS: HCT 34.3 % (39.0-53.0); HGB 12.3 gm/dL (13.0-17.5); MCH 35.6 pg (25.0-35.0); MCHC 35.9 g/dL (31.0-37.0); MCV 99.3 fL (80.0-100.0); RBC 3.46 m/uL (4.30-5.90); RDW 12.7 % (11.5-15.5); WBC 5.9 k/uL (3.8-10.6)
[2023-02-08 04:35] LABS: Platelet Count 84 k/uL (150-450)
[2023-02-08 04:41] LABS: African American GFR (CKD) 42 (>60 ml/min/1.73 sqM); Anion Gap 3 mmol/L; Blood Urea Nitrogen 62 mg/dL (9-20); Calcium 7.2 mg/dL (8.4-10.2); Carbon Dioxide 34 mmol/L (22-30); Chloride 107 mmol/L (98-107); Glucose 174 mg/dL (74-99); Magnesium 2.2 mg/dL (1.6-2.3); Non-African American GFR(CKD) 36 (>60 ml/min/1.73 sqM); Phosphorus 3.3 mg/dL (2.5-4.5); Potassium 3.6 mmol/L (3.5-5.1); Sodium 144 mmol/L (137-145)
[2023-02-08 05:59] LABS: Glucose,Whole Blood 188 mg/dL (70-110)
[2023-02-08] MEDS: INSULIN ASPART (NovoLOG) 100 UNIT/ML VIAL SQ SCH ×3 (06:07→17:54)
[2023-02-08 06:14] LABS: ABG Base Excess 8.6 mmol/L; ABG HCO3 32 mmol/L (21-25); ABG Oxygen Saturation 98.5 % (94-97); ABG PCO2 42 mmHg (35-45); ABG PH 7.49 (7.35-7.45); ABG PO2 123 mmHg (83-108); ABG TCO2 33 mmol/L (19-24); Allen Test Performed? Yes
[2023-02-08] MEDS: LEVOTHYROXINE 88 MCG TAB PO SCH (06:43)
[2023-02-08] MEDS: CHLORHEXIDINE GLUCONATE 15 ML CUP MUCOUS MEM SCH ×2 (08:12→20:19)
[2023-02-08] MEDS: FUROSEMIDE 100 MG in SODIUM CHLORIDE 0.9% 90 ML IV SCH ×2 (08:12→16:59)
[2023-02-08] MEDS: PANTOPRAZOLE 40 MG/10 ML VIAL IV SCH (08:13)
[2023-02-08] MEDS: HEPARIN SODIUM,PORCINE 5,000 UNIT/ML 1 ML VIAL SQ SCH ×2 (08:13→16:59)
[2023-02-08] MEDS: ACETAMINOPHEN TAB 325 MG TAB PO PRN (08:13)
[2023-02-08] MEDS: MULTIVITAMINS, THERA 1 EACH TAB PO SCH (08:13)
[2023-02-08] MEDS: METOPROLOL TARTRATE 12.5 MG TAB PO SCH ×2 (08:13→20:19)
[2023-02-08] MEDS: LORATADINE 10 MG TAB PO SCH (08:13)
[2023-02-08] MEDS: buPROPion SR 150 MG TABLET.ER PO SCH ×2 (08:13→20:28)
[2023-02-08] MEDS: CLOPIDOGREL 75 MG TAB PO SCH (08:14)
[2023-02-08] MEDS: CHOLECALCIFEROL 25 MCG (1000 IU) TABLET PO SCH (08:14)
[2023-02-08] MEDS: ASPIRIN 81 MG PO SCH (08:14)
--- NOTE | 2023-02-08 08:34 | XR ---
EXAMINATION TYPE: XR chest 1V portable DATE OF EXAM: 02/08/2023 COMPARISON: 02/07/2023 INDICATION: Tube placement TECHNIQUE: Single frontal view of the chest is obtained. FINDINGS: The heart size is normal. The pulmonary vasculature is prominent. Diffuse increased lung markings are present slightly more focal in the right lower lobe. Findings are worsening over the interval. Correlate for pulmonary edema. Pneumonia could be considered. Endotracheal tube tip is above the dominick. Nasogastric tube transverses the thorax tip left upper heath drant abdomen IMPRESSION: 1. Vascular prominence with diffuse increased lung markings increasing at the right lower lobe. Corre late for pulmonary edema. Pneumonia could be considered. Continued follow-up is recommended. 2. Lines and catheters discussed above
--- NOTE | 2023-02-08 09:02 | P.PN ---
Subjective Progress Note Date: 02/08/23 I am seeing this patient in consultation today 01/05/2023 for non-STEMI and lik garth pulmonary edema. Patient is a 77-year-old male with past medical history significant for coronary artery disease status post coronary artery bypass graft and subsequent stenting, aortic valve replacement, and aortic aneurysm repair. Patient came into the emergency room yesterday morning complaining of chest pain. Apparently, he was out mowing his neighbors lawn with a push mower when he developed severe substernal chest pain that radiated down both arms and diaphoresis. The pain did initially did improve, and he went to bed. Yesterday, morning the pain worsened and he came to the emergency room. On arrival, there was no acute ST elevation. Troponins are significantly elevated and are trending up at 0.028, 8.18, and 16.6. Patient was started on a combination of nitroglycerin infusion and heparin. Chest CTA showed no evidence of acute pulmonary emboli. There were diffuse bilateral lung infiltrates worse on the right, correlating for possible atypical pulmonary edema versus atypical pneumonia. On my evaluation, the patient is in some acute distress. He is reporting worsening chest pain, he is diaphoretic, and short of breath. He does have some pink frothy sputum, possibly pulmonary edema. His oxygenation demands have increased, and he was placed on the BiPAP with settings 12/6 and FiO2 100%. I did give the patient a one-time dose of Lasix 80 mg. Patient's nitroglycerin infusion was increased to 10 mcg/m. High intensity heparin is infusing protocol. Repeat EKG was done and results relayed to on-call die finisher. Patient was subsequently transferred to the intensive care unit. CBC and BMP on arrival were unremarkable. Denies any infectious symptoms such as fever, chills, myalgias, cough. He has been afebrile. NT proBNP was 781. Nursing staff reports a tentative plan for possible heart catheterization in the morning. On 02/06/2023, the patient is being seen for a follow-up. The patient is critically ill at this point in time. Note that yesterday, I had to intubate the patient placed on a mechanical ventilator. Following that, the patient went to undergo a cardiac catheterization. The patient was found to have a chronically occluded LAD and RCA. The patient was found to have a tight lesion in the ostium of the SVG to the diagonal. The patient underwent a successful stenting of the ostium of SVG to the diagonal with a reduction of the stenosis down to 5%. Following that, he Was kept intubated and he was brought back to the intensive care unit. His condition progressively decompensated overnight. The patient became progressively more hypotensive and oliguric. For now, he remains intubated, sedated and is on a combination of fentanyl which is running at 0.5 microvascular kilogram per hour and the patient is also on propofol running at 40 microvascular kilogram per minutes. The patient is quite symptomatic is a mechanical ventilator assist control mode at a rate of 26, FiO2 is at 40% and earlier this morning I had to bring up is up to 15 with an FiO2 of 100%. Chest x-ray showing cardiomegaly and evidence of pulmonary edema. The patient has a pH of 7.27 with a pCO2 of 36 and pO2 of 63 on 100% FiO2. The patient is also on high-dose pressors. The patient is on norepinephrine running at 0.5 microvascular kilogram per minute and vasopressin physiologic dose. Urine operas in order of 10 mL an hour. Creatinine is on the rise and is currently up to 2.0. Earlier this morning, the patient a potassium level of 5.4 with a serum bicarb of 16. He was given 2 doses of sodium bicarb 100 mEq and currently is on a bicarbonate infusion running at the rate of 75 mL an hour. A stat echocardiogram was done this morning and the patient's LV was still dynamic. He does have moderate to severe aortic regurgitation and severe mitral regurgitation. I discussed the case with cardiology. We discussed the possibility of a aortic balloon pump versus [place] and based on his underlying valvular insufficiency, the patient was felt to be not a good candidate. He was restarted back on IV heparin. Noted that the patient was having some bloody oozing from his puncture sites including the triple-lumen cath site over the le ft subclavian and this has subsided. The hemoglobin currently is at 13.9. The white cell count of 15.4. The pro-calcitonin level was low at 0.09. Based on his underlying shock state, I cover the patient empirically with IV Zosyn. He is receiving Lasix 40 mg IV every 12 hours. He remains on aspirin and diuretics. He remains on high-dose statins. Condition is severely critical at this point in time. On today's evaluation of 02/07/2023, the patient is being seen for a follow-up. The patient remains intubated on a mechanical ventilator. Is currently on propofol which is running at 40 mcg/kg/m. He is off fentanyl. Is quite successful mechanical ventilator. This is the rate of 26, tidal volume of 400, FiO2 of 50% with a PEEP of 15. The blood gas from today shows a pH of 7.41 with a pCO2 of 43 and pO2 of 127. This was done FiO2 of 50%. The chest x-ray from today is showing improvement in the pulmonary edema although there is increased interstitial markings bilaterally. No other abnormalities or airspace disease of consolidation noted. Meanwhile, the patient remains still in the shock state. The patient is on pressors and his pressor requirements have improved over the past 12 hours and the patient is currently on norepinephrine running at 0.2 mcg/kg/m. The patient is also on physiologic dose of vasopressin. The patient remains on IV heparin. Urine output is in order of 100 mL an hour and the patient remains on Lasix drip at 5 mg an hour. Blood work from today shows a BUN of 56 with a creatinine of 2.2. Sodium level is at 141 with a potassium level of 3.3. His white cell cause of 9 point, with a hemoglobin of 15.3. The fluid balance is +2.6 L over the past 24 hours. His troponin peaked at 57. His proBNP level was 56,000. Repeat echocardiogram from yesterday shows a ejection fraction of 40-45%, there is bioprosthetic aortic valve with ongoing aortic insufficiency and moderate degree of mitral insufficiency without evidence of any pericardial effusion. The patient is afebrile. He does have a wide pulse pressure related to his severe aortic insufficiency. He was started on enteral feeding for nutritional support and currently he is on vital high-protein at the rate of 38 mL an hour which is goal. 02/08/2023, the patient is being seen for a follow-up. The patient is currently receiving a sedation holiday. He was taken off the propofol approximately an hour ago and his mental status being monitored. Meanwhile, the patient remains on a mechanical ventilator. This morning, he is on assist-control at the rate of 26 with a tidal volume of treatment 400, FiO2 of 50% and a PEEP of 12. Chest x-ray continues to show improvement in the pulmonary edema. The patient's chest x-ray from today shows improvement in volume status although there is residual changes of CHF and pulmonary edema. The pH is at 7.49 with a pCO2 42 and pO2 of 123. The patient has no major respiratory secretions and the secretions are scant at this point in time. Hemodynamically, the patient is improved considerably. He is currently off pressors. The combination of vasopressin and norepinephrine was gradually weaned off and the patient was taken off no repinephrine as of 835 today this morning. Urine output is in order of 100 mL an hour. The patient remains on Lasix drip at a dose of 10 mg an hour. His renal function is stable and his continues to improve. Creatinine is down to 1.76 with a BUN of 62 and a sodium level is at 144. The white cell count is at 5.9 with a hemoglobin of 12.3. Platelet has slightly dropped down to 84. The patient remains on a combination of aspirin, Plavix and the patient is also on subcu heparin. Patient is on statins. Beta blockers will be started today at a low-dose of 12.5 mg of metoprolol twice a day. The patient is also on enteral feeding for nutritional support. The patient is receiving vital high-protein at the rate of 34 mL an hour which is at goal. No other significant events otherwise for now. The patient is afebrile. Antibiotics were discontinued. Objective - Vital Signs Vital signs: Vital Signs Temp 100.9 F H 02/08/23 08:00 Pulse 110 H 02/08/23 08:42 Resp 28 H 02/08/23 08:00 BP 106/54 02/08/23 08:00 Pulse Ox 98 02/08/23 08:00 FiO2 50 02/08/23 08:00 Intake & Output 02/07/23 02/08/23 02/08/23 18:59 06:59 18:59 Intake Total 2350.825 0210.162 329.805 Output Total 1730 1150 300 Balance -424.026 -77.838 29.805 Weight 83.5 kg Intake: IV 656 216 36 0.9 Normal Saline @ KVO 75 60 10 0.9% Pressure Bag 36 36 6 Dextrose 5% in Water 1, 225 000 ml @ 75 mls/hr IV . [id number] TRACY with Sodium Bicarb (1 Meq/ml) 150 ml Rx#:[id number] Furosemide 100 mg In 120 120 20 Sodium Chloride 0.9% 90 ml @ 10 MG/HR 10 mls/hr IV .Q10H TRACY Rx#: [id number] Potassium Chloride 10 meq 200 In Water For Injection 1 100ml.bag @ 100 mls/hr IVPB Q1H TRACY Rx#: [id number] Intake, IV Titration 321.974 328.162 155.805 Amount Furosemide 100 mg In 95 92 100 Sodium Chloride 0.9% 90 ml @ 10 MG/HR 10 mls/hr IV .Q10H TRACY Rx#: [id number] Heparin Sod,Pork in 0.45% 10.76 NaCl 25,000 unit In 0.45 % NaCl 1 250ml.bag @ 12 UNITS/KG/HR 9.672 mls/hr IV .Q24H TRACY Rx#: [id number] Norepinephrine 32 mg In 50.708 58.722 2.783 Sodium Chloride 0.9% 218 ml @ 0.03 MCG/KG/MIN 1. 133 mls/hr IV .Q24H TRACY Rx#:[id number] Vasopressin 60 unit In 100.521 18.233 Sodium Chloride 0.9% 150 ml @ 0.03 UNITS/MIN 4.59 mls/hr IV .Q24H TRACY Rx#: [id number] propofoL 1,000 mg In 100 Empty Bag 1 bag @ 15 MCG/ KG/MIN 6.777 mls/hr IV . [id number] TRACY Rx#:[id number] propofoL 1,000 mg In 65.506 76.919 34.789 Empty Bag 1 bag @ 15 MCG/ KG/MIN 6.777 mls/hr IV . [id number] TRACY Rx#:[id number] Tube Feeding 238 408 68 Other 90 120 70 Output: Gastric Drainage 350 Urine 1380 1150 300 Other: Voiding Method Indwelling Catheter Indwelling Catheter ABP, PAP, CO, CI - Last Documented Arterial Blood Pressure 120/37 - Exam GENERAL EXAM: Alert, 69-year-old male appearing stated age , sedated, calm and comfortable, patient is currently intubated on mechanical ventilator. Orogastric and oral tracheal tube are both in place and the patient is successfully mechanical ventilator. HEAD: Normocephalic and atraumatic EYES: Normal reaction of pupils, equal size. NOSE: Clear with pink turbinates. THROAT: No erythema or exudates. NECK: No masses, positive JVD CHEST: No chest wall deformity. LUNGS: Diminished breath sounds bilaterally along with some scant respiratory crackles in lung bases CVS: S1 and S2 normal with systolic ejection murmur over the left sternal border and apex around 3/6, regular rhythm. No extra heart sounds ABDOMEN: No hepatosplenomegaly, active bowel sounds, no guarding or rigidity. SPINE: No scoliosis or deformity SKIN: No rashes. He is diaphoretic. CENTRAL NERVOUS SYSTEM: Sedated, calm and comfortable EXTREMITIES: There is no peripheral edema, clubbing, or cyanosis. Peripheral pulses are diminished and extremities are cold. He still has a arterial line in his right upper extremityradial. - Labs CBC & Chem 7: 02/08/23 04:15 02/08/23 04:15 Labs: Abnormal Lab Results - Last 24 Hours (Table) 02/07/23 02/07/23 02/07/23 Range/Units 11:06 11:18 18:00 RBC (4.30-5.90) m/uL Hgb (13.0-17.5) gm/dL Hct (39.0-53.0) % MCH (25.0-35.0) pg Plt Count (150-450) k/uL ABG pH (7.35-7.45) ABG pO2 (83-108) mmHg ABG HCO3 (21-25) mmol/L ABG Total CO2 (19-24) mmol/L ABG O2 Saturation (94-97) % Carbon Dioxide (22-30) mmol/L BUN (9-20) mg/dL Creatinine (0.66-1.25) mg/dL Glucose (74-99) mg/dL POC Glucose (mg/dL) 153 H 222 H (70-110) mg/dL Calcium (8.4-10.2) mg/dL Troponin I 39.200 H* (0.000-0.034) ng/mL 02/07/23 02/08/23 02/08/23 Range/Units 23:51 04:15 04:15 RBC 3.46 L (4.30-5.90) m/uL Hgb 12.3 L (13.0-17.5) gm/dL Hct 34.3 L (39.0-53.0) % MCH 35.6 H (25.0-35.0) pg Plt Count 84 L (150-450) k/uL ABG pH (7.35-7.45) ABG pO2 (83-108) mmHg ABG HCO3 (21-25) mmol/L ABG Total CO2 (19-24) mmol/L ABG O2 Saturation (94-97) % Carbon Dioxide 34 H (22-30) mmol/L BUN 62 H (9-20) mg/dL Creatinine 1.76 H (0.66-1.25) mg/dL Glucose 174 H (74-99) mg/dL POC Glucose (mg/dL) 174 H (70-110) mg/dL Calcium 7.2 L (8.4-10.2) mg/dL Troponin I (0.000-0.034) ng/mL 02/08/23 02/08/23 Range/Units 05:58 06:11 RBC (4.30-5.90) m/uL Hgb (13.0-17.5) gm/dL Hct (39.0-53.0) % MCH (25.0-35.0) pg Plt Count (150-450) k/uL ABG pH 7.49 H (7.35-7.45) ABG pO2 123 H (83-108) mmHg ABG HCO3 32 H (21-25) mmol/L ABG Total CO2 33 H (19-24) mmol/L ABG O2 Saturation 98.5 H (94-97) % Carbon Dioxide (22-30) mmol/L BUN (9-20) mg/dL Creatinine (0.66-1.25) mg/dL Glucose (74-99) mg/dL POC Glucose (mg/dL) 188 H (70-110) mg/dL Calcium (8.4-10.2) mg/dL Troponin I (0.000-0.034) ng/mL Assessment and Plan Assessment: Acute non-ST elevation myocardial infarction, post immediate/emergent cardiac catheterization and patient underwent stenting of a tight ostial lesion SVG to diagonal. The patient also has chronic occluded LAD and RCA. Please refer to the full cardiac catheterization report.troponins peaked at 57.3. Cardiac rhythm is sinus and the patient has chronic Q waves. Echocardiogram shows a LV ejection fraction of 40-45% based on the most recent echocardiogram. No evidence of any pericardial effusion. Cardiogenic shock, LV is dynamic and the patient is severely valvular insufficiency including aortic insufficiency and mitral regurgitation, not a candidate for a mechanical support and the patient is currently on high dose pressors, and his pressor requirements have improved over the past 24 hours. The patient was on high-dose pressors and earlier this morning, the patient was weaned off and taken off the pressors. Acute hypoxemic respiratory failure, currently on intubated on a mechanical ventilator. Remains in pulmonary edema. Continues to have cardiomegaly. Echo cardiac exam shows no evidence of any pericardial effusion. Chest x-ray findi ngs are stable, slightly improved compared to yesterday and the patient is on a 15 of PEEP with an FiO2 of 50% and oxygen patient is stable for now Acute pulmonary edema, improving and the patient remains on Lasix drip at 10 mg an hour Moderate severe aortic insufficiency, post aortic valve replacement and the patient is post aortic valve replacement/bioprosthetic aortic valve. The patient has a very wide pulse pressure. Severe aortic insufficiency with a wide pulse pressure Acute shortness of breath secondary to above Acute kidney injury, likely secondary to cardiorenal factors, in addition to contrast administration and hypotension. The patient was oliguric at this point in time and the patient remains on Lasix drip at 10 mg an hour and the patient is producing 100 mL of urine output Coronary artery disease, status post coronary artery bypass graft with subsequent coronary artery stenting. History of of aortic valve replacement, bioprosthetic aortic valve Essential hypertension Hyperlipidemia Hypothyroidism Acute leukocytosis with a low pro-calcitonin level. Patient is currently covered with broad-spectrum antibiotics with IV Zosyn. The white cell count is improved, currently on no antibiotics Plan: Condition is still critical. I discussed the case with interventional cardiology. Is on a candidate for mechanical support for his cardiogenic shock due to presence of significant valvular insufficiency including aortic insufficiency The patient will be managed medically at this point in time. Keep the patient sedated propofol , the patient was given a sedation holiday to address his mental status today Continue ventilator support and the keep the PEEP at 12 and dropped FiO2 down to 40% Continue IV Lasix 10 mg an hour Continue subcu heparin and monitor the platelet count Continue aspirin and Plavix Monitor renal function, creatinine is improving Stop the IV Zosyn continue enteral feeding for nutritional support- vital high-protein Repeat echocardiogram from this morning was noted. No evidence of any pericardial effusion. We'll continue to follow. Condition is critical obviously Family was made awareadmitting of doing Evaluation was done in more than 30 minutes Case was discussed with cardiology on multiple occasions Time with Patient: Greater than 30
--- NOTE | 2023-02-08 11:17 | P.PN ---
Subjective Patient is seen for follow-up for acute kidney injury severe oliguric ischemic ATN from hypotension and shock. Status post cardiac catheterization for acute non-ST elevation DC. Patient also has acute hypoxic respiratory failure and fluid overload. Currently maintained on Lasix drip. Urine output has improved and FiO2 is decreased to 50%. Patient is also hemodynamically more stable with levo fed and vasopressin currently off.. Serum creatinine decreased to 1.7 mg/dL Urine output decreased slightly to about 50-60 mL per hour after discontinuation of pressors. Low-grade temps noted. Objective - Vital Signs Vital signs: Vital Signs Temp 99.8 F H 02/08/23 10:00 Pulse 101 H 02/08/23 11:07 Resp 32 H 02/08/23 11:00 BP 90/48 02/08/23 10:15 Pulse Ox 98 02/08/23 11:00 FiO2 40 02/08/23 11:00 Intake & Output 02/07/23 02/08/23 02/08/23 18:59 06:59 18:59 Intake Total 0089.352 0367.162 485.805 Output Total 1730 1150 530 Balance -424.026 -77.838 -44.195 Weight 83.5 kg Intake: IV 656 216 90 0.9 Normal Saline @ KVO 75 60 25 0.9% Pressure Bag 36 36 15 Dextrose 5% in Water 1, 225 000 ml @ 75 mls/hr IV . [id number] TRACY with Sodium Bicarb (1 Meq/ml) 150 ml Rx#:[id number] Furosemide 100 mg In 120 120 50 Sodium Chloride 0.9% 90 ml @ 10 MG/HR 10 mls/hr IV .Q10H TRACY Rx#: [id number] Potassium Chloride 10 meq 200 In Water For Injection 1 100ml.bag @ 100 mls/hr IVPB Q1H TRACY Rx#: [id number] Intake, IV Titration 321.974 328.162 155.805 Amount Furosemide 100 mg In 95 92 100 Sodium Chloride 0.9% 90 ml @ 10 MG/HR 10 mls/hr IV .Q10H TRACY Rx#: [id number] Heparin Sod,Pork in 0.45% 10.76 NaCl 25,000 unit In 0.45 % NaCl 1 250ml.bag @ 12 UNITS/KG/HR 9.672 mls/hr IV .Q24H TRACY Rx#: [id number] Norepinephrine 32 mg In 50.708 58.722 2.783 Sodium Chloride 0.9% 218 ml @ 0.03 MCG/KG/MIN 1. 133 mls/hr IV .Q24H TRACY Rx#:[id number] Vasopressin 60 unit In 100.521 18.233 Sodium Chloride 0.9% 150 ml @ 0.03 UNITS/MIN 4.59 mls/hr IV .Q24H TRACY Rx#: [id number] propofoL 1,000 mg In 100 Empty Bag 1 bag @ 15 MCG/ KG/MIN 6.777 mls/hr IV . [id number] TRACY Rx#:[id number] propofoL 1,000 mg In 65.506 76.919 34.789 Empty Bag 1 bag @ 15 MCG/ KG/MIN 6.777 mls/hr IV . [id number] TRACY Rx#:[id number] Tube Feeding 238 408 170 Other 90 120 70 Output: Gastric Drainage 350 Urine 1380 1150 530 Other: Voiding Method Indwelling Catheter Indwelling Catheter Indwelling Catheter ABP, PAP, CO, CI - Last Documented Arterial Blood Pressure 100/36 - Exam Patient is sedated and on the vent Examination of the heart S1 and S2 Examination of the lungs bilateral breath sounds are heard Abdomen is soft nontender Examination of lower extremity shows no significant edema - Labs CBC & Chem 7: 02/08/23 04:15 02/08/23 04:15 Labs: Abnormal Lab Results - Last 24 Hours (Table) 02/07/23 02/07/23 02/07/23 Range/Units 11:06 11:18 18:00 RBC (4.30-5.90) m/uL Hgb (13.0-17.5) gm/dL Hct (39.0-53.0) % MCH (25.0-35.0) pg Plt Count (150-450) k/uL ABG pH (7.35-7.45) ABG pO2 (83-108) mmHg ABG HCO3 (21-25) mmol/L ABG Total CO2 (19-24) mmol/L ABG O2 Saturation (94-97) % Carbon Dioxide (22-30) mmol/L BUN (9-20) mg/dL Creatinine (0.66-1.25) mg/dL Glucose (74-99) mg/dL POC Glucose (mg/dL) 153 H 222 H (70-110) mg/dL Calcium (8.4-10.2) mg/dL Troponin I 39.200 H* (0.000-0.034) ng/mL 02/07/23 02/08/23 02/08/23 Range/Units 23:51 04:15 04:15 RBC 3.46 L (4.30-5.90) m/uL Hgb 12.3 L (13.0-17.5) gm/dL Hct 34.3 L (39.0-53.0) % MCH 35.6 H (25.0-35.0) pg Plt Count 84 L (150-450) k/uL ABG pH (7.35-7.45) ABG pO2 (83-108) mmHg ABG HCO3 (21-25) mmol/L ABG Total CO2 (19-24) mmol/L ABG O2 Saturation (94-97) % Carbon Dioxide 34 H (22-30) mmol/L BUN 62 H (9-20) mg/dL Creatinine 1.76 H (0.66-1.25) mg/dL Glucose 174 H (74-99) mg/dL POC Glucose (mg/dL) 174 H (70-110) mg/dL Calcium 7.2 L (8.4-10.2) mg/dL Troponin I (0.000-0.034) ng/mL 02/08/23 02/08/23 Range/Units 05:58 06:11 RBC (4.30-5.90) m/uL Hgb (13.0-17.5) gm/dL Hct (39.0-53.0) % MCH (25.0-35.0) pg Plt Count (150-450) k/uL ABG pH 7.49 H (7.35-7.45) ABG pO2 123 H (83-108) mmHg ABG HCO3 32 H (21-25) mmol/L ABG Total CO2 33 H (19-24) mmol/L ABG O2 Saturation 98.5 H (94-97) % Carbon Dioxide (22-30) mmol/L BUN (9-20) mg/dL Creatinine (0.66-1.25) mg/dL Glucose (74-99) mg/dL POC Glucose (mg/dL) 188 H (70-110) mg/dL Calcium (8.4-10.2) mg/dL Troponin I (0.000-0.034) ng/mL Microbiology - Last 24 Hours (Table) 02/06/23 22:00 Gram Stain - Preliminary Sputum Assessment and Plan Assessment: 1. Acute kidney injury, oliguric ATN secondary to hypotension and cardiogenic shock. Also received IV contrast for cardiac catheterization on 02/05/2023. Urine output has now improved. Patient is maintained on Lasix drip. 2. Acute non-ST elevation DC status post cardiac catheterization and stenting of LAD on 02/05/2023 3. Non-gap metabolic acidosis associated with acute kidney injury 4. Acute hypoxic respiratory failure currently on the vent, FiO2 has been increased to 100% with PEEP of 15. 5. History of coronary artery disease status post CABG 6. Volume overload with acute CHF exacerbation with preserved ejection fraction 7. Cardiogenic shock Plan: Continue with Lasix drip No need for renal replacement therapy. Urine output has improved with stabilization of serum creatinine as well. Continue to avoid nephrotoxic agents Repeat labs in a.m.
[2023-02-08] MEDS ORDERED: POTASSIUM BICARBONATE/CIT AC 20 MEQ TABLET.EFF NG-TUBE SCH (12:00)
[2023-02-08 12:09] LABS: Glucose,Whole Blood 171 mg/dL (70-110)
--- NOTE | 2023-02-08 12:21 | P.PN ---
Subjective Progress Note Date: 02/08/23 77-year-old patient who follows with Dr. Savage. Cartilage is Dr. Babin. Patient had a coronary bypass in 2009.. Aortic valve replacement. 4 aortic aneurysm repair. Patient also had a coronary stent. Yesterday evening patient was mowing his neighbors lawn, which had overgrown. When he finished he was feeling a pressure in his chest and achiness in the arm. He went home and laid down. Was unable to steep and took a sleeping pill to go to sleep around 2 AM. Woke up this morning with pain across the chest and also pain down the arms. Went and sat in the living room for some time. Finally de cided to come in. EKG on presentation showed ST depression in inferolateral leads. Initial troponin I was 0.028. Related to his evening patient's chest pain had resurfaced. And repeat troponin came back at 8.1. Cardiology was informed. Patient has been a bit short of breath. 02/05/2023: Overnight patient did become short of breath. More. Placed on BiPAP. 100%. Was given Lasix. Patient was then intubated. Underwent cardiac catheterization. CHRONICALLY occluded LAD and RCA. Severe stenosis in the ostium of the SVG to the diagonal branch. Successful stenting of the ostium of the SVG to the diagonal branch. Currently intubated. FiO2 70 and a PEEP of 10. This included IV propofol, levo fed Lasix. 02/06/2023: Overnight patient dropped his blood pressure even more. Became more hypoxic. Was taken up to FiO2 100%. PEEP of 15. Sinus rhythm. Patient's current drips include IV heparin, vasopressin, propofol, levo fed, IV Lasix,. IV Zosyn was added for possible pneumonia. Patient's 2 daughters are aware about his condition and did talk to the nurse. Patient not a good candidate for impala/balloon pump because of aortic stenosis. Very poor urine output. Nephrology consulted. 02/07/23 : Patient seen and evaluated bedside, at this time patient is on IV vasopressors, patient on IV Lasix drip as well. On propofol for sedation. Intubated and sedated continues to remain critically ill managed in ICU 02/08/2023 : Patient evaluated bedside. IV vasopressors discontinued, continue on IV Lasix drip, patient off propofol sedation. Plan to try to wean off ventilator as tolerated Objective - Vital Signs Vital signs: Vital Signs Temp 99.8 F H 02/08/23 10:00 Pulse 101 H 02/08/23 11:07 Resp 32 H 02/08/23 11:00 BP 90/48 02/08/23 10:15 Pulse Ox 98 02/08/23 11:00 FiO2 40 02/08/23 11:00 Intake & Output 02/07/23 02/08/23 02/08/23 18:59 06:59 18:59 Intake Total 9935.155 1865.162 485.805 Output Total 1730 1150 530 Balance -424.026 -77.838 -44.195 Weight 83.5 kg Intake: IV 656 216 90 0.9 Normal Saline @ KVO 75 60 25 0.9% Pressure Bag 36 36 15 Dextrose 5% in Water 1, 225 000 ml @ 75 mls/hr IV . [id number] [facility] with Sodium Bicarb (1 Meq/ml) 150 ml Rx#:[id number] Furosemide 100 mg In 120 120 50 Sodium Chloride 0.9% 90 ml @ 10 MG/HR 10 mls/hr IV .Q10H [facility]ACY Rx#: [id number] Potassium Chloride 10 meq 200 In Water For Injection 1 100ml.bag @ 100 mls/hr IVPB Q1H [facility]Y Rx#: [id number] Intake, IV Titration 321.974 328.162 155.805 Amount Furosemide 100 mg In 95 92 100 Sodium Chloride 0.9% 90 ml @ 10 MG/HR 10 mls/hr IV .Q10H [facility]ACY Rx#: [id number] Heparin Sod,Pork in 0.45% 10.76 NaCl 25,000 unit In 0.45 % NaCl 1 250ml.bag @ 12 UNITS/KG/HR 9.672 mls/hr IV .Q24H [facility]ACY Rx#: [id number] Norepinephrine 32 mg In 50.708 58.722 2.783 Sodium Chloride 0.9% 218 ml @ 0.03 MCG/KG/MIN 1. 133 mls/hr IV .Q24H [facility]ACY Rx#:[id number] Vasopressin 60 unit In 100.521 18.233 Sodium Chloride 0.9% 150 ml @ 0.03 UNITS/MIN 4.59 mls/hr IV .Q24H [facility]ACY Rx#: [id number] propofoL 1,000 mg In 100 Empty Bag 1 bag @ 15 MCG/ KG/MIN 6.777 mls/hr IV . [id number] [facility]LY [facility], [facility]1983 Rx#:[id number] propofoL 1,000 mg In 65.506 76.919 34.789 Empty Bag 1 bag @ 15 MCG/ KG/MIN 6.777 mls/hr IV . [id number] [facility], [facility]–1983 Rx#:[id number] Tube Feeding 238 408 170 Other 90 120 70 Output: Gastric Drainage 350 Urine 1380 1150 530 Other: Voiding Method Indwelling Catheter Indwelling Catheter Indwelling Catheter ABP, PAP, CO, CI - Last Documented Arterial Blood Pressure 100/36 - Exam PHYSICAL EXAMINATION: GENERAL: The patient is ill appearance, intubated and sedated endotracheal tube in place Hsu catheter in place CARDIOVASCULAR: S1 and S2 present. Bilateral leg edema, tachycardia noted PULMONARY: Intubated and sedated, with sounds equal and symmetrical bilaterally ABDOMEN: Soft, nontender, nondistended, normoactive bowel sounds. No palpable organomegaly. MUSCULOSKELETAL: Lower extremity leg edema noted EXTREMITIES: Edema, P ill appearance NEUROLOGICAL: Intubated and sedated exam limited - Labs CBC & Chem 7: 02/08/23 04:15 02/08/23 04:15 Labs: Abnormal Lab Results - Last 24 Hours (Table) 02/07/23 02/07/23 02/08/23 Range/Units 18:00 23:51 04:15 RBC 3.46 L (4.30-5.90) m/uL Hgb 12.3 L (13.0-17.5) gm/dL Hct 34.3 L (39.0-53.0) % MCH 35.6 H (25.0-35.0) pg Plt Count 84 L (150-450) k/uL ABG pH (7.35-7.45) ABG pO2 (83-108) mmHg ABG HCO3 (21-25) mmol/L ABG Total CO2 (19-24) mmol/L ABG O2 Saturation (94-97) % Carbon Dioxide (22-30) mmol/L BUN (9-20) mg/dL Creatinine (0.66-1.25) mg/dL Glucose (74-99) mg/dL POC Glucose (mg/dL) 222 H 174 H (70-110) mg/dL Calcium (8.4-10.2) mg/dL 02/08/23 02/08/23 02/08/23 Range/Units 04:15 05:58 06:11 RBC (4.30-5.90) m/uL Hgb (13.0-17.5) gm/dL Hct (39.0-53.0) % MCH (25.0-35.0) pg Plt Count (150-450) k/uL ABG pH 7.49 H (7.35-7.45) ABG pO2 123 H (83-108) mmHg ABG HCO3 32 H (21-25) mmol/L ABG Total CO2 33 H (19-24) mmol/L ABG O2 Saturation 98.5 H (94-97) % Carbon Dioxide 34 H (22-30) mmol/L BUN 62 H (9-20) mg/dL Creatinine 1.76 H (0.66-1.25) mg/dL Glucose 174 H (74-99) mg/dL POC Glucose (mg/dL) 188 H (70-110) mg/dL Calcium 7.2 L (8.4-10.2) mg/dL 02/08/23 Range/Units 12:08 RBC (4.30-5.90) m/uL Hgb (13.0-17.5) gm/dL Hct (39.0-53.0) % MCH (25.0-35.0) pg Plt Count (150-450) k/uL ABG pH (7.35-7.45) ABG pO2 (83-108) mmHg ABG HCO3 (21-25) mmol/L ABG Total CO2 (19-24) mmol/L ABG O2 Saturation (94-97) % Carbon Dioxide (22-30) mmol/L BUN (9-20) mg/dL Creatinine (0.66-1.25) mg/dL Glucose (74-99) mg/dL POC Glucose (mg/dL) 171 H (70-110) mg/dL Calcium (8.4-10.2) mg/dL Microbiology - Last 24 Hours (Table) 02/06/23 22:00 Gram Stain - Preliminary Sputum Assessment and Plan Assessment: Assessment and plan Acute non-ST elevated PR Cardiogenic shock Acute exacerbation of congestive heart failure with severe aortic insufficiency prosthetic heart valve Moderate pulmonary hypertension Acute pulmonary edema Acute renal failure Aspiration pneumonia with acute respiratory failure requiring intubation and mechanical ventilation History of coronary artery disease Hyperlipidemia BPH Depression * In regards to non-ST elevated PR status post cardiac catheterization which s howed Chronically occluded LAD and RCA Severe stenosis in the ostium of the SVG to the diagonal branch Right dominance Successful stenting of the ostium of the SVG to the diagonal branch with reduction of stenosis from 90% to less than 5%>>> continue medical management on aspirin, Plavix, Lipitor. He is followed up by cardiology and medical ICU team * In regards to cardiogenic shock continue patient on pressor. On IV pressor levophed, continue IV Lasix drip for acute pulmonary edema and pulmonary hypertension * In regards to respiratory failure continue intubation and mechanical ventilation management ICU team. Patient sedated with propofol * In regard to aspiration pneumonia patient was on IV Zosyn which has been Completed * In regards to renal failure patient seen by nephrology continue to monitor renal profile Time with Patient: Greater than 30
--- NOTE | 2023-02-08 12:26 | PN ---
PROGRESS NOTE SUBJECTIVE: A 77-year-old gentleman, who is admitted to hospital with acute gad-EY-uikjymu elevation MD, has cardiogenic shock, vent requiring respiratory failure, and also developed acute renal failure. He underwent cardiac catheterization, angioplasty of a venous graft to the diagonal. His oxygenation needs are coming down. His chest x-ray has improved and his urine output has improved significantly. He is currently on Lasix drip and the creatinine is improving. He remains on pressors, but the dose of Levophed had come down significantly. He is currently on aspirin, Lipitor, Levophed, and I am adding Lopressor 12.5 b.i.d. PHYSICAL EXAMINATION: GENERAL: Comfortable at rest. VITAL SIGNS: Heart rate is 110 beats per minute, blood pressure is 106/54, respiratory rate is 26, O2 saturation is 98% on an FiO2 of 50% and mechanically ventilated. CHEST: Reveals diminished air entry at the bases with occasional rhonchi. HEART: Reveals first and second heart sounds. A grade 4/6 ejection systolic murmur. ABDOMEN: Soft. EXTREMITIES: Reveal mild edema. Peripheral pulses are felt. LABORATORY DATA: Blood gases show a pH of 7.4, pCO2 of 42, pO2 of 123. Potassium is 3.6, BUN is 62, creatinine is 1.76, hemoglobin is 12.3, and platelet count is 84. ASSESSMENT: 1. Vent requiring respiratory failure. 2. Cardiogenic shock. 3. Htg-TR-krbjnpl elevation myocardial infarction. 4. Hypotension. PLAN: Prognosis is guarded. I will start back metoprolol 12.5 b.i.d. When he is off the Levophed, we will resume the nitrates and increase the dose of beta-blockers as tolerated. MMODL / IJN: [id number] /
[2023-02-08 17:51] LABS: Glucose,Whole Blood 203 mg/dL (70-110)
[2023-02-08] MEDS: ATORVASTATIN 80 MG TAB PO SCH (20:19)
[2023-02-08] MEDS: HYDROmorphone 1 MG/ML 1 ML SYRINGE IVP PRN (20:25)
[2023-02-08] MEDS: ESCITALOPRAM 10 MG TAB PO SCH (20:28)
[2023-02-08] MEDS: NIACIN TR 500 MG CAPLET PO SCH (20:28)
[2023-02-09 00:10] LABS: Glucose,Whole Blood 163 mg/dL (70-110)
[2023-02-09] MEDS: IPRATROPIUM-ALBUTEROL 3 ML NEB INHALATION SCH ×6 (00:15→19:47)
[2023-02-09] MEDS: INSULIN ASPART (NovoLOG) 100 UNIT/ML VIAL SQ SCH ×4 (00:31→18:33)
[2023-02-09] MEDS: HEPARIN SODIUM,PORCINE 5,000 UNIT/ML 1 ML VIAL SQ SCH ×3 (00:31→15:53)
[2023-02-09] MEDS: FUROSEMIDE 100 MG in SODIUM CHLORIDE 0.9% 90 ML IV SCH ×3 (01:03→19:53)
[2023-02-09 04:17] LABS: HCT 37.2 % (39.0-53.0); HGB 13.1 gm/dL (13.0-17.5); MCHC 35.1 g/dL (31.0-37.0); MCV 99.6 fL (80.0-100.0); Mean Platelet Volume 10.4; Platelet Count 104 k/uL (150-450); RBC 3.73 m/uL (4.30-5.90); RDW 12.9 % (11.5-15.5); WBC 7.8 k/uL (3.8-10.6)
[2023-02-09] MEDS: ACETAMINOPHEN TAB 325 MG TAB PO PRN ×2 (04:20→13:16)
[2023-02-09 04:25] LABS: Appearance,Urine Clear (Clear); Bilirubin,Urine Negative (Negative); Blood,Urine Moderate (Negative); Color,Urine Yellow; Glucose,Urine (UA) Negative (Negative); Ketones,Urine Negative (Negative); Leukocyte Esterase,Urine Negative (Negative); Mucus,Urine Rare /hpf; Nitrite,Urine Negative (Negative); Protein,Urine 1+ (Negative); RBC,Urine 8 /hpf (0-5); Specific Gravity,Urine 1.016 (1.001-1.035); Urobilinogen,Urine <2.0 mg/dL (<2.0); WBC,Urine 1 /hpf (0-5)
[2023-02-09 04:37] LABS: African American GFR (CKD) 36 (>60 ml/min/1.73 sqM); Anion Gap 4 mmol/L; Blood Urea Nitrogen 80 mg/dL (9-20); Calcium 7.7 mg/dL (8.4-10.2); Carbon Dioxide 34 mmol/L (22-30); Chloride 109 mmol/L (98-107); Glucose 159 mg/dL (74-99); Non-African American GFR(CKD) 31 (>60 ml/min/1.73 sqM); Potassium 3.8 mmol/L (3.5-5.1); Sodium 147 mmol/L (137-145)
[2023-02-09] MEDS: PIPERACILLIN-TAZOBACTAM 3.375 GM in SODIUM CHLORIDE 0.9% 100 ML IVPB SCH ×4 (04:51→20:09)
[2023-02-09] MEDS: VASOPRESSIN 60 UNIT in SODIUM CHLORIDE 0.9% 150 ML IV SCH (05:23)
[2023-02-09 05:52] LABS: Glucose,Whole Blood 161 mg/dL (70-110)
[2023-02-09 06:01] LABS: ABG Base Excess 9.4 mmol/L; ABG HCO3 32 mmol/L (21-25); ABG Oxygen Saturation 93.1 % (94-97); ABG PCO2 36 mmHg (35-45); ABG PO2 62 mmHg (83-108); ABG TCO2 33 mmol/L (19-24); Allen Test Performed? Yes
[2023-02-09 06:02] LABS: ABG PH 7.56 (7.35-7.45)
[2023-02-09] MEDS: LEVOTHYROXINE 100 MCG TAB PO SCH (06:31)
[2023-02-09] MEDS: NOREPINEPHRINE 32 MG in SODIUM CHLORIDE 0.9% 218 ML IV SCH ×2 (06:32→23:36)
--- NOTE | 2023-02-09 07:14 | XR ---
EXAMINATION TYPE: XR chest 1V portable DATE OF EXAM: 02/09/2023 5:51 AM COMPARISON: Chest radiograph from one day prior. TECHNIQUE: XR chest 1V portable Frontal view of the chest. CLINICAL INDICATION:Male, 77 years old with history of mechanical ventilation; FINDINGS: Lungs/Pleura: No evidence of focal consolidation or pneumothorax. Blunting of the costophrenic angles is present. Pulmonary vascularity: Pulmonary vascular congestion. Heart/mediastinum: Cardiomediastinal silhouette is unremarkable. Musculoskeletal: No acute osseous pathology. Midline sternotomy wires are noted. Other findings: None Lines/Tubes: Endotracheal tube with distal tip 4.8 cm above the dominick. Nasogastric tube with its distal tip and side-port projecting under the diaphragm. IMPRESSION: mild pulmonary vascular congestion. Correlate with BNP.
[2023-02-09] MEDS: CHLORHEXIDINE GLUCONATE 15 ML CUP MUCOUS MEM SCH ×2 (08:00→20:11)
[2023-02-09] MEDS: METOPROLOL TARTRATE 12.5 MG TAB PO SCH ×2 (08:00→20:12)
[2023-02-09] MEDS: MULTIVITAMINS, THERA 1 EACH TAB PO SCH (08:00)
[2023-02-09] MEDS: LORATADINE 10 MG TAB PO SCH (08:00)
[2023-02-09] MEDS: PANTOPRAZOLE 40 MG/10 ML VIAL IV SCH (08:00)
[2023-02-09] MEDS: ASPIRIN 81 MG PO SCH (08:00)
[2023-02-09] MEDS: buPROPion SR 150 MG TABLET.ER PO SCH (08:00)
[2023-02-09] MEDS: CHOLECALCIFEROL 25 MCG (1000 IU) TABLET PO SCH (08:00)
[2023-02-09] MEDS: CLOPIDOGREL 75 MG TAB PO SCH (08:00)
[2023-02-09] MEDS ORDERED: CISATRACURIUM 2 MG/ML 5 ML VIAL IV ONE (08:45)
[2023-02-09] MEDS ORDERED: CISATRACURIUM 200 MG in SODIUM CHLORIDE 0.9% 180 ML IV SCH (09:00)
[2023-02-09 09:22] LABS: ABG Base Excess 7.8 mmol/L; ABG HCO3 31 mmol/L (21-25); ABG Oxygen Saturation 95.4 % (94-97); ABG PCO2 40 mmHg (35-45); ABG PO2 76 mmHg (83-108); ABG TCO2 32 mmol/L (19-24); Allen Test Performed? Yes
--- NOTE | 2023-02-09 09:51 | P.PN ---
Subjective Patient is seen in follow-up for acute kidney injury. Renal function a little worse. Remains on Lasix drip. On Levophed. Nonoliguric. Intubated. Receiving tube feeds. Sodium level 147. Vital signs are stable. On Levophed. General: Resting in bed. HEENT: Intubated. LUNGS: Scattered rhonchi. HEART: Rate and Rhythm are regular. ABDOMEN: No distention. EXTREMITITES: No edema. Objective - Vital Signs Vital signs: Vital Signs Temp 100.7 F H 02/09/23 09:00 Pulse 112 H 02/09/23 09:00 Resp 30 H 02/09/23 09:00 BP 105/54 02/09/23 09:00 Pulse Ox 96 02/09/23 09:00 FiO2 40 02/09/23 08:00 Intake & Output 02/08/23 02/09/23 02/09/23 18:59 06:59 18:59 Intake Total 997.638 712.840 184.618 Output Total 915 740 185 Balance 82.638 -27.160 -0.382 Weight 83 kg Intake: IV 216 55 3 0.9 Normal Saline @ KVO 60 10 0.9% Pressure Bag 36 35 3 Furosemide 100 mg In 120 10 Sodium Chloride 0.9% 90 ml @ 10 MG/HR 10 mls/hr IV .Q10H TRACY Rx#: [id number] Intake, IV Titration 243.638 163.840 49.618 Amount Cisatracurium 200 mg In 4.067 Sodium Chloride 0.9% 180 ml @ 1 MCG/KG/MIN 4.98 mls/hr IV .Q24H TRACY Rx#: [id number] Furosemide 100 mg In 187.833 80.667 Sodium Chloride 0.9% 90 ml @ 10 MG/HR 10 mls/hr IV .Q10H [facility]Y Rx#: [id number] Norepinephrine 32 mg In 2.783 32.646 9.256 Sodium Chloride 0.9% 218 ml @ 0.03 MCG/KG/MIN 1. 133 mls/hr IV .Q24H [facility]Y Rx#:[id number] Piperacillin-Tazobactam 3 50 25 .375 gm In Sodium Chloride 0.9% 100 ml @ 25 mls/hr IVPB Q8H [facility]Y Rx#: [id number] Vasopressin 60 unit In 18.233 Sodium Chloride 0.9% 150 ml @ 0.03 UNITS/MIN 4.59 mls/hr IV .Q24H [facility] Rx#: [id number] propofoL 1,000 mg In 34.789 0.527 11.295 Empty Bag 1 bag @ 15 MCG/ KG/MIN 6.777 mls/hr IV . [id number] [facility] Rx#:[id number] Tube Feeding 408 374 102 Other 130 120 30 Output: Urine 915 740 185 Other: Voiding Method Indwelling Catheter Indwelling Catheter ABP, PAP, CO, CI - Last Documented Arterial Blood Pressure 124/30 - Labs CBC & Chem 7: 02/09/23 04:05 02/09/23 04:05 Labs: Abnormal Lab Results - Last 24 Hours (Table) 02/08/23 02/08/23 02/09/23 Range/Units 12:08 17:49 00:08 RBC (4.30-5.90) m/uL Hct (39.0-53.0) % Plt Count (150-450) k/uL ABG pH (7.35-7.45) ABG pO2 (83-108) mmHg ABG HCO3 (21-25) mmol/L ABG Total CO2 (19-24) mmol/L ABG O2 Saturation (94-97) % Sodium (137-145) mmol/L Chloride (98-107) mmol/L Carbon Dioxide (22-30) mmol/L BUN (9-20) mg/dL Creatinine (0.66-1.25) mg/dL Glucose (74-99) mg/dL POC Glucose (mg/dL) 171 H 203 H 163 H (70-110) mg/dL Calcium (8.4-10.2) mg/dL Urine Protein (Negative) Urine Blood (Negative) Urine RBC (0-5) /hpf Urine Mucus (None) /hpf 02/09/23 02/09/23 02/09/23 Range/Units 04:05 04:05 04:05 RBC 3.73 L (4.30-5.90) m/uL Hct 37.2 L (39.0-53.0) % Plt Count 104 L (150-450) k/uL ABG pH (7.35-7.45) ABG pO2 (83-108) mmHg ABG HCO3 (21-25) mmol/L ABG Total CO2 (19-24) mmol/L ABG O2 Saturation (94-97) % Sodium 147 H (137-145) mmol/L Chloride 109 H (98-107) mmol/L Carbon Dioxide 34 H (22-30) mmol/L BUN 80 H (9-20) mg/dL Creatinine 1.99 H (0.66-1.25) mg/dL Glucose 159 H (74-99) mg/dL POC Glucose (mg/dL) (70-110) mg/dL Calcium 7.7 L (8.4-10.2) mg/dL Urine Protein 1+ H (Negative) Urine Blood Moderate H (Negative) Urine RBC 8 H (0-5) /hpf Urine Mucus Rare H (None) /hpf 02/09/23 02/09/23 02/09/23 Range/Units 05:50 05:58 09:20 RBC (4.30-5.90) m/uL Hct (39.0-53.0) % Plt Count (150-450) k/uL ABG pH 7.56 H* 7.50 H (7.35-7.45) ABG pO2 62 L 76 L (83-108) mmHg ABG HCO3 32 H 31 H (21-25) mmol/L ABG Total CO2 33 H 32 H (19-24) mmol/L ABG O2 Saturation 93.1 L (94-97) % Sodium (137-145) mmol/L Chloride (98-107) mmol/L Carbon Dioxide (22-30) mmol/L BUN (9-20) mg/dL Creatinine (0.66-1.25) mg/dL Glucose (74-99) mg/dL POC Glucose (mg/dL) 161 H (70-110) mg/dL Calcium (8.4-10.2) mg/dL Urine Protein (Negative) Urine Blood (Negative) Urine RBC (0-5) /hpf Urine Mucus (None) /hpf Microbiology - Last 24 Hours (Table) 02/06/23 22:00 Gram Stain - Final Sputum Sputum Culture - Final Assessment and Plan Plan: Assessment: 1. Acute kidney injury secondary to ATN secondary to cardiogenic shock and contrast-induced acute kidney injury. Patient received IV contrast for cardiac catheterization on 02/05/2023. Nonoliguric. Creatinine 1.99 today. Baseline creatinine near 1. 2. Acute NSTEMI status post cardiac catheterization with stenting of the LAD on 03/04/2023. 3. History of coronary artery disease status post CABG. 4. Acute systolic CHF with ejection fraction of 40-45% with moderate to severe aortic regurgitation and moderate mitral regurgitation. 5. Volume overload. 6. Cardiogenic shock. On Levophed. 7. Hypernatremia from the oral water intake. 8. Respiratory and metabolic alkalosis. Vent settings adjusted. Also received IV Diamox this morning. Plan: Maintain Lasix drip for now. Free water flushes increased to 200 mL every 4 hours this morning. Maintain tube feeds. Continue to monitor renal function and urine output. Check renal ultrasound.
[2023-02-09] MEDS ORDERED: POTASSIUM BICARBONATE/CIT AC 20 MEQ TABLET.EFF NG-TUBE SCH (10:00)
[2023-02-09 11:59] VITALS: BMI 28.6
--- NOTE | 2023-02-09 12:10 | US ---
EXAMINATION TYPE: US kidneys/renal and bladder DATE OF EXAM: 02/09/2023 COMPARISON: NONE CLINICAL INDICATION: Male, 77 years old with history of margaret; limited exam due to patient postioning. Patient on vent. EXAM MEASUREMENTS: Right Kidney: 9.0 x 3.7 x 3.8 cm Left Kidney: Not well visualized due to patient unable to roll. Fluid is visualized. Right Kidney: No hydronephrosis or masses seen Left Kidney: Obscured patient unable to roll. Bladder: Patient has Cather in. There is no evidence for hydronephrosis at this point in time. No nephrolithiasis is seen. No valentino s are identified. The urinary bladder is anechoic. Bilateral ureteral jets are seen. IMPRESSION: Right kidney is without hydronephrosis. Limited evaluation of left kidney due to patient position.
[2023-02-09 12:55] LABS: Glucose,Whole Blood 186 mg/dL (70-110)
[2023-02-09] MEDS: ARTIFICIAL TEARS-HYPROMELLOSE DROPS 15 ML BTL BOTH EYES SCH ×4 (13:19→20:08)
--- NOTE | 2023-02-09 13:22 | P.PN ---
Subjective Progress Note Date: 02/09/23 Principal diagnosis: Acute hypoxic wrist were failure and cardiogenic shock with acute non-ST elevation myocardial infarction I am seeing this patient in consultation today 01/05/2023 for non-STEMI and likely pulmonary edema. Patient is a 77-year-old male with past medical history significant for coronary artery disease status post coronary artery bypass graft and subsequent stenting, aortic valve replacement, and aortic aneurysm repair. Patient came into the emergency room yesterday morning complaining of chest pain. Apparently, he was out mowing his neighbors lawn with a push mower when he developed severe substernal chest pain that radiated down both arms and diaphoresis. The pain did initially did improve, and he went to bed. Yesterday, morning the pain worsened and he came to the emergency room. On arrival, there was no acute ST elevation. Troponins are significantly elevated and are trending up at 0.028, 8.18, and 16.6. Patient was started on a combinat ion of nitroglycerin infusion and heparin. Chest CTA showed no evidence of acute pulmonary emboli. There were diffuse bilateral lung infiltrates worse on the right, correlating for possible atypical pulmonary edema versus atypical pneumonia. On my evaluation, the patient is in some acute distress. He is reporting worsening chest pain, he is diaphoretic, and short of breath. He does have some pink frothy sputum, possibly pulmonary edema. His oxygenation demands have increased, and he was placed on the BiPAP with settings 12/6 and FiO2 100%. I did give the patient a one-time dose of Lasix 80 mg. Patient's nitroglycerin infusion was increased to 10 mcg/m. High intensity heparin is infusing protocol. Repeat EKG was done and results relayed to on-call marionette performer. Patient was subsequently transferred to the intensive care unit. CBC and BMP on arrival were unremarkable. Denies any infectious symptoms such as fever, chills, myalgias, cough. He has been afebrile. NT proBNP was 781. Nursing staff reports a tentative plan for possible heart catheterization in the morning. On 02/06/2023, the patient is being seen for a follow-up. The patient is critically ill at this point in time. Note that yesterday, I had to intubate the patient placed on a mechanical ventilator. Following that, the patient went to undergo a cardiac catheterization. The patient was found to have a ch ronically occluded LAD and RCA. The patient was found to have a tight lesion in the ostium of the SVG to the diagonal. The patient underwent a successful stenting of the ostium of SVG to the diagonal with a reduction of the stenosis down to 5%. Following that, he Was kept intubated and he was brought back to the intensive care unit. His condition progressively decompensated overnight. The patient became progressively more hypotensive and oliguric. For now, he remains intubated, sedated and is on a combination of fentanyl which is running at 0.5 microvascular kilogram per hour and the patient is also on propofol running at 40 microvascular kilogram per minutes. The patient is quite sym ptomatic is a mechanical ventilator assist control mode at a rate of 26, FiO2 is at 40% and earlier this morning I had to bring up is up to 15 with an FiO2 of 100%. Chest x-ray showing cardiomegaly and evidence of pulmonary edema. The patient has a pH of 7.27 with a pCO2 of 36 and pO2 of 63 on 100% FiO2. The patient is also on high-dose pressors. The patient is on norepinephrine running at 0.5 microvascular kilogram per minute and vasopressin physiologic dose. Urine operas in order of 10 mL an hour. Creatinine is on the rise and is currently up to 2.0. Earlier this morning, the patient a potassium level of 5.4 with a serum bicarb of 16. He was given 2 doses of sodium bicarb 100 mEq and currently is on a bicarbonate infusion running at the rate of 75 mL an hour. A stat echocardiogram was done this morning and the patient's LV was still dynamic. He does have moderate to severe aortic regurgitation and severe mitral regurgitation. I discussed the case with cardiology. We discussed the possibility of a aortic balloon pump versus [place] and based on his underlying valvular insufficiency, the patient was felt to be not a good candidate. He was restarted back on IV heparin. Noted that the patient was having some bloody oozing from his puncture sites including the triple-lumen cath site over the left subclavian and this has subsided. The hemoglobin currently is at 13.9. The white cell count of 15.4. The pro-calcitonin level was low at 0.09. Based on his underlying shock state, I cover the patient empirically with IV Zosyn. He is receiving Lasix 40 mg IV every 12 hours. He remains on aspirin and diuretics. He remains on high-dose statins. Condition is severely critical at this point in time. On today's evaluation of 02/07/2023, the patient is being seen for a follow-up. The patient remains intubated on a mechanical ventilator. Is currently on propofol which is running at 40 mcg/kg/m. He is off fentanyl. Is quite successful mechanical ventilator. This is the rate of 26, tidal volume of 400, FiO2 of 50% with a PEEP of 15. The blood gas from today shows a pH of 7.41 with a pCO2 of 43 and pO2 of 127. This was done FiO2 of 50%. The chest x-ray from today is showing improvement in the pulmonary edema although there is increased interstitial markings bilaterally. No other abnormalities or airspace disease of consolidation noted. Meanwhile, the patient remains still in the shock state. The patient is on pressors and his pressor requirements have improved over the past 12 hours and the patient is currently on norepinephrine running at 0.2 mcg/kg/m. The patient is also on physiologic dose of vasopressin. The patient remains on IV heparin. Urine output is in order of 100 mL an hour and the patient remains on Lasix drip at 5 mg an hour. Blood work from today shows a BUN of 56 with a creatinine of 2.2. Sodium level is at 141 with a potassium level of 3.3. His white cell cause of 9 point, with a hemoglobin of 15.3. The fluid balance is +2.6 L over the past 24 hours. His troponin peaked at 57. His proBNP level was 56,000. Repeat echocardiogram from yesterday shows a ejection fraction of 40-45%, there is bioprosthetic aortic valve with ongoing aortic insufficiency and moderate degree of mitral insufficiency without evidence of any pericardial effusion. The patient is afebrile. He does have a wide pulse pressure related to his severe aortic insufficiency. He was started on enteral feeding for nutritional support and currently he is on vital high-protein at the rate of 38 mL an hour which is goal. 02/08/2023, the patient is being seen for a follow-up. The patient is currently receiving a sedation holiday. He was taken off the propofol approximately an hour ago and his mental status being monitored. Meanwhile, the patient remains on a mechanical ventilator. This morning, he is on assist-control at the rate of 26 with a tidal volume of treatment 400, FiO2 of 50% and a PEEP of 12. Chest x-ray continues to show improvement in the pulmonary edema. The patient's chest x-ray from today shows improvement in volume status although there is residual changes of CHF and pulmonary edema. The pH is at 7.49 with a pCO2 42 and pO2 of 123. The patient has no major respiratory secretions and the secretions are scant at this point in time. Hemodynamically, the patient is improved considerably. He is currently off pressors. The combination of vasopressin and norepinephrine was gradually weaned off and the patient was taken off norepinephrine as of 835 today this morning. Urine output is in order of 100 mL an hour. The patient remains on Lasix drip at a dose of 10 mg an hour. His renal function is stable and his continues to improve. Creatinine is down to 1.76 with a BUN of 62 and a sodium level is at 144. The white cell count is at 5.9 with a hemoglobin of 12.3. Platelet has slightly dropped down to 84. The patient remains on a combination of aspirin, Plavix and the patient is also on subcu heparin. Patient is on statins. Beta blockers will be started today at a low-dose of 12.5 mg of metoprolol twice a day. The patient is also on enteral feeding for nutritional support. The patient is receiving vital high-protein at the rate of 34 mL an hour which is at goal. No other significant events otherwise for now. The patient is afebrile. Antibiotics were discontinued. Patient was today on , patient remains in the ICU intubated and mechanically ventilated. He is on assist control rate of 26 tidal volume 400 FiO2 40% and PEEP of 10. Patient is on propofol at 45 mcg/kg/m is also on norepinephrine at 0.09 mcg/kg/m Lasix at 10 mg per hour. In spite of increasing the dose of propofol, patient was noted to be extremely tachypneic and tachycardic, he was bucking the ventilator, felt that the patient needed to be further sedated and I went ahead and recommended Nimbex because of his extreme restlessness and felt that the patient was not adequately ventilated. Nimbex was given, his ventilator settings were adjusted patient was placed on FiO2 of 50% to cut down the PEEP from 10-8, I increased his flow rate to 70, repeat ABG showed a pO2 of 76 pCO2 39 pH of 7.49. Patient remains on Zosyn empirically, remains on enteral feeding/nutritional support, receiving vital HPI 34 mL per hour. Chest x-ray continues to show evidence of pulmonary edema, underlying pneumonia is not entirely ruled out but felt to be less likely. Patient has been on mechanical ventilation now since 02/05, and he is not ready for any weaning trials at this point. Hence Nimbex was given and the patient will be placed on Nimbex drip. All his labs were noted today, WBC count 7.8 hemoglobin is 13.1 his sodium is 147 and I recommended free water to be given via nasogastric tube. His BUN is 80 creatinine 1.99, remains on Lasix drip at 10 mg per hour. Objective - Vital Signs Vital signs: Vital Signs Temp 102.1 F H 02/09/23 12:00 Pulse 111 H 02/09/23 13:00 Resp 30 H 02/09/23 13:00 BP 103/54 02/09/23 13:00 Pulse Ox 94 L 02/09/23 13:00 FiO2 50 02/09/23 12:00 Intake & Output 02/08/23 02/09/23 02/09/23 18:59 06:59 18:59 Intake Total 997.638 712.840 380.626 Output Total 915 740 240 Balance 82.638 -27.160 140.626 Weight 83 kg 83 kg Intake: IV 216 55 21 0.9 Normal Saline @ KVO 60 10 5 0.9% Pressure Bag 36 35 6 Furosemide 100 mg In 120 10 10 Sodium Chloride 0.9% 90 ml @ 10 MG/HR 10 mls/hr IV .Q10H [facility] Rx#: [id number] Intake, IV Titration 243.638 163.840 193.626 Amount Cisatracurium 200 mg In 11.288 Sodium Chloride 0.9% 180 ml @ 1 MCG/KG/MIN 4.98 mls/hr IV .Q24H [facility] Rx#: [id number] Furosemide 100 mg In 187.833 80.667 90.5 Sodium Chloride 0.9% 90 ml @ 10 MG/HR 10 mls/hr IV .Q10H [facility] Rx#: [id number] Norepinephrine 32 mg In 2.783 32.646 14.319 Sodium Chloride 0.9% 218 ml @ 0.03 MCG/KG/MIN 1. 133 mls/hr IV .Q24H [facility] Rx#:[id number] Piperacillin-Tazobactam 3 50 25 .375 gm In Sodium Chloride 0.9% 100 ml @ 25 mls/hr IVPB Q8H [facility] Rx#: [id number] Vasopressin 60 unit In 18.233 Sodium Chloride 0.9% 150 ml @ 0.03 UNITS/MIN 4.59 mls/hr IV .Q24H [facility] Rx#: [id number] propofoL 1,000 mg In 34.789 0.527 11.295 Empty Bag 1 bag @ 15 MCG/ KG/MIN 6.777 mls/hr IV . [id number] [facility] Rx#:[id number] propofoL 1,000 mg In 41.224 Empty Bag 1 bag @ 75 MCG/ KG/MIN 33.883 mls/hr IV . Q2H58M [facility] Rx#:[id number] Tube Feeding 408 374 136 Other 130 120 30 Output: Urine 915 740 240 Other: Voiding Method Indwelling Catheter Indwelling Catheter ABP, PAP, CO, CI - Last Documented Arterial Blood Pressure 129/29 - Exam GENERAL EXAM: Revealed a 77-year-old white male intubated, mechanically ventilated, restless, seems to be a bit agitated not making any purposeful movement, on propofol, quite tachypneic and tachycardic HEAD: Normocephalic and atraumatic endotracheal tube and orogastric tube are intact. EYES: Normal reaction of pupils, equal size. NOSE: Clear with pink turbinates. THROAT: No erythema or exudates. NECK: No masses, positive JVD CHEST: No chest wall deformity. LUNGS: Crackles at the bases no rhonchi and no wheezes CVS: S1 and S2 normal with systolic ejection murmur over the left sternal border and apex around 3/6, regular rhythm. No extra heart sounds ABDOMEN: No hepatosplenomegaly, active bowel sounds, no guarding or rigidity. SKIN: No rashes. CENTRAL NERVOUS SYSTEM: Sedated, agitated, restless, on propofol at 45 mcg/kg/m, in spite of a higher dose, patient remains extremely tachypneic and restless EXTREMITIES: There is no peripheral edema, clubbing, or cyanosis. Peripheral pulses are diminished - Labs CBC & Chem 7: 02/09/23 04:05 02/09/23 04:05 Labs: Abnormal Lab Results - Last 24 Hours (Table) 02/08/23 02/09/23 02/09/23 Range/Units 17:49 00:08 04:05 RBC (4.30-5.90) m/uL Hct (39.0-53.0) % Plt Count (150-450) k/uL ABG pH (7.35-7.45) ABG pO2 (83-108) mmHg ABG HCO3 (21-25) mmol/L ABG Total CO2 (19-24) mmol/L ABG O2 Saturation (94-97) % Sodium (137-145) mmol/L Chloride (98-107) mmol/L Carbon Dioxide (22-30) mmol/L BUN (9-20) mg/dL Creatinine (0.66-1.25) mg/dL Glucose (74-99) mg/dL POC Glucose (mg/dL) 203 H 163 H (70-110) mg/dL Calcium (8.4-10.2) mg/dL Urine Protein 1+ H (Negative) Urine Blood Moderate H (Negative) Urine RBC 8 H (0-5) /hpf Urine Mucus Rare H (None) /hpf 02/09/23 02/09/23 02/09/23 Range/Units 04:05 04:05 05:50 RBC 3.73 L (4.30-5.90) m/uL Hct 37.2 L (39.0-53.0) % Plt Count 104 L (150-450) k/uL ABG pH (7.35-7.45) ABG pO2 (83-108) mmHg ABG HCO3 (21-25) mmol/L ABG Total CO2 (19-24) mmol/L ABG O2 Saturation (94-97) % Sodium 147 H (137-145) mmol/L Chloride 109 H (98-107) mmol/L Carbon Dioxide 34 H (22-30) mmol/L BUN 80 H (9-20) mg/dL Creatinine 1.99 H (0.66-1.25) mg/dL Glucose 159 H (74-99) mg/dL POC Glucose (mg/dL) 161 H (70-110) mg/dL Calcium 7.7 L (8.4-10.2) mg/dL Urine Protein (Negative) Urine Blood (Negative) Urine RBC (0-5) /hpf Urine Mucus (None) /hpf 02/09/23 02/09/23 02/09/23 Range/Units 05:58 09:20 12:54 RBC (4.30-5.90) m/uL Hct (39.0-53.0) % Plt Count (150-450) k/uL ABG pH 7.56 H* 7.50 H (7.35-7.45) ABG pO2 62 L 76 L (83-108) mmHg ABG HCO3 32 H 31 H (21-25) mmol/L ABG Total CO2 33 H 32 H (19-24) mmol/L ABG O2 Saturation 93.1 L (94-97) % Sodium (137-145) mmol/L Chloride (98-107) mmol/L Carbon Dioxide (22-30) mmol/L BUN (9-20) mg/dL Creatinine (0.66-1.25) mg/dL Glucose (74-99) mg/dL POC Glucose (mg/dL) 186 H (70-110) mg/dL Calcium (8.4-10.2) mg/dL Urine Protein (Negative) Urine Blood (Negative) Urine RBC (0-5) /hpf Urine Mucus (None) /hpf Microbiology - Last 24 Hours (Table) 02/06/23 22:00 Gram Stain - Final Sputum Sputum Culture - Final Assessment and Plan Assessment: Impression: Acute hypoxic respiratory failure, multifactorial Acute non-ST elevation myocardial infarction, status post stenting of tight ostial lesion SVG to diagonal, patient has chronically occluded LAD and RCA Ischemic cardiomyopathy with LV dysfunction and ejection fraction of 40% on most recent echocardiogram Acute pulmonary edema remains on Lasix drip at 10 mg per hour Moderate severe aortic insufficiency patient is status post aortic valve replacement/aortic valve bioprosthetic. With wide pulse pressure. Acute kidney injury, acute tubular necrosis Essential hypertension Possible anoxic brain injury, could not assess his mental status today the patient was extremely restless and agitated on a relatively low dose of propofol. Hypothyroidism Dyslipidemia Elevated pro calcitonin, underlying pneumonia is not entirely ruled out, felt to be less likely, nonetheless the patient remains on Zosyn Recommendation: Continue ventilatory support vent changes were made this morning Continue nutritional support/enteral feeding Continue hemodynamic support/pressors and titrate accordingly Continue Lasix drip for his pulmonary edema Start patient on Nimbex and continue propofol. Use Dilaudid when necessary. Continue aspirin and Plavix Repeat echocardiogram showed no evidence of pericardial effusion or tamponade Not quite ready for any weaning trials considering the overall clinical picture today. Continue GI and DVT prophylaxis Resume Zosyn since the patient is spiking fevers and recheck cultures continue to monitor renal status Patient is critically ill. Critical care time is over 30 minutes Time with Patient: Greater than 30
--- NOTE | 2023-02-09 14:55 | P.PN ---
Subjective Progress Note Date: 02/09/23 SUBJECTIVE: Patient is seen and examined at bedside the same. No acute overnight events. Doing well. Denies any chest pain or shortness of breath at this time. This is a 77-year-old gentleman who was admitted to the hospital with NSTEMI and cardiogenic shock requiring ventilator support for respiratory failure. He also to rule out acute renal failure. He underwent cardiac catheterization with and angioplasty of vein graft to the diagonal artery. Patient is on low-dose norepi nephrine drip to support his blood pressure. He has good output on Lasix drip. Physical examination Blood pressure 103/54, heart rate 110. Sinus tachycardia Head: Normocephalic. Eyes: Sclerae nonicteric. Lungs: ET tube in place, on vent support, good air entry bilateral lung field Heart: Regular rate and rhythm, grade 4/6 systolic murmur audible Abdomen: Soft nontender, hypoactive bowel sounds Extremities: 1+ pitting edema in his noticing bilateral lower extremity ASSESSMENT: 1. Ventilatory dependent respiratory failure 2. Cardiogenic shock 3. Non-ST segment elevation myocardial infarction PLAN: Continue aspirin and Plavix. Continue metoprolol 25 mg twice a day, losartan 100 mg daily and amlodipine 10 mg daily. We will slowly uptitrate his beta amor as his blood pressure and heart rate tolerates. Objective - Vital Signs Vital signs: Vital Signs Temp 102.1 F H 02/09/23 14:00 Pulse 110 H 02/09/23 14:00 Resp 30 H 02/09/23 14:00 BP 97/48 02/09/23 14:00 Pulse Ox 94 L 02/09/23 14:00 FiO2 50 02/09/23 12:00 Intake & Output 02/08/23 02/09/23 02/09/23 18:59 06:59 18:59 Intake Total 997.638 712.840 816.626 Output Total 915 740 440 Balance 82.638 -27.160 376.626 Weight 83 kg 83 kg Intake: IV 216 55 21 0.9 Normal Saline @ KVO 60 10 5 0.9% Pressure Bag 36 35 6 Furosemide 100 mg In 120 10 10 Sodium Chloride 0.9% 90 ml @ 10 MG/HR 10 mls/hr IV .Q10H [id number] Rx#: [id number] Intake, IV Titration 243.638 163.840 293.626 Amount Cisatracurium 200 mg In 11.288 Sodium Chloride 0.9% 180 ml @ 1 MCG/KG/MIN 4.98 mls/hr IV .Q24H [facility] Rx#: [id number] Furosemide 100 mg In 187.833 80.667 90.5 Sodium Chloride 0.9% 90 ml @ 10 MG/HR 10 mls/hr IV .Q10H [facility] Rx#: [id number] Norepinephrine 32 mg In 2.783 32.646 14.319 Sodium Chloride 0.9% 218 ml @ 0.03 MCG/KG/MIN 1. 133 mls/hr IV .Q24H [facility] Rx#:[id number] Piperacillin-Tazobactam 3 50 25 .375 gm In Sodium Chloride 0.9% 100 ml @ 25 mls/hr IVPB Q8H [facility] Rx#: [id number] Vasopressin 60 unit In 18.233 Sodium Chloride 0.9% 150 ml @ 0.03 UNITS/MIN 4.59 mls/hr IV .Q24H [facility] Rx#: [id number] propofoL 1,000 mg In 34.789 0.527 11.295 Empty Bag 1 bag @ 15 MCG/ KG/MIN 6.777 mls/hr IV . [id number] [facility] Rx#:[id number] propofoL 1,000 mg In 141.224 Empty Bag 1 bag @ 75 MCG/ KG/MIN 33.883 mls/hr IV . Q2H58M [facility] Rx#:[id number] Tube Feeding 408 374 272 Other 130 120 230 Output: Urine 915 740 440 Other: Voiding Method Indwelling Catheter Indwelling Catheter Indwelling Catheter ABP, PAP, CO, CI - Last Documented Arterial Blood Pressure 129/29 - Labs CBC & Chem 7: 02/09/23 04:05 02/09/23 04:05 Labs: Abnormal Lab Results - Last 24 Hours (Table) 02/08/23 02/09/23 02/09/23 Range/Units 17:49 00:08 04:05 RBC (4.30-5.90) m/uL Hct (39.0-53.0) % Plt Count (150-450) k/uL ABG pH (7.35-7.45) ABG pO2 (83-108) mmHg ABG HCO3 (21-25) mmol/L ABG Total CO2 (19-24) mmol/L ABG O2 Saturation (94-97) % Sodium (137-145) mmol/L Chloride (98-107) mmol/L Carbon Dioxide (22-30) mmol/L BUN (9-20) mg/dL Creatinine (0.66-1.25) mg/dL Glucose (74-99) mg/dL POC Glucose (mg/dL) 203 H 163 H (70-110) mg/dL Calcium (8.4-10.2) mg/dL Urine Protein 1+ H (Negative) Urine Blood Moderate H (Negative) Urine RBC 8 H (0-5) /hpf Urine Mucus Rare H (None) /hpf 02/09/23 02/09/23 02/09/23 Range/Units 04:05 04:05 05:50 RBC 3.73 L (4.30-5.90) m/uL Hct 37.2 L (39.0-53.0) % Plt Count 104 L (150-450) k/uL ABG pH (7.35-7.45) ABG pO2 (83-108) mmHg ABG HCO3 (21-25) mmol/L ABG Total CO2 (19-24) mmol/L ABG O2 Saturation (94-97) % Sodium 147 H (137-145) mmol/L Chloride 109 H (98-107) mmol/L Carbon Dioxide 34 H (22-30) mmol/L BUN 80 H (9-20) mg/dL Creatinine 1.99 H (0.66-1.25) mg/dL Glucose 159 H (74-99) mg/dL POC Glucose (mg/dL) 161 H (70-110) mg/dL Calcium 7.7 L (8.4-10.2) mg/dL Urine Protein (Negative) Urine Blood (Negative) Urine RBC (0-5) /hpf Urine Mucus (None) /hpf 02/09/23 02/09/23 02/09/23 Range/Units 05:58 09:20 12:54 RBC (4.30-5.90) m/uL Hct (39.0-53.0) % Plt Count (150-450) k/uL ABG pH 7.56 H* 7.50 H (7.35-7.45) ABG pO2 62 L 76 L (83-108) mmHg ABG HCO3 32 H 31 H (21-25) mmol/L ABG Total CO2 33 H 32 H (19-24) mmol/L ABG O2 Saturation 93.1 L (94-97) % Sodium (137-145) mmol/L Chloride (98-107) mmol/L Carbon Dioxide (22-30) mmol/L BUN (9-20) mg/dL Creatinine (0.66-1.25) mg/dL Glucose (74-99) mg/dL POC Glucose (mg/dL) 186 H (70-110) mg/dL Calcium (8.4-10.2) mg/dL Urine Protein (Negative) Urine Blood (Negative) Urine RBC (0-5) /hpf Urine Mucus (None) /hpf Microbiology - Last 24 Hours (Table) 02/06/23 22:00 Gram Stain - Final Sputum Sputum Culture - Final
[2023-02-09] MEDS ORDERED: ACETAMINOPHEN IV (For NPO) 1,000 MG in EMPTY BAG 1 BAG IVPB ONE (16:29)
[2023-02-09] MEDS ORDERED: DAPTOmycin 500 MG in SODIUM CHLORIDE 0.9% 50 ML IVPB SCH (17:00)
[2023-02-09] MEDS ORDERED: ACETAMINOPHEN IV (For NPO) 1,000 MG in EMPTY BAG 1 BAG IVPB SCH (18:00)
[2023-02-09] MEDS ORDERED: METOCLOPRAMIDE 5 MG/ML 2 ML VIAL IVP SCH (18:00)
[2023-02-09 18:09] LABS: Glucose,Whole Blood 203 mg/dL (70-110)
[2023-02-09] MEDS: SODIUM CHLORIDE 0.9% 80 ML with fentaNYL (PF) 1,000 MCG IV SCH ×2 (18:31)
--- NOTE | 2023-02-09 18:41 | P.PN ---
Progress Note - Text Progress Note Date: 02/09/23 Chief Complaint: Chest pain This is a pleasant 77-year-old patient who follows with Dr. Savage. Cartilage is Dr. Babin. Patient had a coronary bypass in 2009.. Aortic valve replacement. 4 aortic aneurysm repair. Patient also had a coronary stent. Yesterday evening patient was mowing his neighbors lawn, which had overgrown. When he finished he was feeling a pressure in his chest and achiness in the arm. He went home and laid down. Was unable to steep and took a sleeping pill to go to sleep around 2 AM. Woke up this morning with pain across the chest and also pain down the arms. Went and sat in the living room for some time. Finally decided to come in. EKG on presentation showed ST depression in inferolateral leads. Initial troponin I was 0.028. Related to his evening patient's chest pain had resurfaced. And repeat troponin came back at 8.1. Cardiology was informed. Patient has been a bit short of breath. 02/05/2023: Overnight patient did become short of breath. More. Placed on BiPAP. 100%. Was given Lasix. Patient was then intubated. Underwent cardiac catheterization. CHRONICALLY occluded LAD and RCA. Severe stenosis in the ostium of the SVG to the diagonal branch. Successful stenting of the ostium of the SVG to the diagonal branch. Currently intubated. FiO2 70 and a PEEP of 10. This included IV propofol, levo fed Lasix. 02/06/2023: Overnight patient dropped his blood pressure even more. Became more hypoxic. Was taken up to FiO2 100%. PEEP of 15. Sinus rhythm. Patient's current drips include IV heparin, vasopressin, propofol, levo fed, IV Lasix,. IV Zosyn was added for possible pneumonia. Patient's 2 daughters are aware about his condition and did talk to the nurse. Patient not a good candidate for impala/balloon pump because of aortic stenosis. Very poor urine output. Nephrology consulted. 02/07/23 : Patient seen and evaluated bedside, at this time patient is on IV vasopressors, patient on IV Lasix drip as well. On propofol for sedation. Intubated and sedated continues to remain critically ill managed in ICU 02/08/2023 : Patient evaluated bedside. IV vasopressors discontinued, continue on IV Lasix drip, patient off propofol sedation. Plan to try to wean off ventilator as tolerated 02/09/2023: ICU. Ventilated. FiO2 50 no PEEP of 8. Current drips include Nimbex, norepinephrine, propofol, IV Lasix drip. 2 feeding at 34 mL an hour. He has been bucking the vent. And some Nimbex. Has been making urine. Has been spiking fevers. Patient is a low no obvious drug that would cause the same. Patient started today on IV daptomycin IV Zosyn. Prognosis guarded. Chest x-ray reviewed by me showing possible infiltrate Active Medications Al Hydroxide/Mg Hydroxide (Mag Hydrox/Al Hydrox/Simeth 30 Ml Cup) 30 ml PO Q4HR PRN PRN Reason: Heartburn Albuterol/Ipratropium (Ipratropium-Albuterol 3 Ml Neb) 3 ml INHALATION RT-Q4H [facility] Last Admin: 02/09/23 15:20 Dose: 3 ml Albuterol/Ipratropium (Ipratropium-Albuterol 3 Ml Neb) 3 ml INHALATION RT-Q2H PRN PRN Reason: Shortness Of Breath Or Wheezing Last Admin: 02/06/23 04:16 Dose: 3 ml Alprazolam (Alprazolam 0.25 Mg Tab) 0.25 mg PO Q6HR PRN PRN Reason: Mild Anxiety Alprazolam (Alprazolam 0.5 Mg Tab) 0.5 mg PO Q6HR PRN PRN Reason: Moderate Anxiety Artificial Tears (Artificial Tears-Hypromellose Drops 15 Ml Btl) 2 drops BOTH EYES Q4HR [facility] Last Admin: 02/09/23 15:53 Dose: 2 drops Aspirin (Aspirin 81 Mg) 81 mg PO DAILY [facility] Last Admin: 02/09/23 08:00 Dose: 81 mg Atropine Sulfate (Atropine Sulfate 0.1 Mg/Ml 10ml Syringe) 0.5 mg IV ONCE PRN PRN Reason: Symptomatic Bradycardia Chlorhexidine Gluconate (Chlorhexidine Gluconate 15 Ml Cup) 15 ml MUCOUS MEM BID [facility] Last Admin: 02/09/23 08:00 Dose: 15 ml Cholecalciferol (Cholecalciferol 25 Mcg (1000 Iu) Tablet) 50 mcg PO DAILY [facility] Last Admin: 02/09/23 08:00 Dose: 50 mcg Clopidogrel Bisulfate (Clopidogrel 75 Mg Tab) 75 mg PO DAILY [facility]; Protocol Last Admin: 02/09/23 08:00 Dose: 75 mg Dextrose/Water (Dextrose 50% Syringe 50 Ml) 25 ml IVP PER PROTOCOL PRN; Protocol PRN Reason: Hypoglycemia Dextrose/Water (Dextrose 50% Syringe 50 Ml) 50 ml IVP PER PROTOCOL PRN; Protocol PRN Reason: Hypoglycemia Escitalopram Oxalate (Escitalopram 10 Mg Tab) 10 mg PO HS [facility] Last Admin: 02/08/23 20:28 Dose: 10 mg Heparin Sodium (Porcine) (Heparin Sodium,Porcine 5,000 Unit/Ml 1 Ml Vial) 5,000 unit SQ Q8HR [facility] Last Admin: 02/09/23 15:53 Dose: 5,000 unit Hydromorphone HCl (Hydromorphone 1 Mg/Ml 1 Ml Syringe) 1 mg IVP Q4HR PRN PRN Reason: Pain Last Admin: 02/08/23 20:25 Dose: 1 mg Vasopressin 60 unit/ Sodium (Chloride) 153 mls @ 4.59 mls/hr IV .Q24H [facility]; Protocol Last Admin: 02/09/23 05:23 Dose: Not Given Norepinephrine Bitartrate 32 (mg/ Sodium Chloride) 250 mls @ 1.133 mls/hr IV .Q24H [facility]; Protocol Last Titration: 02/09/23 18:24 Dose: 0.4 mcg/kg/min, 15.113 mls/hr Furosemide 100 mg/ Sodium (Chloride) 100 mls @ 10 mls/hr IV .Q10H [facility] Last Admin: 02/09/23 10:06 Dose: 10 mg/hr, 10 mls/hr Piperacillin Sod/Tazobactam (Sod 3.375 gm/ Sodium Chloride) 100 mls @ 25 mls/hr IVPB Q8H [facility]; Protocol Last Admin: 02/09/23 13:20 Dose: 25 mls/hr Propofol 1,000 mg/ IV Solution 100 mls @ 33.883 mls/hr IV .Q2H58M [facility]; Protocol Last Titration: 02/09/23 16:30 Dose: 75 mcg/kg/min, 33.883 mls/hr Daptomycin 500 mg/ Sodium (Chloride) 50 mls @ 100 mls/hr IVPB Q24H [facility]; Protocol Last Admin: 02/09/23 17:35 Dose: 100 mls/hr Acetaminophen 1,000 mg/ IV (Solution) 100 mls @ 400 mls/hr IVPB Q6HR PRN PRN Reason: Fever Fentanyl Citrate 1,000 mcg/ (Sodium Chloride) 100 mls @ 4.15 mls/hr IV .Q24H [facility] Last Admin: 02/09/23 18:31 Dose: 0.5 mcg/kg/hr, 4.15 mls/hr Insulin Aspart (Insulin Aspart (Novolog) 100 Unit/Ml Vial) 0 unit SQ Q6HR [facility]; Protocol Last Admin: 02/09/23 18:33 Dose: 4 unit Levothyroxine Sodium (Levothyroxine 88 Mcg Tab) 176 mcg PO SUFRSA [facility] Last Admin: 02/08/23 06:43 Dose: 176 mcg Levothyroxine Sodium (Levothyroxine 100 Mcg Tab) 200 mcg PO [id number] [facility] Last Admin: 02/09/23 06:31 Dose: 200 mcg Loratadine (Loratadine 10 Mg Tab) 10 mg PO DAILY [facility] Last Admin: 02/09/23 08:00 Dose: 10 mg Metoprolol Tartrate (Metoprolol Tartrate 12.5 Mg Tab) 12.5 mg PO BID [facility] Last Admin: 02/09/23 08:00 Dose: 12.5 mg Miscellaneous Information (Potassium Replacement Protocol 1 Each Misc) 1 each MISCELLANE DAILY PRN; Protocol PRN Reason: Per Protocol Multivitamins (Multivitamins, Thera 1 Each Tab) 1 each PO DAILY [facility] Last Admin: 02/09/23 08:00 Dose: 1 each Nitroglycerin (Nitroglycerin Sl Tabs 0.4 Mg Tab) 0.4 mg SUBLINGUAL Q5M PRN PRN Reason: Chest Pain Pantoprazole Sodium (Pantoprazole 40 Mg/10 Ml Vial) 40 mg IV DAILY [facility] Last Admin: 02/09/23 08:00 Dose: 40 mg Past medical history to include: Hyperlipidemia, osteoarthritis, hypothyroid, cardiac valve replacement, CAD with stent, coronary bypass in 2009, aortic aneurysm repair, bilateral rotator cuff repair, depression Social history: Lives alone. No smoking or alcohol Physical examination: VITAL SIGNS: 106.4, 114, 30, 05/53, 93% on ventilator GENERAL: In bed, intubated EYES: Pupils equal. Conjunctiva normal. HEENT: External appearance of nose and ears normal, oral cavity grossly normal. Endotracheal tube. OG tube. NECK: JVD unable to assess; masses not palpable. HEART: First and second heart sounds are normal; no edema. LUNGS: Respiratory rate increased; decreased breath sounds. ABDOMEN: Soft, nontender, liver spleen not palpable, no masses palpable. Hsu catheter. PSYCH: Patient sedated MUSCULOSKELETAL:No Clubbing/cyanosis;muscles-grossly intact. OA INVESTIGATIONS, reviewed in the clinical context: February 09: WBC 7.8 hemoglobin 13.1 platelets 104. ABG: PH 7.5 pCO2 40 pO2 76 sodium 147 potassium 3.8 BUN 80 creatinine 1.99 procalcitonin 1.06 February 06: White count 15 hemoglobin 14.2 platelets 107 potassium 4.9 BUN 54 creatinine 2.29. Troponin I 57.3. ProBNP 51000. Ionized calcium 4.1. February 05: ProBNP 50265. BUN 33 creatinine 1.46 2-D echocardiogram: EF 55-60%. AV prosthesis. Moderate to severe AI. Moderate TR. Moderate pulmonary hypertension. Moderate MR. COVID-19: Not detected White count 4.3 hemoglobin 14.6 platelets 102 sodium 137 potassium 4 BUN 24 creatinine 0.91 Troponin I 0.028, 8.1, 38.4 ProBNP 781 EKG tracing personally reviewed by me-ST segment depression in inferolateral leads. Chest x-ray film personally reviewed by me-possibly chronic infiltrates CT angiogram chest: No PE. Diffuse bilateral lung infiltrates. Assessment and plan: -Acute non-ST elevation myocardial infarction. Cardiac catheterization today by Dr. Babin: 1. Chronically occluded LAD and RCA 2. Severe stenosis in the ostium of the SVG to the diagonal branch 3. Right dominance 4. Successful stenting of the ostium of the SVG to the diagonal branch with reduction of stenosis from 90% to less than 5% -Acute pulmonary edema secondary to acute RI.: Not improving On Lasix drip. -Severe Sepsis with high temperatures. Neuroleptic malignant syndrome is being considered. But currently no obvious cause determined. Rather lean towards infectious cause currently. IV Zosyn, IV daptomycin -Acute kidney injury, ATN, oliguric: Multifactorial. Worsening Nephrology following -Cardiogenic shock: Not improving Currently on levo fed -Acute hypoxic respiratory failure, requiring ventilator assist: Slow to respond Intubated February 05. FiO2 50 %. PEEP of 8 -CAD with a prior history of stent coronary bypass Lipitor. Plavix. -Hyperlipidemia Lipitor -Metabolic alkalosis possibly from volume contraction. Add Diamox. Patient is on IV Lasix drip. -Hypernatremia from volume contraction. Follow lites closely. -BPH Cardura 2 mg daily at bedtime, currently held -Depression Lexapro 10 mg bupropion . Hypothyroid Synthroid -Full code ICU. Multiple IV fluids. IV vancomycin and IV Zosyn. On multiple pressors. Not doing well. Prognosis guarded. Follow-up with multiple consultants. Patient has been pancultured.
[2023-02-09] MEDS: ACETAMINOPHEN IV (For NPO) 1,000 MG in EMPTY BAG 1 BAG IVPB PRN (20:28)
--- NOTE | 2023-02-09 20:29 | P.CONS ---
History of Present Illness - Reason for Consult Consult date: 02/09/23 - History of Present Illness Patient is a 77-year old male with multiple comorbidities presenting to the hospital on 02/04/2023 for chest pain patient was diagnosed with MA admitted with 3 S. and has been treated with heparin and nitro drips limit the patient become more short of breath brought to the ICU. Did have frothy pink sputum initially tried on BiPAP and Lasix subsequently taken to the Poultry Scientist with the patient got intubated patient did have a cardiac cath with 100% LAD status post stenting by Dr. Clark, patient did have a left subclavian triple- lumen catheter today with a hematoma that was subsequently discontinued patient has been in the ICU and the patient was taken off the pressor support yesterday however last night the patient did spike fever of 102 Fahrenheit subsequently did have a temperature of 107 F rectal patient was hypotensive requiring pressor support tachycardic, FiO2 50% no significant purulent secretions through the ET, no vomiting diarrhea or any other changes were reported by the nursing staff, patient was restarted on Zosyn infectious disease was consulted for further management of reported therapy most information has been obtained from review the chart and nursing staff as the patient is currently intubated in the milligram providing history patient did have a central line and art line however the site looks clean no evidence of any erythema or purulence patient did have a normal white count, patient did have a normal creatinine admission which went up to 2.29 however it is down to 1.99 Pro-Rancho 1.06 urine did not show any WBC COVID testing was negative on admission chest x-ray vascular prominence with diffuse increased lung markings at the right lower lobe Past Medical History Past Medical History: Eye Disorder, Hyperlipidemia, Myocardial Infarction (non Q-wave), Osteoarthritis (OA), Prostate Disorder, Thyroid Disorder Additional Past Medical History / Comment(s): hx migrianes, hx hiatal hernia Last Myocardial Infarction Date:: 05/01/2000 History of Any Multi-Drug Resistant Organisms: None Reported Past Surgical History: Cardiac Valve Replacement, Coronary Bypass/CABG, Heart Catheterization With Stent, Orthopedic Surgery Additional Past Surgical History / Comment(s): CABG-1999-"has chest wire and 5 loose dedra", double bypass, aortic valve replacement and aortic aneurysm rep air , FATTY TUMOR REMOVED FROM JAW, GANGLION CYST RT RING FINGER, BILAT ROTATOR CUFF REPAIR (rt x3, lt x 1) titanium anchor, LUNA cataract removal, rt foot hammertoe, steroid injections in back for pain Past Anesthesia/Blood Transfusion Reactions: No Reported Reaction Date of Last Stent Placement:: 01/14/13 Past Psychological History: Depression Smoking Status: Never smoker Past Alcohol Use History: None Reported Additional Past Alcohol Use History / Comment(s): 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 Past Drug Use History: None Reported - Past Family History Father Family Medical History: Cancer Mother Family Medical History: Congestive Heart Failure (CHF) Brother(s) Family Medical History: Myocardial Infarction (MA) Medications and Allergies Home Medications Medication Instructions Recorded Confirmed Type Atorvastatin [Lipitor] 80 mg PO HS 07/05/14 02/04/23 History Doxazosin [Cardura] 2 mg PO HS 07/05/14 02/04/23 History buPROPion SR [Wellbutrin SR] 150 mg PO BID 07/05/14 02/04/23 History Levothyroxine Sodium [Synthroid] 175 mcg PO SUFRSA 05/16/19 02/04/23 History Nitroglycerin Sl Tabs [Nitrostat] 0.4 mg SUBLINGUAL Q5M PRN #25 tab 05/18/19 02/04/23 Rx Aspirin EC [Ecotrin Low Dose] 81 mg PO DAILY 06/04/20 02/04/23 History Glucosamine/Chondr Jacobs A Sod [Osteo 1 tab PO DAILY 06/04/20 02/04/23 History Bi-Flex Caplet] Levothyroxine Sodium [Synthroid] 200 mcg PO MOTUWETH 06/04/20 02/04/23 History Niacin 500 mg PO HS 06/04/20 02/04/23 History Furosemide [Lasix] 20 mg PO DAILY #90 tab 06/06/20 02/04/23 Rx Ipratropium Howe 0.06%Nasal 2 spray EA NOSTRIL TID 05/06/21 02/04/23 History [Atrovent Nasal 0.06%] Cholecalciferol [Vitamin D3 (25 50 mcg PO DAILY 02/04/23 02/04/23 History Mcg = 1000 Iu)] Clopidogrel [Plavix] 37.5 mg PO DAILY 02/04/23 02/04/23 History Escitalopram [Lexapro] 10 mg PO HS 02/04/23 02/04/23 History Fexofenadine HCl 180 mg PO DAILY 02/04/23 02/04/23 History Multivitamins, Thera [Multivitamin 1 tab PO DAILY 02/04/23 02/04/23 History (formulary)] Allergies Allergy/AdvReac Type Severity Reaction Status Date / Time black walnut Allergy Unknown Verified 02/04/23 12:15 cromolyn sodium AdvReac fungal Verified 02/04/23 12:15 [From Nasalcrom] infection on tongue Physical Exam Vitals: Vital Signs Temp Pulse Resp BP Pulse Ox FiO2 02/09/23 15:32 110 H 02/09/23 15:29 50 02/09/23 15:21 108 H 02/09/23 15:15 105 H 30 H 92/64 88 L 02/09/23 15:00 105 H 30 H 91/63 93 L 50 02/09/23 14:45 107 H 30 H 90/46 94 L 02/09/23 14:30 110 H 30 H 98/49 91 L 02/09/23 14:15 109 H 30 H 97/48 94 L 02/09/23 14:00 102.1 F H 110 H 30 H 97/48 94 L 50 02/09/23 13:45 111 H 30 H 105/53 94 L 02/09/23 13:30 111 H 30 H 106/56 94 L 02/09/23 13:15 111 H 30 H 107/54 50 02/09/23 13:00 111 H 30 H 103/54 94 L 02/09/23 12:45 111 H 30 H 104/49 94 L 02/09/23 12:30 109 H 30 H 103/49 94 L 02/09/23 12:20 114 H 02/09/23 12:15 111 H 30 H 102/52 95 02/09/23 12:00 102.1 F H 111 H 30 H 104/53 95 50 02/09/23 11:45 111 H 30 H 104/53 95 02/09/23 11:41 112 H 50 02/09/23 11:30 112 H 30 H 105/54 95 02/09/23 11:15 112 H 30 H 105/54 96 02/09/23 11:00 112 H 24 104/54 95 02/09/23 10:45 112 H 30 H 104/54 96 02/09/23 10:30 112 H 30 H 106/53 96 02/09/23 10:15 112 H 30 H 104/55 95 02/09/23 10:00 99.5 F 112 H 30 H 105/52 95 50 02/09/23 09:45 112 H 30 H 101/54 95 02/09/23 09:30 112 H 30 H 108/56 96 02/09/23 09:15 112 H 30 H 99/53 95 02/09/23 09:00 100.7 F H 112 H 30 H 105/54 96 02/09/23 08:45 114 H 30 H 107/55 95 02/09/23 08:30 101.3 F H 113 H 41 H 109/56 94 L 02/09/23 08:15 113 H 109/56 95 02/09/23 08:06 114 H 02/09/23 08:00 114 H 37 H 115/57 94 L 40 02/09/23 07:53 114 H 40 02/09/23 07:45 114 H 93 L 02/09/23 07:30 115 H 37 H 94 L 02/09/23 07:15 116 H 34 H 115/57 94 L 02/09/23 07:00 118 H 34 H 117/58 93 L 40 02/09/23 06:30 120 H 34 H 117/58 92 L 02/09/23 06:00 101.3 F H 118 H 33 H 118/58 92 L 02/09/23 05:30 116 H 34 H 118/58 93 L 02/09/23 05:00 116 H 36 H 117/58 93 L 02/09/23 04:30 116 H 34 H 117/58 93 L 02/09/23 04:24 116 H 02/09/23 04:09 116 H 02/09/23 04:02 40 02/09/23 04:00 116 H 34 H 118/55 93 L 40 02/09/23 03:30 102.0 F H 116 H 26 H 118/55 97 02/09/23 03:00 117 H 31 H 117/57 93 L 40 02/09/23 02:00 118 H 30 H 112/56 92 L 02/09/23 01:00 113 H 33 H 99/48 95 40 02/09/23 00:26 110 H 02/09/23 00:16 40 02/09/23 00:15 109 H 02/09/23 00:00 100 F H 108 H 28 H 100/51 97 40 02/08/23 23:07 105 H 28 H 100/51 97 02/08/23 23:00 105 H 26 H 102/50 97 02/08/23 22:00 102 H 27 H 107/53 97 02/08/23 21:00 105 H 25 H 104/52 97 40 02/08/23 20:11 107 H 02/08/23 20:00 99.8 F H 106 H 34 H 103/49 97 40 02/08/23 19:59 40 02/08/23 19:00 106 H 32 H 103/53 97 40 02/08/23 18:00 106 H 32 H 101/51 97 40 02/08/23 17:00 107 H 30 H 98 40 Intake and Output 02/09/23 02/09/23 02/09/23 06:59 14:59 22:59 Intake Total 547.227 914.454 380.283 Output Total 490 440 70 Balance 57.227 474.454 310.283 Intake: IV 24 93 36 0.9 Normal Saline @ KVO 25 10 0.9% Pressure Bag 24 18 6 Furosemide 100 mg In 50 20 Sodium Chloride 0.9% 90 ml @ 10 MG/HR 10 mls/hr IV .Q10H [facility] Rx#: [id number] Intake, IV Titration 161.227 319.454 76.283 Amount Cisatracurium 200 mg In 11.288 Sodium Chloride 0.9% 180 ml @ 1 MCG/KG/MIN 4.98 mls/hr IV .Q24H [facility] Rx#: [id number] Furosemide 100 mg In 80.667 90.5 Sodium Chloride 0.9% 90 ml @ 10 MG/HR 10 mls/hr IV .Q10H [facility] Rx#: [id number] Norepinephrine 32 mg In 30.033 40.147 2.305 Sodium Chloride 0.9% 218 ml @ 0.03 MCG/KG/MIN 1. 133 mls/hr IV .Q24H [facility] Rx#:[id number] Piperacillin-Tazobactam 3 50 25 .375 gm In Sodium Chloride 0.9% 100 ml @ 25 mls/hr IVPB Q8H [facility] Rx#: [id number] propofoL 1,000 mg In 0.527 11.295 Empty Bag 1 bag @ 15 MCG/ KG/MIN 6.777 mls/hr IV . [id number] [facility] Rx#:[id number] propofoL 1,000 mg In 141.224 73.978 Empty Bag 1 bag @ 75 MCG/ KG/MIN 33.883 mls/hr IV . Q2H58M [facility] Rx#:[id number] Tube Feeding 272 272 68 Other 90 230 200 Output: Urine 490 440 70 Other: Voiding Method Indwelling Catheter Indwelling Catheter Weight 83 kg 83 kg ABP, PAP, CO, CI - Last 8 Hours Arterial Blood Pressure 111/28 Arterial Blood Pressure 119/30 Arterial Blood Pressure 85/33 Arterial Blood Pressure 123/29 Arterial Blood Pressure 103/31 Arterial Blood Pressure 129/29 Arterial Blood Pressure 114/31 Arterial Blood Pressure 134/31 Arterial Blood Pressure 135/29 Arterial Blood Pressure 129/29 Arterial Blood Pressure 127/31 Arterial Blood Pressure 128/30 Arterial Blood Pressure 127/31 Arterial Blood Pressure 127/31 Arterial Blood Pressure 127/31 Arterial Blood Pressure 129/32 Arterial Blood Pressure 129/32 Arterial Blood Pressure 128/32 Arterial Blood Pressure 127/31 Arterial Blood Pressure 127/31 Arterial Blood Pressure 123/28 Arterial Blood Pressure 128/30 Arterial Blood Pressure 126/29 Arterial Blood Pressure 117/28 Arterial Blood Pressure 128/30 Arterial Blood Pressure 124/30 Arterial Blood Pressure 128/31 Arterial Blood Pressure 131/33 Results CBC & Chem 7: 02/10/23 04:30 02/10/23 04:30 Labs: Abnormal Lab Results - Last 24 Hours (Table) 02/08/23 02/09/23 02/09/23 Range/Units 17:49 00:08 04:05 RBC (4.30-5.90) m/uL Hct (39.0-53.0) % Plt Count (150-450) k/uL ABG pH (7.35-7.45) ABG pO2 (83-108) mmHg ABG HCO3 (21-25) mmol/L ABG Total CO2 (19-24) mmol/L ABG O2 Saturation (94-97) % Sodium (137-145) mmol/L Chloride (98-107) mmol/L Carbon Dioxide (22-30) mmol/L BUN (9-20) mg/dL Creatinine (0.66-1.25) mg/dL Glucose (74-99) mg/dL POC Glucose (mg/dL) 203 H 163 H (70-110) mg/dL Calcium (8.4-10.2) mg/dL Procalcitonin (0.02-0.09) ng/mL Urine Protein 1+ H (Negative) Urine Blood Moderate H (Negative) Urine RBC 8 H (0-5) /hpf Urine Mucus Rare H (None) /hpf 02/09/23 02/09/23 02/09/23 Range/Units 04:05 04:05 04:05 RBC 3.73 L (4.30-5.90) m/uL Hct 37.2 L (39.0-53.0) % Plt Count 104 L (150-450) k/uL ABG pH (7.35-7.45) ABG pO2 (83-108) mmHg ABG HCO3 (21-25) mmol/L ABG Total CO2 (19-24) mmol/L ABG O2 Saturation (94-97) % Sodium 147 H (137-145) mmol/L Chloride 109 H (98-107) mmol/L Carbon Dioxide 34 H (22-30) mmol/L BUN 80 H (9-20) mg/dL Creatinine 1.99 H (0.66-1.25) mg/dL Glucose 159 H (74-99) mg/dL POC Glucose (mg/dL) (70-110) mg/dL Calcium 7.7 L (8.4-10.2) mg/dL Procalcitonin 1.06 H (0.02-0.09) ng/mL Urine Protein (Negative) Urine Blood (Negative) Urine RBC (0-5) /hpf Urine Mucus (None) /hpf 02/09/23 02/09/23 02/09/23 Range/Units 05:50 05:58 09:20 RBC (4.30-5.90) m/uL Hct (39.0-53.0) % Plt Count (150-450) k/uL ABG pH 7.56 H* 7.50 H (7.35-7.45) ABG pO2 62 L 76 L (83-108) mmHg ABG HCO3 32 H 31 H (21-25) mmol/L ABG Total CO2 33 H 32 H (19-24) mmol/L ABG O2 Saturation 93.1 L (94-97) % Sodium (137-145) mmol/L Chloride (98-107) mmol/L Carbon Dioxide (22-30) mmol/L BUN (9-20) mg/dL Creatinine (0.66-1.25) mg/dL Glucose (74-99) mg/dL POC Glucose (mg/dL) 161 H (70-110) mg/dL Calcium (8.4-10.2) mg/dL Procalcitonin (0.02-0.09) ng/mL Urine Protein (Negative) Urine Blood (Negative) Urine RBC (0-5) /hpf Urine Mucus (None) /hpf 02/09/23 Range/Units 12:54 RBC (4.30-5.90) m/uL Hct (39.0-53.0) % Plt Count (150-450) k/uL ABG pH (7.35-7.45) ABG pO2 (83-108) mmHg ABG HCO3 (21-25) mmol/L ABG Total CO2 (19-24) mmol/L ABG O2 Saturation (94-97) % Sodium (137-145) mmol/L Chloride (98-107) mmol/L Carbon Dioxide (22-30) mmol/L BUN (9-20) mg/dL Creatinine (0.66-1.25) mg/dL Glucose (74-99) mg/dL POC Glucose (mg/dL) 186 H (70-110) mg/dL Calcium (8.4-10.2) mg/dL Procalcitonin (0.02-0.09) ng/mL Urine Protein (Negative) Urine Blood (Negative) Urine RBC (0-5) /hpf Urine Mucus (None) /hpf Microbiology - Last 24 Hours (Table) 02/06/23 22:00 Gram Stain - Final Sputum Sputum Culture - Final Assessment and Plan Plan: 1patient with SIRS/sepsis in this patient with a fever tachycardia source questionably line related pneumonia less likely but not had excluded in this patient currently on the vent for the last 5 days 2-we will obtain blood cultures from the central line peripheral blood pressure has been obtained 3-we will obtain sputum for Gram stain culture 4-continue with Zosyn and daptomycin while waiting for the culture to finalize We will follow on clinical condition and cultures to further adjust medication if needed Thank you for this consultation we will follow the patient along with you Dictation was produced using [employer] dictation software. please excuse any grammatical, word or spelling errors. Time with Patient: Greater than 30
[2023-02-09] MEDS: METOPROLOL TARTRATE 25 MG TAB PO SCH (20:32)
[2023-02-09] MEDS: RANOLAZINE 500 MG TAB.ER.12H PO SCH (20:32)
[2023-02-09] MEDS: ESCITALOPRAM 10 MG TAB PO SCH (21:42)
[2023-02-09] MEDS ORDERED: HYDROCORTISONE SUCCINATE 100 MG/2 ML VIAL IV STA (23:26)
[2023-02-09 23:47] LABS: Glucose,Whole Blood 177 mg/dL (70-110)
[2023-02-10] MEDS: IPRATROPIUM-ALBUTEROL 3 ML NEB INHALATION SCH ×6 (00:05→19:56)
[2023-02-10 00:11] LABS: Appearance,Urine Cloudy (Clear); Bilirubin,Urine Negative (Negative); Blood,Urine Large (Negative); Color,Urine Light Red; Glucose,Urine (UA) Negative (Negative); Ketones,Urine Negative (Negative); Leukocyte Esterase,Urine Negative (Negative); Mucus,Urine Rare /hpf; Nitrite,Urine Negative (Negative); Protein,Urine 1+ (Negative); RBC,Urine 124 /hpf (0-5); Specific Gravity,Urine 1.023 (1.001-1.035); Squamous Epithelial Cell,Urine <1 /hpf (0-4); Urobilinogen,Urine <2.0 mg/dL (<2.0); WBC,Urine 1 /hpf (0-5)
[2023-02-10] MEDS: HEPARIN SODIUM,PORCINE 5,000 UNIT/ML 1 ML VIAL SQ SCH ×3 (00:31→15:19)
[2023-02-10] MEDS: ARTIFICIAL TEARS-HYPROMELLOSE DROPS 15 ML BTL BOTH EYES SCH ×6 (00:31→15:19)
[2023-02-10] MEDS: INSULIN ASPART (NovoLOG) 100 UNIT/ML VIAL SQ SCH ×4 (00:32→18:06)
[2023-02-10] MEDS: VASOPRESSIN 60 UNIT in SODIUM CHLORIDE 0.9% 150 ML IV SCH (01:23)
[2023-02-10] MEDS: FUROSEMIDE 100 MG in SODIUM CHLORIDE 0.9% 90 ML IV SCH (01:54)
[2023-02-10] MEDS: ACETAMINOPHEN IV (For NPO) 1,000 MG in EMPTY BAG 1 BAG IVPB PRN (02:28)
[2023-02-10] MEDS: PIPERACILLIN-TAZOBACTAM 3.375 GM in SODIUM CHLORIDE 0.9% 100 ML IVPB SCH (04:41)
[2023-02-10 04:47] LABS: Basophils # (A) 0.1 k/uL (0-0.2); Basophils % (A) 0 %; Eosinophils # (A) 0.1 k/uL (0-0.7); Eosinophils % (A) 0 %; HCT 41.7 % (39.0-53.0); Lymphocytes % (A) 6 %; MCH 34.3 pg (25.0-35.0); MCHC 33.6 g/dL (31.0-37.0); MCV 102.2 fL (80.0-100.0); Macrocytosis Slight; Mean Platelet Volume 10.1; Monocytes # (A) 0.7 k/uL (0-1.0); Monocytes % (A) 5 %; Neutrophils # (A) 14.3 k/uL (1.3-7.7); Neutrophils % (A) 88 %; Platelet Count 118 k/uL (150-450); RBC 4.08 m/uL (4.30-5.90); RDW 13.5 % (11.5-15.5); WBC 16.3 k/uL (3.8-10.6)
[2023-02-10 05:23] LABS: African American GFR (CKD) 17 (>60 ml/min/1.73 sqM); Albumin 2.7 g/dL (3.5-5.0); Alkaline Phosphatase 77 U/L (38-126); Anion Gap 15 mmol/L; Calcium 7.3 mg/dL (8.4-10.2); Carbon Dioxide 23 mmol/L (22-30); Chloride 108 mmol/L (98-107); Glucose 158 mg/dL (74-99); Non-African American GFR(CKD) 15 (>60 ml/min/1.73 sqM); Sodium 146 mmol/L (137-145); Total Bilirubin 1.7 mg/dL (0.2-1.3); Total Protein 5.1 g/dL (6.3-8.2)
[2023-02-10 05:26] LABS: Glucose,Whole Blood 176 mg/dL (70-110)
[2023-02-10] MEDS: LEVOTHYROXINE 100 MCG TAB PO SCH (05:44)
[2023-02-10 05:48] LABS: ABG Base Excess -1.8 mmol/L; ABG HCO3 23 mmol/L (21-25); ABG Oxygen Saturation 91.8 % (94-97); ABG PCO2 38 mmHg (35-45); ABG PO2 69 mmHg (83-108); ABG TCO2 24 mmol/L (19-24); Allen Test Performed? Yes
[2023-02-10 06:06] LABS: Blood Urea Nitrogen 102 mg/dL (9-20)
[2023-02-10 06:07] LABS: C Reactive Protein 6.2 mg/dL (<1.0)
[2023-02-10 06:09] LABS: ALT 2178 U/L (4-49); AST 4232 U/L (17-59)
--- NOTE | 2023-02-10 08:18 | XR ---
EXAMINATION TYPE: XR chest 1V portable DATE OF EXAM: 02/10/2023 COMPARISON: 02/09/2023 HISTORY: SOB, Follow Up FINDINGS: Indwelling tubes and catheters are unchanged. Worsening scattered infiltrates throughout the right lung greatest at the right lung base. Increased density left medial lung base with small effusions present. Stable appearance of the cardio-mediastinal structures at this time. Pleural effusion unchanged. IMPRESSION: 1. Worsening scattered infiltrates throughout the right lung greatest at the right lung base. Increa sed density left medial lung base with small effusions present.
[2023-02-10] MEDS: NOREPINEPHRINE 32 MG in SODIUM CHLORIDE 0.9% 218 ML IV SCH ×2 (09:11→18:27)
[2023-02-10] MEDS: CHOLECALCIFEROL 25 MCG (1000 IU) TABLET PO SCH (09:31)
[2023-02-10] MEDS: CLOPIDOGREL 75 MG TAB PO SCH (09:31)
[2023-02-10] MEDS: METOPROLOL TARTRATE 12.5 MG TAB PO SCH (09:31)
[2023-02-10] MEDS: LORATADINE 10 MG TAB PO SCH (09:31)
[2023-02-10] MEDS: CHLORHEXIDINE GLUCONATE 15 ML CUP MUCOUS MEM SCH (09:31)
[2023-02-10] MEDS: ASPIRIN 81 MG PO SCH (09:31)
[2023-02-10] MEDS: MULTIVITAMINS, THERA 1 EACH TAB PO SCH (09:32)
[2023-02-10] MEDS: PANTOPRAZOLE 40 MG/10 ML VIAL IV SCH (09:32)
--- NOTE | 2023-02-10 10:07 | P.PN ---
Progress Note - Text Patient remains intubated He was admitted to the hospital with a non-ST elevation AL and cardiac shock Subsequently he underwent cardiac catheterization with stenting of the vein graft to the diagonal artery He remains ventilator dependent He also spiked a fever and blood cultures are awaited On examination respiratory rate 30, pulse rate in the 90s afebrile at this time Blood pressure 97/ 52 mmHg Heart sounds S1 and S2 are soft Impression Non-ST elevation AL status post stenting to the SVG to the diagonal vessel Remains in critical condition with multiorgan failure He was also febrile and blood cultures sent, results awaited Suggest continue supportive care for now Overall prognosis is very guarded, condition critical
--- NOTE | 2023-02-10 10:59 | P.PN ---
Subjective Patient is seen in follow-up for acute kidney injury. Renal function worse. Oliguric. Became hypotensive and also spiked a fever yesterday evening. Currently on max dose of Levophed and vasopressin. Lasix drip stopped this morning. Intubated. Receiving tube feeds. Sodium level 146. Vital signs are stable. On vasopressor support. General: Resting in bed. HEENT: Intubated. LUNGS: Scattered rhonchi. HEART: Rate and Rhythm are regular. ABDOMEN: No distention. EXTREMITITES: No edema. Objective - Vital Signs Vital signs: Vital Signs Temp 37.5 F L 02/10/23 08:00 Pulse 96 02/10/23 09:00 Resp 30 H 02/10/23 09:00 BP 101/42 02/10/23 09:00 Pulse Ox 100 02/10/23 09:00 FiO2 50 02/10/23 09:00 Intake & Output 02/09/23 02/10/23 02/10/23 18:59 06:59 18:59 Intake Total 8001.117 6545.061 267.977 Output Total 585 143 42 Balance 6455.279 1734.061 225.977 Weight 83 kg 88 kg Intake: IV 145 328 18 0.9 Normal Saline @ KVO 45 70 0.9% Pressure Bag 30 48 18 Furosemide 100 mg In 70 10 Sodium Chloride 0.9% 90 ml @ 10 MG/HR 10 mls/hr IV .Q10H [facility] Rx#: [id number] Piperacillin-Tazobactam 3 200 .375 gm In Sodium Chloride 0.9% 100 ml @ 25 mls/hr IVPB Q12HR [facility] Rx #:[id number] Intake, IV Titration 656.096 685.061 219.977 Amount Cisatracurium 200 mg In 142.677 Sodium Chloride 0.9% 180 ml @ 1 MCG/KG/MIN 4.98 mls/hr IV .Q24H [facility] Rx#: [id number] Furosemide 100 mg In 90.5 158.000 Sodium Chloride 0.9% 90 ml @ 10 MG/HR 10 mls/hr IV .Q10H [facility] Rx#: [id number] Norepinephrine 32 mg In 71.008 101.633 219.977 Sodium Chloride 0.9% 218 ml @ 0.03 MCG/KG/MIN 1. 133 mls/hr IV .Q24H [facility] Rx#:[id number] Piperacillin-Tazobactam 3 25 .375 gm In Sodium Chloride 0.9% 100 ml @ 25 mls/hr IVPB Q8H [facility] Rx#: [id number] Vasopressin 60 unit In 18.742 Sodium Chloride 0.9% 150 ml @ 0.03 UNITS/MIN 4.59 mls/hr IV .Q24H [facility] Rx#: [id number] propofoL 1,000 mg In 11.295 Empty Bag 1 bag @ 15 MCG/ KG/MIN 6.777 mls/hr IV . [id number] [facility] Rx#:[id number] propofoL 1,000 mg In 315.616 406.686 Empty Bag 1 bag @ 75 MCG/ KG/MIN 33.883 mls/hr IV . Q2H58M [facility] Rx#:[id number] Tube Feeding 408 110 30 Other 430 600 Output: Urine 585 143 42 Other: Voiding Method Indwelling Catheter Indwelling Catheter ABP, PAP, CO, CI - Last Documented Arterial Blood Pressure 106/45 - Labs CBC & Chem 7: 02/10/23 04:30 02/10/23 04:30 Labs: Abnormal Lab Results - Last 24 Hours (Table) 02/09/23 02/09/23 02/09/23 Range/Units 04:05 12:54 18:08 WBC (3.8-10.6) k/uL RBC (4.30-5.90) m/uL MCV (80.0-100.0) fL Plt Count (150-450) k/uL Neutrophils # (1.3-7.7) k/uL ABG pO2 (83-108) mmHg ABG O2 Saturation (94-97) % Sodium (137-145) mmol/L Chloride (98-107) mmol/L BUN (9-20) mg/dL Creatinine (0.66-1.25) mg/dL Glucose (74-99) mg/dL POC Glucose (mg/dL) 186 H 203 H (70-110) mg/dL Calcium (8.4-10.2) mg/dL Total Bilirubin (0.2-1.3) mg/dL AST (17-59) U/L ALT (4-49) U/L Creatine Kinase (55-170) U/L C-Reactive Protein (<1.0) mg/dL Total Protein (6.3-8.2) g/dL Albumin (3.5-5.0) g/dL Procalcitonin 1.06 H (0.02-0.09) ng/mL Urine Protein (Negative) Urine Blood (Negative) Urine RBC (0-5) /hpf Urine Mucus (None) /hpf 02/09/23 02/09/23 02/09/23 Range/Units 23:15 23:16 23:45 WBC (3.8-10.6) k/uL RBC (4.30-5.90) m/uL MCV (80.0-100.0) fL Plt Count (150-450) k/uL Neutrophils # (1.3-7.7) k/uL ABG pO2 (83-108) mmHg ABG O2 Saturation (94-97) % Sodium (137-145) mmol/L Chloride (98-107) mmol/L BUN (9-20) mg/dL Creatinine (0.66-1.25) mg/dL Glucose (74-99) mg/dL POC Glucose (mg/dL) 177 H (70-110) mg/dL Calcium (8.4-10.2) mg/dL Total Bilirubin (0.2-1.3) mg/dL AST (17-59) U/L ALT (4-49) U/L Creatine Kinase 577 H (55-170) U/L C-Reactive Protein (<1.0) mg/dL Total Protein (6.3-8.2) g/dL Albumin (3.5-5.0) g/dL Procalcitonin (0.02-0.09) ng/mL Urine Protein 1+ H (Negative) Urine Blood Large H (Negative) Urine RBC 124 H (0-5) /hpf Urine Mucus Rare H (None) /hpf 02/10/23 02/10/23 02/10/23 Range/Units 04:30 04:30 05:24 WBC 16.3 H (3.8-10.6) k/uL RBC 4.08 L (4.30-5.90) m/uL MCV 102.2 H (80.0-100.0) fL Plt Count 118 L (150-450) k/uL Neutrophils # 14.3 H (1.3-7.7) k/uL ABG pO2 (83-108) mmHg ABG O2 Saturation (94-97) % Sodium 146 H (137-145) mmol/L Chloride 108 H (98-107) mmol/L BUN 102 H* (9-20) mg/dL Creatinine 3.70 H (0.66-1.25) mg/dL Glucose 158 H (74-99) mg/dL POC Glucose (mg/dL) 176 H (70-110) mg/dL Calcium 7.3 L (8.4-10.2) mg/dL Total Bilirubin 1.7 H (0.2-1.3) mg/dL AST 4232 H (17-59) U/L ALT 2178 H (4-49) U/L Creatine Kinase (55-170) U/L C-Reactive Protein 6.2 H (<1.0) mg/dL Total Protein 5.1 L (6.3-8.2) g/dL Albumin 2.7 L (3.5-5.0) g/dL Procalcitonin (0.02-0.09) ng/mL Urine Protein (Negative) Urine Blood (Negative) Urine RBC (0-5) /hpf Urine Mucus (None) /hpf 02/10/23 Range/Units 05:45 WBC (3.8-10.6) k/uL RBC (4.30-5.90) m/uL MCV (80.0-100.0) fL Plt Count (150-450) k/uL Neutrophils # (1.3-7.7) k/uL ABG pO2 69 L (83-108) mmHg ABG O2 Saturation 91.8 L (94-97) % Sodium (137-145) mmol/L Chloride (98-107) mmol/L BUN (9-20) mg/dL Creatinine (0.66-1.25) mg/dL Glucose (74-99) mg/dL POC Glucose (mg/dL) (70-110) mg/dL Calcium (8.4-10.2) mg/dL Total Bilirubin (0.2-1.3) mg/dL AST (17-59) U/L ALT (4-49) U/L Creatine Kinase (55-170) U/L C-Reactive Protein (<1.0) mg/dL Total Protein (6.3-8.2) g/dL Albumin (3.5-5.0) g/dL Procalcitonin (0.02-0.09) ng/mL Urine Protein (Negative) Urine Blood (Negative) Urine RBC (0-5) /hpf Urine Mucus (None) /hpf Microbiology - Last 24 Hours (Table) 02/06/23 22:00 Gram Stain - Final Sputum Sputum Culture - Final Assessment and Plan Plan: Assessment: 1. Acute kidney injury secondary to ATN secondary to cardiogenic shock and contrast-induced acute kidney injury. Patient received IV contrast for cardiac catheterization on 02/05/2023. Oliguric. Creatinine 3.7 today. Baseline creatinine near 1. No hydronephrosis noted on ultrasound. Left kidney not visualized due to patient's position. 2. Acute NSTEMI status post cardiac catheterization with stenting of the LAD on 03/04/2023. 3. History of coronary artery disease status post CABG. 4. Acute systolic CHF with ejection fraction of 40-45% with moderate to severe aortic regurgitation and moderate mitral regurgitation. 5. Volume overload. 6. Cardiogenic/septic shock. On Levophed and vasopressin. 7. Hypernatremia from the oral water intake. Improving with water flushes. 8. Respiratory and metabolic alkalosis. Vent settings adjusted. Also received IV Diamox this admission. Better. Plan: Hold diuretics for now. Follow-up cultures. Maintain free water flushes 200 mL every 4 hours. Continue to monitor renal function and urine output. Patient hemodynamically too unstable for renal replacement therapy at this time. Prognosis guarded.
--- NOTE | 2023-02-10 11:17 | P.PN ---
Subjective Progress Note Date: 02/10/23 Principal diagnosis: Acute hypoxic wrist were failure and cardiogenic shock with acute non-ST elevation myocardial infarction I am seeing this patient in consultation today 01/05/2023 for non-STEMI and likely pulmonary edema. Patient is a 77-year-old male with past medical history significant for coronary artery disease status post coronary artery bypass graft and subsequent stenting, aortic valve replacement, and aortic aneurysm repair. Patient came into the emergency room yesterday morning complaining of chest pain. Apparently, he was out mowing his neighbors lawn with a push mower when he developed severe substernal chest pain that radiated down both arms and diaphoresis. The pain did initially did improve, and he went to bed. Yesterday, morning the pain worsened and he came to the emergency room. On arrival, there was no acute ST elevation. Troponins are significantly elevated and are trending up at 0.028, 8.18, and 16.6. Patient was started on a combinat ion of nitroglycerin infusion and heparin. Chest CTA showed no evidence of acute pulmonary emboli. There were diffuse bilateral lung infiltrates worse on the right, correlating for possible atypical pulmonary edema versus atypical pneumonia. On my evaluation, the patient is in some acute distress. He is reporting worsening chest pain, he is diaphoretic, and short of breath. He does have some pink frothy sputum, possibly pulmonary edema. His oxygenation demands have increased, and he was placed on the BiPAP with settings 12/6 and FiO2 100%. I did give the patient a one-time dose of Lasix 80 mg. Patient's nitroglycerin infusion was increased to 10 mcg/m. High intensity heparin is infusing protocol. Repeat EKG was done and results relayed to on-call jewel gauger. Patient was subsequently transferred to the intensive care unit. CBC and BMP on arrival were unremarkable. Denies any infectious symptoms such as fever, chills, myalgias, cough. He has been afebrile. NT proBNP was 781. Nursing staff reports a tentative plan for possible heart catheterization in the morning. On 02/06/2023, the patient is being seen for a follow-up. The patient is critically ill at this point in time. Note that yesterday, I had to intubate the patient placed on a mechanical ventilator. Following that, the patient went to undergo a cardiac catheterization. The patient was found to have a ch ronically occluded LAD and RCA. The patient was found to have a tight lesion in the ostium of the SVG to the diagonal. The patient underwent a successful stenting of the ostium of SVG to the diagonal with a reduction of the stenosis down to 5%. Following that, he Was kept intubated and he was brought back to the intensive care unit. His condition progressively decompensated overnight. The patient became progressively more hypotensive and oliguric. For now, he remains intubated, sedated and is on a combination of fentanyl which is running at 0.5 microvascular kilogram per hour and the patient is also on propofol running at 40 microvascular kilogram per minutes. The patient is quite sym ptomatic is a mechanical ventilator assist control mode at a rate of 26, FiO2 is at 40% and earlier this morning I had to bring up is up to 15 with an FiO2 of 100%. Chest x-ray showing cardiomegaly and evidence of pulmonary edema. The patient has a pH of 7.27 with a pCO2 of 36 and pO2 of 63 on 100% FiO2. The patient is also on high-dose pressors. The patient is on norepinephrine running at 0.5 microvascular kilogram per minute and vasopressin physiologic dose. Urine operas in order of 10 mL an hour. Creatinine is on the rise and is currently up to 2.0. Earlier this morning, the patient a potassium level of 5.4 with a serum bicarb of 16. He was given 2 doses of sodium bicarb 100 mEq and currently is on a bicarbonate infusion running at the rate of 75 mL an hour. A stat echocardiogram was done this morning and the patient's LV was still dynamic. He does have moderate to severe aortic regurgitation and severe mitral regurgitation. I discussed the case with cardiology. We discussed the possibility of a aortic balloon pump versus [place] and based on his underlying valvular insufficiency, the patient was felt to be not a good candidate. He was restarted back on IV heparin. Noted that the patient was having some bloody oozing from his puncture sites including the triple-lumen cath site over the left subclavian and this has subsided. The hemoglobin currently is at 13.9. The white cell count of 15.4. The pro-calcitonin level was low at 0.09. Based on his underlying shock state, I cover the patient empirically with IV Zosyn. He is receiving Lasix 40 mg IV every 12 hours. He remains on aspirin and diuretics. He remains on high-dose statins. Condition is severely critical at this point in time. On today's evaluation of 02/07/2023, the patient is being seen for a follow-up. The patient remains intubated on a mechanical ventilator. Is currently on propofol which is running at 40 mcg/kg/m. He is off fentanyl. Is quite successful mechanical ventilator. This is the rate of 26, tidal volume of 400, FiO2 of 50% with a PEEP of 15. The blood gas from today shows a pH of 7.41 with a pCO2 of 43 and pO2 of 127. This was done FiO2 of 50%. The chest x-ray from today is showing improvement in the pulmonary edema although there is increased interstitial markings bilaterally. No other abnormalities or airspace disease of consolidation noted. Meanwhile, the patient remains still in the shock state. The patient is on pressors and his pressor requirements have improved over the past 12 hours and the patient is currently on norepinephrine running at 0.2 mcg/kg/m. The patient is also on physiologic dose of vasopressin. The patient remains on IV heparin. Urine output is in order of 100 mL an hour and the patient remains on Lasix drip at 5 mg an hour. Blood work from today shows a BUN of 56 with a creatinine of 2.2. Sodium level is at 141 with a potassium level of 3.3. His white cell cause of 9 point, with a hemoglobin of 15.3. The fluid balance is +2.6 L over the past 24 hours. His troponin peaked at 57. His proBNP level was 56,000. Repeat echocardiogram from yesterday shows a ejection fraction of 40-45%, there is bioprosthetic aortic valve with ongoing aortic insufficiency and moderate degree of mitral insufficiency without evidence of any pericardial effusion. The patient is afebrile. He does have a wide pulse pressure related to his severe aortic insufficiency. He was started on enteral feeding for nutritional support and currently he is on vital high-protein at the rate of 38 mL an hour which is goal. 02/08/2023, the patient is being seen for a follow-up. The patient is currently receiving a sedation holiday. He was taken off the propofol approximately an hour ago and his mental status being monitored. Meanwhile, the patient remains on a mechanical ventilator. This morning, he is on assist-control at the rate of 26 with a tidal volume of treatment 400, FiO2 of 50% and a PEEP of 12. Chest x-ray continues to show improvement in the pulmonary edema. The patient's chest x-ray from today shows improvement in volume status although there is residual changes of CHF and pulmonary edema. The pH is at 7.49 with a pCO2 42 and pO2 of 123. The patient has no major respiratory secretions and the secretions are scant at this point in time. Hemodynamically, the patient is improved considerably. He is currently off pressors. The combination of vasopressin and norepinephrine was gradually weaned off and the patient was taken off norepinephrine as of 835 today this morning. Urine output is in order of 100 mL an hour. The patient remains on Lasix drip at a dose of 10 mg an hour. His renal function is stable and his continues to improve. Creatinine is down to 1.76 with a BUN of 62 and a sodium level is at 144. The white cell count is at 5.9 with a hemoglobin of 12.3. Platelet has slightly dropped down to 84. The patient remains on a combination of aspirin, Plavix and the patient is also on subcu heparin. Patient is on statins. Beta blockers will be started today at a low-dose of 12.5 mg of metoprolol twice a day. The patient is also on enteral feeding for nutritional support. The patient is receiving vital high-protein at the rate of 34 mL an hour which is at goal. No other significant events otherwise for now. The patient is afebrile. Antibiotics were discontinued. Patient was today on , patient remains in the ICU intubated and mechanically ventilated. He is on assist control rate of 26 tidal volume 400 FiO2 40% and PEEP of 10. Patient is on propofol at 45 mcg/kg/m is also on norepinephrine at 0.09 mcg/kg/m Lasix at 10 mg per hour. In spite of increasing the dose of propofol, patient was noted to be extremely tachypneic and tachycardic, he was bucking the ventilator, felt that the patient needed to be further sedated and I went ahead and recommended Nimbex because of his extreme restlessness and felt that the patient was not adequately ventilated. Nimbex was given, his ventilator settings were adjusted patient was placed on FiO2 of 50% to cut down the PEEP from 10-8, I increased his flow rate to 70, repeat ABG showed a pO2 of 76 pCO2 39 pH of 7.49. Patient remains on Zosyn empirically, remains on enteral feeding/nutritional support, receiving vital HPI 34 mL per hour. Chest x-ray continues to show evidence of pulmonary edema, underlying pneumonia is not entirely ruled out but felt to be less likely. Patient has been on mechanical ventilation now since 02/05, and he is not ready for any weaning trials at this point. Hence Nimbex was given and the patient will be placed on Nimbex drip. All his labs were noted today, WBC count 7.8 hemoglobin is 13.1 his sodium is 147 and I recommended free water to be given via nasogastric tube. His BUN is 80 creatinine 1.99, remains on Lasix drip at 10 mg per hour. Reevaluated today on 02/10/2023, patient remains in the ICU, intubated and mechanically ventilated. Overnight the patient had worsening clinical course, he required more pressors including more norepinephrine, and more vasopressin, he is presently on norepinephrine at 0.7 mcg/kg/m and is also on vasopressin at 0.03 units per minutes. Patient developed significant hyperthermia with a core temperature as high as 107, hence I raised the possibility of malignant hyperthermia although the patient did not receive any medication to explain his malignant hyperthermia. Nonetheless dantrolene was given received 1 dose of dantrolene, and his core temperature came down nicely this morning is 37.7. In the meantime I discontinued his Nimbex although Nimbex is not known to cause malignant hyperthermia. Patient did not receive any psychotic medications since admission to cause neuroleptic malignant syndrome. At any rate the patient did receive 1 dose of dantrolene, and his hyperthermia resolved. Clinically he is still doing poorly today, and he is developing what seems to be a multisystem organ failure with worsening pulmonary edema, worsening renal failure, worsening liver function tests/profile. He is on assist control rate of 30 tidal volume 400 FiO2 50% and PEEP of 8 ABG showed a pO2 of 69 pCO2 38 pH of 7.40. Again the re is a significant rise in all his labs today including his renal profile and liver profile. Not to mention his urine output is becoming marginal and he was seen by nephrology this discontinued his Lasix drip, although his renal failure is not related to the Lasix whatsoever. It is related to his cardiomyopathy and LV dysfunction this is a cardiorenal picture. And not to mention that Lasix is not even helping anyway. Because the patient is not perfusing his kidneys well/cardiorenal picture. Patient is developing mottling of his lower extremities, and his feet are getting a bit cool. With diminished pulses bilaterally. Patient is maximized on pressors including vasopressin and norepin ephrine. Patient is also developing high residuals, and I'm holding his vital HPI which is running only at 10 mL per hour. Remains on antibiotics in the form of Zosyn to daptomycin, although his cultures remain negative so far. Infectious disease was consulted. At this point I believe the patient is doing poorly, and mortality is considered extremely high, will approach the family today about CODE STATUS and possibly considering comfort care measures. WBC count is 16.3 hemoglobin is 14, platelets are 118,000, sodium is 146 potassium 5 chloride 108 BUN 102 creatinine 3.70. Liver enzymes are elevated with AST of 4232 and ALT is 2178 CPK is 577, all cultures have been negative so far Objective - Vital Signs Vital signs: Vital Signs Temp 37.5 F L 02/10/23 08:00 Pulse 97 02/10/23 10:00 Resp 30 H 02/10/23 10:00 BP 105/53 02/10/23 10:00 Pulse Ox 100 02/10/23 10:00 FiO2 50 02/10/23 09:00 Intake & Output 02/09/23 02/10/23 02/10/23 18:59 06:59 18:59 Intake Total 5019.785 9254.061 317.460 Output Total 585 143 552 Balance 6084.099 0382.061 -234.540 Weight 83 kg 88 kg Intake: IV 145 328 24 0.9 Normal Saline @ KVO 45 70 0.9% Pressure Bag 30 48 24 Furosemide 100 mg In 70 10 Sodium Chloride 0.9% 90 ml @ 10 MG/HR 10 mls/hr IV .Q10H [facility] Rx#: [id number] Piperacillin-Tazobactam 3 200 .375 gm In Sodium Chloride 0.9% 100 ml @ 25 mls/hr IVPB Q12HR [facility] Rx #:[id number] Intake, IV Titration 656.096 685.061 263.460 Amount Cisatracurium 200 mg In 142.677 Sodium Chloride 0.9% 180 ml @ 1 MCG/KG/MIN 4.98 mls/hr IV .Q24H [facility] Rx#: [id number] Furosemide 100 mg In 90.5 158.000 Sodium Chloride 0.9% 90 ml @ 10 MG/HR 10 mls/hr IV .Q10H [facility] Rx#: [id number] Norepinephrine 32 mg In 71.008 101.633 219.977 Sodium Chloride 0.9% 218 ml @ 0.03 MCG/KG/MIN 1. 133 mls/hr IV .Q24H [facility] Rx#:[id number] Piperacillin-Tazobactam 3 25 .375 gm In Sodium Chloride 0.9% 100 ml @ 25 mls/hr IVPB Q8H [facility] Rx#: [id number] Vasopressin 60 unit In 18.742 Sodium Chloride 0.9% 150 ml @ 0.03 UNITS/MIN 4.59 mls/hr IV .Q24H [facility] Rx#: [id number] propofoL 1,000 mg In 11.295 Empty Bag 1 bag @ 15 MCG/ KG/MIN 6.777 mls/hr IV . [id number] [facility] Rx#:[id number] propofoL 1,000 mg In 315.616 406.686 43.483 Empty Bag 1 bag @ 75 MCG/ KG/MIN 33.883 mls/hr IV . Q2H58M [facility] Rx#:[id number] Tube Feeding 408 110 30 Other 430 600 Output: Gastric Drainage 500 Urine 585 143 52 Other: Voiding Method Indwelling Catheter Indwelling Catheter ABP, PAP, CO, CI - Last Documented Arterial Blood Pressure 103/44 - Exam GENERAL EXAM: Revealed a 77-year-old white male intubated, mechanically ventilated, sedated, on propofol and on fentanyl. HEAD: Normocephalic and atraumatic endotracheal tube and orogastric tube are intact. EYES: Normal reaction of pupils, equal size. NOSE: Clear with pink turbinates. THROAT: No erythema or exudates. NECK: No masses, positive JVD CHEST: No chest wall deformity. LUNGS: Symmetrical chest expansion, crackles and rhonchi noted bilaterally. CVS: S1 and S2 normal with systolic ejection murmur over the left sternal border and apex around 3/6, regular rhythm. ABDOMEN: No hepatosplenomegaly, active bowel sounds, no guarding or rigidity. SKIN: No rashes. CENTRAL NERVOUS SYSTEM: Sedated, could not be assessed, EXTREMITIES: There is no peripheral edema, mottling of the lower extremities is noted today, and feet are relatively cold to touch, diminished distal pulses. - Labs CBC & Chem 7: 02/10/23 04:30 02/10/23 04:30 Labs: Abnormal Lab Results - Last 24 Hours (Table) 02/09/23 02/09/23 02/09/23 Range/Units 04:05 12:54 18:08 WBC (3.8-10.6) k/uL RBC (4.30-5.90) m/uL MCV (80.0-100.0) fL Plt Count (150-450) k/uL Neutrophils # (1.3-7.7) k/uL ABG pO2 (83-108) mmHg ABG O2 Saturation (94-97) % Sodium (137-145) mmol/L Chloride (98-107) mmol/L BUN (9-20) mg/dL Creatinine (0.66-1.25) mg/dL Glucose (74-99) mg/dL POC Glucose (mg/dL) 186 H 203 H (70-110) mg/dL Calcium (8.4-10.2) mg/dL Total Bilirubin (0.2-1.3) mg/dL AST (17-59) U/L ALT (4-49) U/L Creatine Kinase (55-170) U/L C-Reactive Protein (<1.0) mg/dL Total Protein (6.3-8.2) g/dL Albumin (3.5-5.0) g/dL Procalcitonin 1.06 H (0.02-0.09) ng/mL Urine Protein (Negative) Urine Blood (Negative) Urine RBC (0-5) /hpf Urine Mucus (None) /hpf 02/09/23 02/09/23 02/09/23 Range/Units 23:15 23:16 23:45 WBC (3.8-10.6) k/uL RBC (4.30-5.90) m/uL MCV (80.0-100.0) fL Plt Count (150-450) k/uL Neutrophils # (1.3-7.7) k/uL ABG pO2 (83-108) mmHg ABG O2 Saturation (94-97) % Sodium (137-145) mmol/L Chloride (98-107) mmol/L BUN (9-20) mg/dL Creatinine (0.66-1.25) mg/dL Glucose (74-99) mg/dL POC Glucose (mg/dL) 177 H (70-110) mg/dL Calcium (8.4-10.2) mg/dL Total Bilirubin (0.2-1.3) mg/dL AST (17-59) U/L ALT (4-49) U/L Creatine Kinase 577 H (55-170) U/L C-Reactive Protein (<1.0) mg/dL Total Protein (6.3-8.2) g/dL Albumin (3.5-5.0) g/dL Procalcitonin (0.02-0.09) ng/mL Urine Protein 1+ H (Negative) Urine Blood Large H (Negative) Urine RBC 124 H (0-5) /hpf Urine Mucus Rare H (None) /hpf 02/10/23 02/10/23 02/10/23 Range/Units 04:30 04:30 05:24 WBC 16.3 H (3.8-10.6) k/uL RBC 4.08 L (4.30-5.90) m/uL MCV 102.2 H (80.0-100.0) fL Plt Count 118 L (150-450) k/uL Neutrophils # 14.3 H (1.3-7.7) k/uL ABG pO2 (83-108) mmHg ABG O2 Saturation (94-97) % Sodium 146 H (137-145) mmol/L Chloride 108 H (98-107) mmol/L BUN 102 H* (9-20) mg/dL Creatinine 3.70 H (0.66-1.25) mg/dL Glucose 158 H (74-99) mg/dL POC Glucose (mg/dL) 176 H (70-110) mg/dL Calcium 7.3 L (8.4-10.2) mg/dL Total Bilirubin 1.7 H (0.2-1.3) mg/dL AST 4232 H (17-59) U/L ALT 2178 H (4-49) U/L Creatine Kinase (55-170) U/L C-Reactive Protein 6.2 H (<1.0) mg/dL Total Protein 5.1 L (6.3-8.2) g/dL Albumin 2.7 L (3.5-5.0) g/dL Procalcitonin (0.02-0.09) ng/mL Urine Protein (Negative) Urine Blood (Negative) Urine RBC (0-5) /hpf Urine Mucus (None) /hpf 02/10/23 Range/Units 05:45 WBC (3.8-10.6) k/uL RBC (4.30-5.90) m/uL MCV (80.0-100.0) fL Plt Count (150-450) k/uL Neutrophils # (1.3-7.7) k/uL ABG pO2 69 L (83-108) mmHg ABG O2 Saturation 91.8 L (94-97) % Sodium (137-145) mmol/L Chloride (98-107) mmol/L BUN (9-20) mg/dL Creatinine (0.66-1.25) mg/dL Glucose (74-99) mg/dL POC Glucose (mg/dL) (70-110) mg/dL Calcium (8.4-10.2) mg/dL Total Bilirubin (0.2-1.3) mg/dL AST (17-59) U/L ALT (4-49) U/L Creatine Kinase (55-170) U/L C-Reactive Protein (<1.0) mg/dL Total Protein (6.3-8.2) g/dL Albumin (3.5-5.0) g/dL Procalcitonin (0.02-0.09) ng/mL Urine Protein (Negative) Urine Blood (Negative) Urine RBC (0-5) /hpf Urine Mucus (None) /hpf Microbiology - Last 24 Hours (Table) 02/06/23 22:00 Gram Stain - Final Sputum Sputum Culture - Final Assessment and Plan Assessment: Impression: Acute multisystem organ failure Acute hypoxic respiratory failure, multifactorial Acute non-ST elevation myocardial infarction, status post stenting of tight ostial lesion SVG to diagonal, patient has chronically occluded LAD and RCA Ischemic cardiomyopathy with LV dysfunction and ejection fraction of 40% on most recent echocardiogram Acute pulmonary edema Moderate severe aortic insufficiency patient is status post aortic valve replacement/aortic valve bioprosthetic. With wide pulse pressure. Acute kidney injury, acute tubular necrosis, acute cardiorenal syndrome Possible anoxic brain injury Hypothyroidism Dyslipidemia Hyperthermia, core temperature as high as 107 exact etiology is not clear, however considering the significantly elevated temp yesterday, possible malignant hyperthermia was considered, but not confirmed Recommendation: Continue ventilatory support , no vent changes were made this morning. Continue nutritional support/enteral feeding however considering the high residual, will place enteral feeding on hold for now. Continue hemodynamic support/pressors and titrate accordingly Continue Lasix drip for his pulmonary edema Continue propofol and continue fentanyl. Continue aspirin and Plavix Continue GI and DVT prophylaxis Resume Zosyn , and daptomycin continue to monitor renal status Patient is critically ill. Prognosis is extremely poor, and I would approach the family today regarding CODE STATUS and possibly comfort care measures. Nephrology evaluated the patient today, discontinued Lasix which means the pa cl may even develop worsening pulmonary edema sooner although his urine output was not that great with Lasix infusion anyway. and from the looks of it the patient may be heading towards hemodialysis, but I would definitely approach the family as the situation seems to be futile at this point. I doubt that the patient could even tolerate hemodialysis. Critical care time is over 30 minutes Time with Patient: Greater than 30
[2023-02-10 12:14] LABS: Glucose,Whole Blood 130 mg/dL (70-110)
[2023-02-10] MEDS: SODIUM CHLORIDE 0.9% 80 ML with fentaNYL (PF) 1,000 MCG IV SCH ×2 (12:19)
[2023-02-10] MEDS: ARTIFICIAL TEARS OINTMENT 3.5 GM TUBE BOTH EYES SCH ×2 (13:58→15:19)
--- NOTE | 2023-02-10 15:26 | P.PN ---
Subjective Progress Note Date: 02/10/23 Principal diagnosis: Sepsis Patient is a 77-year old male with multiple comorbidities presenting to the hospital on 02/04/2023 for chest pain patient was diagnosed with ID, the patient is status post cardiac cath and intervention requiring intubation for worsening respiratory status and despite high-grade fever and yesterday prompting infectious disease consultation. on today's evaluation that is 02/10/2023, the patient did have improvement in the fever pattern and is afebrile this afternoon, the patient remains to be intubated on the vent on 50% FiO2, no significant purulent secretions through the ET, vomiting diarrhea or any other changes reported Patient did have white, 16.3 with a left shift, BUN is 102 creatinine 3.70 liver enzymes are elevated, pro-calcitonin is 12.90 Objective - Vital Signs Vital signs: Vital Signs Temp 37.5 F L 02/10/23 08:00 Pulse 93 02/10/23 11:00 Resp 30 H 02/10/23 11:00 BP 102/57 02/10/23 11:00 Pulse Ox 100 02/10/23 11:00 FiO2 50 02/10/23 09:00 Intake & Output 02/09/23 02/10/23 02/10/23 18:59 06:59 18:59 Intake Total 1502.436 3182.061 383.292 Output Total 585 143 585 Balance 0807.763 7920.061 -201.708 Weight 83 kg 88 kg Intake: IV 145 328 30 0.9 Normal Saline @ KVO 45 70 0.9% Pressure Bag 30 48 30 Furosemide 100 mg In 70 10 Sodium Chloride 0.9% 90 ml @ 10 MG/HR 10 mls/hr IV .Q10H [facility] Rx#: [id number] Piperacillin-Tazobactam 3 200 .375 gm In Sodium Chloride 0.9% 100 ml @ 25 mls/hr IVPB Q12HR [facility] Rx #:[id number] Intake, IV Titration 656.096 685.061 323.292 Amount Cisatracurium 200 mg In 142.677 Sodium Chloride 0.9% 180 ml @ 1 MCG/KG/MIN 4.98 mls/hr IV .Q24H [facility] Rx#: [id number] Furosemide 100 mg In 90.5 158.000 Sodium Chloride 0.9% 90 ml @ 10 MG/HR 10 mls/hr IV .Q10H [facility] Rx#: [id number] Norepinephrine 32 mg In 71.008 101.633 272.430 Sodium Chloride 0.9% 218 ml @ 0.03 MCG/KG/MIN 1. 133 mls/hr IV .Q24H [facility] Rx#:[id number] Piperacillin-Tazobactam 3 25 .375 gm In Sodium Chloride 0.9% 100 ml @ 25 mls/hr IVPB Q8H [facility] Rx#: [id number] Vasopressin 60 unit In 18.742 Sodium Chloride 0.9% 150 ml @ 0.03 UNITS/MIN 4.59 mls/hr IV .Q24H [facility] Rx#: [id number] propofoL 1,000 mg In 11.295 Empty Bag 1 bag @ 15 MCG/ KG/MIN 6.777 mls/hr IV . [id number] [facility] Rx#:[id number] propofoL 1,000 mg In 315.616 406.686 50.862 Empty Bag 1 bag @ 75 MCG/ KG/MIN 33.883 mls/hr IV . Q2H58M [facility] Rx#:[id number] Tube Feeding 408 110 30 Other 430 600 Output: Gastric Drainage 500 Urine 585 143 85 Other: Voiding Method Indwelling Catheter Indwelling Catheter Indwelling Catheter ABP, PAP, CO, CI - Last Documented Arterial Blood Pressure 103/45 - Exam GENERAL DESCRIPTION: An elderly male intubated on the vent in no distress RESPIRATORY SYSTEM: Unlabored breathing , decreased breath sounds at bases HEART: S1 S2 regular rate and rhythm , ABDOMEN: Soft , no tenderness EXTREMITIES: No edema feet - Labs CBC & Chem 7: 02/10/23 04:30 02/10/23 04:30 Labs: Abnormal Lab Results - Last 24 Hours (Table) 02/09/23 02/09/23 02/09/23 Range/Units 04:05 12:54 18:08 WBC (3.8-10.6) k/uL RBC (4.30-5.90) m/uL MCV (80.0-100.0) fL Plt Count (150-450) k/uL Neutrophils # (1.3-7.7) k/uL ABG pO2 (83-108) mmHg ABG O2 Saturation (94-97) % Sodium (137-145) mmol/L Chloride (98-107) mmol/L BUN (9-20) mg/dL Creatinine (0.66-1.25) mg/dL Glucose (74-99) mg/dL POC Glucose (mg/dL) 186 H 203 H (70-110) mg/dL Calcium (8.4-10.2) mg/dL Total Bilirubin (0.2-1.3) mg/dL AST (17-59) U/L ALT (4-49) U/L Creatine Kinase (55-170) U/L C-Reactive Protein (<1.0) mg/dL Total Protein (6.3-8.2) g/dL Albumin (3.5-5.0) g/dL Procalcitonin 1.06 H (0.02-0.09) ng/mL Urine Protein (Negative) Urine Blood (Negative) Urine RBC (0-5) /hpf Urine Mucus (None) /hpf 02/09/23 02/09/23 02/09/23 Range/Units 23:15 23:16 23:45 WBC (3.8-10.6) k/uL RBC (4.30-5.90) m/uL MCV (80.0-100.0) fL Plt Count (150-450) k/uL Neutrophils # (1.3-7.7) k/uL ABG pO2 (83-108) mmHg ABG O2 Saturation (94-97) % Sodium (137-145) mmol/L Chloride (98-107) mmol/L BUN (9-20) mg/dL Creatinine (0.66-1.25) mg/dL Glucose (74-99) mg/dL POC Glucose (mg/dL) 177 H (70-110) mg/dL Calcium (8.4-10.2) mg/dL Total Bilirubin (0.2-1.3) mg/dL AST (17-59) U/L ALT (4-49) U/L Creatine Kinase 577 H (55-170) U/L C-Reactive Protein (<1.0) mg/dL Total Protein (6.3-8.2) g/dL Albumin (3.5-5.0) g/dL Procalcitonin (0.02-0.09) ng/mL Urine Protein 1+ H (Negative) Urine Blood Large H (Negative) Urine RBC 124 H (0-5) /hpf Urine Mucus Rare H (None) /hpf 02/10/23 02/10/23 02/10/23 Range/Units 04:30 04:30 04:30 WBC 16.3 H (3.8-10.6) k/uL RBC 4.08 L (4.30-5.90) m/uL MCV 102.2 H (80.0-100.0) fL Plt Count 118 L (150-450) k/uL Neutrophils # 14.3 H (1.3-7.7) k/uL ABG pO2 (83-108) mmHg ABG O2 Saturation (94-97) % Sodium 146 H (137-145) mmol/L Chloride 108 H (98-107) mmol/L BUN 102 H* (9-20) mg/dL Creatinine 3.70 H (0.66-1.25) mg/dL Glucose 158 H (74-99) mg/dL POC Glucose (mg/dL) (70-110) mg/dL Calcium 7.3 L (8.4-10.2) mg/dL Total Bilirubin 1.7 H (0.2-1.3) mg/dL AST 4232 H (17-59) U/L ALT 2178 H (4-49) U/L Creatine Kinase (55-170) U/L C-Reactive Protein 6.2 H (<1.0) mg/dL Total Protein 5.1 L (6.3-8.2) g/dL Albumin 2.7 L (3.5-5.0) g/dL Procalcitonin 12.90 H (0.02-0.09) ng/mL Urine Protein (Negative) Urine Blood (Negative) Urine RBC (0-5) /hpf Urine Mucus (None) /hpf 02/10/23 02/10/23 Range/Units 05:24 05:45 WBC (3.8-10.6) k/uL RBC (4.30-5.90) m/uL MCV (80.0-100.0) fL Plt Count (150-450) k/uL Neutrophils # (1.3-7.7) k/uL ABG pO2 69 L (83-108) mmHg ABG O2 Saturation 91.8 L (94-97) % Sodium (137-145) mmol/L Chloride (98-107) mmol/L BUN (9-20) mg/dL Creatinine (0.66-1.25) mg/dL Glucose (74-99) mg/dL POC Glucose (mg/dL) 176 H (70-110) mg/dL Calcium (8.4-10.2) mg/dL Total Bilirubin (0.2-1.3) mg/dL AST (17-59) U/L ALT (4-49) U/L Creatine Kinase (55-170) U/L C-Reactive Protein (<1.0) mg/dL Total Protein (6.3-8.2) g/dL Albumin (3.5-5.0) g/dL Procalcitonin (0.02-0.09) ng/mL Urine Protein (Negative) Urine Blood (Negative) Urine RBC (0-5) /hpf Urine Mucus (None) /hpf Microbiology - Last 24 Hours (Table) 02/06/23 22:00 Gram Stain - Final Sputum Sputum Culture - Final Assessment and Plan (1) Sepsis Current Visit: Yes Status: Acute Code(s): A41.9 - SEPSIS, UNSPECIFIED ORGANISM SNOMED Code(s): 22892595 (2) Pneumonia Current Visit: Yes Status: Acute Code(s): J18.9 - PNEUMONIA, UNSPECIFIED ORGANISM SNOMED Code(s): 073358770 Plan: 1patient with SIRS/sepsis in this patient with a fever tachycardia source questionably line related pneumonia less likely but not had excluded in this patient currently on the vent for the last 5 days 2- blood cultures from the central line peripheral has been obtained and currently pending, sputum culture was not collected 3-patient did have elevated pro-calcitonin 4patient to continue with Zosyn and daptomycin while waiting for the cultures to finalize and monitor clinical course closely Dictation was produced using [employer] dictation software. please excuse any grammatical, word or spelling errors. Time with Patient: Less than 30
[2023-02-10] MEDS ORDERED: PIPERACILLIN-TAZOBACTAM 3.375 GM in SODIUM CHLORIDE 0.9% 100 ML IVPB SCH (16:00)
[2023-02-10 16:12] VITALS: TEMP 96.5
[2023-02-10 17:23] LABS: Anion Gap 21 mmol/L; Calcium 7.3 mg/dL (8.4-10.2); Carbon Dioxide 17 mmol/L (22-30); Chloride 106 mmol/L (98-107); Glucose 162 mg/dL (74-99); Potassium 5.4 mmol/L (3.5-5.1); Sodium 144 mmol/L (137-145)
[2023-02-10 17:27] LABS: Blood Urea Nitrogen 110 mg/dL (9-20)
[2023-02-10 17:29] LABS: African American GFR (CKD) 16 (>60 ml/min/1.73 sqM); Non-African American GFR(CKD) 14 (>60 ml/min/1.73 sqM)
[2023-02-10] MEDS ORDERED: SODIUM ZIRCONIUM CYCLOSILICATE 10 GM PACKET PO ONE (18:01)
[2023-02-10 19:11] VITALS: BP 99/27
--- NOTE | 2023-02-10 19:39 | P.PN ---
Progress Note - Text Progress Note Date: 02/10/23 Chief Complaint: Chest pain This is a pleasant 77-year-old patient who follows with Dr. Savage. Cartilage is Dr. Babin. Patient had a coronary bypass in 2009.. Aortic valve replacement. 4 aortic aneurysm repair. Patient also had a coronary stent. Yesterday evening patient was mowing his neighbors lawn, which had overgrown. When he finished he was feeling a pressure in his chest and achiness in the arm. He went home and laid down. Was unable to steep and took a sleeping pill to go to sleep around 2 AM. Woke up this morning with pain across the chest and also pain down the arms. Went and sat in the living room for some time. Finally decided to come in. EKG on presentation showed ST depression in inferolateral leads. Initial troponin I was 0.028. Related to his evening patient's chest pain had resurfaced. And repeat troponin came back at 8.1. Cardiology was informed. Patient has been a bit short of breath. 02/05/2023: Overnight patient did become short of breath. More. Placed on BiPAP. 100%. Was given Lasix. Patient was then intubated. Underwent cardiac catheterization. CHRONICALLY occluded LAD and RCA. Severe stenosis in the ostium of the SVG to the diagonal branch. Successful stenting of the ostium of the SVG to the diagonal branch. Currently intubated. FiO2 70 and a PEEP of 10. This included IV propofol, levo fed Lasix. 02/06/2023: Overnight patient dropped his blood pressure even more. Became more hypoxic. Was taken up to FiO2 100%. PEEP of 15. Sinus rhythm. Patient's current drips include IV heparin, vasopressin, propofol, levo fed, IV Lasix,. IV Zosyn was added for possible pneumonia. Patient's 2 daughters are aware about his condition and did talk to the nurse. Patient not a good candidate for impala/balloon pump because of aortic stenosis. Very poor urine output. Nephrology consulted. 02/07/23 : Patient seen and evaluated bedside, at this time patient is on IV vasopressors, patient on IV Lasix drip as well. On propofol for sedation. Intubated and sedated continues to remain critically ill managed in ICU 02/08/2023 : Patient evaluated bedside. IV vasopressors discontinued, continue on IV Lasix drip, patient off propofol sedation. Plan to try to wean off ventilator as tolerated 02/09/2023: ICU. Ventilated. FiO2 50 no PEEP of 8. Current drips include Nimbex, norepinephrine, propofol, IV Lasix drip. 2 feeding at 34 mL an hour. He has been bucking the vent. And some Nimbex. Has been making urine. Has been spiking fevers. Patient is a low no obvious drug that would cause the same. Patient started today on IV daptomycin IV Zosyn. Prognosis guarded. Chest x-ray reviewed by me showing possible infiltrate 02/10/2023: ICU. Intubated. FiO2 50, PEEP of 8. Drips include norepinephrine, vasopressin, propofol, fentanyl. Patient sedated. Fever has come down. On IV daptomycin IV Zosyn. Liver enzymes increased. Could be drug induced versus ischemic. Active Medications Al Hydroxide/Mg Hydroxide (Mag Hydrox/Al Hydrox/Simeth 30 Ml Cup) 30 ml PO Q4HR PRN PRN Reason: Heartburn Albuterol/Ipratropium (Ipratropium-Albuterol 3 Ml Neb) 3 ml INHALATION RT-Q4H [facility] Last Admin: 02/10/23 15:38 Dose: 3 ml Albuterol/Ipratropium (Ipratropium-Albuterol 3 Ml Neb) 3 ml INHALATION RT-Q2H PRN PRN Reason: Shortness Of Breath Or Wheezing Last Admin: 02/06/23 04:16 Dose: 3 ml Alprazolam (Alprazolam 0.25 Mg Tab) 0.25 mg PO Q6HR PRN PRN Reason: Mild Anxiety Alprazolam (Alprazolam 0.5 Mg Tab) 0.5 mg PO Q6HR PRN PRN Reason: Moderate Anxiety Artificial Tears (Artificial Tears-Hypromellose Drops 15 Ml Btl) 2 drops BOTH EYES Q4HR [facility] Last Admin: 02/10/23 15:19 Dose: 2 drops Aspirin (Aspirin 81 Mg) 81 mg PO DAILY [facility] Last Admin: 02/10/23 09:31 Dose: 81 mg Atropine Sulfate (Atropine Sulfate 0.1 Mg/Ml 10ml Syringe) 0.5 mg IV ONCE PRN PRN Reason: Symptomatic Bradycardia Chlorhexidine Gluconate (Chlorhexidine Gluconate 15 Ml Cup) 15 ml MUCOUS MEM BID [facility] Last Admin: 02/10/23 09:31 Dose: 15 ml Cholecalciferol (Cholecalciferol 25 Mcg (1000 Iu) Tablet) 50 mcg PO DAILY [facility] Last Admin: 02/10/23 09:31 Dose: 50 mcg Clopidogrel Bisulfate (Clopidogrel 75 Mg Tab) 75 mg PO DAILY [facility]; Protocol Last Admin: 02/10/23 09:31 Dose: 75 mg Dextrose/Water (Dextrose 50% Syringe 50 Ml) 25 ml IVP PER PROTOCOL PRN; Protocol PRN Reason: Hypoglycemia Dextrose/Water (Dextrose 50% Syringe 50 Ml) 50 ml IVP PER PROTOCOL PRN; Protocol PRN Reason: Hypoglycemia Escitalopram Oxalate (Escitalopram 10 Mg Tab) 10 mg PO HS [facility] Last Admin: 02/09/23 21:42 Dose: 10 mg Heparin Sodium (Porcine) (Heparin Sodium,Porcine 5,000 Unit/Ml 1 Ml Vial) 5,000 unit SQ Q8HR [facility] Last Admin: 02/10/23 15:19 Dose: 5,000 unit Hydromorphone HCl (Hydromorphone 1 Mg/Ml 1 Ml Syringe) 1 mg IVP Q4HR PRN PRN Reason: Pain Last Admin: 02/08/23 20:25 Dose: 1 mg Vasopressin 60 unit/ Sodium (Chloride) 153 mls @ 4.59 mls/hr IV .Q24H [facility]; Protocol Last Admin: 02/10/23 01:23 Dose: 0.03 units/min, 4.59 mls/hr Norepinephrine Bitartrate 32 (mg/ Sodium Chloride) 250 mls @ 1.133 mls/hr IV .Q24H [facility]; Protocol Last Admin: 02/10/23 18:27 Dose: 0.69 mcg/kg/min, 26.069 mls/hr Propofol 1,000 mg/ IV Solution 100 mls @ 33.883 mls/hr IV .Q2H58M [facility]; Protocol Last Admin: 02/10/23 19:32 Dose: 60 mcg/kg/min, 27.107 mls/hr Acetaminophen 1,000 mg/ IV (Solution) 100 mls @ 400 mls/hr IVPB Q6HR PRN PRN Reason: Fever Last Admin: 02/10/23 02:28 Dose: 400 mls/hr Fentanyl Citrate 1,000 mcg/ (Sodium Chloride) 100 mls @ 4.15 mls/hr IV .Q24H [facility] Last Admin: 02/10/23 12:19 Dose: 0.5 mcg/kg/hr, 4.15 mls/hr Daptomycin 500 mg/ Sodium (Chloride) 50 mls @ 100 mls/hr IVPB Q48H [facility]; Protocol Piperacillin Sod/Tazobactam (Sod 3.375 gm/ Sodium Chloride) 100 mls @ 25 mls/hr IVPB Q12H [facility]; Protocol Last Admin: 02/10/23 15:18 Dose: 25 mls/hr Insulin Aspart (Insulin Aspart (Novolog) 100 Unit/Ml Vial) 0 unit SQ Q6HR [facility]; Protocol Last Admin: 02/10/23 18:06 Dose: 2 unit Levothyroxine Sodium (Levothyroxine 88 Mcg Tab) 176 mcg PO SUFRSA [facility] Last Admin: 02/08/23 06:43 Dose: 176 mcg Levothyroxine Sodium (Levothyroxine 100 Mcg Tab) 200 mcg PO [id number] [facility] Last Admin: 02/10/23 05:44 Dose: 200 mcg Loratadine (Loratadine 10 Mg Tab) 10 mg PO DAILY [facility] Last Admin: 02/10/23 09:31 Dose: 10 mg Metoprolol Tartrate (Metoprolol Tartrate 12.5 Mg Tab) 12.5 mg PO BID [facility] Last Admin: 02/10/23 09:31 Dose: 12.5 mg Miscellaneous Information (Potassium Replacement Protocol 1 Each Misc) 1 each MISCELLANE DAILY PRN; Protocol PRN Reason: Per Protocol Multi-Ingred Cream/Lotion/Oil/Oint (Artificial Tears Ointment 3.5 Gm Tube) 1 ap plic BOTH EYES TID [facility] Last Admin: 02/10/23 15:19 Dose: 1 applic Multivitamins (Multivitamins, Thera 1 Each Tab) 1 each PO DAILY [facility] Last Admin: 02/10/23 09:32 Dose: 1 each Nitroglycerin (Nitroglycerin Sl Tabs 0.4 Mg Tab) 0.4 mg SUBLINGUAL Q5M PRN PRN Reason: Chest Pain Pantoprazole Sodium (Pantoprazole 40 Mg/10 Ml Vial) 40 mg IV DAILY [facility] Last Admin: 02/10/23 09:32 Dose: 40 mg Past medical history to include: Hyperlipidemia, osteoarthritis, hypothyroid, cardiac valve replacement, CAD with stent, coronary bypass in 2010, aortic aneurysm repair, bilateral rotator cuff repair, depression Social history: Lives alone. No smoking or alcohol Physical examination: VITAL SIGNS: 100, 92, 30, 97.52, 100% on the vent GENERAL: In bed, intubated EYES: Pupils equal. Conjunctiva normal. HEENT: External appearance of nose and ears normal, oral cavity grossly normal. Endotracheal tube. OG tube. NECK: JVD unable to assess; masses not palpable. HEART: First and second heart sounds are normal; no edema. LUNGS: Respiratory rate increased; decreased breath sounds. ABDOMEN: Soft, nontender, liver spleen not palpable, no masses palpable. Hsu catheter. PSYCH: Patient sedated MUSCULOSKELETAL:No Clubbing/cyanosis;muscles-grossly intact. OA INVESTIGATIONS, reviewed in the clinical context: February 10: WBC 16.3 hemoglobin 14 platelets 118 potassium 5 BUN 102 creatinine 3 .7 AST 4232 ALT 2178 procalcitonin 12.9 February 09: WBC 7.8 hemoglobin 13.1 platelets 104. ABG: PH 7.5 pCO2 40 pO2 76 sodium 147 potassium 3.8 BUN 80 creatinine 1.99 procalcitonin 1.06 February 06: White count 15 hemoglobin 14.2 platelets 107 potassium 4.9 BUN 54 creatinine 2.29. Troponin I 57.3. ProBNP 97245. Ionized calcium 4.1. February 05: ProBNP 55656. BUN 33 creatinine 1.46 2-D echocardiogram: EF 55-60%. AV prosthesis. Moderate to severe AI. Moderate TR. Moderate pulmonary hypertension. Moderate MR. COVID-19: Not detected White count 4.3 hemoglobin 14.6 platelets 102 sodium 137 potassium 4 BUN 24 creatinine 0.91 Troponin I 0.028, 8.1, 38.4 ProBNP 781 EKG tracing personally reviewed by me-ST segment depression in inferolateral leads. Chest x-ray film personally reviewed by me-possibly chronic infiltrates CT angiogram chest: No PE. Diffuse bilateral lung infiltrates. Assessment and plan: -Acute non-ST elevation myocardial infarction. Cardiac catheterization today by Dr. Babin: 1. Chronically occluded LAD and RCA 2. Severe stenosis in the ostium of the SVG to the diagonal branch 3. Right dominance 4. Successful stenting of the ostium of the SVG to the diagonal branch with reduction of stenosis from 90% to less than 5% -Acute pulmonary edema secondary to acute [place].: On Lasix drip. Discontinued -Severe Sepsis with high temperatures. Neuroleptic malignant syndrome is being considered. But currently no obvious cause determined. Rather lean towards infectious cause currently.: Temperature is coming down IV Zosyn, IV daptomycin -Acute kidney injury, ATN, oliguric: Multifactorial. Slow to responded Nephrology following -Cardiogenic shock: Not improving Currently on levo fed -Acute hypoxic respiratory failure, requiring ventilator assist: Slow to respond Intubated February 05. FiO2 50 %. PEEP of 8 -CAD with a prior history of stent coronary bypass Lipitor. Plavix. -Hyperlipidemia Lipitor -Acute severe hepatitis could be ischemic/drug-induced Stop Tylenol -Metabolic alkalosis possibly from volume contraction. Discontinued Diamox. A sister discontinued -Hypernatremia from volume contraction. Follow lites closely. -BPH Cardura 2 mg daily at bedtime, currently held -Depression Lexapro 10 mg bupropion . Hypothyroid Synthroid -Full code ICU. Multiple IV fluids. IV vancomycin changed to IV daptomycin. IV Zosyn. Pressors. Propofol. IV Lasix drip has been discontinued. Nose is guarded.
[2023-02-10] MEDS ORDERED: MORPHINE SULFATE 4 MG/ML SYRINGE IV PRN (19:43)
--- NOTE | 2023-02-10 20:35 | P.DS ---
Providers Date of admission: 02/04/23 12:15 Expected date of discharge: 02/10/23 Attending physician: Kamaljit Hagan Consults: 02/04/23 12:13 Consult Physician Urgent Consulting Provider: Isma Titus Consult Reason/Comments: ua Do you want consulting provider notified?: Already Contacted 02/04/23 19:34 Consult Physician Routine Consulting Provider: Keon Perez Consult Reason/Comments: Abnormal CT chest Do you want consulting provider notified?: Yes 02/05/23 14:32 Consult Physician Routine Consulting Provider: [facility] Consult Reason/Comments: Post Interventional Patient Do you want consulting provider notified?: Already Contacted 02/05/23 17:06 Consult Physician Urgent Consulting Provider: Ana Garcia Consult Reason/Comments: acute kidney injury Do you want consulting provider notified?: Yes 02/09/23 15:41 Consult Physician Routine Consulting Provider: Natividad Keenan Consult Reason/Comments: Fever Do you want consulting provider notified?: Yes Primary care physician: [facility] Course: Chief Complaint: Chest pain This is a pleasant 77-year-old patient who follows with Dr. Savage. Cartilage is Dr. Babin. Patient had a coronary bypass in 2009.. Aortic valve replacement. 4 aortic aneurysm repair. Patient also had a coronary stent. Yesterday evening patient was mowing his neighbors lawn, which had overgrown. When he finished he was feeling a pressure in his chest and achiness in the arm. He went home and laid down. Was unable to steep and took a sleeping pill to go to sleep around 2 AM. Woke up this morning with pain across the chest and also pain down the arms. Went and sat in the living room for some time. Finally decided to come in. EKG on presentation showed ST depression in inferolateral leads. Initial troponin I was 0.028. Related to his evening patient's chest pain had resurfaced. And repeat troponin came back at 8.1. Cardiology was informed. Patient has been a bit short of breath. 02/05/2023: Overnight patient did become short of breath. More. Placed on BiPAP. 100%. Was given Lasix. Patient was then intubated. Underwent cardiac catheterization. CHRONICALLY occluded LAD and RCA. Severe stenosis in the ostium of the SVG to the diagonal branch. Successful stenting of the ostium of the SVG to the diagonal branch. Currently intubated. FiO2 70 and a PEEP of 10. This included IV propofol, levo fed Lasix. 02/06/2023: Overnight patient dropped his blood pressure even more. Became more hypoxic. Was taken up to FiO2 100%. PEEP of 15. Sinus rhythm. Patient's current drips include IV heparin, vasopressin, propofol, levo fed, IV Lasix,. IV Zosyn was added for possible pneumonia. Patient's 2 daughters are aware about his condition and did talk to the nurse. Patient not a good candidate for impala/balloon pump because of aortic stenosis. Very poor urine output. Nephrology consulted. 02/07/23 : Patient seen and evaluated bedside, at this time patient is on IV vasopressors, patient on IV Lasix drip as well. On propofol for sedation. Intubated and sedated continues to remain critically ill managed in ICU 02/08/2023 : Patient evaluated bedside. IV vasopressors discontinued, continue on IV Lasix drip, patient off propofol sedation. Plan to try to wean off ventilator as tolerated 02/09/2023: ICU. Ventilated. FiO2 50 no PEEP of 8. Current drips include Nimbex, norepinephrine, propofol, IV Lasix drip. 2 feeding at 34 mL an hour. He has been bucking the vent. And some Nimbex. Has been making urine. Has been spiking fevers. Patient is a low no obvious drug that would cause the same. Patient started today on IV daptomycin IV Zosyn. Prognosis guarded. Chest x-ray reviewed by me showing possible infiltrate 02/10/2023: ICU. Intubated. FiO2 50, PEEP of 8. Drips include norepinephrine, vasopressin, propofol, fentanyl. Patient sedated. Fever has come down. On IV daptomycin IV Zosyn. Liver enzymes increased. Could be drug induced versus ischemic. Later today nurse called to inform me that patient was made comfort care with the family and patient . Past medical history to include: Hyperlipidemia, osteoarthritis, hypothyroid, cardiac valve replacement, CAD with stent, coronary bypass in 2009, aortic aneurysm repair, bilateral rotator cuff repair, depression Social history: Lives alone. No smoking or alcohol INVESTIGATIONS, reviewed in the clinical context: February 10: WBC 16.3 hemoglobin 14 platelets 118 potassium 5 BUN 102 creatinine 3.7 AST 4232 ALT 2178 procalcitonin 12.9 February 09: WBC 7.8 hemoglobin 13.1 platelets 104. ABG: PH 7.5 pCO2 40 pO2 76 sodium 147 potassium 3.8 BUN 80 creatinine 1.99 procalcitonin 1.06 February 06: White count 15 hemoglobin 14.2 platelets 107 potassium 4.9 BUN 54 creatinine 2.29. Troponin I 57.3. ProBNP 65187. Ionized calcium 4.1. February 05: ProBNP 27088. BUN 33 creatinine 1.46 2-D echocardiogram: EF 55-60%. AV prosthesis. Moderate to severe AI. Moderate TR. Moderate pulmonary hypertension. Moderate MR. COVID-19: Not detected White count 4.3 hemoglobin 14.6 platelets 102 sodium 137 potassium 4 BUN 24 creatinine 0.91 Troponin I 0.028, 8.1, 38.4 ProBNP 781 EKG tracing personally reviewed by me-ST segment depression in inferolateral leads. Chest x-ray film personally reviewed by me-possibly chronic infiltrates CT angiogram chest: No PE. Diffuse bilateral lung infiltrates. Cause of : Acute myocardial infarction Assessment and plan: -Acute non-ST elevation myocardial infarction. Cardiac catheterization today by Dr. Babin: 1. Chronically occluded LAD and RCA 2. Severe stenosis in the ostium of the SVG to the diagonal branch 3. Right dominance 4. Successful stenting of the ostium of the SVG to the diagonal branch with reduction of stenosis from 90% to less than 5% -Acute pulmonary edema secondary to acute VA.: On Lasix drip. Discontinued -Severe Sepsis with high temperatures. Neuroleptic malignant syndrome is being considered. But currently no obvious cause determined. Rather lean towards infectious cause currently.: Temperature is coming down IV Zosyn, IV daptomycin -Acute kidney injury, ATN, oliguric: Multifactorial. Slow to responded Nephrology following -Cardiogenic shock: Not improving Currently on levo fed -Acute hypoxic respiratory failure, requiring ventilator assist: Slow to respond Intubated February 05. FiO2 50 %. PEEP of 8 -CAD with a prior history of stent coronary bypass Lipitor. Plavix. -Hyperlipidemia Lipitor -Acute severe hepatitis could be ischemic/drug-induced Stop Tylenol -Metabolic alkalosis possibly from volume contraction. Discontinued Diamox. A sister discontinued -Hypernatremia from volume contraction. Follow lites closely. -BPH Cardura 2 mg daily at bedtime, currently held -Depression Lexapro 10 mg bupropion . Hypothyroid Synthroid Disposition: Patient Plan - Discharge Summary Discharge Rx Participant: No New Discharge Prescriptions: No Action Atorvastatin [Lipitor] 80 mg PO HS buPROPion SR [Wellbutrin SR] 150 mg PO BID Doxazosin [Cardura] 2 mg PO HS Levothyroxine Sodium [Synthroid] 175 mcg PO SUFRSA Nitroglycerin Sl Tabs [Nitrostat] 0.4 mg SUBLINGUAL Q5M PRN #25 tab PRN Reason: Chest Pain Niacin 500 mg PO HS Levothyroxine Sodium [Synthroid] 200 mcg PO MOTUWETH Aspirin EC [Ecotrin Low Dose] 81 mg PO DAILY Glucosamine/Chondr Jacobs A Sod [Osteo Bi-Flex Caplet] 1 tab PO DAILY Furosemide [Lasix] 20 mg PO DAILY #90 tab Clopidogrel [Plavix] 37.5 mg PO DAILY Multivitamins, Thera [Multivitamin (formulary)] 1 tab PO DAILY Cholecalciferol [Vitamin D3 (25 Mcg = 1000 Iu)] 50 mcg PO DAILY Ipratropium Antimony 0.06%Nasal [Atrovent Nasal 0.06%] 2 spray EA NOSTRIL TID Fexofenadine HCl 180 mg PO DAILY Escitalopram [Lexapro] 10 mg PO HS Discharge Medication List Atorvastatin [Lipitor] 80 mg PO HS 07/05/14 [History] Doxazosin [Cardura] 2 mg PO HS 07/05/14 [History] buPROPion SR [Wellbutrin SR] 150 mg PO BID 07/05/14 [History] Levothyroxine Sodium [Synthroid] 175 mcg PO SUFRSA 05/16/19 [History] Nitroglycerin Sl Tabs [Nitrostat] 0.4 mg SUBLINGUAL Q5M PRN #25 tab 05/18/19 [Rx] Aspirin EC [Ecotrin Low Dose] 81 mg PO DAILY 06/04/20 [History] Glucosamine/Chondr Jacobs A Sod [Osteo Bi-Flex Caplet] 1 tab PO DAILY 06/04/20 [History] Levothyroxine Sodium [Synthroid] 200 mcg PO MOTUWETH 06/04/20 [History] Niacin 500 mg PO HS 06/04/20 [History] Furosemide [Lasix] 20 mg PO DAILY #90 tab 06/06/20 [Rx] Ipratropium Antimony 0.06%Nasal [Atrovent Nasal 0.06%] 2 spray EA NOSTRIL TID 05/06/21 [History] Cholecalciferol [Vitamin D3 (25 Mcg = 1000 Iu)] 50 mcg PO DAILY 02/04/23 [History] Clopidogrel [Plavix] 37.5 mg PO DAILY 02/04/23 [History] Escitalopram [Lexapro] 10 mg PO HS 02/04/23 [History] Fexofenadine HCl 180 mg PO DAILY 02/04/23 [History] Multivitamins, Thera [Multivitamin (formulary)] 1 tab PO DAILY 02/04/23 [History] Follow up Appointment(s)/Referral(s): Jacob Savage DO [Primary Care Provider] - 1-2 days
[2023-02-10] MEDS ORDERED: SODIUM BICARB 8.4% 50 ML SYR (1 MEQ/ML) IV STA (20:56)
[2023-02-10 22:05] VITALS: PULSE 91; RESP 0
[2023-02-11] MEDS ORDERED: DAPTOmycin 500 MG in SODIUM CHLORIDE 0.9% 50 ML IVPB SCH (18:00)
== END 2023-02-10 23:00 | disposition expired | DRG 246 ==
LOC: CATHCVL 10:33 → 3SCARD 12:15 → 2SICU 02-05 00:49
PROVIDERS: ADMIT Hospitalist; ATTEND Hospitalist
PROC: 4A023N7 Measurement of Cardiac Sampling and Pressure, Left Heart, Percutaneous Approach (ICD-10-PCS; 2023-02-05)
PROC: B2111ZZ Fluoroscopy of Multiple Coronary Arteries using Low Osmolar Contrast (ICD-10-PCS; 2023-02-05)
PROC: B2121ZZ Fluoroscopy of Single Coronary Artery Bypass Graft using Low Osmolar Contrast (ICD-10-PCS; 2023-02-05)
PROC: 0BH18EZ Insertion of Endotracheal Airway into Trachea, Via Natural or Artificial Opening Endoscopic (ICD-10-PCS; 2023-02-05)
PROC: 03HY32Z Insertion of Monitoring Device into Upper Artery, Percutaneous Approach (ICD-10-PCS; 2023-02-05)
PROC: 4A133B1 Monitoring of Arterial Pressure, Peripheral, Percutaneous Approach (ICD-10-PCS; 2023-02-05)
PROC: 4A133J1 Monitoring of Arterial Pulse, Peripheral, Percutaneous Approach (ICD-10-PCS; 2023-02-05)
PROC: 02HV33Z Insertion of Infusion Device into Superior Vena Cava, Percutaneous Approach (ICD-10-PCS; 2023-02-05)
PROC: 3E043XZ Introduction of Vasopressor into Central Vein, Percutaneous Approach (ICD-10-PCS; 2023-02-05)
PROC: 5A0955Z Assistance with Respiratory Ventilation, Greater than 96 Consecutive Hours (ICD-10-PCS; 2023-02-05)
PROC: 027034Z Dilation of Coronary Artery, One Artery with Drug-eluting Intraluminal Device, Percutaneous Approach (ICD-10-PCS; principal; 2023-02-05 14:25)
PROC: 5A09357 Assistance with Respiratory Ventilation, Less than 24 Consecutive Hours, Continuous Positive Airway Pressure (ICD-10-PCS; 2023-02-05 14:25)
PROC: 3E0G76Z Introduction of Nutritional Substance into Upper GI, Via Natural or Artificial Opening (ICD-10-PCS; 2023-02-06)
DX: I25.710 Atherosclerosis of autologous vein coronary artery bypass graft(s) with unstable angina pectoris (principal); A41.9 Sepsis, unspecified organism; J96.01 Acute respiratory failure with hypoxia; N17.0 Acute kidney failure with tubular necrosis; R65.21 Severe sepsis with septic shock; J69.0 Pneumonitis due to inhalation of food and vomit; I21.4 Non-ST elevation (NSTEMI) myocardial infarction; I50.21 Acute systolic (congestive) heart failure; G21.0 Malignant neuroleptic syndrome; G93.1 Anoxic brain damage, not elsewhere classified; T82.898A Other specified complication of vascular prosthetic devices, implants and grafts, initial encounter; E87.0 Hyperosmolality and hypernatremia; E87.3 Alkalosis; I25.110 Atherosclerotic heart disease of native coronary artery with unstable angina pectoris; B17.9 Acute viral hepatitis, unspecified; R57.0 Cardiogenic shock; I27.20 Pulmonary hypertension, unspecified; I11.0 Hypertensive heart disease with heart failure; Z51.5 Encounter for palliative care; Z66 Do not resuscitate; I25.82 Chronic total occlusion of coronary artery; F32.A Depression, unspecified; I25.5 Ischemic cardiomyopathy; I08.3 Combined rheumatic disorders of mitral, aortic and tricuspid valves; E03.9 Hypothyroidism, unspecified; T39.1X5A Adverse effect of 4-Aminophenol derivatives, initial encounter; T50.8X5A Adverse effect of diagnostic agents, initial encounter; E78.5 Hyperlipidemia, unspecified; N40.0 Benign prostatic hyperplasia without lower urinary tract symptoms; Y71.2 Prosthetic and other implants, materials and accessory cardiovascular devices associated with adverse incidents; Z77.22 Contact with and (suspected) exposure to environmental tobacco smoke (acute) (chronic); Z20.822 Contact with and (suspected) exposure to COVID-19; Z95.1 Presence of aortocoronary bypass graft; Z95.3 Presence of xenogenic heart valve; Z79.890 Hormone replacement therapy; Z79.82 Long term (current) use of aspirin; Z79.1 Long term (current) use of non-steroidal anti-inflammatories (NSAID); Z91.018 Allergy to other foods; Z88.8 Allergy status to other drugs, medicaments and biological substances; I25.2 Old myocardial infarction; Z95.5 Presence of coronary angioplasty implant and graft; Z86.79 Personal history of other diseases of the circulatory system; Z79.899 Other long term (current) drug therapy; Z82.49 Family history of ischemic heart disease and other diseases of the circulatory system
CPT/HCPCS: 36415; 71045; 71046; 71275; 76770; 80048; 80053; 80061; 81001; 82330; 82550; 82565; 82805; 83036; 83735; 83874; 83880; 84100; 84132; 84145; 84484; 85025; 85027; 85379; 85610; 85730; 86140; 87040; 87070; 87077; 87186; 87205; 87449; 87635; 93005; 93306; 93459; 94002; 94003; 94640; 94660; 96365; 96366; 96375; 99291